=== PATIENT | male | born 1980 | race Caucasian/White ===

== ENCOUNTER 2016-07-01 20:21 | Inpatient (IN) | payer OTHER ==
[~2016-07-01] VITALS: Ht 182.9 cm; Wt 84.0 kg
[~2016-07-01 20:21] MED LIST: INSULIN PUMP SQ
[2016-07-01] MEDS ORDERED: SODIUM CHLORIDE 0.9% 1,000 ML IV ONE (20:45)
[2016-07-01] MEDS ORDERED: HYDROmorphone 2 MG/ML SYRINGE IVP ONE ×2 (20:45→23:45)
[2016-07-01] MEDS ORDERED: ONDANSETRON HCL 4 MG/2 ML VIAL IVP ONE (20:45)
[2016-07-01 20:53] LABS: BASOPHILS % (AUTO) 0.6 % (0.0-2.0); HEMATOCRIT 42.7 % (41-53); HEMOGLOBIN 14.4 g/dL (13.5-17.5); LYMPHOCYTES # (AUTO) 2.8 K/uL (1.0-4.8); LYMPHOCYTES % (AUTO) 27.4 % (22.0-44.0); MEAN CORPUSCULAR HEMOGLOBIN 31.8 pg (26.0-34.0); MEAN CORPUSCULAR HGB CONC 33.8 G/dL (31.0-37.0); MEAN CORPUSCULAR VOLUME 94 fL (80-100); MONOCYTES # (AUTO) 0.5 K/uL (0.1-1.0); MONOCYTES % (AUTO) 5.3 % (2.0-9.0); NEUTROPHILS # (AUTO) 6.6 K/uL (1.8-7.7); NEUTROPHILS % (AUTO) 64.7 % (40.0-70.0); PLATELET COUNT (AUTO) 376 K/uL (150-450); RED BLOOD CELL COUNT(AUTO) 4.53 MIL/uL (4.50-5.90); WHITE BLOOD COUNT (AUTO) 10.2 K/uL (4.5-11.0)
[2016-07-01 21:01] LABS: ANION GAP 7 mmol/L (8-16); CALCIUM, TOTAL 8.7 mg/dL (8.8-10.5); CARBON DIOXIDE 29 mmol/L (22-29); CHLORIDE 103 mmol/L (98-107); CREATININE 1.82 mg/dL (0.60-1.30); GLOMERULAR FILTR. RATE CALC 42 mL/min (>60); POTASSIUM 4.3 mmol/L (3.5-5.1); SODIUM SERUM 139 mmol/L (136-145); UREA NITROGEN, BLOOD 27 mg/dL (7-18)
[2016-07-01 21:06] LABS: ALANINE AMINOTRANSFERASE 29 U/L (12-78); ALBUMIN 2.7 g/dL (3.4-5.0); ASPARTATE AMINOTRANSFERASE 20 U/L (15-37); BILIRUBIN,TOTAL 0.2 mg/dL (0.1-1.0); TOTAL PROTEIN, SERUM 6.4 g/dL (6.4-8.2)
[2016-07-01] MEDS ORDERED: SODIUM CHLORIDE 0.9% 2,000 ML IV ONE (21:45)
[2016-07-01 22:11] LABS: GLUCOSE,POINT OF CARE 47 MG/DL (70-110)
[2016-07-01 22:46] LABS: GLUCOSE,POINT OF CARE 129 MG/DL (70-110)
[2016-07-01] MEDS ORDERED: 0.9% SODIUM CHLORIDE 10 ML SYRINGE IVP PRN (23:45)
[2016-07-01] MEDS ORDERED: ONDANSETRON HCL 4 MG/2 ML VIAL IVP PRN (23:45)
[2016-07-01] MEDS ORDERED: ACETAMINOPHEN 325 MG TABLET PO PRN (23:45)
[2016-07-01] MEDS ORDERED: DEXTROSE 10%-WATER 1,000 ML IV ONE (23:45)
[2016-07-01] MEDS ORDERED: KETOROLAC TROMETHAMINE 30 MG/ML VIAL IVP ONE (23:45)
[2016-07-02] MEDS ORDERED: DEXTROSE 50%-WATER 25 GM/50 ML SYRINGE IVP ONE
[2016-07-02 00:07] LABS: GLUCOSE,POINT OF CARE 158 MG/DL (70-110)
[2016-07-02 01:21] LABS: APPEARANCE,URINE CLEAR (CLEAR); GLUCOSE, URINE (UA) 100 mg/dL (NEGATIVE); KETONES,URINE NEGATIVE (NEGATIVE); LEUKOCYTE ESTERASE ,URINE NEGATIVE (NEGATIVE); PROTEIN,URINE SEE CONFIRM (NEGATIVE)
[2016-07-02 01:37] LABS: OCCULT BLOOD,URINE TRACE (NEGATIVE); SULFOSALICYLIC ACID,URINE 3+ (Negative); WBC,URINE 0-2 /HPF (0-5)
[2016-07-02 02:16] LABS: GLUCOSE,POINT OF CARE 125 MG/DL (70-110)
[2016-07-02] MEDS ORDERED: ONDANSETRON HCL 4 MG/2 ML VIAL IVP ONE (03:15)
[2016-07-02] MEDS ORDERED: KETOROLAC TROMETHAMINE 30 MG/ML VIAL IVP ONE (03:15)
[2016-07-02] MEDS ORDERED: HYDROmorphone 2 MG/ML SYRINGE IVP ONE (03:15)
[2016-07-02 04:41] LABS: GLUCOSE,POINT OF CARE 254 MG/DL (70-110)
[2016-07-02] MEDS ORDERED: ACETAMINOPHEN 325 MG TABLET PO PRN (05:30)
[2016-07-02] MEDS ORDERED: 0.9% SODIUM CHLORIDE 10 ML SYRINGE IVP PRN (05:30)
[2016-07-02] MEDS ORDERED: ONDANSETRON HCL 4 MG/2 ML VIAL IVP PRN ×2 (05:30→10:00)
[2016-07-02 05:52] LABS: GLUCOSE,POINT OF CARE 256 MG/DL (70-110)
[2016-07-02 06:41] VITALS: BP 136/89
[2016-07-02 06:56] LABS: GLUCOSE,POINT OF CARE 113 MG/DL (70-110)
[2016-07-02] MEDS ORDERED: INFLUENZA VIRUS VACCINE QVS 2016-17 (3YR+)/PF 60 MCG/0.5 ML SYRINGE IM ONE (07:15)
[2016-07-02 07:48] VITALS: BP 133/76
[2016-07-02 09:45] LABS: GLUCOSE,POINT OF CARE 164 MG/DL (70-110)
[2016-07-02] MEDS ORDERED: DEXTROSE 50%-WATER 25 GM/50 ML SYRINGE IVP PRN (09:45)
[2016-07-02] MEDS ORDERED: MORPHINE SULFATE 2 MG/ML SYRINGE IVP PRN (10:00)
[2016-07-02] MEDS ORDERED: ALBUTEROL SULFATE 2.5 MG/0.5 ML NEB SOLUTION NEB PRN (10:00)
[2016-07-02] MEDS ORDERED: ZOLPIDEM TARTRATE 5 MG TABLET PO PRN (10:00)
[2016-07-02] MEDS ORDERED: MAGNESIUM HYDROXIDE SUSPENSION 30 ML UDCUP PO PRN (10:00)
[2016-07-02] MEDS ORDERED: BISACODYL 10 MG RECTAL RECTAL SUPPOSITORY PR PRN (10:00)
[2016-07-02] MEDS ORDERED: IPRATROPIUM BROMIDE 0.5 MG/2.5 ML NEB SOLUTION NEB PRN (10:00)
[2016-07-02] MEDS ORDERED: SODIUM CHLORIDE 0.45% 1,000 ML IV ONE (10:15)
[2016-07-02] MEDS: PANTOPRAZOLE SODIUM 40 MG/VIAL IVP SCH (11:10)
[2016-07-02] MEDS: MORPHINE SULFATE 2 MG/ML SYRINGE IVP PRN ×2 (11:10→18:36)
[2016-07-02 11:38] LABS: BASOPHILS % (AUTO) 0.9 % (0.0-2.0); EOSINOPHILS % (AUTO) 1.4 % (1.0-6.0); HEMATOCRIT 42.5 % (41-53); HEMOGLOBIN 14.2 g/dL (13.5-17.5); LYMPHOCYTES # (AUTO) 2.1 K/uL (1.0-4.8); LYMPHOCYTES % (AUTO) 14.6 % (22.0-44.0); MEAN CORPUSCULAR HEMOGLOBIN 31.6 pg (26.0-34.0); MEAN CORPUSCULAR HGB CONC 33.4 G/dL (31.0-37.0); MEAN CORPUSCULAR VOLUME 95 fL (80-100); MONOCYTES # (AUTO) 0.6 K/uL (0.1-1.0); MONOCYTES % (AUTO) 4.3 % (2.0-9.0); NEUTROPHILS # (AUTO) 11.1 K/uL (1.8-7.7); NEUTROPHILS % (AUTO) 78.8 % (40.0-70.0); PLATELET COUNT (AUTO) 365 K/uL (150-450); RED BLOOD CELL COUNT(AUTO) 4.49 MIL/uL (4.50-5.90); RED CELL DISTRIBUTION WIDTH 13.9 % (11.5-14.5); WHITE BLOOD COUNT (AUTO) 14.1 K/uL (4.5-11.0)
[2016-07-02 11:50] VITALS: BP 137/69
[2016-07-02 11:51] LABS: GLUCOSE,POINT OF CARE 177 MG/DL (70-110)
[2016-07-02 11:52] LABS: ALBUMIN 2.4 g/dL (3.4-5.0); BILIRUBIN,TOTAL 0.3 mg/dL (0.1-1.0); CALCIUM, TOTAL 8.2 mg/dL (8.8-10.5); CREATININE 1.7 mg/dL (0.60-1.30); POTASSIUM 4.4 mmol/L (3.5-5.1); TOTAL PROTEIN, SERUM 5.8 g/dL (6.4-8.2)
[2016-07-02] MEDS: ACETAMINOPHEN 325 MG TABLET PO PRN ×2 (14:52→22:48)
[2016-07-02 15:40] VITALS: BP 141/90
[2016-07-02 17:31] LABS: GLUCOSE COMMENT 1 Received Meds; GLUCOSE,POINT OF CARE 305 MG/DL (70-110)
[2016-07-02] MEDS: INSULIN ASPART 100 UNITS/ML SQ PRN ×2 (17:45→21:37)
[2016-07-02 19:39] VITALS: BP 139/89
[2016-07-02 21:46] LABS: GLUCOSE COMMENT 1 Received Meds; GLUCOSE,POINT OF CARE 188 MG/DL (70-110)
[2016-07-02 23:15] VITALS: BP 130/78
[2016-07-03 02:31] LABS: GLUCOSE COMMENT 1 Received Meds; GLUCOSE,POINT OF CARE 303 MG/DL (70-110)
[2016-07-03] MEDS: INSULIN ASPART 100 UNITS/ML SQ PRN ×4 (02:36→16:30)
[2016-07-03] MEDS: MORPHINE SULFATE 2 MG/ML SYRINGE IVP PRN ×3 (02:36→14:27)
[2016-07-03 03:45] VITALS: BP 132/76
[2016-07-03 05:44] LABS: BASOPHILS % (AUTO) 0.7 % (0.0-2.0); HEMATOCRIT 41.5 % (41-53); HEMOGLOBIN 13.8 g/dL (13.5-17.5); LYMPHOCYTES # (AUTO) 2.1 K/uL (1.0-4.8); LYMPHOCYTES % (AUTO) 26.9 % (22.0-44.0); MEAN CORPUSCULAR HEMOGLOBIN 31.6 pg (26.0-34.0); MEAN CORPUSCULAR HGB CONC 33.2 G/dL (31.0-37.0); MEAN CORPUSCULAR VOLUME 95 fL (80-100); MONOCYTES # (AUTO) 0.4 K/uL (0.1-1.0); MONOCYTES % (AUTO) 5.5 % (2.0-9.0); NEUTROPHILS % (AUTO) 63.9 % (40.0-70.0); PLATELET COUNT (AUTO) 330 K/uL (150-450); RED BLOOD CELL COUNT(AUTO) 4.37 MIL/uL (4.50-5.90); RED CELL DISTRIBUTION WIDTH 13.4 % (11.5-14.5); WHITE BLOOD COUNT (AUTO) 7.9 K/uL (4.5-11.0)
[2016-07-03 05:53] LABS: HEMOGLOBIN A1C 10.3 % (4.5-6.2)
[2016-07-03 06:06] LABS: GLUCOSE COMMENT 1 Received Meds; GLUCOSE,POINT OF CARE 162 MG/DL (70-110)
[2016-07-03 06:16] LABS: AMYLASE 51 U/L (25-115); ANION GAP 4 mmol/L (8-16); CALCIUM, TOTAL 8.2 mg/dL (8.8-10.5); CARBON DIOXIDE 27 mmol/L (22-29); CHLORIDE 103 mmol/L (98-107); CHOL/HDL RATIO 3.3 (4.2-7.3); CREATINE KINASE MB 1.6 ng/mL (0-5); CREATINE KINASE, TOTAL 131 U/L (39-308); CREATININE 1.74 mg/dL (0.60-1.30); GLOMERULAR FILTR. RATE CALC 44 mL/min (>60); POTASSIUM 3.9 mmol/L (3.5-5.1); SODIUM SERUM 134 mmol/L (136-145); THYROID STIMULATING HORMONE 2.78 uIU/mL (0.36-3.74); UREA NITROGEN, BLOOD 21 mg/dL (7-18)
[2016-07-03 08:04] VITALS: BP 143/88
[2016-07-03] MEDS: PANTOPRAZOLE SODIUM 40 MG/VIAL IVP SCH (09:39)
[2016-07-03 10:21] LABS: GLUCOSE,POINT OF CARE 240 MG/DL (70-110)
[2016-07-03 11:26] LABS: GLUCOSE COMMENT 1 Received Meds; GLUCOSE,POINT OF CARE 287 MG/DL (70-110)
[2016-07-03 12:34] VITALS: BP 142/78
[2016-07-03 15:45] VITALS: BP 139/92
[2016-07-03 19:54] VITALS: BP 134/86
[2016-07-03 22:26] LABS: GLUCOSE COMMENT 1 Received Meds; GLUCOSE,POINT OF CARE 263 MG/DL (70-110)
[2016-07-04 04:12] LABS: GLUCOSE COMMENT 1 Received Meds; GLUCOSE,POINT OF CARE 300 MG/DL (70-110)
== END 2016-07-03 20:30 | disposition home or self-care (01) | DRG 420 ==
LOC: EMS 20:23 → 6N 07-02 05:32
PROVIDERS: ADMIT Internal Medicine Geriatric Medicine; ATTEND Internal Medicine
DX: E10.649 Type 1 diabetes mellitus with hypoglycemia without coma (principal); E10.21 Type 1 diabetes mellitus with diabetic nephropathy; E10.40 Type 1 diabetes mellitus with diabetic neuropathy, unspecified; N20.0 Calculus of kidney; E86.0 Dehydration; I12.9 Hypertensive chronic kidney disease with stage 1 through stage 4 chronic kidney disease, or unspecified chronic kidney disease; E10.22 Type 1 diabetes mellitus with diabetic chronic kidney disease; N18.9 Chronic kidney disease, unspecified; E10.319 Type 1 diabetes mellitus with unspecified diabetic retinopathy without macular edema; F17.210 Nicotine dependence, cigarettes, uncomplicated; Z87.442 Personal history of urinary calculi; Z79.4 Long term (current) use of insulin; S20.219A Contusion of unspecified front wall of thorax, initial encounter; S30.1XXA Contusion of abdominal wall, initial encounter; V89.9XXA Person injured in unspecified vehicle accident, initial encounter; Y93.89 Activity, other specified; Y92.89 Other specified places as the place of occurrence of the external cause; Y99.8 Other external cause status; Z82.49 Family history of ischemic heart disease and other diseases of the circulatory system; Z83.3 Family history of diabetes mellitus
CPT/HCPCS: 74177; 76700; 81050; 82306; 82575; 82607; 82746; 82962; 83036; 83735; 84156; 84439; 84443; 90471; 93306; 96361; 96374; 96375; 96376; 99285; C9113; G0480; J1170; J1885; J2270; J2405; J7030

== ENCOUNTER 2017-03-25 17:40 | Emergency (ER) | payer OTHER ==
[~2017-03-25] VITALS: Ht 182.9 cm; Wt 77.0 kg
[~2017-03-25 17:40] MED LIST changes: +DULO20CA30 PO; +GABA-531 PO; +INSU100V12 SQ; -INSULIN PUMP SQ
[2017-03-25] MEDS ORDERED: INSULIN PUMP (17:45)
[2017-03-25 17:57] LABS: GLUCOSE,POINT OF CARE 303 MG/DL (70-110)
[2017-03-25] MEDS ORDERED: SODIUM CHLORIDE 0.9% 1,000 ML IV ONE ×2 (18:30→20:15)
[2017-03-25 18:54] LABS: BASOPHILS % (AUTO) 0.3 % (0.0-2.0); EOSINOPHILS % (AUTO) 0.4 % (1.0-6.0); HEMATOCRIT 44.1 % (41-53); LYMPHOCYTES # (AUTO) 0.8 K/uL (1.0-4.8); MEAN CORPUSCULAR HEMOGLOBIN 32.1 pg (26.0-34.0); MEAN CORPUSCULAR VOLUME 95 fL (80-100); MONOCYTES # (AUTO) 0.5 K/uL (0.1-1.0); MONOCYTES % (AUTO) 6.4 % (2.0-9.0); NEUTROPHILS # (AUTO) 6.8 K/uL (1.8-7.7); NEUTROPHILS % (AUTO) 82.9 % (40.0-70.0); PLATELET COUNT (AUTO) 294 K/uL (150-450); RED BLOOD CELL COUNT(AUTO) 4.67 MIL/uL (4.50-5.90); RED CELL DISTRIBUTION WIDTH 14.2 % (11.5-14.5); WHITE BLOOD COUNT (AUTO) 8.2 K/uL (4.5-11.0)
[2017-03-25 19:02] LABS: ANION GAP 11 mmol/L (8-16); CALCIUM, TOTAL 8.6 mg/dL (8.8-10.5); CARBON DIOXIDE 24 mmol/L (22-29); CHLORIDE 99 mmol/L (98-107); CREATININE 2.05 mg/dL (0.60-1.30); GLOMERULAR FILTR. RATE CALC 37 mL/min (>60); OSMOLALITY 303 mOS/kg (270-310); POTASSIUM 4.7 mmol/L (3.5-5.1); SODIUM SERUM 134 mmol/L (136-145); UREA NITROGEN, BLOOD 19 mg/dL (7-18)
[2017-03-25 19:03] LABS: GLUCOSE,POINT OF CARE 389 MG/DL (70-110)
[2017-03-25 19:07] LABS: PROTHROMBIN TIME 10.3 SEC (9.4-11.6)
[2017-03-25 19:25] LABS: ALANINE AMINOTRANSFERASE 25 U/L (12-78); ALBUMIN 2.7 g/dL (3.4-5.0); ASPARTATE AMINOTRANSFERASE 21 U/L (15-37); BILIRUBIN,TOTAL 0.4 mg/dL (0.1-1.0); CREATINE KINASE MB 0.6 ng/mL (0-5); CREATINE KINASE, TOTAL 75 U/L (39-308); TOTAL PROTEIN, SERUM 6.9 g/dL (6.4-8.2)
[2017-03-25 20:12] LABS: GLUCOSE,POINT OF CARE 367 MG/DL (70-110)
[2017-03-25] MEDS ORDERED: CefTRIAXone 1 GM/DEXTROSE 50 ML IV ONE (20:15)
[2017-03-25 20:41] VITALS: BP 134/68
== END 2017-03-25 21:23 | disposition home or self-care (01) ==
LOC: EMS 17:42
DX: E11.65 Type 2 diabetes mellitus with hyperglycemia (principal); E86.0 Dehydration; J40 Bronchitis, not specified as acute or chronic; F17.210 Nicotine dependence, cigarettes, uncomplicated; Z79.4 Long term (current) use of insulin
CPT/HCPCS: 36415; 71010; 80053; 82009; 82550; 82553; 82962; 83930; 85025; 85610; 85730; 87040; 93005; 96361; 96365; 99285; J0696; J7030

== ENCOUNTER 2017-04-20 14:31 | Inpatient (IN) | payer OTHER ==
[~2017-04-20] VITALS: Ht 177.8 cm; Wt 69.5 kg
[~2017-04-20 14:31] MED LIST changes: -DULO20CA30 PO; -GABA-531 PO; -INSU100V12 SQ; +INSULIN PUMP
[2017-04-20 14:42] LABS: GLUCOSE COMMENT 2 Doctor Notified; GLUCOSE,POINT OF CARE 451 MG/DL (70-110)
[2017-04-20] MEDS ORDERED: SODIUM CHLORIDE 0.9% 1,000 ML IV ONE ×3 (15:00→16:45)
[2017-04-20] MEDS ORDERED: ONDANSETRON HCL 4 MG/2 ML VIAL IVP ONE (15:00)
[2017-04-20] MEDS ORDERED: INSULIN REGULAR, HUMAN 100 UNITS/ML IVP ONE (15:00)
[2017-04-20 15:34] LABS: BASOPHILS % (AUTO) 0.1 % (0.0-2.0); EOSINOPHILS % (AUTO) 0 % (1.0-6.0); HEMOGLOBIN 15.4 g/dL (13.5-17.5); LYMPHOCYTES # (AUTO) 1.2 K/uL (1.0-4.8); LYMPHOCYTES % (AUTO) 7.1 % (22.0-44.0); MEAN CORPUSCULAR HEMOGLOBIN 32.3 pg (26.0-34.0); MEAN CORPUSCULAR HGB CONC 34.4 G/dL (31.0-37.0); MEAN CORPUSCULAR VOLUME 94 fL (80-100); MONOCYTES # (AUTO) 0.6 K/uL (0.1-1.0); MONOCYTES % (AUTO) 3.8 % (2.0-9.0); NEUTROPHILS # (AUTO) 14.4 K/uL (1.8-7.7); PLATELET COUNT (AUTO) 396 K/uL (150-450); RED BLOOD CELL COUNT(AUTO) 4.78 MIL/uL (4.50-5.90); RED CELL DISTRIBUTION WIDTH 14.3 % (11.5-14.5); WHITE BLOOD COUNT (AUTO) 16.2 K/uL (4.5-11.0)
[2017-04-20 15:45] LABS: ALANINE AMINOTRANSFERASE 23 U/L (12-78); ALBUMIN 3.3 g/dL (3.4-5.0); ANION GAP 20 mmol/L (8-16); ASPARTATE AMINOTRANSFERASE 8 U/L (15-37); BILIRUBIN,TOTAL 0.5 mg/dL (0.1-1.0); CALCIUM, TOTAL 9.6 mg/dL (8.8-10.5); CARBON DIOXIDE 23 mmol/L (22-29); CHLORIDE 93 mmol/L (98-107); CREATININE 3.28 mg/dL (0.60-1.30); GLOMERULAR FILTR. RATE CALC 21 mL/min (>60); POTASSIUM 3.8 mmol/L (3.5-5.1); SODIUM SERUM 136 mmol/L (136-145); TOTAL PROTEIN, SERUM 7.5 g/dL (6.4-8.2); UREA NITROGEN, BLOOD 34 mg/dL (7-18)
[2017-04-20 16:43] LABS: GLUCOSE,POINT OF CARE 326 MG/DL (70-110)
[2017-04-20] MEDS ORDERED: ONDANSETRON HCL 4 MG/2 ML VIAL IVP PRN (16:45)
[2017-04-20] MEDS ORDERED: DEXTROSE 50%-WATER 25 GM/50 ML SYRINGE IVP PRN ×2 (16:45→21:15)
[2017-04-20] MEDS ORDERED: INSULIN REGULAR, HUMAN 100 UNITS/ML SQ PRN (16:45)
[2017-04-20] MEDS ORDERED: ACETAMINOPHEN 325 MG TABLET PO PRN (16:45)
[2017-04-20 19:13] LABS: GLUCOSE,POINT OF CARE 242 MG/DL (70-110)
[2017-04-20 20:10] VITALS: BP 141/72
[2017-04-20] MEDS ORDERED: DEXTROSE IV SCH (21:15)
[2017-04-20] MEDS ORDERED: INSULIN ASPART 100 UNITS/ML SQ PRN (21:15)
[2017-04-20] MEDS ORDERED: SODIUM CHL IV SCH (21:15)
[2017-04-20] MEDS ORDERED: SODIUM BICARBONATE IV SCH (21:15)
[2017-04-20] MEDS: ONDANSETRON HCL 4 MG/2 ML VIAL IVP PRN (23:34)
[2017-04-20 23:53] VITALS: BP 138/76
[2017-04-21] MEDS ORDERED: ACETAMINOPHEN 325 MG TABLET PO SCH
[2017-04-21] MEDS ORDERED: CALCIUM CARBONATE 500 MG CHEWABLE TABLET CHEW PRN (00:30)
[2017-04-21] MEDS: BENZOCAINE/MENTHOL LOZENGE [8 LOZENGES/PACKET] PO PRN (01:48)
[2017-04-21 03:40] LABS: APPEARANCE,URINE CLEAR (CLEAR); GLUCOSE, URINE (UA) >=1000 mg/dL (NEGATIVE); KETONES,URINE 40 mg/dL (NEGATIVE); LEUKOCYTE ESTERASE ,URINE NEGATIVE (NEGATIVE); OCCULT BLOOD,URINE MODERATE (NEGATIVE); PH,URINE 5.5 (5.0-8.0); PROTEIN,URINE SEE CONFIRM (NEGATIVE)
[2017-04-21 03:56] VITALS: BP 138/71
[2017-04-21 04:06] LABS: SULFOSALICYLIC ACID,URINE 2+ (Negative)
[2017-04-21 04:09] LABS: COARSE GRANULAR CASTS,URINE 0-2 /LPF (None Seen); RBC,URINE 0-2 /HPF (0-2); SQUAMOUS EPITHELIAL CELL,UR Few /LPF (None Seen); WBC,URINE 0-2 /HPF (0-5)
[2017-04-21] MEDS: PROMETHAZINE HCL 25 MG/ML VIAL IM PRN ×2 (04:37→21:27)
[2017-04-21] MEDS ORDERED: SODIUM CHLORIDE 0.45% 1,000 ML IV PRN (04:41)
[2017-04-21] MEDS ORDERED: POTASSIUM CHL 20 MEQ/0.45% NS 1,000 ML IV PRN (04:41)
[2017-04-21] MEDS ORDERED: DEXTROSE 5%-0.45% SODIUM CHL 1,000 ML IV PRN (04:41)
[2017-04-21] MEDS ORDERED: POTASSIUM CHLORIDE 40 MEQ in SODIUM CHLORIDE 0.45% 1,000 ML IV PRN (04:41)
[2017-04-21] MEDS ORDERED: SODIUM CHLORIDE 0.9% 1,000 ML IV SCH (04:41)
[2017-04-21] MEDS ORDERED: DEXTROSE 50%-WATER 25 GM/50 ML SYRINGE IVP PRN ×3 (04:45→14:30)
[2017-04-21] MEDS ORDERED: INSULIN REGULAR, HUMAN 100 UNITS/ML IVP ONE (04:45)
[2017-04-21] MEDS ORDERED: INSULIN REGULAR, HUMAN 100 UNITS/ML IVP PRN ×2 (04:45→05:00)
[2017-04-21 05:00] VITALS: BP 157/76
[2017-04-21] MEDS ORDERED: INSULIN REGULAR, HUMAN 100 UNITS in SODIUM CHLORIDE 0.9% 99 ML IV PRN ×2 (05:30)
[2017-04-21 06:19] LABS: CALCIUM, TOTAL 8.5 mg/dL (8.8-10.5); CREATININE 2.63 mg/dL (0.60-1.30); MAGNESIUM 2.2 mg/dL (1.80-2.40); PHOSPHORUS 4.6 mg/dL (2.5-4.9); POTASSIUM 4.8 mmol/L (3.5-5.1)
[2017-04-21 06:20] LABS: EOSINOPHILS % (AUTO) 0.01 % (1.0-6.0); HEMATOCRIT 40.7 % (41-53); HEMOGLOBIN 13.6 g/dL (13.5-17.5); LYMPHOCYTES # (AUTO) 0.7 K/uL (1.0-4.8); LYMPHOCYTES % (AUTO) 3.8 % (22.0-44.0); MEAN CORPUSCULAR HGB CONC 33.5 G/dL (31.0-37.0); MEAN CORPUSCULAR VOLUME 96 fL (80-100); MONOCYTES # (AUTO) 0.8 K/uL (0.1-1.0); MONOCYTES % (AUTO) 4.9 % (2.0-9.0); NEUTROPHILS # (AUTO) 15.5 K/uL (1.8-7.7); PLATELET COUNT (AUTO) 314 K/uL (150-450); RED BLOOD CELL COUNT(AUTO) 4.26 MIL/uL (4.50-5.90); RED CELL DISTRIBUTION WIDTH 14.4 % (11.5-14.5)
[2017-04-21 07:05] LABS: BILIRUBIN,TOTAL 0.5 mg/dL (0.1-1.0); TOTAL PROTEIN, SERUM 6.2 g/dL (6.4-8.2)
[2017-04-21 07:06] LABS: ALBUMIN 2.7 g/dL (3.4-5.0)
[2017-04-21 07:08] LABS: GLUCOSE,POINT OF CARE > 600 MG/DL (70-110)
[2017-04-21 07:08] LABS: GLUCOSE,POINT OF CARE 580 MG/DL (70-110)
[2017-04-21 07:19] LABS: NEUTROPHILS % (AUTO) 91.3 % (40.0-70.0); RBC MORPHOLOGY COMMENT NORMAL RBC MORPH
[2017-04-21 07:46] LABS: HEMOGLOBIN A1C 11.7 % (4.5-6.2)
[2017-04-21 08:00] VITALS: BP 138/96
[2017-04-21] MEDS: PANTOPRAZOLE SODIUM 40 MG/VIAL IVP SCH ×2 (08:08→21:04)
[2017-04-21 08:32] LABS: GLUCOSE,POINT OF CARE 355 MG/DL (70-110)
[2017-04-21] MEDS ORDERED: MAGNESIUM SULFATE 4 GM/WATER 100 ML IV PRN ×2 (09:15→13:30)
[2017-04-21] MEDS ORDERED: POTASSIUM CHL 10 MEQ/WATER 50 ML IV PRN ×2 (09:15→13:30)
[2017-04-21] MEDS ORDERED: MAGNESIUM SULFATE 2 GM in DEXTROSE 5%-WATER 50 ML IV PRN ×2 (09:15→13:30)
[2017-04-21] MEDS ORDERED: POTASSIUM CHL 20 MEQ/0.45% NS 1,000 ML IV SCH (09:15)
[2017-04-21] MEDS ORDERED: MAGNESIUM OXIDE 400 MG TABLET PO PRN ×2 (09:15→13:30)
[2017-04-21 10:39] LABS: CALCIUM, TOTAL 8.2 mg/dL (8.8-10.5); POTASSIUM 3.2 mmol/L (3.5-5.1)
[2017-04-21 10:47] LABS: CREATININE 2.41 mg/dL (0.60-1.30)
[2017-04-21] MEDS ORDERED: SODIUM CHL IV SCH (11:00)
[2017-04-21] MEDS ORDERED: DEXTROSE IV SCH (11:00)
[2017-04-21] MEDS ORDERED: SODIUM BICARBONATE IV SCH (11:00)
[2017-04-21 11:12] LABS: GLUCOSE,POINT OF CARE 354 MG/DL (70-110)
[2017-04-21 12:00] VITALS: BP 124/72
[2017-04-21] MEDS ORDERED: POTASSIUM CHLORIDE 20 MEQ in SODIUM CHLORIDE 0.45% 1,000 ML IV SCH (12:15)
[2017-04-21] MEDS ORDERED: POTASSIUM CHLORIDE 20 MEQ ER TABLET PO PRN (13:30)
[2017-04-21] MEDS: POTASSIUM CHLORIDE 20 MEQ ER TABLET PO PRN ×2 (13:38→18:03)
[2017-04-21 14:40] LABS: CALCIUM, TOTAL 8.3 mg/dL (8.8-10.5); CREATININE 2.21 mg/dL (0.60-1.30); POTASSIUM 3.3 mmol/L (3.5-5.1)
[2017-04-21] MEDS: INSULIN REGULAR, HUMAN 100 UNITS/ML SQ PRN ×3 (15:57→21:09)
[2017-04-21 16:00] VITALS: BP 128/76
[2017-04-21] MEDS: PHENOL 1.4% 177 ML SPRAY BOTTLE PO PRN (16:00)
[2017-04-21 16:32] LABS: GLUCOSE,POINT OF CARE 130 MG/DL (70-110)
[2017-04-21 16:32] LABS: GLUCOSE,POINT OF CARE 101 MG/DL (70-110)
[2017-04-21] MEDS: MAALOX/LIDOCAINE/NYSTATIN SUSP 5 ML ORAL.SYG PO PRN ×2 (18:10→20:32)
[2017-04-21 20:00] VITALS: BP 143/79
[2017-04-21] MEDS ORDERED: INSULIN DETEMIR 100 UNITS/ML SQ SCH (21:00)
[2017-04-21] MEDS: INSULIN GLARGINE,HUM.REC.ANLOG 100 UNITS/ML SQ SCH (21:05)
[2017-04-22] VITALS: BP 109/81
[2017-04-22] MEDS: INSULIN REGULAR, HUMAN 100 UNITS/ML SQ PRN ×6 (00:55→20:22)
[2017-04-22] MEDS: ONDANSETRON HCL 4 MG/2 ML VIAL IVP PRN ×3 (03:56→14:33)
[2017-04-22 04:00] VITALS: BP 133/68
[2017-04-22 05:28] LABS: ALBUMIN 2.2 g/dL (3.4-5.0); BILIRUBIN,TOTAL 0.4 mg/dL (0.1-1.0); CALCIUM, TOTAL 8.4 mg/dL (8.8-10.5); CHOL/HDL RATIO 3.2 (4.2-7.3); CREATININE 1.93 mg/dL (0.60-1.30); MAGNESIUM 2.1 mg/dL (1.80-2.40); PHOSPHORUS 2.1 mg/dL (2.5-4.9); POTASSIUM 4.3 mmol/L (3.5-5.1); TOTAL PROTEIN, SERUM 5.3 g/dL (6.4-8.2)
[2017-04-22 07:48] LABS: GLUCOSE COMMENT 1 Received Meds; GLUCOSE,POINT OF CARE 249 MG/DL (70-110)
[2017-04-22 07:48] LABS: GLUCOSE,POINT OF CARE 260 MG/DL (70-110)
[2017-04-22 08:00] VITALS: BP 145/78
[2017-04-22] MEDS: PANTOPRAZOLE SODIUM 40 MG/VIAL IVP SCH ×2 (08:01→20:19)
[2017-04-22] MEDS: POTASSIUM PHOS/SODIUM PHOS MIXTURE 1 POWDER PACKET PO SCH ×2 (09:16→21:22)
[2017-04-22] MEDS: ACETAMINOPHEN 325 MG TABLET PO PRN ×2 (09:16→20:28)
[2017-04-22 11:54] LABS: GLUCOSE COMMENT 1 Doctor Notified; GLUCOSE COMMENT 2 Juice/Food/D50 Given; GLUCOSE,POINT OF CARE 59 MG/DL (70-110)
[2017-04-22 11:54] LABS: GLUCOSE COMMENT 1 Received Meds; GLUCOSE,POINT OF CARE 191 MG/DL (70-110)
[2017-04-22 11:54] LABS: GLUCOSE,POINT OF CARE 234 MG/DL (70-110)
[2017-04-22 11:54] LABS: GLUCOSE,POINT OF CARE 239 MG/DL (70-110)
[2017-04-22 11:54] LABS: GLUCOSE COMMENT 1 Received Meds; GLUCOSE,POINT OF CARE 197 MG/DL (70-110)
[2017-04-22 11:54] LABS: GLUCOSE,POINT OF CARE 94 MG/DL (70-110)
[2017-04-22 11:54] LABS: GLUCOSE COMMENT 1 Received Meds; GLUCOSE,POINT OF CARE 292 MG/DL (70-110)
[2017-04-22 11:54] LABS: GLUCOSE,POINT OF CARE 517 MG/DL (70-110)
[2017-04-22] MEDS ORDERED: DEXTROSE 5%-0.9% SODIUM CHL 1,000 ML IV SCH (12:00)
[2017-04-22 12:03] LABS: GLUCOSE,POINT OF CARE 221 MG/DL (70-110)
[2017-04-22 12:03] LABS: GLUCOSE,POINT OF CARE 201 MG/DL (70-110)
[2017-04-22 12:52] VITALS: BP 127/62
[2017-04-22 15:15] VITALS: BP 124/79
[2017-04-22] MEDS ORDERED: SODIUM CHLORIDE 0.45% 1,000 ML IV SCH (17:20)
[2017-04-22 17:23] LABS: GLUCOSE COMMENT 1 Received Meds; GLUCOSE,POINT OF CARE 235 MG/DL (70-110)
[2017-04-22 18:18] LABS: GLUCOSE COMMENT 1 Received Meds; GLUCOSE,POINT OF CARE 270 MG/DL (70-110)
[2017-04-22 18:18] LABS: GLUCOSE COMMENT 1 Doctor Notified; GLUCOSE,POINT OF CARE 513 MG/DL (70-110)
[2017-04-22 19:43] VITALS: BP 143/81
[2017-04-22] MEDS: PHENOL 1.4% 177 ML SPRAY BOTTLE PO PRN (20:20)
[2017-04-22] MEDS: INSULIN GLARGINE,HUM.REC.ANLOG 100 UNITS/ML SQ SCH (20:21)
[2017-04-22 21:55] LABS: GLUCOSE,POINT OF CARE 285 MG/DL (70-110)
[2017-04-23] VITALS: BP 140/81
[2017-04-23 05:09] VITALS: BP 146/79
[2017-04-23] MEDS: INSULIN REGULAR, HUMAN 100 UNITS/ML SQ PRN ×2 (06:29→12:34)
[2017-04-23 06:47] LABS: BASOPHILS % (AUTO) 0.3 % (0.0-2.0); EOSINOPHILS % (AUTO) 0.3 % (1.0-6.0); HEMATOCRIT 37.2 % (41-53); LYMPHOCYTES # (AUTO) 1.7 K/uL (1.0-4.8); LYMPHOCYTES % (AUTO) 23.1 % (22.0-44.0); MEAN CORPUSCULAR HEMOGLOBIN 32.5 pg (26.0-34.0); MEAN CORPUSCULAR HGB CONC 34.9 G/dL (31.0-37.0); MEAN CORPUSCULAR VOLUME 93 fL (80-100); MONOCYTES # (AUTO) 0.6 K/uL (0.1-1.0); MONOCYTES % (AUTO) 8.5 % (2.0-9.0); NEUTROPHILS % (AUTO) 67.8 % (40.0-70.0); PLATELET COUNT (AUTO) 265 K/uL (150-450); RED BLOOD CELL COUNT(AUTO) 3.98 MIL/uL (4.50-5.90); RED CELL DISTRIBUTION WIDTH 13.5 % (11.5-14.5); WHITE BLOOD COUNT (AUTO) 7.4 K/uL (4.5-11.0)
[2017-04-23 06:48] LABS: GLUCOSE COMMENT 1 Received Meds; GLUCOSE,POINT OF CARE 196 MG/DL (70-110)
[2017-04-23 07:07] LABS: CALCIUM, TOTAL 8.2 mg/dL (8.8-10.5); CREATININE 1.59 mg/dL (0.60-1.30); PHOSPHORUS 2.7 mg/dL (2.5-4.9); POTASSIUM 3.6 mmol/L (3.5-5.1)
[2017-04-23 07:32] VITALS: BP 147/80
[2017-04-23 09:35] LABS: ALBUMIN 2.1 g/dL (3.4-5.0); BILIRUBIN,TOTAL 0.5 mg/dL (0.1-1.0); CALCIUM, TOTAL 8.2 mg/dL (8.8-10.5); CREATININE 1.49 mg/dL (0.60-1.30); MAGNESIUM 2.1 mg/dL (1.80-2.40); PHOSPHORUS 2.6 mg/dL (2.5-4.9); POTASSIUM 3.6 mmol/L (3.5-5.1); TOTAL PROTEIN, SERUM 5.6 g/dL (6.4-8.2)
[2017-04-23] MEDS: PHENOL 1.4% 177 ML SPRAY BOTTLE PO PRN (12:12)
[2017-04-23] MEDS: BENZOCAINE/MENTHOL LOZENGE [8 LOZENGES/PACKET] PO PRN (12:13)
[2017-04-23 12:17] VITALS: BP 143/88
[2017-04-23] MEDS: PANTOPRAZOLE SODIUM 40 MG/VIAL IVP SCH (12:49)
[2017-04-23 12:53] LABS: GLUCOSE,POINT OF CARE 258 MG/DL (70-110)
[2017-04-23] MEDS ORDERED: VALSARTAN 40 MG TABLET PO SCH (13:30)
[2017-04-23] MEDS: MAALOX/LIDOCAINE/NYSTATIN SUSP 5 ML ORAL.SYG PO PRN (14:37)
== END 2017-04-23 13:10 | disposition home or self-care (01) | DRG 420 ==
LOC: EMS 14:33 → 5N 18:09 → ICU 04-21 04:34 → 6N 04-22 12:20
PROVIDERS: ADMIT Internal Medicine; ATTEND Internal Medicine
DX: E10.10 Type 1 diabetes mellitus with ketoacidosis without coma (principal); N17.9 Acute kidney failure, unspecified; K85.90 Acute pancreatitis without necrosis or infection, unspecified; R65.10 Systemic inflammatory response syndrome (SIRS) of non-infectious origin without acute organ dysfunction; E10.22 Type 1 diabetes mellitus with diabetic chronic kidney disease; N18.9 Chronic kidney disease, unspecified; E10.319 Type 1 diabetes mellitus with unspecified diabetic retinopathy without macular edema; K29.00 Acute gastritis without bleeding; E86.0 Dehydration; F17.210 Nicotine dependence, cigarettes, uncomplicated; I12.9 Hypertensive chronic kidney disease with stage 1 through stage 4 chronic kidney disease, or unspecified chronic kidney disease; Z79.4 Long term (current) use of insulin; Z87.441 Personal history of nephrotic syndrome; Z91.14 Patient's other noncompliance with medication regimen; Z87.442 Personal history of urinary calculi
CPT/HCPCS: 82010; 82570; 82962; 83036; 83735; 84100; 84132; 84300; 84540; 87081; 93005; 96361; 96374; 96375; 96376; 99285; C9113; J1815; J2405; J2550; J3480; J3490; J7030; J7042; J7050

== ENCOUNTER 2017-07-27 23:11 | Inpatient (IN) | payer OTHER ==
[~2017-07-27] VITALS: Ht 182.9 cm; Wt 73.8 kg
[2017-07-27 23:27] LABS: GLUCOSE,POINT OF CARE > 600 MG/DL (70-110)
[2017-07-27] MEDS ORDERED: SODIUM CHLORIDE 0.9% 2,000 ML IV ONE (23:38)
[2017-07-27 23:43] LABS: GLUCOSE,POINT OF CARE > 600 MG/DL (70-110)
[2017-07-27 23:45] LABS: BASOPHILS % (AUTO) 1.2 % (0.0-2.0); HEMATOCRIT 40.6 % (41-53); HEMOGLOBIN 13.7 g/dL (13.5-17.5); LYMPHOCYTES % (AUTO) 16.9 % (22.0-44.0); MEAN CORPUSCULAR HEMOGLOBIN 32.1 pg (26.0-34.0); MEAN CORPUSCULAR HGB CONC 33.7 G/dL (31.0-37.0); MEAN CORPUSCULAR VOLUME 95 fL (80-100); MONOCYTES % (AUTO) 8.1 % (2.0-9.0); NEUTROPHILS # (AUTO) 8.7 K/uL (1.8-7.7); NEUTROPHILS % (AUTO) 72.8 % (40.0-70.0); PLATELET COUNT (AUTO) 452 K/uL (150-450); RED BLOOD CELL COUNT(AUTO) 4.27 MIL/uL (4.50-5.90); RED CELL DISTRIBUTION WIDTH 13.1 % (11.5-14.5)
[2017-07-27] MEDS ORDERED: INSULIN REGULAR, HUMAN 100 UNITS/ML IVP ONE (23:45)
[2017-07-28] VITALS (8 sets, daily range): BP systolic 115–140; BP diastolic 73–82
[2017-07-28] MEDS ORDERED: ONDANSETRON HCL 4 MG/2 ML VIAL IVP ONE
[2017-07-28 00:07] LABS: ALANINE AMINOTRANSFERASE 28 U/L (12-78); ALBUMIN 2.3 g/dL (3.4-5.0); ALKALINE PHOSPHATASE 92 U/L (46-116); ANION GAP 8 mmol/L (8-16); ASPARTATE AMINOTRANSFERASE 16 U/L (15-37); BILIRUBIN,TOTAL 0.3 mg/dL (0.1-1.0); CALCIUM, TOTAL 8.2 mg/dL (8.8-10.5); CARBON DIOXIDE 26 mmol/L (22-29); CHLORIDE 91 mmol/L (98-107); CREATININE 1.92 mg/dL (0.60-1.30); GLOMERULAR FILTR. RATE CALC 39 mL/min (>60); LIPASE 283 U/L (73-393); POTASSIUM 5.2 mmol/L (3.5-5.1); SODIUM SERUM 125 mmol/L (136-145); TOTAL PROTEIN, SERUM 5.8 g/dL (6.4-8.2); UREA NITROGEN, BLOOD 29 mg/dL (7-18)
[2017-07-28 00:10] LABS: GLUCOSE,RANDOM 709 mg/dL (70-110)
[2017-07-28 00:45] LABS: ACETONE,BLOOD NEGATIVE (NEGATIVE)
[2017-07-28] MEDS ORDERED: MORPHINE SULFATE 10 MG/ML SYRINGE IVP ONE (01:00)
[2017-07-28] MEDS ORDERED: SODIUM CHLORIDE 0.9% 1,000 ML IV ONE (01:00)
[2017-07-28] MEDS ORDERED: INSULIN REGULAR, HUMAN 100 UNITS/ML IVP ONE ×2 (01:00→01:30)
[2017-07-28 01:08] LABS: GLUCOSE,POINT OF CARE 379 MG/DL (70-110)
[2017-07-28 01:30] LABS: APPEARANCE,URINE CLEAR (CLEAR); BILIRUBIN,URINE NEGATIVE (NEGATIVE); GLUCOSE, URINE (UA) >=1000 mg/dL (NEGATIVE); KETONES,URINE NEGATIVE (NEGATIVE); LEUKOCYTE ESTERASE ,URINE NEGATIVE (NEGATIVE); NITRATE,URINE NEGATIVE (NEGATIVE); OCCULT BLOOD,URINE SMALL (NEGATIVE); PROTEIN,URINE SEE CONFIRM (NEGATIVE); UROBILINOGEN,URINE 0.2 mg/dL (<=1.0)
[2017-07-28 01:58] LABS: BACTERIA,URINE None Seen /HPF (None Seen); RBC,URINE 0-2 /HPF (0-2); WBC,URINE None Seen /HPF (0-5)
[2017-07-28 02:27] LABS: GLUCOSE,POINT OF CARE 244 MG/DL (70-110)
[2017-07-28] MEDS ORDERED: 0.9% SODIUM CHLORIDE 10 ML SYRINGE IVP PRN (02:45)
[2017-07-28] MEDS ORDERED: ACETAMINOPHEN 325 MG TABLET PO PRN ×2 (02:45→06:00)
[2017-07-28] MEDS ORDERED: MORPHINE SULFATE 4 MG/ML SYRINGE IVP PRN (02:45)
[2017-07-28] MEDS ORDERED: ONDANSETRON HCL 4 MG/2 ML VIAL IVP PRN (02:45)
[2017-07-28 03:12] LABS: SULFOSALICYLIC ACID,URINE 1+ (Negative)
[2017-07-28] MEDS ORDERED: MAGNESIUM HYDROXIDE SUSPENSION 30 ML UDCUP PO PRN (06:00)
[2017-07-28] MEDS ORDERED: BISACODYL 10 MG RECTAL RECTAL SUPPOSITORY PR PRN (06:00)
[2017-07-28] MEDS ORDERED: DEXTROSE 50%-WATER 25 GM/50 ML SYRINGE IVP PRN (06:00)
[2017-07-28] MEDS ORDERED: ALBUTEROL SULFATE 2.5 MG/0.5 ML NEB SOLUTION NEB PRN (06:00)
[2017-07-28] MEDS ORDERED: IPRATROPIUM BROMIDE 0.5 MG/2.5 ML NEB SOLUTION NEB PRN (06:00)
[2017-07-28] MEDS: SODIUM CHLORIDE 0.9% 1,000 ML IV SCH ×3 (06:04→23:07)
[2017-07-28] MEDS: INSULIN ASPART 100 UNITS/ML SQ PRN ×3 (06:14→17:35)
[2017-07-28 06:20] LABS: BASOPHILS % (AUTO) 1.4 % (0.0-2.0); EOSINOPHILS % (AUTO) 1.7 % (1.0-6.0); HEMATOCRIT 36.5 % (41-53); HEMOGLOBIN 12.6 g/dL (13.5-17.5); LYMPHOCYTES # (AUTO) 3.4 K/uL (1.0-4.8); LYMPHOCYTES % (AUTO) 32.9 % (22.0-44.0); MEAN CORPUSCULAR HGB CONC 34.6 G/dL (31.0-37.0); MEAN CORPUSCULAR VOLUME 93 fL (80-100); MONOCYTES # (AUTO) 0.8 K/uL (0.1-1.0); MONOCYTES % (AUTO) 7.5 % (2.0-9.0); NEUTROPHILS # (AUTO) 5.8 K/uL (1.8-7.7); NEUTROPHILS % (AUTO) 56.5 % (40.0-70.0); PLATELET COUNT (AUTO) 417 K/uL (150-450); RED BLOOD CELL COUNT(AUTO) 3.94 MIL/uL (4.50-5.90); RED CELL DISTRIBUTION WIDTH 12.8 % (11.5-14.5)
[2017-07-28 06:35] LABS: ANION GAP 3 mmol/L (8-16); CALCIUM, TOTAL 7.7 mg/dL (8.8-10.5); CARBON DIOXIDE 28 mmol/L (22-29); CHLORIDE 104 mmol/L (98-107); CREATININE 1.62 mg/dL (0.60-1.30); GLOMERULAR FILTR. RATE CALC 48 mL/min (>60); GLUCOSE,RANDOM 266 mg/dL (70-110); POTASSIUM 4.3 mmol/L (3.5-5.1); SODIUM SERUM 135 mmol/L (136-145); UREA NITROGEN, BLOOD 24 mg/dL (7-18)
[2017-07-28 06:46] LABS: ALANINE AMINOTRANSFERASE 19 U/L (12-78); ALBUMIN 1.9 g/dL (3.4-5.0); ALKALINE PHOSPHATASE 76 U/L (46-116); ASPARTATE AMINOTRANSFERASE 12 U/L (15-37); BILIRUBIN,TOTAL 0.2 mg/dL (0.1-1.0); CHOL/HDL RATIO 3.6 (4.2-7.3); CHOLESTEROL 145 mg/dL (131-200); FREE T4 (FREE THYROXINE) 0.97 ng/dL (0.76-1.46); HDL CHOLESTEROL 40 mg/dL (40-60); LDL CHOL (CALC.) 72 mg/dL (0-130); TRIGLYCERIDES 166 mg/dL (15-150)
[2017-07-28 07:55] LABS: THYROID STIMULATING HORMONE 3.37 uIU/mL (0.36-3.74)
[2017-07-28] MEDS: HEPARIN SODIUM,PORCINE 5,000 UNITS/ML VIAL SQ SCH ×2 (09:00→20:59)
[2017-07-28] MEDS: DOCUSATE SODIUM 100 MG CAPSULE PO SCH ×2 (09:00→20:59)
[2017-07-28] MEDS: PANTOPRAZOLE SODIUM 40 MG DR TABLET PO SCH (12:13)
[2017-07-28] MEDS: ONDANSETRON HCL 4 MG/2 ML VIAL IVP PRN (12:13)
[2017-07-28] MEDS ORDERED: NITROGLYCERIN 0.4 MG SUBLINGUAL TABLET #25 SL PRN ×2 (12:45→13:15)
[2017-07-28 13:27] LABS: CREATINE KINASE, TOTAL 62 U/L (39-308)
[2017-07-28] MEDS: ASPIRIN 81 MG CHEWABLE TABLET PO SCH (13:37)
[2017-07-28] MEDS: MORPHINE SULFATE 2 MG/ML SYRINGE IVP PRN (14:56)
[2017-07-28 16:53] LABS: GLUCOMETER DEV NAME(LOC) PV 4E; GLUCOSE,POINT OF CARE 273 MG/DL (70-110)
[2017-07-28 17:03] LABS: GLUCOMETER DEV NAME(LOC) 5N 1N; GLUCOSE,POINT OF CARE 299 MG/DL (70-110)
[2017-07-28 17:53] LABS: GLUCOMETER DEV NAME(LOC) 5S 1M; GLUCOSE,POINT OF CARE 392 MG/DL (70-110)
[2017-07-28 19:53] LABS: GLUCOMETER DEV NAME(LOC) 6N 1E; GLUCOSE,POINT OF CARE 251 MG/DL (70-110)
[2017-07-29 00:05] VITALS: BP 146/83
[2017-07-29] MEDS: MORPHINE SULFATE 2 MG/ML SYRINGE IVP PRN ×2 (02:10→22:32)
[2017-07-29 04:32] VITALS: BP 128/76
[2017-07-29] MEDS: INSULIN ASPART 100 UNITS/ML SQ PRN ×3 (06:10→21:19)
[2017-07-29] MEDS: SODIUM CHLORIDE 0.9% 1,000 ML IV SCH (06:10)
[2017-07-29 06:41] LABS: BASOPHILS % (AUTO) 1.4 % (0.0-2.0); EOSINOPHILS % (AUTO) 2.2 % (1.0-6.0); HEMATOCRIT 37.2 % (41-53); HEMOGLOBIN 12.9 g/dL (13.5-17.5); LYMPHOCYTES # (AUTO) 2.8 K/uL (1.0-4.8); LYMPHOCYTES % (AUTO) 34.6 % (22.0-44.0); MEAN CORPUSCULAR HEMOGLOBIN 32.3 pg (26.0-34.0); MEAN CORPUSCULAR HGB CONC 34.7 G/dL (31.0-37.0); MEAN CORPUSCULAR VOLUME 93 fL (80-100); MONOCYTES # (AUTO) 0.5 K/uL (0.1-1.0); MONOCYTES % (AUTO) 6.7 % (2.0-9.0); NEUTROPHILS # (AUTO) 4.4 K/uL (1.8-7.7); NEUTROPHILS % (AUTO) 55.1 % (40.0-70.0); PLATELET COUNT (AUTO) 437 K/uL (150-450); RED CELL DISTRIBUTION WIDTH 12.7 % (11.5-14.5)
[2017-07-29 07:04] LABS: ALBUMIN 1.8 g/dL (3.4-5.0); BILIRUBIN,TOTAL 0.2 mg/dL (0.1-1.0); CREATININE 1.59 mg/dL (0.60-1.30); POTASSIUM 4.6 mmol/L (3.5-5.1); TOTAL PROTEIN, SERUM 4.9 g/dL (6.4-8.2)
[2017-07-29 07:09] VITALS: BP 119/67
[2017-07-29] MEDS: PANTOPRAZOLE SODIUM 40 MG DR TABLET PO SCH (08:17)
[2017-07-29] MEDS: DOCUSATE SODIUM 100 MG CAPSULE PO SCH ×2 (08:18→21:00)
[2017-07-29] MEDS: ASPIRIN 81 MG CHEWABLE TABLET PO SCH (08:18)
[2017-07-29] MEDS: HEPARIN SODIUM,PORCINE 5,000 UNITS/ML VIAL SQ SCH ×2 (08:19→21:00)
[2017-07-29] MEDS ORDERED: ASPIRIN 81 MG CHEWABLE TABLET PO SCH (09:00)
[2017-07-29] MEDS: PANTOPRAZOLE SODIUM 40 MG/VIAL IVP SCH ×2 (10:00→21:07)
[2017-07-29] MEDS ORDERED: INSULIN LISPRO IV ONE (11:00)
[2017-07-29 11:13] VITALS: BP 156/85
[2017-07-29 12:54] LABS: GLUCOMETER DEV NAME(LOC) 5S 1M; GLUCOSE,POINT OF CARE 253 MG/DL (70-110)
[2017-07-29 12:54] LABS: GLUCOMETER DEV NAME(LOC) 5S 1M; GLUCOSE,POINT OF CARE 73 MG/DL (70-110)
[2017-07-29 12:54] LABS: GLUCOMETER DEV NAME(LOC) 5S 1M; GLUCOSE,POINT OF CARE 110 MG/DL (70-110)
[2017-07-29 12:54] LABS: GLUCOMETER DEV NAME(LOC) 5S 1M; GLUCOSE,POINT OF CARE 186 MG/DL (70-110)
[2017-07-29 16:08] VITALS: BP 138/89
[2017-07-29 16:18] LABS: GLUCOMETER DEV NAME(LOC) 5N 1N; GLUCOSE,POINT OF CARE 212 MG/DL (70-110)
[2017-07-29 20:02] VITALS: BP 135/86
[2017-07-29] MEDS: RAMIPRIL 5 MG CAPSULE PO SCH (21:25)
[2017-07-29] MEDS: ONDANSETRON HCL 4 MG/2 ML VIAL IVP PRN (22:27)
[2017-07-29 22:48] LABS: GLUCOMETER DEV NAME(LOC) 5N 1N; GLUCOSE,POINT OF CARE 134 MG/DL (70-110)
[2017-07-29 22:48] LABS: GLUCOMETER DEV NAME(LOC) 5N 1N; GLUCOSE,POINT OF CARE 337 MG/DL (70-110)
[2017-07-30 00:03] VITALS: BP 145/82
[2017-07-30 04:52] VITALS: BP 132/76
[2017-07-30] MEDS: SODIUM CHLORIDE 0.9% 1,000 ML IV SCH (06:08)
[2017-07-30] MEDS: MORPHINE SULFATE 2 MG/ML SYRINGE IVP PRN (06:15)
[2017-07-30 07:01] LABS: BASOPHILS % (AUTO) 1.9 % (0.0-2.0); EOSINOPHILS % (AUTO) 2.3 % (1.0-6.0); HEMOGLOBIN 13.4 g/dL (13.5-17.5); LYMPHOCYTES # (AUTO) 3.1 K/uL (1.0-4.8); LYMPHOCYTES % (AUTO) 40.7 % (22.0-44.0); MEAN CORPUSCULAR HEMOGLOBIN 31.8 pg (26.0-34.0); MEAN CORPUSCULAR HGB CONC 34.3 G/dL (31.0-37.0); MEAN CORPUSCULAR VOLUME 93 fL (80-100); MONOCYTES # (AUTO) 0.6 K/uL (0.1-1.0); MONOCYTES % (AUTO) 7.3 % (2.0-9.0); NEUTROPHILS # (AUTO) 3.7 K/uL (1.8-7.7); NEUTROPHILS % (AUTO) 47.8 % (40.0-70.0); PLATELET COUNT (AUTO) 456 K/uL (150-450); RED CELL DISTRIBUTION WIDTH 12.9 % (11.5-14.5)
[2017-07-30 07:26] LABS: BILIRUBIN,TOTAL 0.2 mg/dL (0.1-1.0); CALCIUM, TOTAL 8.1 mg/dL (8.8-10.5); CREATININE 1.53 mg/dL (0.60-1.30); MAGNESIUM 2.3 mg/dL (1.80-2.40); TOTAL PROTEIN, SERUM 5.4 g/dL (6.4-8.2)
[2017-07-30] MEDS: PANTOPRAZOLE SODIUM 40 MG/VIAL IVP SCH (07:57)
[2017-07-30] MEDS: RAMIPRIL 5 MG CAPSULE PO SCH (07:57)
[2017-07-30] MEDS: ASPIRIN 81 MG CHEWABLE TABLET PO SCH (07:58)
[2017-07-30] MEDS: HEPARIN SODIUM,PORCINE 5,000 UNITS/ML VIAL SQ SCH (07:59)
[2017-07-30] MEDS: DOCUSATE SODIUM 100 MG CAPSULE PO SCH (07:59)
[2017-07-30 08:01] VITALS: BP 142/67
[2017-07-30 08:03] LABS: GLUCOMETER DEV NAME(LOC) 5S 1M; GLUCOSE,POINT OF CARE 106 MG/DL (70-110)
[2017-07-30 11:23] VITALS: BP 136/80
[2017-07-30] MEDS: INSULIN ASPART 100 UNITS/ML SQ PRN (12:41)
[2017-07-30 13:11] LABS: AMPHET/METH SCREEN,URINE NEGATIVE (NEGATIVE); BARBITURATE SCREEN, URINE NEGATIVE (NEGATIVE); BENZODIAZEPINES SCREEN,URINE NEGATIVE (NEGATIVE); CANNABINOID SCREEN,URINE POSITIVE (NEGATIVE); COCAINE SCREEN,URINE NEGATIVE (NEGATIVE); METHADONE SCREEN, URINE NEGATIVE (NEGATIVE); OPIATE SCREEN,URINE POSITIVE (NEGATIVE)
[2017-07-30 13:13] LABS: PHENCYCLIDINE SCREEN,URINE NEGATIVE (NEGATIVE)
[2017-07-30 14:13] LABS: GLUCOMETER DEV NAME(LOC) 5N 1N; GLUCOSE,POINT OF CARE 301 MG/DL (70-110)
== END 2017-07-30 14:10 | disposition home or self-care (01) | DRG 469 ==
LOC: EMS 23:12 → 6N 07-28 01:24 → 4E 07-28 08:30 → 5S 07-28 14:20
PROVIDERS: ADMIT Internal Medicine; ATTEND Internal Medicine
DX: N17.9 Acute kidney failure, unspecified (principal); R65.11 Systemic inflammatory response syndrome (SIRS) of non-infectious origin with acute organ dysfunction; E11.65 Type 2 diabetes mellitus with hyperglycemia; E87.5 Hyperkalemia; F17.210 Nicotine dependence, cigarettes, uncomplicated; F12.90 Cannabis use, unspecified, uncomplicated; R07.89 Other chest pain; Z96.41 Presence of insulin pump (external) (internal); I10 Essential (primary) hypertension; Z91.19 Patient's noncompliance with other medical treatment and regimen; Z83.3 Family history of diabetes mellitus; Z82.49 Family history of ischemic heart disease and other diseases of the circulatory system; Z79.82 Long term (current) use of aspirin; Z79.4 Long term (current) use of insulin; Z87.442 Personal history of urinary calculi; I25.2 Old myocardial infarction
CPT/HCPCS: 71046; 74176; 80307; 82962; 83735; 84145; 84439; 84443; 93005; 93306; 96372; 96374; 96375; 96376; 99291; C9113; J1644; J1815; J2270; J2405; J7030

== ENCOUNTER 2017-08-04 01:26 | Emergency (ER) | payer OTHER ==
[~2017-08-04] VITALS: Ht 182.9 cm; Wt 72.5 kg
[2017-08-04 01:43] LABS: GLUCOSE,POINT OF CARE 545 MG/DL (70-110)
[2017-08-04 02:20] LABS: APPEARANCE,URINE CLEAR (CLEAR); BILIRUBIN,URINE NEGATIVE (NEGATIVE); GLUCOSE, URINE (UA) >=1000 mg/dL (NEGATIVE); KETONES,URINE NEGATIVE (NEGATIVE); LEUKOCYTE ESTERASE ,URINE NEGATIVE (NEGATIVE); NITRATE,URINE NEGATIVE (NEGATIVE); OCCULT BLOOD,URINE TRACE (NEGATIVE); PH,URINE 6.5 (5.0-8.0); PROTEIN,URINE SEE CONFIRM (NEGATIVE); UROBILINOGEN,URINE 0.2 mg/dL (<=1.0)
[2017-08-04 02:37] LABS: BASOPHILS % (AUTO) 1.4 % (0.0-2.0); EOSINOPHILS % (AUTO) 1.8 % (1.0-6.0); HEMOGLOBIN 13.4 g/dL (13.5-17.5); LYMPHOCYTES % (AUTO) 29.6 % (22.0-44.0); MEAN CORPUSCULAR HEMOGLOBIN 32.1 pg (26.0-34.0); MEAN CORPUSCULAR HGB CONC 33.5 G/dL (31.0-37.0); MEAN CORPUSCULAR VOLUME 96 fL (80-100); MONOCYTES # (AUTO) 0.3 K/uL (0.1-1.0); MONOCYTES % (AUTO) 4.5 % (2.0-9.0); NEUTROPHILS # (AUTO) 4.3 K/uL (1.8-7.7); NEUTROPHILS % (AUTO) 62.7 % (40.0-70.0); PLATELET COUNT (AUTO) 394 K/uL (150-450); RED BLOOD CELL COUNT(AUTO) 4.18 MIL/uL (4.50-5.90)
[2017-08-04 02:42] LABS: BACTERIA,URINE None Seen /HPF (None Seen); RBC,URINE 0-2 /HPF (0-2); SULFOSALICYLIC ACID,URINE 2+ (Negative); WBC,URINE None Seen /HPF (0-5)
[2017-08-04] MEDS ORDERED: INSULIN REGULAR, HUMAN 100 UNITS/ML IVP ONE ×3 (02:45→04:30)
[2017-08-04] MEDS ORDERED: SODIUM CHLORIDE 0.9% 1,000 ML IV ONE ×2 (02:45→03:15)
[2017-08-04 02:52] LABS: ALBUMIN 2.4 g/dL (3.4-5.0); BILIRUBIN,TOTAL 0.3 mg/dL (0.1-1.0); CALCIUM, TOTAL 8.2 mg/dL (8.8-10.5); CREATININE 1.86 mg/dL (0.60-1.30); POTASSIUM 4.9 mmol/L (3.5-5.1); TOTAL PROTEIN, SERUM 5.9 g/dL (6.4-8.2)
[2017-08-04 03:58] LABS: GLUCOSE,POINT OF CARE 416 MG/DL (70-110)
[2017-08-04] MEDS ORDERED: KETOROLAC TROMETHAMINE 30 MG/ML VIAL IVP ONE (04:00)
[2017-08-04 04:24] LABS: GLUCOSE,POINT OF CARE 358 MG/DL (70-110)
[2017-08-04 05:53] LABS: GLUCOSE,POINT OF CARE 196 MG/DL (70-110)
[2017-08-04 06:06] VITALS: BP 140/85
== END 2017-08-04 06:13 | disposition home or self-care (01) ==
LOC: EMS 01:28
DX: M54.6 Pain in thoracic spine (principal); M54.2 Cervicalgia; I10 Essential (primary) hypertension; E11.9 Type 2 diabetes mellitus without complications; I25.2 Old myocardial infarction; V89.2XXA Person injured in unspecified motor-vehicle accident, traffic, initial encounter; Y93.89 Activity, other specified; Y92.89 Other specified places as the place of occurrence of the external cause; Y99.8 Other external cause status
CPT/HCPCS: 36415; 72125; 72128; 80053; 81001; 82962; 85025; 96361; 96374; 96375; 96376; 99285; J1815; J1885; J7030

== ENCOUNTER 2017-11-20 15:55 | Inpatient (IN) | payer OTHER ==
[~2017-11-20] VITALS: Ht 182.9 cm; Wt 75.0 kg
[2017-11-20] MEDS ORDERED: INSU100V SQ (16:11)
[2017-11-20 16:12] LABS: GLUCOSE,POINT OF CARE 475 MG/DL (70-110)
[2017-11-20] MEDS ORDERED: SODIUM CHLORIDE 0.9% 2,000 ML IV ONE (17:09)
[2017-11-20] MEDS ORDERED: INSULIN REGULAR, HUMAN 100 UNITS/ML IVP ONE (17:15)
[2017-11-20] MEDS ORDERED: ONDANSETRON HCL 4 MG/2 ML VIAL IVP ONE (17:30)
[2017-11-20 17:31] LABS: BASOPHILS % (AUTO) 1.2 % (0.0-2.0); EOSINOPHILS % (AUTO) 1.2 % (1.0-6.0); HEMATOCRIT 43.3 % (41-53); HEMOGLOBIN 14.9 g/dL (13.5-17.5); LYMPHOCYTES # (AUTO) 1.3 K/uL (1.0-4.8); LYMPHOCYTES % (AUTO) 14.5 % (22.0-44.0); MEAN CORPUSCULAR HEMOGLOBIN 32.4 pg (26.0-34.0); MEAN CORPUSCULAR HGB CONC 34.4 G/dL (31.0-37.0); MEAN CORPUSCULAR VOLUME 94 fL (80-100); MONOCYTES # (AUTO) 0.4 K/uL (0.1-1.0); MONOCYTES % (AUTO) 4.8 % (2.0-9.0); NEUTROPHILS # (AUTO) 6.8 K/uL (1.8-7.7); NEUTROPHILS % (AUTO) 78.3 % (40.0-70.0); PLATELET COUNT (AUTO) 429 K/uL (150-450); RED CELL DISTRIBUTION WIDTH 13.8 % (11.5-14.5)
[2017-11-20 17:59] LABS: ALBUMIN 2.7 g/dL (3.4-5.0); BILIRUBIN,TOTAL 0.5 mg/dL (0.1-1.0); CALCIUM, TOTAL 8.8 mg/dL (8.8-10.5); CREATININE 2.37 mg/dL (0.60-1.30); POTASSIUM 5.6 mmol/L (3.5-5.1); TOTAL PROTEIN, SERUM 6.7 g/dL (6.4-8.2)
[2017-11-20 19:33] LABS: GLUCOSE,POINT OF CARE 305 MG/DL (70-110)
[2017-11-20] MEDS ORDERED: SODIUM CHLORIDE 0.9% 1,000 ML IV ONE (20:45)
[2017-11-20] MEDS ORDERED: 0.9% SODIUM CHLORIDE 10 ML SYRINGE IVP PRN (21:30)
[2017-11-20] MEDS ORDERED: ONDANSETRON HCL 4 MG/2 ML VIAL IVP PRN (21:30)
[2017-11-20] MEDS ORDERED: ACETAMINOPHEN 325 MG TABLET PO PRN (21:30)
[2017-11-20] MEDS ORDERED: POTASSIUM CHLORIDE 40 MEQ in SODIUM CHLORIDE 0.45% 1,000 ML IV PRN (21:35)
[2017-11-20] MEDS ORDERED: SODIUM CHLORIDE 0.45% 1,000 ML IV PRN (21:35)
[2017-11-20] MEDS ORDERED: SODIUM CHLORIDE 0.9% 1,000 ML IV SCH (21:35)
[2017-11-20] MEDS ORDERED: DEXTROSE 5%-0.45% SODIUM CHL 1,000 ML IV PRN (21:35)
[2017-11-20] MEDS ORDERED: DEXTROSE 50%-WATER 25 GM/50 ML SYRINGE IVP PRN (21:45)
[2017-11-20 21:51] LABS: APPEARANCE,URINE CLEAR (CLEAR); BILIRUBIN,URINE NEGATIVE (NEGATIVE); GLUCOSE, URINE (UA) >=1000 mg/dL (NEGATIVE); KETONES,URINE 40 mg/dL (NEGATIVE); LEUKOCYTE ESTERASE ,URINE NEGATIVE (NEGATIVE); NITRATE,URINE NEGATIVE (NEGATIVE); OCCULT BLOOD,URINE TRACE (NEGATIVE); PH,URINE 5.5 (5.0-8.0); PROTEIN,URINE SEE CONFIRM (NEGATIVE); UROBILINOGEN,URINE 0.2 mg/dL (<=1.0)
[2017-11-20 21:59] LABS: BASOPHILS % (AUTO) 1.4 % (0.0-2.0); EOSINOPHILS % (AUTO) 0.5 % (1.0-6.0); HEMATOCRIT 36.9 % (41-53); LYMPHOCYTES # (AUTO) 1.8 K/uL (1.0-4.8); LYMPHOCYTES % (AUTO) 20.7 % (22.0-44.0); MEAN CORPUSCULAR HEMOGLOBIN 32.6 pg (26.0-34.0); MEAN CORPUSCULAR HGB CONC 35.2 G/dL (31.0-37.0); MEAN CORPUSCULAR VOLUME 93 fL (80-100); MONOCYTES # (AUTO) 0.3 K/uL (0.1-1.0); MONOCYTES % (AUTO) 3.2 % (2.0-9.0); NEUTROPHILS # (AUTO) 6.6 K/uL (1.8-7.7); NEUTROPHILS % (AUTO) 74.2 % (40.0-70.0); PLATELET COUNT (AUTO) 381 K/uL (150-450); RED BLOOD CELL COUNT(AUTO) 3.99 MIL/uL (4.50-5.90); RED CELL DISTRIBUTION WIDTH 13.4 % (11.5-14.5)
[2017-11-20 22:01] LABS: SULFOSALICYLIC ACID,URINE 3+ (Negative)
[2017-11-20 22:02] LABS: BACTERIA,URINE None Seen /HPF (None Seen); RBC,URINE 0-2 /HPF (0-2); SQUAMOUS EPITHELIAL CELL,UR Rare /LPF (None Seen); WBC,URINE 0-2 /HPF (0-5)
[2017-11-20 22:13] LABS: GLUCOSE,POINT OF CARE 211 MG/DL (70-110)
[2017-11-20 22:18] LABS: CALCIUM, TOTAL 7.6 mg/dL (8.8-10.5); CREATININE 2.04 mg/dL (0.60-1.30); POTASSIUM 4.5 mmol/L (3.5-5.1)
[2017-11-20] MEDS: INSULIN REGULAR, HUMAN 100 UNITS in SODIUM CHLORIDE 0.9% 99 ML IV PRN ×2 (22:23)
[2017-11-20 23:03] LABS: GLUCOSE,POINT OF CARE 179 MG/DL (70-110)
[2017-11-21 00:23] LABS: GLUCOSE,POINT OF CARE 342 MG/DL (70-110)
[2017-11-21] MEDS: INSULIN REGULAR, HUMAN 100 UNITS/ML IVP PRN ×7 (01:05→14:19)
[2017-11-21 01:42] VITALS: BP 150/105
[2017-11-21 02:46] LABS: CALCIUM, TOTAL 7.7 mg/dL (8.8-10.5); CREATININE 2.09 mg/dL (0.60-1.30); POTASSIUM 4.4 mmol/L (3.5-5.1)
[2017-11-21] MEDS: POTASSIUM CHL 20 MEQ/0.45% NS 1,000 ML IV PRN ×2 (03:16→13:00)
[2017-11-21 04:00] VITALS: BP 127/81
[2017-11-21 04:29] LABS: GLUCOSE,POINT OF CARE 284 MG/DL (70-110)
[2017-11-21 04:29] LABS: GLUCOSE,POINT OF CARE 328 MG/DL (70-110)
[2017-11-21 06:38] LABS: GLUCOSE,POINT OF CARE 254 MG/DL (70-110)
[2017-11-21 07:59] LABS: ALBUMIN 2.1 g/dL (3.4-5.0); BILIRUBIN,TOTAL 0.4 mg/dL (0.1-1.0); CALCIUM, TOTAL 7.9 mg/dL (8.8-10.5); CREATININE 1.85 mg/dL (0.60-1.30); PHOSPHORUS 3.4 mg/dL (2.5-4.9); POTASSIUM 4.1 mmol/L (3.5-5.1); TOTAL PROTEIN, SERUM 5.3 g/dL (6.4-8.2)
[2017-11-21] MEDS ORDERED: ZOLPIDEM TARTRATE 5 MG TABLET PO PRN (08:45)
[2017-11-21] MEDS ORDERED: 0.9% SODIUM CHLORIDE 10 ML SYRINGE IVP PRN (08:45)
[2017-11-21 10:58] LABS: GLUCOSE,POINT OF CARE 242 MG/DL (70-110)
[2017-11-21] MEDS: PANTOPRAZOLE SODIUM 40 MG/VIAL IVP SCH (11:49)
[2017-11-21 12:00] VITALS: BP 144/94
[2017-11-21 12:03] LABS: CALCIUM, TOTAL 7.8 mg/dL (8.8-10.5); CREATININE 1.77 mg/dL (0.60-1.30); POTASSIUM 4.9 mmol/L (3.5-5.1)
[2017-11-21] MEDS: INSULIN REGULAR, HUMAN 100 UNITS in SODIUM CHLORIDE 0.9% 99 ML IV PRN ×6 (12:12→14:19)
[2017-11-21 13:59] LABS: CALCIUM, TOTAL 7.6 mg/dL (8.8-10.5); CREATININE 1.88 mg/dL (0.60-1.30); POTASSIUM 4.6 mmol/L (3.5-5.1)
[2017-11-21] MEDS ORDERED: SODIUM CHLORIDE 0.9% 1,000 ML IV ONE (15:16)
[2017-11-21] MEDS: SODIUM CHLORIDE 0.9% 1,000 ML IV SCH (15:26)
[2017-11-21] MEDS: INSULIN LISPRO 100 UNITS/ML SQ PRN ×2 (15:26→20:08)
[2017-11-21] MEDS ORDERED: DEXTROSE 50%-WATER 25 GM/50 ML SYRINGE IVP PRN (15:30)
[2017-11-21 16:00] VITALS: BP 146/90
[2017-11-21 17:28] LABS: GLUCOSE,POINT OF CARE 361 MG/DL (70-110)
[2017-11-21 17:28] LABS: GLUCOSE,POINT OF CARE 361 MG/DL (70-110)
[2017-11-21 17:28] LABS: GLUCOSE,POINT OF CARE 135 MG/DL (70-110)
[2017-11-21 18:14] LABS: GLUCOSE,POINT OF CARE 317 MG/DL (70-110)
[2017-11-21 18:14] LABS: GLUCOSE,POINT OF CARE 101 MG/DL (70-110)
[2017-11-21 18:14] LABS: GLUCOSE,POINT OF CARE 104 MG/DL (70-110)
[2017-11-21 18:14] LABS: GLUCOSE,POINT OF CARE 112 MG/DL (70-110)
[2017-11-21 18:14] LABS: GLUCOSE,POINT OF CARE 124 MG/DL (70-110)
[2017-11-21 20:03] LABS: GLUCOMETER DEV NAME(LOC) 6N 1E; GLUCOSE,POINT OF CARE 172 MG/DL (70-110)
[2017-11-21 20:40] VITALS: BP 140/84
[2017-11-21 23:42] LABS: GLUCOMETER DEV NAME(LOC) 6N 2D; GLUCOSE,POINT OF CARE 163 MG/DL (70-110)
[2017-11-22] VITALS (7 sets, daily range): BP systolic 123–152; BP diastolic 70–91
[2017-11-22 04:53] LABS: GLUCOMETER DEV NAME(LOC) 6N 2D; GLUCOSE,POINT OF CARE 324 MG/DL (70-110)
[2017-11-22] MEDS: INSULIN LISPRO 100 UNITS/ML SQ PRN ×5 (04:58→20:10)
[2017-11-22] MEDS: ONDANSETRON HCL 4 MG/2 ML VIAL IVP PRN ×2 (05:04→20:13)
[2017-11-22] MEDS: SODIUM CHLORIDE 0.9% 1,000 ML IV SCH ×2 (05:05→16:30)
[2017-11-22 07:17] LABS: CREATININE 1.84 mg/dL (0.60-1.30)
[2017-11-22] MEDS: PANTOPRAZOLE SODIUM 40 MG/VIAL IVP SCH (08:15)
[2017-11-22 09:43] LABS: GLUCOMETER DEV NAME(LOC) 6N 1E; GLUCOSE,POINT OF CARE 254 MG/DL (70-110)
[2017-11-22 11:59] LABS: GLUCOMETER DEV NAME(LOC) 6N 1E; GLUCOSE,POINT OF CARE 230 MG/DL (70-110)
[2017-11-22 16:23] LABS: GLUCOMETER DEV NAME(LOC) 6N 2D; GLUCOSE,POINT OF CARE 324 MG/DL (70-110)
[2017-11-22] MEDS ORDERED: INSULIN GLARGINE,HUM.REC.ANLOG 100 UNITS/ML SQ ONE (21:00)
[2017-11-23 01:49] LABS: GLUCOMETER DEV NAME(LOC) 6N 2D; GLUCOSE,POINT OF CARE 299 MG/DL (70-110)
[2017-11-23 01:49] LABS: GLUCOMETER DEV NAME(LOC) 6N 2D; GLUCOSE,POINT OF CARE 454 MG/DL (70-110)
[2017-11-23 01:49] LABS: GLUCOMETER DEV NAME(LOC) 6N 2D; GLUCOSE,POINT OF CARE 441 MG/DL (70-110)
[2017-11-23] MEDS: ONDANSETRON HCL 4 MG/2 ML VIAL IVP PRN (03:31)
[2017-11-23] MEDS: INSULIN LISPRO 100 UNITS/ML SQ PRN ×4 (03:42→21:06)
[2017-11-23 05:09] VITALS: BP 117/68
[2017-11-23 06:28] LABS: GLUCOMETER DEV NAME(LOC) 6N 1E; GLUCOSE,POINT OF CARE 406 MG/DL (70-110)
[2017-11-23 06:28] LABS: GLUCOMETER DEV NAME(LOC) 6N 1E; GLUCOSE,POINT OF CARE 340 MG/DL (70-110)
[2017-11-23 06:28] LABS: GLUCOMETER DEV NAME(LOC) 6N 1E; GLUCOSE,POINT OF CARE 461 MG/DL (70-110)
[2017-11-23 07:46] VITALS: BP 140/80
[2017-11-23] MEDS: INSULIN GLARGINE,HUM.REC.ANLOG 100 UNITS/ML SQ SCH ×2 (08:51→21:07)
[2017-11-23] MEDS: PANTOPRAZOLE SODIUM 40 MG/VIAL IVP SCH (08:54)
[2017-11-23 11:22] LABS: GLUCOMETER DEV NAME(LOC) 6N 2D; GLUCOSE,POINT OF CARE 512 MG/DL (70-110)
[2017-11-23 11:45] VITALS: BP 142/80
[2017-11-23 16:17] VITALS: BP 120/73
[2017-11-23 17:23] LABS: GLUCOMETER DEV NAME(LOC) 6N 1E; GLUCOSE,POINT OF CARE 330 MG/DL (70-110)
[2017-11-23 20:48] VITALS: BP 132/83
[2017-11-23] MEDS ORDERED: INSULIN GLARGINE,HUM.REC.ANLOG 100 UNITS/ML SQ ONE (22:15)
[2017-11-24 00:14] LABS: GLUCOMETER DEV NAME(LOC) 6N 1E; GLUCOSE,POINT OF CARE 332 MG/DL (70-110)
[2017-11-24 04:29] LABS: GLUCOMETER DEV NAME(LOC) 6N 1E; GLUCOSE,POINT OF CARE 203 MG/DL (70-110)
[2017-11-24 05:23] VITALS: BP 133/81
[2017-11-24] MEDS: INSULIN LISPRO 100 UNITS/ML SQ PRN (06:27)
[2017-11-24 06:34] LABS: GLUCOMETER DEV NAME(LOC) 6N 1E; GLUCOSE,POINT OF CARE 215 MG/DL (70-110)
[2017-11-24] MEDS ORDERED: INSULIN GLARGINE,HUM.REC.ANLOG 100 UNITS/ML SQ SCH (09:00)
[2017-11-24] MEDS: PANTOPRAZOLE SODIUM 40 MG/VIAL IVP SCH (09:00)
[2017-11-24] MEDS: SODIUM CHLORIDE 0.9% 1,000 ML IV SCH (09:05)
[2017-11-24] MEDS ORDERED: INSLAN SQ (09:56)
[2017-12-10 05:44] LABS: GLUCOMETER DEV NAME(LOC) PV 4E2; GLUCOSE,POINT OF CARE 190 MG/DL (70-110)
== END 2017-11-24 10:42 | disposition home or self-care (01) | DRG 469 ==
LOC: EMS 15:56 → ICU 11-21 00:18 → 6N 11-21 18:55
PROVIDERS: ADMIT Internal Medicine; ATTEND Internal Medicine
DX: N17.9 Acute kidney failure, unspecified (principal); E10.10 Type 1 diabetes mellitus with ketoacidosis without coma; K85.90 Acute pancreatitis without necrosis or infection, unspecified; F17.210 Nicotine dependence, cigarettes, uncomplicated; Z96.41 Presence of insulin pump (external) (internal); F12.90 Cannabis use, unspecified, uncomplicated; I25.2 Old myocardial infarction; Z83.3 Family history of diabetes mellitus; Z87.442 Personal history of urinary calculi; Z79.4 Long term (current) use of insulin
CPT/HCPCS: 83036; 83735; 84100; 87081; 96374; 96375; 99291; C9113; J1815; J2405; J3480; J7030; J7050

== ENCOUNTER 2018-01-31 22:43 | Emergency (ER) | payer OTHER ==
[~2018-01-31] VITALS: Ht 182.9 cm; Wt 170.0 kg
[~2018-01-31 22:43] MED LIST changes: +INSLAN SQ; +INSU100V SQ
[2018-01-31 23:08] LABS: GLUCOSE,POINT OF CARE 458 MG/DL (70-110)
[2018-02-01] MEDS ORDERED: SODIUM CHLORIDE 0.9% 1,000 ML IV ONE ×2 (01:15→03:00)
[2018-02-01 01:38] LABS: GLUCOSE,POINT OF CARE 588 MG/DL (70-110)
[2018-02-01] MEDS ORDERED: HYDROCODONE/ACETAMINOPHEN 5-325 MG TABLET PO ONE (02:00)
[2018-02-01] MEDS ORDERED: INSULIN REGULAR, HUMAN 100 UNITS/ML IVP ONE (02:00)
[2018-02-01] MEDS ORDERED: LIDOCAINE HCL 5% TRANSDERMAL PATCH TP ONE (02:00)
[2018-02-01] MEDS ORDERED: ACYCLOVIR 200 MG CAPSULE PO ONE (02:00)
[2018-02-01 02:54] LABS: GLUCOSE,POINT OF CARE 398 MG/DL (70-110)
[2018-02-01 03:54] LABS: GLUCOSE,POINT OF CARE 203 MG/DL (70-110)
[2018-02-01 03:58] VITALS: BP 160/85
== END 2018-02-01 04:29 | disposition home or self-care (01) ==
LOC: EMS 22:45
DX: B02.9 Zoster without complications (principal); E11.65 Type 2 diabetes mellitus with hyperglycemia; F17.210 Nicotine dependence, cigarettes, uncomplicated; I25.2 Old myocardial infarction; F12.90 Cannabis use, unspecified, uncomplicated; Z87.442 Personal history of urinary calculi; Z79.4 Long term (current) use of insulin
CPT/HCPCS: 82962; 96361; 96374; 99284; 99406; J1815; J7030; 99285

== ENCOUNTER 2018-08-30 23:22 | Emergency (ER) | payer OTHER ==
[~2018-08-30] VITALS: Ht 182.9 cm; Wt 77.3 kg
[~2018-08-30 23:22] MED LIST changes: -INSLAN SQ; -INSU100V SQ
[2018-08-30 23:58] LABS: GLUCOSE,POINT OF CARE 563 MG/DL (70-110)
[2018-08-31] MEDS ORDERED: KETOROLAC TROMETHAMINE 60 MG/2 ML VIAL IM ONE (01:15)
[2018-08-31 03:59] LABS: GLUCOSE,POINT OF CARE 405 MG/DL (70-110)
[2018-08-31 04:20] VITALS: BP 144/72
== END 2018-08-31 04:33 | disposition home or self-care (01) ==
LOC: EMS 23:24
DX: S16.1XXA Strain of muscle, fascia and tendon at neck level, initial encounter (principal); M26.621 Arthralgia of right temporomandibular joint; E11.9 Type 2 diabetes mellitus without complications; I25.2 Old myocardial infarction; F17.210 Nicotine dependence, cigarettes, uncomplicated; F12.90 Cannabis use, unspecified, uncomplicated; Z79.4 Long term (current) use of insulin; V49.9XXA Car occupant (driver) (passenger) injured in unspecified traffic accident, initial encounter; Y93.89 Activity, other specified; Y92.89 Other specified places as the place of occurrence of the external cause; Y99.8 Other external cause status
CPT/HCPCS: 70486; 82962; 96372; 99284; J1885

== ENCOUNTER 2018-10-01 23:51 | Emergency (ER) | payer OTHER ==
[~2018-10-01] VITALS: Ht 182.9 cm; Wt 81.8 kg
[2018-10-02] MEDS ORDERED: INSU100V SQ (00:09)
[2018-10-02] MEDS ORDERED: INSU100I26 SQ (00:09)
[2018-10-02] MEDS ORDERED: SODIUM CHLORIDE 0.9% 2,000 ML IV ONE (00:16)
[2018-10-02 00:20] LABS: GLUCOSE,POINT OF CARE 464 MG/DL (70-110)
[2018-10-02] MEDS ORDERED: INSULIN REGULAR, HUMAN 100 UNITS/ML IVP ONE (00:45)
[2018-10-02] MEDS ORDERED: ONDANSETRON HCL 4 MG/2 ML VIAL IVP ONE (00:45)
[2018-10-02 00:47] LABS: EOSINOPHILS % (AUTO) 2.7 % (1.0-6.0); HEMATOCRIT 38.2 % (41-53); HEMOGLOBIN 12.6 g/dL (13.5-17.5); LYMPHOCYTES # (AUTO) 2.5 K/uL (1.0-4.8); LYMPHOCYTES % (AUTO) 26.3 % (22.0-44.0); MEAN CORPUSCULAR HEMOGLOBIN 31.3 pg (26.0-34.0); MEAN CORPUSCULAR HGB CONC 32.9 G/dL (31.0-37.0); MEAN CORPUSCULAR VOLUME 95 fL (80-100); MONOCYTES # (AUTO) 0.6 K/uL (0.1-1.0); NEUTROPHILS # (AUTO) 6.1 K/uL (1.8-7.7); PLATELET COUNT (AUTO) 393 K/uL (150-450); RED BLOOD CELL COUNT(AUTO) 4.01 MIL/uL (4.50-5.90); RED CELL DISTRIBUTION WIDTH 14.4 % (11.5-14.5)
[2018-10-02 00:57] LABS: APPEARANCE,URINE CLEAR (CLEAR); BILIRUBIN,URINE NEGATIVE (NEGATIVE); GLUCOSE, URINE (UA) >=1000 mg/dL (NEGATIVE); KETONES,URINE NEGATIVE (NEGATIVE); LEUKOCYTE ESTERASE ,URINE NEGATIVE (NEGATIVE); NITRATE,URINE NEGATIVE (NEGATIVE); OCCULT BLOOD,URINE SMALL (NEGATIVE); PH,URINE 6.5 (5.0-8.0); PROTEIN,URINE SEE CONFIRM (NEGATIVE); UROBILINOGEN,URINE 0.2 mg/dL (<=1.0)
[2018-10-02 00:59] LABS: B-TYPE NATRIURETIC PEPTIDE 10 pg/mL (0-100)
[2018-10-02 01:01] LABS: ACETONE,BLOOD NEGATIVE (NEGATIVE)
[2018-10-02 01:04] LABS: ALANINE AMINOTRANSFERASE 29 U/L (12-78); ALBUMIN 2.1 g/dL (3.4-5.0); ALKALINE PHOSPHATASE 115 U/L (46-116); ANION GAP 8 mmol/L (8-16); ASPARTATE AMINOTRANSFERASE 17 U/L (15-37); BILIRUBIN,TOTAL 0.2 mg/dL (0.1-1.0); CALCIUM, TOTAL 8.1 mg/dL (8.8-10.5); CARBON DIOXIDE 24 mmol/L (22-29); CHLORIDE 103 mmol/L (98-107); CREATININE 2.72 mg/dL (0.60-1.30); GLOMERULAR FILTR. RATE CALC 26 mL/min (>60); LIPASE 208 U/L (73-393); POTASSIUM 5.4 mmol/L (3.5-5.1); SODIUM SERUM 135 mmol/L (136-145); TOTAL PROTEIN, SERUM 5.3 g/dL (6.4-8.2); UREA NITROGEN, BLOOD 30 mg/dL (7-18)
[2018-10-02 01:05] LABS: GLUCOSE,RANDOM 498 mg/dL (70-110)
[2018-10-02 01:29] LABS: GLUCOSE,POINT OF CARE 242 MG/DL (70-110)
[2018-10-02 01:35] LABS: BACTERIA,URINE None Seen /HPF (None Seen); WBC,URINE 0-2 /HPF (0-5)
[2018-10-02 01:36] LABS: SQUAMOUS EPITHELIAL CELL,UR Rare /LPF (None Seen); SULFOSALICYLIC ACID,URINE 1+ (Negative)
[2018-10-02 02:50] LABS: GLUCOSE,POINT OF CARE 75 MG/DL (70-110)
[2018-10-02] MEDS ORDERED: DEXTROSE 50%-WATER 25 GM/50 ML SYRINGE IVP ONE ×2 (03:43→04:00)
[2018-10-02 03:44] LABS: GLUCOSE,POINT OF CARE 50 MG/DL (70-110)
[2018-10-02 04:24] LABS: GLUCOSE,POINT OF CARE 129 MG/DL (70-110)
[2018-10-02 05:24] VITALS: BP 132/65
[2018-10-02 05:24] LABS: GLUCOSE,POINT OF CARE 150 MG/DL (70-110)
== END 2018-10-02 05:55 | disposition home or self-care (01) ==
LOC: EMS 10-02 00:13
DX: E11.65 Type 2 diabetes mellitus with hyperglycemia (principal); T38.3X5A Adverse effect of insulin and oral hypoglycemic [antidiabetic] drugs, initial encounter; Y92.89 Other specified places as the place of occurrence of the external cause; F17.210 Nicotine dependence, cigarettes, uncomplicated; F12.90 Cannabis use, unspecified, uncomplicated; I25.2 Old myocardial infarction; Z79.4 Long term (current) use of insulin
CPT/HCPCS: 36415; 80053; 81001; 82009; 82962; 83690; 83880; 84484; 85025; 96361; 96374; 96375; 99283; J1815; J2405; J7030

== ENCOUNTER 2019-01-31 00:12 | Emergency (ER) | payer OTHER ==
[~2019-01-31] VITALS: Ht 182.9 cm; Wt 81.8 kg
[~2019-01-31 00:12] MED LIST changes: -INSULIN PUMP; +SUCR1TAB PO
[2019-01-31] MEDS ORDERED: INSLAN SQ (00:28)
[2019-01-31] MEDS ORDERED: INSU100V SQ (00:28)
[2019-01-31 00:39] LABS: GLUCOSE,POINT OF CARE 179 MG/DL (70-110)
[2019-01-31 01:28] LABS: BASOPHILS % (AUTO) 1.3 % (0.0-2.0); EOSINOPHILS % (AUTO) 3.1 % (1.0-6.0); HEMATOCRIT 38.4 % (41-53); HEMOGLOBIN 12.6 g/dL (13.5-17.5); LYMPHOCYTES # (AUTO) 1.8 K/uL (1.0-4.8); LYMPHOCYTES % (AUTO) 22.6 % (22.0-44.0); MEAN CORPUSCULAR HEMOGLOBIN 31.6 pg (26.0-34.0); MEAN CORPUSCULAR HGB CONC 32.9 G/dL (31.0-37.0); MEAN CORPUSCULAR VOLUME 96 fL (80-100); MONOCYTES # (AUTO) 0.5 K/uL (0.1-1.0); MONOCYTES % (AUTO) 5.5 % (2.0-9.0); NEUTROPHILS # (AUTO) 5.5 K/uL (1.8-7.7); NEUTROPHILS % (AUTO) 67.5 % (40.0-70.0); PLATELET COUNT (AUTO) 388 K/uL (150-450); RED CELL DISTRIBUTION WIDTH 13.8 % (11.5-14.5)
[2019-01-31] MEDS ORDERED: ONDANSETRON HCL 4 MG/2 ML VIAL IVP ONE (01:30)
[2019-01-31] MEDS ORDERED: SODIUM CHLORIDE 0.9% 1,000 ML IV ONE (01:30)
[2019-01-31 01:35] LABS: CALCIUM, TOTAL 8.1 mg/dL (8.8-10.5); CREATININE 3.38 mg/dL (0.60-1.30); POTASSIUM 4.6 mmol/L (3.5-5.1)
[2019-01-31 01:41] LABS: ALBUMIN 2.2 g/dL (3.4-5.0); BILIRUBIN,TOTAL 0.4 mg/dL (0.1-1.0); TOTAL PROTEIN, SERUM 5.5 g/dL (6.4-8.2)
[2019-01-31 03:03] VITALS: BP 168/96
== END 2019-01-31 03:31 | disposition home or self-care (01) ==
LOC: EMS 00:13
DX: E86.0 Dehydration (principal); R11.2 Nausea with vomiting, unspecified; I10 Essential (primary) hypertension; E11.9 Type 2 diabetes mellitus without complications; I25.2 Old myocardial infarction; F12.90 Cannabis use, unspecified, uncomplicated; F17.210 Nicotine dependence, cigarettes, uncomplicated; Z79.4 Long term (current) use of insulin
CPT/HCPCS: 36415; 80053; 82948; 82962; 83690; 85025; 96361; 96374; 99283; 99406; J2405; J7030

== ENCOUNTER 2019-03-17 13:52 | Emergency (ER) | payer SELFPAY ==
[~2019-03-17] VITALS: Ht 182.9 cm; Wt 77.3 kg
[~2019-03-17 13:52] MED LIST changes: +INSLAN SQ; +INSU100V SQ; -SUCR1TAB PO
[2019-03-17] MEDS ORDERED: SODIUM CHLORIDE 0.9% 1,000 ML IV ONE (15:00)
[2019-03-17] MEDS ORDERED: ONDANSETRON HCL 4 MG/2 ML VIAL IVP ONE (15:00)
[2019-03-17] MEDS ORDERED: ACETAMINOPHEN 500 MG TABLET PO ONE (15:00)
[2019-03-17 15:55] LABS: BASOPHILS % (AUTO) 0.9 % (0.0-2.0); HEMATOCRIT 42.5 % (41-53); HEMOGLOBIN 13.9 g/dL (13.5-17.5); LYMPHOCYTES # (AUTO) 1.5 K/uL (1.0-4.8); LYMPHOCYTES % (AUTO) 13.6 % (22.0-44.0); MEAN CORPUSCULAR HEMOGLOBIN 31.1 pg (26.0-34.0); MEAN CORPUSCULAR HGB CONC 32.8 G/dL (31.0-37.0); MEAN CORPUSCULAR VOLUME 95 fL (80-100); MONOCYTES # (AUTO) 0.5 K/uL (0.1-1.0); MONOCYTES % (AUTO) 4.9 % (2.0-9.0); NEUTROPHILS # (AUTO) 8.4 K/uL (1.8-7.7); NEUTROPHILS % (AUTO) 78.6 % (40.0-70.0); PLATELET COUNT (AUTO) 443 K/uL (150-450); RED BLOOD CELL COUNT(AUTO) 4.48 MIL/uL (4.50-5.90); RED CELL DISTRIBUTION WIDTH 13.6 % (11.5-14.5)
[2019-03-17 16:02] LABS: ANION GAP 9 mmol/L (8-16); CALCIUM, TOTAL 8.6 mg/dL (8.8-10.5); CARBON DIOXIDE 25 mmol/L (22-29); CHLORIDE 103 mmol/L (98-107); GLOMERULAR FILTR. RATE CALC 17 mL/min (>60); GLUCOSE,RANDOM 371 mg/dL (70-110); POTASSIUM 4.8 mmol/L (3.5-5.1); SODIUM SERUM 137 mmol/L (136-145); UREA NITROGEN, BLOOD 40 mg/dL (7-18)
[2019-03-17 16:04] LABS: ACETONE,BLOOD NEGATIVE (NEGATIVE)
[2019-03-17 16:17] LABS: ALANINE AMINOTRANSFERASE 20 U/L (12-78); ALBUMIN 2.4 g/dL (3.4-5.0); ALKALINE PHOSPHATASE 111 U/L (46-116); ASPARTATE AMINOTRANSFERASE 10 U/L (15-37); BILIRUBIN,TOTAL 0.3 mg/dL (0.1-1.0); LIPASE 158 U/L (73-393); TOTAL PROTEIN, SERUM 6.5 g/dL (6.4-8.2)
[2019-03-17 16:31] LABS: APPEARANCE,URINE CLEAR (CLEAR); BILIRUBIN,URINE NEGATIVE (NEGATIVE); GLUCOSE, URINE (UA) >=1000 mg/dL (NEGATIVE); KETONES,URINE NEGATIVE (NEGATIVE); LEUKOCYTE ESTERASE ,URINE NEGATIVE (NEGATIVE); NITRATE,URINE NEGATIVE (NEGATIVE); OCCULT BLOOD,URINE SMALL (NEGATIVE); PROTEIN,URINE SEE CONFIRM (NEGATIVE); UROBILINOGEN,URINE 0.2 mg/dL (<=1.0)
[2019-03-17 17:14] LABS: BACTERIA,URINE None Seen /HPF (None Seen); SQUAMOUS EPITHELIAL CELL,UR Rare /LPF (None Seen); SULFOSALICYLIC ACID,URINE 4+ (Negative); WBC,URINE 0-2 /HPF (0-5)
[2019-03-17 17:35] LABS: INFLUENZA TYPE A NEGATIVE FOR TYPE A (NEGATIVE); INFLUENZA TYPE B NEGATIVE FOR TYPE B (NEGATIVE)
[2019-03-17 18:24] VITALS: BP 143/97
[2019-03-17] MEDS ORDERED: BENZONATATE 100 MG CAPSULE PO ONE (18:30)
[2019-03-17 19:36] LABS: GLUCOSE,POINT OF CARE 299 MG/DL (70-110)
== END 2019-03-17 18:50 | disposition home or self-care (01) ==
LOC: EMS 13:54
DX: E86.0 Dehydration (principal); B34.9 Viral infection, unspecified; J34.89 Other specified disorders of nose and nasal sinuses; E11.9 Type 2 diabetes mellitus without complications; I10 Essential (primary) hypertension; I25.2 Old myocardial infarction; F17.210 Nicotine dependence, cigarettes, uncomplicated; F12.90 Cannabis use, unspecified, uncomplicated; Z79.4 Long term (current) use of insulin
CPT/HCPCS: 36415; 71046; 80053; 81001; 82009; 82962; 83690; 85025; 87804; 96361; 96374; 99285; 99406; J2405; J7030

== ENCOUNTER 2019-04-01 19:18 | Inpatient (IN) | payer MEDICAID, OTHER ==
[~2019-04-01] VITALS: Ht 182.9 cm; Wt 83.0 kg
[2019-04-01 19:44] LABS: GLUCOSE,POINT OF CARE 66 MG/DL (70-110)
[2019-04-01 20:05] LABS: GLUCOSE,POINT OF CARE 74 MG/DL (70-110)
[2019-04-01 20:17] LABS: BASOPHILS % (AUTO) 1.1 % (0.0-2.0); EOSINOPHILS % (AUTO) 1.6 % (1.0-6.0); HEMATOCRIT 40.1 % (41-53); HEMOGLOBIN 13.5 g/dL (13.5-17.5); LYMPHOCYTES # (AUTO) 1.7 K/uL (1.0-4.8); LYMPHOCYTES % (AUTO) 16.8 % (22.0-44.0); MEAN CORPUSCULAR HEMOGLOBIN 31.6 pg (26.0-34.0); MEAN CORPUSCULAR HGB CONC 33.8 G/dL (31.0-37.0); MEAN CORPUSCULAR VOLUME 93 fL (80-100); MONOCYTES # (AUTO) 0.5 K/uL (0.1-1.0); MONOCYTES % (AUTO) 4.5 % (2.0-9.0); NEUTROPHILS # (AUTO) 7.6 K/uL (1.8-7.7); PLATELET COUNT (AUTO) 500 K/uL (150-450); RED BLOOD CELL COUNT(AUTO) 4.29 MIL/uL (4.50-5.90); RED CELL DISTRIBUTION WIDTH 13.4 % (11.5-14.5)
[2019-04-01 20:52] LABS: ALBUMIN 2.3 g/dL (3.4-5.0); BILIRUBIN,TOTAL 0.3 mg/dL (0.1-1.0); CALCIUM, TOTAL 8.5 mg/dL (8.8-10.5); CREATININE 4.06 mg/dL (0.60-1.30); POTASSIUM 4.2 mmol/L (3.5-5.1); TOTAL PROTEIN, SERUM 6.5 g/dL (6.4-8.2)
[2019-04-01] MEDS ORDERED: SODIUM CHLORIDE 0.9% 500 ML IV ONE (21:45)
[2019-04-01] MEDS ORDERED: FAMOTIDINE 10 MG/ML 2 ML VIAL IVP ONE (22:15)
[2019-04-01] MEDS ORDERED: PB/HYOSCY/ATR/SCOP/LIDO/MAALOX 55 ML BOTTLE PO ONE (22:15)
[2019-04-01] MEDS ORDERED: ONDANSETRON HCL 4 MG/2 ML VIAL IVP ONE (22:15)
[2019-04-01 22:33] LABS: GLUCOSE,POINT OF CARE 89 MG/DL (70-110)
[2019-04-01 22:55] LABS: APPEARANCE,URINE CLEAR (CLEAR); BILIRUBIN,URINE NEGATIVE (NEGATIVE); GLUCOSE, URINE (UA) 100 mg/dL (NEGATIVE); KETONES,URINE NEGATIVE (NEGATIVE); LEUKOCYTE ESTERASE ,URINE NEGATIVE (NEGATIVE); NITRATE,URINE NEGATIVE (NEGATIVE); OCCULT BLOOD,URINE SMALL (NEGATIVE); PROTEIN,URINE SEE CONFIRM (NEGATIVE); UROBILINOGEN,URINE 0.2 mg/dL (<=1.0)
[2019-04-01 23:19] LABS: RBC,URINE 0-2 /HPF (0-2); SULFOSALICYLIC ACID,URINE 4+ (Negative)
[2019-04-01 23:20] LABS: BACTERIA,URINE None Seen /HPF (None Seen); SQUAMOUS EPITHELIAL CELL,UR Few /LPF (None Seen); WBC,URINE 0-2 /HPF (0-5)
[2019-04-01 23:25] LABS: INFLUENZA TYPE A NEGATIVE FOR TYPE A (NEGATIVE); INFLUENZA TYPE B NEGATIVE FOR TYPE B (NEGATIVE)
[2019-04-02] MEDS ORDERED: ZOLPIDEM TARTRATE 5 MG TABLET PO PRN
[2019-04-02] MEDS ORDERED: BISACODYL 10 MG RECTAL RECTAL SUPPOSITORY PR PRN
[2019-04-02] MEDS ORDERED: MAGNESIUM HYDROXIDE SUSPENSION 30 ML UDCUP PO PRN
[2019-04-02] MEDS ORDERED: DEXTROSE 5%-0.45% SODIUM CHL 1,000 ML IV ONE
[2019-04-02] MEDS ORDERED: HYDROCODONE/ACETAMINOPHEN 5-325 MG TABLET PO PRN
[2019-04-02] MEDS ORDERED: IPRATROPIUM BROMIDE 0.5 MG/2.5 ML NEB SOLUTION NEB PRN
[2019-04-02] MEDS ORDERED: MORPHINE SULFATE 2 MG/ML SYRINGE IVP PRN
[2019-04-02] MEDS ORDERED: ALBUTEROL SULFATE 2.5 MG/0.5 ML NEB SOLUTION NEB PRN
[2019-04-02] MEDS ORDERED: ONDANSETRON HCL 4 MG/2 ML VIAL IVP PRN (00:15)
[2019-04-02] MEDS ORDERED: ACETAMINOPHEN 325 MG TABLET PO PRN ×2 (00:15)
[2019-04-02] MEDS ORDERED: 0.9% SODIUM CHLORIDE 10 ML SYRINGE IVP PRN (00:15)
[2019-04-02] MEDS: HEPARIN SODIUM,PORCINE 5,000 UNITS/ML VIAL SQ SCH ×3 (00:36→15:43)
[2019-04-02 01:18] LABS: GLUCOSE,POINT OF CARE 114 MG/DL (70-110)
[2019-04-02 01:26] VITALS: BP 155/93
[2019-04-02 04:53] VITALS: BP 159/96
[2019-04-02 06:24] LABS: GLUCOMETER DEV NAME(LOC) 6N.2; GLUCOSE,POINT OF CARE 170 MG/DL (70-110)
[2019-04-02 08:00] VITALS: BP 159/103
[2019-04-02] MEDS: DOCUSATE SODIUM 100 MG CAPSULE PO SCH ×2 (08:18→20:34)
[2019-04-02 11:34] LABS: GLUCOMETER DEV NAME(LOC) 6N.2; GLUCOSE,POINT OF CARE 308 MG/DL (70-110)
[2019-04-02 12:09] VITALS: BP 159/98
[2019-04-02] MEDS ORDERED: DEXTROSE 50%-WATER 25 GM/50 ML SYRINGE IVP PRN ×2 (12:30→18:45)
[2019-04-02] MEDS: INSULIN LISPRO 100 UNITS/ML SQ PRN ×3 (12:37→20:29)
[2019-04-02] MEDS ORDERED: INSULIN GLARGINE,HUM.REC.ANLOG 100 UNITS/ML SQ SCH ×2 (13:45→21:00)
[2019-04-02 14:18] LABS: GLUCOMETER DEV NAME(LOC) 4E.2; GLUCOSE,POINT OF CARE 399 MG/DL (70-110)
[2019-04-02 17:29] VITALS: BP 157/93
[2019-04-02 18:19] LABS: GLUCOMETER DEV NAME(LOC) 4E.2; GLUCOSE,POINT OF CARE 307 MG/DL (70-110)
[2019-04-02] MEDS: INSULIN GLARGINE,HUM.REC.ANLOG 100 UNITS/ML SQ SCH (20:28)
[2019-04-02] MEDS: ONDANSETRON HCL 4 MG/2 ML VIAL IVP PRN (20:33)
[2019-04-02 20:46] VITALS: BP 158/87
[2019-04-02 22:45] LABS: GLUCOMETER DEV NAME(LOC) 4E.2; GLUCOSE,POINT OF CARE 323 MG/DL (70-110)
[2019-04-03] VITALS (7 sets, daily range): BP systolic 143–157; BP diastolic 78–98
[2019-04-03 05:43] LABS: GLUCOMETER DEV NAME(LOC) 4E.2; GLUCOSE,POINT OF CARE 51 MG/DL (70-110)
[2019-04-03 06:14] LABS: GLUCOMETER DEV NAME(LOC) 4E.2; GLUCOSE,POINT OF CARE 105 MG/DL (70-110)
[2019-04-03] MEDS: HEPARIN SODIUM,PORCINE 5,000 UNITS/ML VIAL SQ SCH ×3 (08:00→16:00)
[2019-04-03] MEDS: INSULIN GLARGINE,HUM.REC.ANLOG 100 UNITS/ML SQ SCH ×2 (09:00→21:10)
[2019-04-03] MEDS: NICOTINE 21 MG/24 HOUR PATCH TD SCH (09:00)
[2019-04-03] MEDS: DOCUSATE SODIUM 100 MG CAPSULE PO SCH ×2 (09:00→21:00)
[2019-04-03] MEDS: INSULIN LISPRO 100 UNITS/ML SQ PRN ×3 (11:54→21:10)
[2019-04-03] MEDS ORDERED: AmLODIPine BESYLATE 10 MG TABLET PO ONE (13:30)
[2019-04-03 13:49] LABS: BASOPHILS % (AUTO) 1.1 % (0.0-2.0); EOSINOPHILS % (AUTO) 3.5 % (1.0-6.0); HEMATOCRIT 37.4 % (41-53); HEMOGLOBIN 12.7 g/dL (13.5-17.5); LYMPHOCYTES # (AUTO) 1.7 K/uL (1.0-4.8); LYMPHOCYTES % (AUTO) 23.2 % (22.0-44.0); MEAN CORPUSCULAR HEMOGLOBIN 31.5 pg (26.0-34.0); MEAN CORPUSCULAR VOLUME 93 fL (80-100); MONOCYTES # (AUTO) 0.4 K/uL (0.1-1.0); MONOCYTES % (AUTO) 5.5 % (2.0-9.0); NEUTROPHILS % (AUTO) 66.7 % (40.0-70.0); PLATELET COUNT (AUTO) 428 K/uL (150-450); RED BLOOD CELL COUNT(AUTO) 4.04 MIL/uL (4.50-5.90); RED CELL DISTRIBUTION WIDTH 13.4 % (11.5-14.5)
[2019-04-03 13:53] LABS: CALCIUM, TOTAL 7.9 mg/dL (8.8-10.5); CREATININE 4.25 mg/dL (0.60-1.30); POTASSIUM 5.7 mmol/L (3.5-5.1)
[2019-04-03 13:59] LABS: ALBUMIN 1.9 g/dL (3.4-5.0); BILIRUBIN,TOTAL 0.2 mg/dL (0.1-1.0); TOTAL PROTEIN, SERUM 5.5 g/dL (6.4-8.2)
[2019-04-03] MEDS ORDERED: INSULIN GLARGINE,HUM.REC.ANLOG 100 UNITS/ML SQ ONE (15:30)
[2019-04-03] MEDS: SODIUM CHLORIDE 0.45% 1,000 ML IV SCH (16:06)
[2019-04-03 16:19] LABS: CREATININE,URINE RANDOM 57.1 mg/dL (30.0-125.0)
[2019-04-03 16:20] LABS: GLUCOMETER DEV NAME(LOC) 4E.2; GLUCOSE,POINT OF CARE 172 MG/DL (70-110)
[2019-04-03 16:20] LABS: GLUCOMETER DEV NAME(LOC) 4E.2; GLUCOSE,POINT OF CARE 153 MG/DL (70-110)
[2019-04-03 16:21] LABS: GLUCOMETER DEV NAME(LOC) 4E.2; GLUCOSE,POINT OF CARE 279 MG/DL (70-110)
[2019-04-03 18:53] LABS: GLUCOMETER DEV NAME(LOC) 4E.2; GLUCOSE,POINT OF CARE 276 MG/DL (70-110)
[2019-04-04 03:06] LABS: GLUCOMETER DEV NAME(LOC) 6N.2; GLUCOSE,POINT OF CARE 297 MG/DL (70-110)
[2019-04-04 03:06] LABS: GLUCOMETER DEV NAME(LOC) 6N.2; GLUCOSE,POINT OF CARE 134 MG/DL (70-110)
[2019-04-04 03:06] LABS: GLUCOMETER DEV NAME(LOC) 6N.2; GLUCOSE,POINT OF CARE 485 MG/DL (70-110)
[2019-04-04 05:45] LABS: GLUCOMETER DEV NAME(LOC) 6N.2; GLUCOSE,POINT OF CARE 104 MG/DL (70-110)
[2019-04-04 05:46] VITALS: BP 145/88
[2019-04-04 07:27] VITALS: BP 153/94
[2019-04-04] MEDS: HEPARIN SODIUM,PORCINE 5,000 UNITS/ML VIAL SQ SCH ×2 (08:00)
[2019-04-04] MEDS: SODIUM CHLORIDE 0.45% 1,000 ML IV SCH (08:40)
[2019-04-04] MEDS: DOCUSATE SODIUM 100 MG CAPSULE PO SCH (08:41)
[2019-04-04] MEDS: NICOTINE 21 MG/24 HOUR PATCH TD SCH (08:41)
[2019-04-04] MEDS: INSULIN GLARGINE,HUM.REC.ANLOG 100 UNITS/ML SQ SCH (08:42)
[2019-04-04] MEDS ORDERED: AmLODIPine BESYLATE 10 MG TABLET PO SCH (09:00)
[2019-04-04 09:50] LABS: GLUCOMETER DEV NAME(LOC) 6N.2; GLUCOSE,POINT OF CARE 125 MG/DL (70-110)
[2019-04-04 11:14] VITALS: BP 142/86
[2019-04-04 11:17] LABS: BASOPHILS % (AUTO) 1.5 % (0.0-2.0); EOSINOPHILS % (AUTO) 2.8 % (1.0-6.0); HEMATOCRIT 39.6 % (41-53); HEMOGLOBIN 13.4 g/dL (13.5-17.5); LYMPHOCYTES # (AUTO) 1.6 K/uL (1.0-4.8); LYMPHOCYTES % (AUTO) 20.7 % (22.0-44.0); MEAN CORPUSCULAR HEMOGLOBIN 31.5 pg (26.0-34.0); MEAN CORPUSCULAR HGB CONC 33.8 G/dL (31.0-37.0); MEAN CORPUSCULAR VOLUME 93 fL (80-100); MONOCYTES # (AUTO) 0.4 K/uL (0.1-1.0); MONOCYTES % (AUTO) 5.3 % (2.0-9.0); NEUTROPHILS # (AUTO) 5.3 K/uL (1.8-7.7); NEUTROPHILS % (AUTO) 69.7 % (40.0-70.0); PLATELET COUNT (AUTO) 451 K/uL (150-450); RED BLOOD CELL COUNT(AUTO) 4.25 MIL/uL (4.50-5.90); RED CELL DISTRIBUTION WIDTH 13.4 % (11.5-14.5)
[2019-04-04] MEDS: INSULIN LISPRO 100 UNITS/ML SQ PRN (11:22)
[2019-04-04 11:39] LABS: CALCIUM, TOTAL 8.2 mg/dL (8.8-10.5); CREATININE 3.85 mg/dL (0.60-1.30); POTASSIUM 5.6 mmol/L (3.5-5.1)
[2019-04-04 11:44] LABS: ALBUMIN 2.1 g/dL (3.4-5.0); BILIRUBIN,TOTAL 0.3 mg/dL (0.1-1.0)
[2019-04-04 12:03] LABS: GLUCOMETER DEV NAME(LOC) 6N.2; GLUCOSE,POINT OF CARE 258 MG/DL (70-110)
[2019-04-04] MEDS ORDERED: SODIUM POLYSTYRENE SULFONATE 15 GM/60 ML SUSPENSION BOTTLE PO ONE (12:30)
[2019-04-04] MEDS: ONDANSETRON HCL 4 MG/2 ML VIAL IVP PRN (12:32)
[2019-04-04] MEDS ORDERED: AMLO10TA7 PO (15:00)
[2019-04-04 15:14] VITALS: BP 141/86
== END 2019-04-04 16:24 | disposition home or self-care (01) | DRG 420 ==
LOC: EMS 19:19 → 5N 04-02 00:05 → UNDOADMIN 04-02 00:05 → 4E 04-02 00:05
PROVIDERS: ADMIT Hospitalist; ATTEND Hospitalist
DX: E10.65 Type 1 diabetes mellitus with hyperglycemia (principal); N17.9 Acute kidney failure, unspecified; E10.649 Type 1 diabetes mellitus with hypoglycemia without coma; E10.21 Type 1 diabetes mellitus with diabetic nephropathy; N18.4 Chronic kidney disease, stage 4 (severe); E87.5 Hyperkalemia; E10.40 Type 1 diabetes mellitus with diabetic neuropathy, unspecified; E10.319 Type 1 diabetes mellitus with unspecified diabetic retinopathy without macular edema; E10.22 Type 1 diabetes mellitus with diabetic chronic kidney disease; E87.1 Hypo-osmolality and hyponatremia; E86.0 Dehydration; I12.9 Hypertensive chronic kidney disease with stage 1 through stage 4 chronic kidney disease, or unspecified chronic kidney disease; Z96.41 Presence of insulin pump (external) (internal); Z79.4 Long term (current) use of insulin; Z83.3 Family history of diabetes mellitus; Z87.442 Personal history of urinary calculi; Z87.891 Personal history of nicotine dependence; Z79.899 Other long term (current) drug therapy
CPT/HCPCS: 82570; 84156; 84300; 84540; 87804; 93005; G0378; J1644; J1815; J2405; J3490; J7040

== ENCOUNTER 2019-05-03 11:54 | Inpatient (IN) | payer OTHER ==
[~2019-05-03] VITALS: Ht 182.9 cm; Wt 79.5 kg
[~2019-05-03 11:54] MED LIST changes: +AMLO10TA7 PO
[2019-05-03 12:18] LABS: GLUCOSE,POINT OF CARE 600 MG/DL (70-110)
[2019-05-03] MEDS ORDERED: SODIUM CHLORIDE 0.9% 1,000 ML IV ONE ×2 (12:30→12:45)
[2019-05-03 12:34] LABS: BASOPHILS % (AUTO) 1.5 % (0.0-2.0); EOSINOPHILS % (AUTO) 1.4 % (1.0-6.0); HEMATOCRIT 39.3 % (41-53); HEMOGLOBIN 12.8 g/dL (13.5-17.5); LYMPHOCYTES # (AUTO) 1.1 K/uL (1.0-4.8); LYMPHOCYTES % (AUTO) 26.4 % (22.0-44.0); MEAN CORPUSCULAR HEMOGLOBIN 31.3 pg (26.0-34.0); MEAN CORPUSCULAR HGB CONC 32.5 G/dL (31.0-37.0); MEAN CORPUSCULAR VOLUME 96 fL (80-100); MONOCYTES # (AUTO) 0.4 K/uL (0.1-1.0); MONOCYTES % (AUTO) 9.4 % (2.0-9.0); NEUTROPHILS # (AUTO) 2.5 K/uL (1.8-7.7); NEUTROPHILS % (AUTO) 61.3 % (40.0-70.0); PLATELET COUNT (AUTO) 324 K/uL (150-450); RED BLOOD CELL COUNT(AUTO) 4.09 MIL/uL (4.50-5.90); RED CELL DISTRIBUTION WIDTH 14.4 % (11.5-14.5)
[2019-05-03] MEDS ORDERED: ONDANSETRON HCL 4 MG/2 ML VIAL IVP ONE ×2 (12:45→16:15)
[2019-05-03] MEDS ORDERED: INSULIN REGULAR, HUMAN 100 UNITS/ML IVP ONE ×3 (12:45→19:45)
[2019-05-03] MEDS ORDERED: MORPHINE SULFATE 4 MG/ML SYRINGE IVP ONE ×2 (12:45→16:15)
[2019-05-03 12:51] LABS: PROTHROMBIN TIME 9.8 SEC (9.4-11.6)
[2019-05-03 12:54] LABS: BILIRUBIN,TOTAL 0.3 mg/dL (0.1-1.0); CALCIUM, TOTAL 7.8 mg/dL (8.8-10.5); CREATININE 4.59 mg/dL (0.60-1.30); MAGNESIUM 1.9 mg/dL (1.80-2.40); PHOSPHORUS 5.2 mg/dL (2.5-4.9); POTASSIUM 5.7 mmol/L (3.5-5.1); TOTAL PROTEIN, SERUM 5.9 g/dL (6.4-8.2)
[2019-05-03 13:56] LABS: ABG A-A DIFF O2 36.6 mmHg (10-20.0); ABG BASE EXCESS -11.4 mmol/L (-2.0-3.0); ABG HCO3 16.5 mmol/L (22.0-26.0); ABG METHEMOGLOBIN 0.3 % (0.0-1.5); ABG OXYGEN CONTENT 19.5 mL/dL (15.0-23.0); ABG OXYGEN SATURATION 94.4 % (95.0-98.0); ABG OXYHEMOGLOBIN 92.2 % (94.0-100.0); ABG PCO2 32 mmHg (35-45); PO2, ARTERIAL BG 74.5 mmHg (88.0-96.0); SOURCE, BLOOD GAS ARTERIAL; TEMPERATURE, FAHRENHEIT, BG 98.7 FAHREN (96.0-98.6)
[2019-05-03 14:00] LABS: SITE, BLOOD GAS RT RADIAL
[2019-05-03 14:01] LABS: O2 DEVICE,BLOOD GAS ROOM AIR (ROOM AIR)
[2019-05-03 15:08] LABS: GLUCOSE,POINT OF CARE 484 MG/DL (70-110)
[2019-05-03 15:26] LABS: APPEARANCE,URINE CLEAR (CLEAR); BILIRUBIN,URINE NEGATIVE (NEGATIVE); GLUCOSE, URINE (UA) >=1000 mg/dL (NEGATIVE); KETONES,URINE 15 mg/dL (NEGATIVE); LEUKOCYTE ESTERASE ,URINE NEGATIVE (NEGATIVE); NITRATE,URINE NEGATIVE (NEGATIVE); OCCULT BLOOD,URINE MODERATE (NEGATIVE); PROTEIN,URINE SEE CONFIRM (NEGATIVE); UROBILINOGEN,URINE 0.2 mg/dL (<=1.0)
[2019-05-03] MEDS ORDERED: SODIUM CHLORIDE 0.45% 1,000 ML IV PRN ×2 (15:32→19:35)
[2019-05-03] MEDS ORDERED: DEXTROSE 5%-0.45% SODIUM CHL 1,000 ML IV PRN ×2 (15:32→19:35)
[2019-05-03] MEDS ORDERED: SODIUM CHLORIDE 0.9% 1,000 ML IV SCH ×2 (15:32→19:35)
[2019-05-03] MEDS ORDERED: POTASSIUM CHL 20 MEQ/0.45% NS 1,000 ML IV PRN ×2 (15:32→19:35)
[2019-05-03] MEDS ORDERED: POTASSIUM CHLORIDE 40 MEQ in SODIUM CHLORIDE 0.45% 1,000 ML IV PRN ×2 (15:32→19:35)
[2019-05-03] MEDS ORDERED: INSULIN REGULAR, HUMAN 100 UNITS in SODIUM CHLORIDE 0.9% 99 ML IV PRN ×4 (15:32→19:35)
[2019-05-03 15:42] LABS: SULFOSALICYLIC ACID,URINE 4+ (Negative)
[2019-05-03 15:44] LABS: BACTERIA,URINE None Seen /HPF (None Seen); RBC,URINE 0-2 /HPF (0-2); SQUAMOUS EPITHELIAL CELL,UR Few /LPF (None Seen); WBC,URINE None Seen /HPF (0-5)
[2019-05-03] MEDS ORDERED: INSULIN REGULAR, HUMAN 100 UNITS/ML IVP PRN ×2 (15:45→19:45)
[2019-05-03] MEDS ORDERED: DEXTROSE 50%-WATER 25 GM/50 ML SYRINGE IVP PRN ×3 (15:45→21:30)
[2019-05-03] MEDS ORDERED: ACETAMINOPHEN 325 MG TABLET PO PRN ×2 (16:15→19:45)
[2019-05-03 17:03] LABS: CALCIUM, TOTAL 7.2 mg/dL (8.8-10.5); CREATININE 4.18 mg/dL (0.60-1.30); POTASSIUM 4.8 mmol/L (3.5-5.1)
[2019-05-03 18:29] LABS: GLUCOSE,POINT OF CARE 199 MG/DL (70-110)
[2019-05-03 19:41] LABS: GLUCOSE,POINT OF CARE 100 MG/DL (70-110)
[2019-05-03] MEDS ORDERED: ZOLPIDEM TARTRATE 5 MG TABLET PO PRN (19:45)
[2019-05-03] MEDS ORDERED: BISACODYL 10 MG RECTAL RECTAL SUPPOSITORY PR PRN (19:45)
[2019-05-03] MEDS ORDERED: MAGNESIUM HYDROXIDE SUSPENSION 30 ML UDCUP PO PRN (19:45)
[2019-05-03 20:20] LABS: BASOPHILS % (AUTO) 1.4 % (0.0-2.0); EOSINOPHILS % (AUTO) 2.2 % (1.0-6.0); HEMATOCRIT 37.1 % (41-53); HEMOGLOBIN 12.8 g/dL (13.5-17.5); LYMPHOCYTES # (AUTO) 2.1 K/uL (1.0-4.8); LYMPHOCYTES % (AUTO) 45.5 % (22.0-44.0); MEAN CORPUSCULAR HEMOGLOBIN 31.7 pg (26.0-34.0); MEAN CORPUSCULAR HGB CONC 34.4 G/dL (31.0-37.0); MEAN CORPUSCULAR VOLUME 92 fL (80-100); MONOCYTES # (AUTO) 0.5 K/uL (0.1-1.0); MONOCYTES % (AUTO) 10.3 % (2.0-9.0); NEUTROPHILS # (AUTO) 1.9 K/uL (1.8-7.7); NEUTROPHILS % (AUTO) 40.6 % (40.0-70.0); PLATELET COUNT (AUTO) 312 K/uL (150-450); RED BLOOD CELL COUNT(AUTO) 4.03 MIL/uL (4.50-5.90); RED CELL DISTRIBUTION WIDTH 13.7 % (11.5-14.5)
[2019-05-03 20:42] LABS: GLUCOSE,POINT OF CARE 37 MG/DL (70-110)
[2019-05-03 20:51] LABS: CALCIUM, TOTAL 7.5 mg/dL (8.8-10.5); CREATININE 3.94 mg/dL (0.60-1.30); POTASSIUM 4.4 mmol/L (3.5-5.1)
[2019-05-03] MEDS: DOCUSATE SODIUM 100 MG CAPSULE PO SCH (21:00)
[2019-05-03 21:02] LABS: GLUCOSE,POINT OF CARE 113 MG/DL (70-110)
[2019-05-03] MEDS ORDERED: SODIUM CHLORIDE 0.9% 2,400 ML IV SCH (21:15)
[2019-05-03] MEDS: SODIUM CHLORIDE 0.9% 1,000 ML IV SCH (21:41)
[2019-05-03 21:46] LABS: GLUCOSE,POINT OF CARE 132 MG/DL (70-110)
[2019-05-03] MEDS: MORPHINE SULFATE 2 MG/ML SYRINGE IVP PRN (22:04)
[2019-05-03 23:40] LABS: GLUCOSE,POINT OF CARE 117 MG/DL (70-110)
[2019-05-04 00:38] LABS: CALCIUM, TOTAL 7.6 mg/dL (8.8-10.5); CREATININE 3.88 mg/dL (0.60-1.30); POTASSIUM 4.9 mmol/L (3.5-5.1)
[2019-05-04 02:27] LABS: GLUCOSE,POINT OF CARE 131 MG/DL (70-110)
[2019-05-04] MEDS: INSULIN LISPRO 100 UNITS/ML SQ PRN ×4 (03:47→20:59)
[2019-05-04 03:48] LABS: GLUCOSE,POINT OF CARE 143 MG/DL (70-110)
[2019-05-04 04:27] LABS: ALBUMIN 1.7 g/dL (3.4-5.0); BILIRUBIN,TOTAL 0.1 mg/dL (0.1-1.0); CALCIUM, TOTAL 7.6 mg/dL (8.8-10.5); CREATININE 3.91 mg/dL (0.60-1.30); MAGNESIUM 1.7 mg/dL (1.80-2.40); PHOSPHORUS 4.1 mg/dL (2.5-4.9); POTASSIUM 5.1 mmol/L (3.5-5.1); TOTAL PROTEIN, SERUM 5.1 g/dL (6.4-8.2)
[2019-05-04] MEDS: MORPHINE SULFATE 2 MG/ML SYRINGE IVP PRN ×4 (05:18→23:12)
[2019-05-04 05:34] LABS: GLUCOSE,POINT OF CARE 124 MG/DL (70-110)
[2019-05-04] MEDS: SODIUM CHLORIDE 0.9% 1,000 ML IV SCH (07:51)
[2019-05-04] MEDS: DOCUSATE SODIUM 100 MG CAPSULE PO SCH ×2 (07:51→20:48)
[2019-05-04] MEDS: HEPARIN SODIUM,PORCINE 5,000 UNITS/ML VIAL SQ SCH ×4 (07:51→23:54)
[2019-05-04 07:58] LABS: GLUCOSE,POINT OF CARE 99 MG/DL (70-110)
[2019-05-04 08:45] VITALS: BP 175/99
[2019-05-04] MEDS: PANTOPRAZOLE SODIUM 40 MG DR TABLET PO SCH (08:54)
[2019-05-04] MEDS: HYDROCODONE/ACETAMINOPHEN 5-325 MG TABLET PO PRN ×2 (08:54→20:49)
[2019-05-04] MEDS: AmLODIPine BESYLATE 10 MG TABLET PO SCH (08:54)
[2019-05-04] MEDS ORDERED: INSULIN GLARGINE,HUM.REC.ANLOG 100 UNITS/ML SQ SCH (09:00)
[2019-05-04 11:40] VITALS: BP 184/107
[2019-05-04] MEDS ORDERED: SODIUM CHLORIDE 0.9% 1,000 ML IV ONE (11:45)
[2019-05-04] MEDS ORDERED: MAGNESIUM OXIDE 400 MG TABLET PO ONE (12:15)
[2019-05-04] MEDS: ONDANSETRON HCL 4 MG/2 ML VIAL IVP PRN (12:28)
[2019-05-04] MEDS ORDERED: CloNIDine HCL 0.1 MG TABLET PO PRN (15:30)
[2019-05-04 15:47] LABS: GLUCOMETER DEV NAME(LOC) 6N.1; GLUCOSE,POINT OF CARE 176 MG/DL (70-110)
[2019-05-04 15:47] LABS: GLUCOMETER DEV NAME(LOC) 6N.1; GLUCOSE,POINT OF CARE 331 MG/DL (70-110)
[2019-05-04 16:14] VITALS: BP 149/94
[2019-05-04 19:45] VITALS: BP 173/87
[2019-05-04 19:51] LABS: GLUCOMETER DEV NAME(LOC) 6N.1; GLUCOSE,POINT OF CARE 325 MG/DL (70-110)
[2019-05-04] MEDS: HydrALAZINE HCL 25 MG TABLET PO SCH (20:49)
[2019-05-04] MEDS: INSULIN GLARGINE,HUM.REC.ANLOG 100 UNITS/ML SQ SCH (21:02)
[2019-05-04 21:28] LABS: GLUCOMETER DEV NAME(LOC) 6N.1; GLUCOSE,POINT OF CARE 333 MG/DL (70-110)
[2019-05-05] MEDS: INSULIN LISPRO 100 UNITS/ML SQ PRN (04:34)
[2019-05-05 05:06] VITALS: BP 153/91
[2019-05-05 07:45] LABS: CALCIUM, TOTAL 7.8 mg/dL (8.8-10.5); CREATININE 3.87 mg/dL (0.60-1.30); MAGNESIUM 1.8 mg/dL (1.80-2.40); PHOSPHORUS 4.2 mg/dL (2.5-4.9); POTASSIUM 4.8 mmol/L (3.5-5.1)
[2019-05-05 07:49] VITALS: BP 150/89
[2019-05-05] MEDS: HEPARIN SODIUM,PORCINE 5,000 UNITS/ML VIAL SQ SCH (08:00)
[2019-05-05] MEDS: DOCUSATE SODIUM 100 MG CAPSULE PO SCH (08:28)
[2019-05-05] MEDS: AmLODIPine BESYLATE 10 MG TABLET PO SCH (08:29)
[2019-05-05] MEDS: ONDANSETRON HCL 4 MG/2 ML VIAL IVP PRN (08:29)
[2019-05-05] MEDS: HydrALAZINE HCL 25 MG TABLET PO SCH (08:29)
[2019-05-05] MEDS: PANTOPRAZOLE SODIUM 40 MG DR TABLET PO SCH (08:31)
[2019-05-05] MEDS: INSULIN GLARGINE,HUM.REC.ANLOG 100 UNITS/ML SQ SCH (08:46)
[2019-05-05 09:10] LABS: GLUCOMETER DEV NAME(LOC) 6N.1; GLUCOSE,POINT OF CARE 141 MG/DL (70-110)
[2019-05-05] MEDS ORDERED: AMLO10TA7 PO (15:02)
[2019-05-05] MEDS ORDERED: AMLO-343 PO (15:02)
[2019-05-05] MEDS ORDERED: HYDR-2924 PO (15:02)
[2019-05-05] MEDS ORDERED: INSLAN SQ (15:03)
[2019-05-05] MEDS ORDERED: HydrALAZINE HCL 50 MG TABLET PO SCH (16:00)
[2019-05-05 17:48] LABS: GLUCOMETER DEV NAME(LOC) 6N.2; GLUCOSE,POINT OF CARE 138 MG/DL (70-110)
== END 2019-05-05 15:39 | disposition home or self-care (01) | DRG 420 ==
LOC: EMS 11:56 → 6N 05-04 08:10 → 4E 05-05 09:24
PROVIDERS: ADMIT Internal Medicine; ATTEND Internal Medicine
DX: E11.10 Type 2 diabetes mellitus with ketoacidosis without coma (principal); N17.9 Acute kidney failure, unspecified; E44.0 Moderate protein-calorie malnutrition; I12.0 Hypertensive chronic kidney disease with stage 5 chronic kidney disease or end stage renal disease; E11.22 Type 2 diabetes mellitus with diabetic chronic kidney disease; E87.5 Hyperkalemia; E86.0 Dehydration; E78.5 Hyperlipidemia, unspecified; D64.9 Anemia, unspecified; N18.6 End stage renal disease; Z87.442 Personal history of urinary calculi; Z91.19 Patient's noncompliance with other medical treatment and regimen; Z91.013 Allergy to seafood; Z91.048 Other nonmedicinal substance allergy status; Z68.23 Body mass index [BMI] 23.0-23.9, adult; Z79.4 Long term (current) use of insulin; Z87.891 Personal history of nicotine dependence
CPT/HCPCS: 36600; 76770; 82805; 83735; 84100; 93005; 99291; J1644; J1815; J2270; J2405; J7030; J7050

== ENCOUNTER 2021-01-06 16:14 | Inpatient (IN) | payer OTHER ==
[~2021-01-06] VITALS: Ht 182.9 cm; Wt 93.6 kg
[~2021-01-06 16:14] MED LIST changes: +AMLO-258 PO; -AMLO10TA7 PO; +HYDR50TA36 PO
[2021-01-06] MEDS ORDERED: ACETAMINOPHEN 1000 MG/ISO-OSM 100 ML IV ONE (16:45)
[2021-01-06] MEDS ORDERED: INSULIN REGULAR, HUMAN 100 UNITS/ML IVP ONE ×3 (16:45→20:30)
[2021-01-06] MEDS ORDERED: ONDANSETRON HCL 4 MG/2 ML VIAL IVP ONE (16:45)
[2021-01-06 17:47] LABS: EOSINOPHILS % (AUTO) 2.2 % (1.0-6.0); HEMATOCRIT 32.8 % (41-53); HEMOGLOBIN 10.8 g/dL (13.5-17.5); LYMPHOCYTES # (AUTO) 0.9 K/uL (1.0-4.8); LYMPHOCYTES % (AUTO) 17.5 % (22.0-44.0); MEAN CORPUSCULAR HEMOGLOBIN 31.7 pg (26.0-34.0); MEAN CORPUSCULAR HGB CONC 32.8 G/dL (31.0-37.0); MEAN CORPUSCULAR VOLUME 97 fL (80-100); MONOCYTES # (AUTO) 0.3 K/uL (0.1-1.0); MONOCYTES % (AUTO) 5.7 % (2.0-9.0); NEUTROPHILS % (AUTO) 73.6 % (40.0-70.0); PLATELET COUNT (AUTO) 241 K/uL (150-450); RED BLOOD CELL COUNT(AUTO) 3.39 MIL/uL (4.50-5.90); RED CELL DISTRIBUTION WIDTH 15.3 % (11.5-14.5)
[2021-01-06 17:47] LABS: COVID AG,FIA SOURCE NASOPHARYNGEAL
[2021-01-06] MEDS ORDERED: KETOROLAC TROMETHAMINE 30 MG/ML VIAL IVP ONE (18:15)
[2021-01-06 18:21] LABS: CREATININE 7.93 mg/dL (0.60-1.30); PHOSPHORUS 7.3 mg/dL (2.5-4.9); POTASSIUM 5.4 mmol/L (3.5-5.1)
[2021-01-06 18:30] LABS: MAGNESIUM 1.9 mg/dL (1.80-2.40)
[2021-01-06 18:48] LABS: GLUCOMETER DEV NAME(LOC) ERT.5; GLUCOSE,POINT OF CARE > 600 MG/DL (70-110)
[2021-01-06 19:58] LABS: GLUCOMETER DEV NAME(LOC) ERT.5; GLUCOSE,POINT OF CARE > 600 MG/DL (70-110)
[2021-01-06 20:26] LABS: GLUCOMETER DEV NAME(LOC) ERT.5; GLUCOSE,POINT OF CARE 592 MG/DL (70-110)
[2021-01-06] MEDS ORDERED: SODIUM CHLORIDE 0.9% 500 ML IV ONE (20:30)
[2021-01-06] MEDS ORDERED: METOCLOPRAMIDE HCL 5 MG/ML 2 ML VIAL IVP ONE (20:45)
[2021-01-06 21:45] LABS: GLUCOMETER DEV NAME(LOC) ERT.5; GLUCOSE,POINT OF CARE 486 MG/DL (70-110)
[2021-01-06] MEDS ORDERED: DEXTROSE 50%-WATER 25 GM/50 ML SYRINGE IVP PRN ×2 (22:00→23:30)
[2021-01-06] MEDS ORDERED: ACETAMINOPHEN 325 MG TABLET PO PRN ×2 (22:00→23:15)
[2021-01-06] MEDS ORDERED: ONDANSETRON HCL 4 MG/2 ML VIAL IVP PRN (22:00)
[2021-01-06] MEDS ORDERED: INSULIN LISPRO 100 UNITS/ML SQ PRN (22:00)
[2021-01-06] MEDS ORDERED: ONDANSETRON HCL 4 MG/2 ML VIAL IM PRN (23:15)
[2021-01-06] MEDS ORDERED: METOCLOPRAMIDE HCL 5 MG/ML 2 ML VIAL IVP PRN (23:15)
[2021-01-06 23:37] LABS: GLUCOMETER DEV NAME(LOC) ERT.5; GLUCOSE,POINT OF CARE 406 MG/DL (70-110)
[2021-01-06] MEDS: HEPARIN SODIUM,PORCINE 5,000 UNITS/ML VIAL SQ SCH (23:40)
[2021-01-06 23:44] LABS: CALCIUM, TOTAL 7.8 mg/dL (8.8-10.5); CREATININE 8.33 mg/dL (0.60-1.30); POTASSIUM 4.6 mmol/L (3.5-5.1)
[2021-01-07] MEDS: ONDANSETRON HCL 4 MG/2 ML VIAL IVP PRN ×3 (00:44→19:57)
[2021-01-07 04:40] LABS: GLUCOMETER DEV NAME(LOC) ERT.5; GLUCOSE,POINT OF CARE 596 MG/DL (70-110)
[2021-01-07] MEDS ORDERED: INSULIN GLARGINE,HUM.REC.ANLOG 100 UNITS/ML SQ ONE (04:45)
[2021-01-07] MEDS: INSULIN LISPRO 100 UNITS/ML SQ PRN ×5 (04:52→20:59)
[2021-01-07] MEDS ORDERED: HYDROCODONE/ACETAMINOPHEN 5-325 MG TABLET PO PRN (05:45)
[2021-01-07 06:54] LABS: GLUCOMETER DEV NAME(LOC) ERT.5; GLUCOSE,POINT OF CARE 536 MG/DL (70-110)
[2021-01-07] MEDS: HEPARIN SODIUM,PORCINE 5,000 UNITS/ML VIAL SQ SCH ×3 (08:00→23:59)
[2021-01-07 09:16] VITALS: BP 138/74
[2021-01-07 09:28] LABS: BASOPHILS % (AUTO) 1.1 % (0.0-2.0); EOSINOPHILS % (AUTO) 1.4 % (1.0-6.0); HEMATOCRIT 36.8 % (41-53); HEMOGLOBIN 12.3 g/dL (13.5-17.5); LYMPHOCYTES # (AUTO) 1.1 K/uL (1.0-4.8); LYMPHOCYTES % (AUTO) 12.8 % (22.0-44.0); MEAN CORPUSCULAR HEMOGLOBIN 31.7 pg (26.0-34.0); MEAN CORPUSCULAR HGB CONC 33.5 G/dL (31.0-37.0); MEAN CORPUSCULAR VOLUME 95 fL (80-100); MONOCYTES # (AUTO) 0.4 K/uL (0.1-1.0); MONOCYTES % (AUTO) 4.3 % (2.0-9.0); NEUTROPHILS # (AUTO) 6.7 K/uL (1.8-7.7); NEUTROPHILS % (AUTO) 80.4 % (40.0-70.0); PLATELET COUNT (AUTO) 305 K/uL (150-450); RED BLOOD CELL COUNT(AUTO) 3.89 MIL/uL (4.50-5.90); RED CELL DISTRIBUTION WIDTH 14.8 % (11.5-14.5)
[2021-01-07 10:02] LABS: ALANINE AMINOTRANSFERASE 22 U/L (12-78); ALBUMIN 3.2 g/dL (3.4-5.0); ALKALINE PHOSPHATASE 107 U/L (46-116); ANION GAP 12 mmol/L (8-16); ASPARTATE AMINOTRANSFERASE 10 U/L (15-37); BILIRUBIN,TOTAL 0.5 mg/dL (0.1-1.0); CALCIUM, TOTAL 7.8 mg/dL (8.8-10.5); CARBON DIOXIDE 27 mmol/L (22-29); CHLORIDE 93 mmol/L (98-107); CREATININE 9.04 mg/dL (0.60-1.30); GLOMERULAR FILTR. RATE CALC 6 mL/min (>60); POTASSIUM 4.7 mmol/L (3.5-5.1); SODIUM SERUM 132 mmol/L (136-145); THYROID STIMULATING HORMONE 2.95 uIU/mL (0.36-3.74); TOTAL PROTEIN, SERUM 6.6 g/dL (6.4-8.2); UREA NITROGEN, BLOOD 51 mg/dL (7-18)
[2021-01-07 10:15] LABS: GLUCOMETER DEV NAME(LOC) 5S.1; GLUCOSE,POINT OF CARE 388 MG/DL (70-110)
[2021-01-07 10:17] LABS: GLUCOSE,RANDOM 417 mg/dL (70-110)
[2021-01-07 10:31] LABS: ACETONE,BLOOD TRACE (NEGATIVE)
[2021-01-07] MEDS: HydrALAZINE HCL 50 MG TABLET PO SCH ×3 (10:52→20:59)
[2021-01-07] MEDS: AmLODIPine BESYLATE 10 MG TABLET PO SCH (10:52)
[2021-01-07 11:01] VITALS: BP 137/79
[2021-01-07 11:48] LABS: GLUCOMETER DEV NAME(LOC) 5N.3; GLUCOSE,POINT OF CARE 325 MG/DL (70-110)
[2021-01-07 16:30] VITALS: BP 154/81
[2021-01-07 18:17] LABS: GLUCOMETER DEV NAME(LOC) 5S.1; GLUCOSE,POINT OF CARE 171 MG/DL (70-110)
[2021-01-07 19:11] VITALS: BP 149/83
[2021-01-07 23:31] VITALS: BP 140/76
[2021-01-08 03:23] LABS: GLUCOMETER DEV NAME(LOC) 5N.1C; GLUCOSE,POINT OF CARE 201 MG/DL (70-110)
[2021-01-08 06:09] VITALS: BP 148/84
[2021-01-08 06:09] LABS: GLUCOMETER DEV NAME(LOC) 5N.1C; GLUCOSE,POINT OF CARE 200 MG/DL (70-110)
[2021-01-08] MEDS: INSULIN LISPRO 100 UNITS/ML SQ PRN ×3 (07:53→16:44)
[2021-01-08] MEDS: HEPARIN SODIUM,PORCINE 5,000 UNITS/ML VIAL SQ SCH ×3 (07:56→22:48)
[2021-01-08 08:15] VITALS: BP 189/95
[2021-01-08] MEDS: AmLODIPine BESYLATE 10 MG TABLET PO SCH (09:00)
[2021-01-08] MEDS: HydrALAZINE HCL 50 MG TABLET PO SCH ×3 (09:00→20:14)
[2021-01-08 11:17] LABS: GLUCOMETER DEV NAME(LOC) 5S.1; GLUCOSE,POINT OF CARE 393 MG/DL (70-110)
[2021-01-08 11:22] VITALS: BP 140/76
[2021-01-08 11:44] LABS: GLUCOMETER DEV NAME(LOC) 5N.1C; GLUCOSE,POINT OF CARE 368 MG/DL (70-110)
[2021-01-08] MEDS ORDERED: KETOROLAC TROMETHAMINE 15 MG/ML VIAL IVP PRN (12:00)
[2021-01-08 12:11] LABS: GLUCOMETER DEV NAME(LOC) 5N.3; GLUCOSE,POINT OF CARE 200 MG/DL (70-110)
[2021-01-08] MEDS ORDERED: CALC667C PO (12:24)
[2021-01-08] MEDS ORDERED: SODIUM CHLORIDE 0.9% 2,000 ML ONE (15:06)
[2021-01-08 20:06] VITALS: BP 153/96
[2021-01-08 20:19] LABS: GLUCOMETER DEV NAME(LOC) 5N.1C; GLUCOSE,POINT OF CARE 188 MG/DL (70-110)
[2021-01-08 20:39] LABS: GLUCOMETER DEV NAME(LOC) 5S.2B; GLUCOSE,POINT OF CARE 212 MG/DL (70-110)
[2021-01-08] MEDS ORDERED: INSULIN LISPRO 100 UNITS/ML SQ ONE (22:15)
[2021-01-09 00:45] VITALS: BP 149/69
[2021-01-09 02:58] LABS: GLUCOMETER DEV NAME(LOC) 5N.1C; GLUCOSE,POINT OF CARE 363 MG/DL (70-110)
[2021-01-09 02:58] LABS: GLUCOMETER DEV NAME(LOC) 5N.1C; GLUCOSE,POINT OF CARE 435 MG/DL (70-110)
[2021-01-09 05:01] VITALS: BP 146/79
[2021-01-09 07:55] VITALS: BP 184/88
[2021-01-09] MEDS: HEPARIN SODIUM,PORCINE 5,000 UNITS/ML VIAL SQ SCH ×2 (08:00→16:00)
[2021-01-09] MEDS: INSULIN LISPRO 100 UNITS/ML SQ PRN ×3 (08:29→17:51)
[2021-01-09] MEDS: ONDANSETRON HCL 4 MG/2 ML VIAL IVP PRN (08:33)
[2021-01-09] MEDS: AmLODIPine BESYLATE 10 MG TABLET PO SCH (09:03)
[2021-01-09] MEDS: HydrALAZINE HCL 50 MG TABLET PO SCH ×2 (09:03→16:00)
[2021-01-09 11:18] VITALS: BP 155/90
[2021-01-09] MEDS ORDERED: SODIUM CHLORIDE 0.45% 1,000 ML IV ONE (12:00)
[2021-01-09 12:05] LABS: BASOPHILS % (AUTO) 0.9 % (0.0-2.0); EOSINOPHILS % (AUTO) 1.7 % (1.0-6.0); HEMATOCRIT 40.5 % (41-53); HEMOGLOBIN 13.4 g/dL (13.5-17.5); LYMPHOCYTES % (AUTO) 11.4 % (22.0-44.0); MEAN CORPUSCULAR HEMOGLOBIN 31.4 pg (26.0-34.0); MEAN CORPUSCULAR VOLUME 95 fL (80-100); MONOCYTES # (AUTO) 0.4 K/uL (0.1-1.0); MONOCYTES % (AUTO) 4.9 % (2.0-9.0); NEUTROPHILS # (AUTO) 7.3 K/uL (1.8-7.7); NEUTROPHILS % (AUTO) 81.1 % (40.0-70.0); PLATELET COUNT (AUTO) 345 K/uL (150-450); RED BLOOD CELL COUNT(AUTO) 4.26 MIL/uL (4.50-5.90); RED CELL DISTRIBUTION WIDTH 14.9 % (11.5-14.5)
[2021-01-09 12:14] LABS: CALCIUM, TOTAL 8.4 mg/dL (8.8-10.5); CREATININE 8.51 mg/dL (0.60-1.30); POTASSIUM 5.1 mmol/L (3.5-5.1)
[2021-01-09 12:21] LABS: ALBUMIN 3.3 g/dL (3.4-5.0); BILIRUBIN,TOTAL 0.4 mg/dL (0.1-1.0); MAGNESIUM 2.2 mg/dL (1.80-2.40); PHOSPHORUS 4.2 mg/dL (2.5-4.9); TOTAL PROTEIN, SERUM 7.4 g/dL (6.4-8.2)
[2021-01-09] MEDS ORDERED: SODIUM CHLORIDE 0.9% 2,000 ML ONE (14:34)
[2021-01-09 16:21] VITALS: BP 139/87
[2021-01-09] MEDS ORDERED: INSULIN GLARGINE,HUM.REC.ANLOG 100 UNITS/ML SQ SCH (21:00)
[2021-01-09 23:56] LABS: GLUCOMETER DEV NAME(LOC) 5S.2B; GLUCOSE,POINT OF CARE 176 MG/DL (70-110)
[2021-01-09 23:57] LABS: GLUCOMETER DEV NAME(LOC) 5S.2B; GLUCOSE,POINT OF CARE 303 MG/DL (70-110)
[2021-01-09 23:57] LABS: GLUCOMETER DEV NAME(LOC) 5S.2B; GLUCOSE,POINT OF CARE 376 MG/DL (70-110)
[2021-01-09 23:57] LABS: GLUCOMETER DEV NAME(LOC) 5S.2B; GLUCOSE,POINT OF CARE 199 MG/DL (70-110)
[2021-01-09 23:57] LABS: GLUCOMETER DEV NAME(LOC) 5S.2B; GLUCOSE,POINT OF CARE 242 MG/DL (70-110)
[2021-01-10 05:19] LABS: GLUCOMETER DEV NAME(LOC) 5N.3; GLUCOSE,POINT OF CARE 169 MG/DL (70-110)
[2021-01-10 05:19] LABS: GLUCOMETER DEV NAME(LOC) 5N.3; GLUCOSE,POINT OF CARE 144 MG/DL (70-110)
== END 2021-01-09 18:30 | disposition home or self-care (01) | DRG 420 ==
LOC: EMS 16:18 → 5S 23:09
PROVIDERS: ADMIT Internal Medicine; ATTEND Internal Medicine
PROC: 5A1D70Z Performance of Urinary Filtration, Intermittent, Less than 6 Hours Per Day (ICD-10-PCS; principal; 2021-01-08)
PROC: 5A1D70Z Performance of Urinary Filtration, Intermittent, Less than 6 Hours Per Day (ICD-10-PCS; 2021-01-09)
DX: E10.10 Type 1 diabetes mellitus with ketoacidosis without coma (principal); E10.22 Type 1 diabetes mellitus with diabetic chronic kidney disease; E87.5 Hyperkalemia; I12.0 Hypertensive chronic kidney disease with stage 5 chronic kidney disease or end stage renal disease; D63.1 Anemia in chronic kidney disease; E87.1 Hypo-osmolality and hyponatremia; F12.90 Cannabis use, unspecified, uncomplicated; N18.6 End stage renal disease; I25.10 Atherosclerotic heart disease of native coronary artery without angina pectoris; Z79.899 Other long term (current) drug therapy; Z83.3 Family history of diabetes mellitus; Z87.442 Personal history of urinary calculi; Z96.41 Presence of insulin pump (external) (internal); Z99.2 Dependence on renal dialysis; F17.200 Nicotine dependence, unspecified, uncomplicated; G89.4 Chronic pain syndrome; Z20.822 Contact with and (suspected) exposure to COVID-19; Z88.8 Allergy status to other drugs, medicaments and biological substances; Z91.013 Allergy to seafood; E10.65 Type 1 diabetes mellitus with hyperglycemia
CPT/HCPCS: 71045; 80048; 80053; 82009; 82948; 82962; 83735; 84100; 84443; 85025; 87340; 93005; 99285; G0378; J0131; J1644; J1815; J1885; J2405; J2765; J7030; J7040; 36415-L1; 36415-TC

== ENCOUNTER 2021-01-28 01:34 | Inpatient (IN) | payer OTHER ==
[~2021-01-28] VITALS: Ht 182.9 cm; Wt 95.0 kg
[~2021-01-28 01:34] MED LIST changes: -HYDR50TA36 PO
[2021-01-28 02:02] LABS: BASOPHILS % (AUTO) 0.2 % (0.0-2.0); EOSINOPHILS % (AUTO) 4.3 % (1.0-6.0); HEMATOCRIT 34.2 % (41-53); HEMOGLOBIN 11.3 g/dL (13.5-17.5); LYMPHOCYTES # (AUTO) 2.4 K/uL (1.0-4.8); LYMPHOCYTES % (AUTO) 32.1 % (22.0-44.0); MEAN CORPUSCULAR HEMOGLOBIN 31.7 pg (26.0-34.0); MEAN CORPUSCULAR HGB CONC 33.1 G/dL (31.0-37.0); MEAN CORPUSCULAR VOLUME 96 fL (80-100); MONOCYTES # (AUTO) 0.5 K/uL (0.1-1.0); MONOCYTES % (AUTO) 6.5 % (2.0-9.0); NEUTROPHILS # (AUTO) 4.3 K/uL (1.8-7.7); NEUTROPHILS % (AUTO) 56.9 % (40.0-70.0); PLATELET COUNT (AUTO) 314 K/uL (150-450); RED BLOOD CELL COUNT(AUTO) 3.57 MIL/uL (4.50-5.90); RED CELL DISTRIBUTION WIDTH 14.8 % (11.5-14.5)
[2021-01-28 02:12] LABS: CREATININE 9.29 mg/dL (0.60-1.30); POTASSIUM 5.1 mmol/L (3.5-5.1)
[2021-01-28 02:23] LABS: PROTHROMBIN TIME 10.8 SEC (9.4-11.6)
[2021-01-28 02:36] LABS: ALBUMIN 3.3 g/dL (3.4-5.0); BILIRUBIN,TOTAL 0.3 mg/dL (0.1-1.0)
[2021-01-28 03:12] LABS: COVID AG,FIA SOURCE NASOPHARYNGEAL
[2021-01-28] MEDS ORDERED: *CLINICAL-LEVOFLOXACIN IVPB DOSING CLINICAL ONE ×2 (03:15→03:45)
[2021-01-28] MEDS ORDERED: 0.9% SODIUM CHLORIDE 10 ML SYRINGE IVP PRN (03:15)
[2021-01-28] MEDS ORDERED: ONDANSETRON HCL 4 MG/2 ML VIAL IVP PRN ×2 (03:15→03:45)
[2021-01-28] MEDS ORDERED: ACETAMINOPHEN 325 MG TABLET PO PRN ×2 (03:15→03:45)
[2021-01-28 03:20] LABS: GLUCOSE,POINT OF CARE 124 MG/DL (70-110)
[2021-01-28] MEDS ORDERED: LEVOFLOXACIN 500 MG/D5% WATER 100 ML IV ONE (03:30)
[2021-01-28] MEDS ORDERED: DEXTROSE 50%-WATER 25 GM/50 ML SYRINGE IVP PRN (03:45)
[2021-01-28] MEDS ORDERED: INSULIN LISPRO 100 UNITS/ML SQ PRN (03:45)
[2021-01-28] MEDS: CefTRIAXone 1 GM/DEXTROSE 50 ML IV SCH (07:43)
[2021-01-28] MEDS: HEPARIN SODIUM,PORCINE 5,000 UNITS/ML VIAL SQ SCH ×2 (07:54→07:59)
[2021-01-28 08:36] LABS: APPEARANCE,URINE CLEAR (CLEAR); BILIRUBIN,URINE NEGATIVE (NEGATIVE); GLUCOSE, URINE (UA) 100 mg/dL (NEGATIVE); KETONES,URINE NEGATIVE (NEGATIVE); LEUKOCYTE ESTERASE ,URINE NEGATIVE (NEGATIVE); NITRATE,URINE NEGATIVE (NEGATIVE); OCCULT BLOOD,URINE TRACE (NEGATIVE); PROTEIN,URINE SEE CONFIRM (NEGATIVE); UROBILINOGEN,URINE 0.2 mg/dL (<=1.0)
[2021-01-28 08:43] LABS: BACTERIA,URINE None Seen /HPF (None Seen); RBC,URINE 0-2 /HPF (0-2); SULFOSALICYLIC ACID,URINE 2+ (Negative); WBC,URINE None Seen /HPF (0-5)
[2021-01-28 09:30] VITALS: BP 169/89
[2021-01-28 12:47] VITALS: BP 159/85
[2021-01-28 15:54] VITALS: BP 158/97
[2021-01-28 17:18] LABS: GLUCOMETER DEV NAME(LOC) 5S.2B; GLUCOSE,POINT OF CARE 135 MG/DL (70-110)
[2021-01-28] MEDS ORDERED: SODIUM CHLORIDE 0.9% 2,000 ML ONE (18:32)
[2021-01-28 19:47] VITALS: BP 160/83
[2021-01-28] MEDS: INSULIN GLARGINE,HUM.REC.ANLOG 100 UNITS/ML SQ SCH (21:00)
[2021-01-29] VITALS (7 sets, daily range): BP systolic 106–146; BP diastolic 60–82
[2021-01-29 01:19] LABS: GLUCOMETER DEV NAME(LOC) 5N.1C; GLUCOSE,POINT OF CARE 88 MG/DL (70-110)
[2021-01-29 03:01] LABS: GLUCOMETER DEV NAME(LOC) 5N.3; GLUCOSE,POINT OF CARE 93 MG/DL (70-110)
[2021-01-29] MEDS: HEPARIN SODIUM,PORCINE 5,000 UNITS/ML VIAL SQ SCH ×3 (08:00→16:00)
[2021-01-29] MEDS: CefTRIAXone 1 GM/DEXTROSE 50 ML IV SCH (08:20)
[2021-01-29] MEDS: AmLODIPine BESYLATE 10 MG TABLET PO SCH (08:33)
[2021-01-29] MEDS ORDERED: AZITHROMYCIN 500 MG/NS 250 ML IV SCH (09:00)
[2021-01-29 18:08] LABS: GLUCOMETER DEV NAME(LOC) 5S.2B; GLUCOSE,POINT OF CARE 130 MG/DL (70-110)
[2021-01-29] MEDS: INSULIN GLARGINE,HUM.REC.ANLOG 100 UNITS/ML SQ SCH (21:00)
[2021-01-29 23:16] LABS: GLUCOMETER DEV NAME(LOC) 5S.1; GLUCOSE,POINT OF CARE 149 MG/DL (70-110)
[2021-01-30 00:32] VITALS: BP 111/64
[2021-01-30 03:04] LABS: GLUCOMETER DEV NAME(LOC) 5S.2B; GLUCOSE,POINT OF CARE 94 MG/DL (70-110)
[2021-01-30 03:04] LABS: GLUCOMETER DEV NAME(LOC) 5S.2B; GLUCOSE,POINT OF CARE 58 MG/DL (70-110)
[2021-01-30 03:04] LABS: GLUCOMETER DEV NAME(LOC) 5S.2B; GLUCOSE,POINT OF CARE 106 MG/DL (70-110)
[2021-01-30 04:47] VITALS: BP 143/77
[2021-01-30] MEDS ORDERED: LEVOFLOXACIN 250 MG/D5% WATER 50 ML IV SCH (05:00)
[2021-01-30 08:25] VITALS: BP 158/89
[2021-01-30] MEDS: CefTRIAXone 1 GM/DEXTROSE 50 ML IV SCH (08:32)
[2021-01-30] MEDS: AmLODIPine BESYLATE 10 MG TABLET PO SCH (08:32)
[2021-01-30] MEDS: HEPARIN SODIUM,PORCINE 5,000 UNITS/ML VIAL SQ SCH ×2 (08:32)
[2021-01-30] MEDS ORDERED: EPOETIN ALFA 10,000 UNITS/ML 2 ML VIAL SQ SCH (09:00)
[2021-01-30 11:31] VITALS: BP 139/68
[2021-01-30] MEDS ORDERED: SEVELAMER CARBONATE 800 MG TABLET PO SCH (12:00)
[2021-01-30] MEDS ORDERED: SEVE800T17 PO (13:43)
[2021-01-31 04:18] LABS: GLUCOMETER DEV NAME(LOC) 5S.1; GLUCOSE,POINT OF CARE 92 MG/DL (70-110)
== END 2021-01-30 15:01 | disposition home or self-care (01) | DRG 194 ==
LOC: EMS 01:37 → 5S 05:18
PROVIDERS: ADMIT Internal Medicine; ATTEND Internal Medicine
PROC: 5A1D70Z Performance of Urinary Filtration, Intermittent, Less than 6 Hours Per Day (ICD-10-PCS; principal; 2021-01-28)
PROC: 5A1D70Z Performance of Urinary Filtration, Intermittent, Less than 6 Hours Per Day (ICD-10-PCS; 2021-01-29)
DX: I13.2 Hypertensive heart and chronic kidney disease with heart failure and with stage 5 chronic kidney disease, or end stage renal disease (principal); N18.6 End stage renal disease; J18.9 Pneumonia, unspecified organism; D63.1 Anemia in chronic kidney disease; E83.51 Hypocalcemia; E10.22 Type 1 diabetes mellitus with diabetic chronic kidney disease; I50.31 Acute diastolic (congestive) heart failure; Z96.41 Presence of insulin pump (external) (internal); I25.10 Atherosclerotic heart disease of native coronary artery without angina pectoris; R09.02 Hypoxemia; Z20.822 Contact with and (suspected) exposure to COVID-19; Z79.4 Long term (current) use of insulin; Z83.3 Family history of diabetes mellitus; Z87.442 Personal history of urinary calculi; Z87.891 Personal history of nicotine dependence; Z99.2 Dependence on renal dialysis; Z79.899 Other long term (current) drug therapy; I25.2 Old myocardial infarction; Z91.018 Allergy to other foods
CPT/HCPCS: 71045; 71250; 80053; 81001; 81002; 82550; 82962; 83880; 84484; 85025; 85610; 85730; 87040; 87081; 87340; 93005; 93306; 99285; J0456; J0696; J0885; J1644; J1815; J1956; J2405; J7030; 36415-L1; 36415-TC; U0003

== ENCOUNTER 2021-03-19 17:00 | Emergency (ER) | payer OTHER ==
[~2021-03-19] VITALS: Ht 182.9 cm; Wt 90.0 kg
[~2021-03-19 17:00] MED LIST changes: -INSLAN SQ; +SEVE800T17 PO
[2021-03-19] MEDS ORDERED: MORPHINE SULFATE 4 MG/ML SYRINGE IVP ONE (18:30)
[2021-03-19] MEDS ORDERED: ONDANSETRON HCL 4 MG/2 ML VIAL IVP ONE (18:30)
[2021-03-19] MEDS ORDERED: KETOROLAC TROMETHAMINE 30 MG/ML VIAL IVP ONE (18:30)
[2021-03-19 18:45] LABS: BASOPHILS % (AUTO) 2.9 % (0.0-2.0); EOSINOPHILS % (AUTO) 3.2 % (1.0-6.0); HEMATOCRIT 38.8 % (41-53); LYMPHOCYTES # (AUTO) 1.6 K/uL (1.0-4.8); MEAN CORPUSCULAR HEMOGLOBIN 31.6 pg (26.0-34.0); MEAN CORPUSCULAR HGB CONC 33.5 G/dL (31.0-37.0); MEAN CORPUSCULAR VOLUME 94 fL (80-100); MONOCYTES # (AUTO) 0.5 K/uL (0.1-1.0); MONOCYTES % (AUTO) 8.6 % (2.0-9.0); NEUTROPHILS # (AUTO) 3.3 K/uL (1.8-7.7); NEUTROPHILS % (AUTO) 57.3 % (40.0-70.0); PLATELET COUNT (AUTO) 377 K/uL (150-450); RED BLOOD CELL COUNT(AUTO) 4.12 MIL/uL (4.50-5.90); RED CELL DISTRIBUTION WIDTH 14.7 % (11.5-14.5)
[2021-03-19 18:56] LABS: ANION GAP 9 mmol/L (8-16); CALCIUM, TOTAL 8.5 mg/dL (8.8-10.5); CARBON DIOXIDE 33 mmol/L (22-29); CHLORIDE 99 mmol/L (98-107); CREATININE 7.23 mg/dL (0.60-1.30); GLOMERULAR FILTR. RATE CALC 8 mL/min (>60); GLUCOSE,RANDOM 195 mg/dL (70-110); POTASSIUM 5.2 mmol/L (3.5-5.1); SODIUM SERUM 141 mmol/L (136-145); UREA NITROGEN, BLOOD 33 mg/dL (7-18)
[2021-03-19 19:00] LABS: ALANINE AMINOTRANSFERASE 23 U/L (12-78); ALBUMIN 3.9 g/dL (3.4-5.0); ALKALINE PHOSPHATASE 97 U/L (46-116); ASPARTATE AMINOTRANSFERASE 18 U/L (15-37); BILIRUBIN,TOTAL 0.5 mg/dL (0.1-1.0); TOTAL PROTEIN, SERUM 7.9 g/dL (6.4-8.2)
[2021-03-19 19:06] LABS: B-TYPE NATRIURETIC PEPTIDE 323 pg/mL (0-100)
[2021-03-19 19:07] LABS: ACETONE,BLOOD NEGATIVE (NEGATIVE)
[2021-03-19 20:30] VITALS: BP 127/76
[2021-03-19] MEDS ORDERED: CYCLOBENZAPRINE HCL 10 MG TABLET PO ONE (20:45)
== END 2021-03-19 21:00 | disposition home or self-care (01) ==
LOC: EMS 17:05
DX: E10.65 Type 1 diabetes mellitus with hyperglycemia (principal); E10.22 Type 1 diabetes mellitus with diabetic chronic kidney disease; N18.6 End stage renal disease
CPT/HCPCS: 71045; 80053; 82009; 83880; 84484; 85025; 93005; 96374; 96375; 99285; J1885; J2270; J2405; 36415-L1; 36415-TC

== ENCOUNTER 2021-04-11 19:55 | Emergency (ER) | payer OTHER ==
[~2021-04-11] VITALS: Ht 182.9 cm; Wt 85.0 kg
[2021-04-11 20:56] LABS: EOSINOPHILS % (AUTO) 3.2 % (1.0-6.0); HEMATOCRIT 36.4 % (41-53); LYMPHOCYTES # (AUTO) 1.5 K/uL (1.0-4.8); LYMPHOCYTES % (AUTO) 23.4 % (22.0-44.0); MEAN CORPUSCULAR VOLUME 97 fL (80-100); MONOCYTES # (AUTO) 0.6 K/uL (0.1-1.0); MONOCYTES % (AUTO) 8.5 % (2.0-9.0); NEUTROPHILS # (AUTO) 4.2 K/uL (1.8-7.7); NEUTROPHILS % (AUTO) 63.9 % (40.0-70.0); PLATELET COUNT (AUTO) 372 K/uL (150-450); RED BLOOD CELL COUNT(AUTO) 3.75 MIL/uL (4.50-5.90)
[2021-04-11] MEDS: KETOROLAC TROMETHAMINE 30 MG/ML VIAL IVP ONE (21:08)
[2021-04-11 21:11] LABS: CREATININE 6.84 mg/dL (0.60-1.30); MAGNESIUM 2.2 mg/dL (1.80-2.40); PHOSPHORUS 6.3 mg/dL (2.5-4.9); POTASSIUM 5.3 mmol/L (3.5-5.1)
[2021-04-11] MEDS: INSULIN REGULAR, HUMAN 100 UNITS/ML IVP ONE (21:11)
[2021-04-11 21:59] VITALS: BP 176/79
== END 2021-04-11 22:05 | disposition home or self-care (01) ==
LOC: EMS 19:55
DX: I12.0 Hypertensive chronic kidney disease with stage 5 chronic kidney disease or end stage renal disease (principal); E10.65 Type 1 diabetes mellitus with hyperglycemia; N18.6 End stage renal disease; Z99.2 Dependence on renal dialysis; R25.2 Cramp and spasm; F12.90 Cannabis use, unspecified, uncomplicated
CPT/HCPCS: 36415; 71045; 80048; 83735; 84100; 85025; 96374; 96375; 99284; J1815; J1885

== ENCOUNTER 2021-06-07 19:53 | Inpatient (IN) | payer OTHER ==
[~2021-06-07] VITALS: Ht 182.9 cm; Wt 85.0 kg
[~2021-06-07 19:53] MED LIST changes: +[UNRECOGNIZED DRUG - REMARK] SQ
[2021-06-07 22:46] LABS: BASOPHILS % (AUTO) 0.2 % (0.0-2.0); EOSINOPHILS % (AUTO) 0 % (1.0-6.0); HEMATOCRIT 42.3 % (41-53); HEMOGLOBIN 14.4 g/dL (13.5-17.5); LYMPHOCYTES # (AUTO) 0.6 K/uL (1.0-4.8); LYMPHOCYTES % (AUTO) 7.1 % (22.0-44.0); MEAN CORPUSCULAR HEMOGLOBIN 32.6 pg (26.0-34.0); MEAN CORPUSCULAR HGB CONC 33.9 G/dL (31.0-37.0); MEAN CORPUSCULAR VOLUME 96 fL (80-100); MONOCYTES # (AUTO) 0.1 K/uL (0.1-1.0); MONOCYTES % (AUTO) 1.3 % (2.0-9.0); NEUTROPHILS # (AUTO) 7.6 K/uL (1.8-7.7); PLATELET COUNT (AUTO) 415 K/uL (150-450); RED CELL DISTRIBUTION WIDTH 16.1 % (11.5-14.5)
[2021-06-07 22:54] LABS: ANION GAP 18 mmol/L (8-16); CALCIUM, TOTAL 9.2 mg/dL (8.8-10.5); CARBON DIOXIDE 25 mmol/L (22-29); CHLORIDE 98 mmol/L (98-107); CREATININE 9.39 mg/dL (0.60-1.30); GLOMERULAR FILTR. RATE CALC 6 mL/min (>60); GLUCOSE,RANDOM 153 mg/dL (70-110); POTASSIUM 4.9 mmol/L (3.5-5.1); SODIUM SERUM 141 mmol/L (136-145); UREA NITROGEN, BLOOD 46 mg/dL (7-18)
[2021-06-07 23:05] LABS: NEUTROPHILS % (AUTO) 91.4 % (40.0-70.0)
[2021-06-07 23:07] LABS: PROTHROMBIN TIME 10.8 SEC (9.4-11.6)
[2021-06-07 23:15] LABS: B-TYPE NATRIURETIC PEPTIDE 232 pg/mL (0-100)
[2021-06-07 23:19] LABS: ALANINE AMINOTRANSFERASE 29 U/L (12-78); ALBUMIN 4.4 g/dL (3.4-5.0); ALKALINE PHOSPHATASE 123 U/L (46-116); ASPARTATE AMINOTRANSFERASE 17 U/L (15-37); BILIRUBIN,TOTAL 0.6 mg/dL (0.1-1.0); CREATINE KINASE, TOTAL ONLY 121 U/L (39-308); LIPASE 93 U/L (73-393); TOTAL PROTEIN, SERUM 8.8 g/dL (6.4-8.2)
[2021-06-07 23:24] LABS: ACETONE,BLOOD TRACE (NEGATIVE)
[2021-06-07] MEDS ORDERED: SODIUM CHLORIDE 0.9% 250 ML IV ONE (23:30)
[2021-06-07] MEDS ORDERED: ONDANSETRON HCL 4 MG/2 ML VIAL IVP ONE (23:30)
[2021-06-08] VITALS (10 sets, daily range): BP systolic 145–182; BP diastolic 80–96
[2021-06-08 00:25] LABS: COVID AG,FIA SOURCE NASOPHARYNGEAL
[2021-06-08 00:47] LABS: INFLUENZA TYPE A NEGATIVE FOR TYPE A (NEGATIVE); INFLUENZA TYPE B NEGATIVE FOR TYPE B (NEGATIVE)
[2021-06-08] MEDS ORDERED: METOCLOPRAMIDE HCL 5 MG/ML 2 ML VIAL IVP ONE (02:45)
[2021-06-08] MEDS ORDERED: 0.9% SODIUM CHLORIDE 10 ML SYRINGE IVP PRN (03:00)
[2021-06-08] MEDS ORDERED: ACETAMINOPHEN 325 MG TABLET PO PRN ×2 (03:00→09:30)
[2021-06-08] MEDS ORDERED: ONDANSETRON HCL 4 MG/2 ML VIAL IVP PRN (03:00)
[2021-06-08] MEDS: PANTOPRAZOLE SODIUM 40 MG/VIAL IVP SCH (10:41)
[2021-06-08] MEDS: MORPHINE SULFATE 2 MG/ML SYRINGE IVP PRN (10:50)
[2021-06-08] MEDS: METOCLOPRAMIDE HCL 5 MG/ML 2 ML VIAL IVP PRN (13:10)
[2021-06-08] MEDS: SEVELAMER CARBONATE 800 MG TABLET PO SCH ×2 (13:11→18:00)
[2021-06-08 14:01] LABS: GLUCOMETER DEV NAME(LOC) 6N.1; GLUCOSE,POINT OF CARE 129 MG/DL (70-110)
[2021-06-08] MEDS: HEPARIN SODIUM,PORCINE 5,000 UNITS/ML VIAL SQ SCH ×2 (15:46→23:38)
[2021-06-08] MEDS ORDERED: SODIUM CHLORIDE 0.9% 2,000 ML ONE (18:33)
[2021-06-08] MEDS: ONDANSETRON HCL 4 MG/2 ML VIAL IVP PRN (22:01)
[2021-06-08] MEDS: DOCUSATE SODIUM 100 MG CAPSULE PO SCH (22:04)
[2021-06-09] MEDS: METOCLOPRAMIDE HCL 5 MG/ML 2 ML VIAL IVP PRN (00:07)
[2021-06-09 04:44] VITALS: BP 163/88
[2021-06-09] MEDS: MORPHINE SULFATE 2 MG/ML SYRINGE IVP PRN ×2 (04:59→21:02)
[2021-06-09] MEDS: ONDANSETRON HCL 4 MG/2 ML VIAL IVP PRN ×2 (05:18→18:11)
[2021-06-09 07:59] VITALS: BP 148/95
[2021-06-09] MEDS: HEPARIN SODIUM,PORCINE 5,000 UNITS/ML VIAL SQ SCH ×3 (08:00→23:30)
[2021-06-09] MEDS: SEVELAMER CARBONATE 800 MG TABLET PO SCH ×3 (08:46→18:00)
[2021-06-09] MEDS: PANTOPRAZOLE SODIUM 40 MG/VIAL IVP SCH (08:46)
[2021-06-09] MEDS: DOCUSATE SODIUM 100 MG CAPSULE PO SCH ×2 (08:47→19:53)
[2021-06-09 16:11] VITALS: BP 137/86
[2021-06-09 19:42] VITALS: BP 160/97
[2021-06-09 23:27] VITALS: BP 152/91
[2021-06-10 05:07] VITALS: BP 136/80
[2021-06-10] MEDS: HEPARIN SODIUM,PORCINE 5,000 UNITS/ML VIAL SQ SCH (08:00)
[2021-06-10] MEDS: SEVELAMER CARBONATE 800 MG TABLET PO SCH (08:00)
[2021-06-10 08:03] VITALS: BP 155/81
[2021-06-10] MEDS: PANTOPRAZOLE SODIUM 40 MG/VIAL IVP SCH (08:17)
[2021-06-10] MEDS: ONDANSETRON HCL 4 MG/2 ML VIAL IVP PRN (08:24)
[2021-06-10] MEDS: DOCUSATE SODIUM 100 MG CAPSULE PO SCH (08:28)
[2021-06-10] MEDS ORDERED: ONDA-104 PO (09:29)
== END 2021-06-10 12:40 | disposition home or self-care (01) | DRG 48 ==
LOC: EMS 19:54 → 6N 06-08 10:57
PROVIDERS: ADMIT Internal Medicine; ATTEND Internal Medicine
PROC: 5A1D70Z Performance of Urinary Filtration, Intermittent, Less than 6 Hours Per Day (ICD-10-PCS; principal; 2021-06-08)
DX: E11.43 Type 2 diabetes mellitus with diabetic autonomic (poly)neuropathy (principal); I12.0 Hypertensive chronic kidney disease with stage 5 chronic kidney disease or end stage renal disease; E11.22 Type 2 diabetes mellitus with diabetic chronic kidney disease; D63.1 Anemia in chronic kidney disease; N18.6 End stage renal disease; E83.39 Other disorders of phosphorus metabolism; K31.84 Gastroparesis; Z96.41 Presence of insulin pump (external) (internal); Z20.822 Contact with and (suspected) exposure to COVID-19; Z82.49 Family history of ischemic heart disease and other diseases of the circulatory system; Z83.3 Family history of diabetes mellitus; Z87.891 Personal history of nicotine dependence; Z99.2 Dependence on renal dialysis; Z79.4 Long term (current) use of insulin; Z91.013 Allergy to seafood; Z91.018 Allergy to other foods; Z79.899 Other long term (current) drug therapy
CPT/HCPCS: 71045; 80053; 82009; 82550; 82962; 83036; 83690; 83880; 84484; 85025; 85610; 85730; 87340; 87804; 90935; 93005; 99285; C9113; G0480; J1644; J2270; J2405; J2765; J7030; J7050; 36415-L1; 36415-TC; U0003

== ENCOUNTER 2021-07-09 22:52 | Inpatient (IN) | payer OTHER ==
[~2021-07-09] VITALS: Ht 182.9 cm; Wt 95.0 kg
[~2021-07-09 22:52] MED LIST changes: +ONDA-104 PO
[2021-07-09] MEDS ORDERED: SODIUM CHLORIDE 0.9% 1,000 ML IV ONE (23:45)
[2021-07-09 23:55] LABS: BASOPHILS % (AUTO) 2.1 % (0.0-2.0); EOSINOPHILS % (AUTO) 3.6 % (1.0-6.0); HEMATOCRIT 40.5 % (41-53); HEMOGLOBIN 13.4 g/dL (13.5-17.5); LYMPHOCYTES % (AUTO) 21.1 % (22.0-44.0); MEAN CORPUSCULAR HEMOGLOBIN 31.9 pg (26.0-34.0); MEAN CORPUSCULAR HGB CONC 33.1 G/dL (31.0-37.0); MEAN CORPUSCULAR VOLUME 96 fL (80-100); MONOCYTES # (AUTO) 0.4 K/uL (0.1-1.0); MONOCYTES % (AUTO) 9.4 % (2.0-9.0); NEUTROPHILS # (AUTO) 3.1 K/uL (1.8-7.7); NEUTROPHILS % (AUTO) 63.8 % (40.0-70.0); PLATELET COUNT (AUTO) 335 K/uL (150-450); RED CELL DISTRIBUTION WIDTH 14.9 % (11.5-14.5)
[2021-07-10] VITALS (8 sets, daily range): BP systolic 133–159; BP diastolic 64–84
[2021-07-10] MEDS ORDERED: INSULIN REGULAR, HUMAN 100 UNITS/ML IVP ONE
[2021-07-10] MEDS ORDERED: ONDANSETRON HCL 4 MG/2 ML VIAL IVP ONE (00:15)
[2021-07-10 00:16] LABS: ALANINE AMINOTRANSFERASE 23 U/L (12-78); ALBUMIN 3.6 g/dL (3.4-5.0); ALKALINE PHOSPHATASE 97 U/L (46-116); ANION GAP 11 mmol/L (8-16); ASPARTATE AMINOTRANSFERASE 10 U/L (15-37); BILIRUBIN,TOTAL 0.4 mg/dL (0.1-1.0); CALCIUM, TOTAL 8.2 mg/dL (8.8-10.5); CARBON DIOXIDE 29 mmol/L (22-29); CHLORIDE 92 mmol/L (98-107); CREATININE 8.01 mg/dL (0.60-1.30); GLOMERULAR FILTR. RATE CALC 7 mL/min (>60); POTASSIUM 5.5 mmol/L (3.5-5.1); SODIUM SERUM 132 mmol/L (136-145); TOTAL PROTEIN, SERUM 7.5 g/dL (6.4-8.2); UREA NITROGEN, BLOOD 36 mg/dL (7-18)
[2021-07-10 00:52] LABS: GLUCOSE,RANDOM 651 mg/dL (70-110)
[2021-07-10] MEDS ORDERED: SODIUM CHLORIDE 0.9% 1,000 ML IV ONE (01:00)
[2021-07-10 01:06] LABS: GLUCOSE,POINT OF CARE > 600 MG/DL (70-110)
[2021-07-10] MEDS ORDERED: INSULIN REGULAR, HUMAN 100 UNITS/ML IVP PRN (01:15)
[2021-07-10] MEDS ORDERED: SODIUM CHLORIDE 0.45% 1,000 ML IV PRN (01:15)
[2021-07-10] MEDS ORDERED: SODIUM CHLORIDE 0.9% 1,000 ML IV SCH (01:15)
[2021-07-10] MEDS ORDERED: POTASSIUM CHLORIDE 40 MEQ in SODIUM CHLORIDE 0.45% 1,000 ML IV PRN (01:15)
[2021-07-10] MEDS ORDERED: DEXTROSE 5%-0.45% SODIUM CHL 1,000 ML IV PRN (01:15)
[2021-07-10] MEDS ORDERED: DEXTROSE 50%-WATER 25 GM/50 ML SYRINGE IVP PRN (01:15)
[2021-07-10] MEDS ORDERED: INSULIN REGULAR, HUMAN 100 UNITS in SODIUM CHLORIDE 0.9% 99 ML IV PRN ×2 (01:15)
[2021-07-10] MEDS ORDERED: POTASSIUM CHL 20 MEQ/0.45% NS 1,000 ML IV PRN (01:15)
[2021-07-10] MEDS ORDERED: MORPHINE SULFATE 2 MG/ML SYRINGE IVP ONE (01:45)
[2021-07-10] MEDS: INSULIN REGULAR, HUMAN 100 UNITS/ML IVP ONE ×2 (02:09→02:15)
[2021-07-10 02:21] LABS: GLUCOSE,POINT OF CARE 543 MG/DL (70-110)
[2021-07-10 02:50] LABS: COVID AG,FIA SOURCE NASAL SWAB
[2021-07-10 03:21] LABS: GLUCOSE,POINT OF CARE 503 MG/DL (70-110)
[2021-07-10 04:24] LABS: BASOPHILS % (AUTO) 1.2 % (0.0-2.0); EOSINOPHILS % (AUTO) 2.8 % (1.0-6.0); HEMATOCRIT 39.8 % (41-53); HEMOGLOBIN 13.6 g/dL (13.5-17.5); LYMPHOCYTES # (AUTO) 1.8 K/uL (1.0-4.8); LYMPHOCYTES % (AUTO) 33.8 % (22.0-44.0); MEAN CORPUSCULAR HEMOGLOBIN 32.2 pg (26.0-34.0); MEAN CORPUSCULAR HGB CONC 34.1 G/dL (31.0-37.0); MEAN CORPUSCULAR VOLUME 94 fL (80-100); MONOCYTES # (AUTO) 0.3 K/uL (0.1-1.0); MONOCYTES % (AUTO) 6.1 % (2.0-9.0); NEUTROPHILS # (AUTO) 2.9 K/uL (1.8-7.7); NEUTROPHILS % (AUTO) 56.1 % (40.0-70.0); PLATELET COUNT (AUTO) 328 K/uL (150-450); RED BLOOD CELL COUNT(AUTO) 4.21 MIL/uL (4.50-5.90); RED CELL DISTRIBUTION WIDTH 14.8 % (11.5-14.5)
[2021-07-10 04:34] LABS: CALCIUM, TOTAL 8.3 mg/dL (8.8-10.5); CREATININE 8.16 mg/dL (0.60-1.30); POTASSIUM 4.1 mmol/L (3.5-5.1)
[2021-07-10 05:11] LABS: GLUCOSE,POINT OF CARE 115 MG/DL (70-110)
[2021-07-10 05:52] LABS: GLUCOSE,POINT OF CARE 98 MG/DL (70-110)
[2021-07-10] MEDS: MORPHINE SULFATE 2 MG/ML SYRINGE IVP PRN ×2 (06:26→16:32)
[2021-07-10 06:56] LABS: GLUCOSE,POINT OF CARE 74 MG/DL (70-110)
[2021-07-10] MEDS ORDERED: ACETAMINOPHEN 325 MG TABLET PO PRN (07:45)
[2021-07-10] MEDS: HEPARIN SODIUM,PORCINE 5,000 UNITS/ML VIAL SQ SCH ×3 (08:00→23:15)
[2021-07-10] MEDS: DOCUSATE SODIUM 100 MG CAPSULE PO SCH ×2 (08:47→21:42)
[2021-07-10] MEDS: FAMOTIDINE 20 MG TABLET PO SCH (08:48)
[2021-07-10 09:24] LABS: CALCIUM, TOTAL 8.2 mg/dL (8.8-10.5); CREATININE 8.36 mg/dL (0.60-1.30); POTASSIUM 4.8 mmol/L (3.5-5.1)
[2021-07-10 13:36] LABS: GLUCOSE,POINT OF CARE 92 MG/DL (70-110)
[2021-07-10 13:36] LABS: GLUCOSE,POINT OF CARE 102 MG/DL (70-110)
[2021-07-10] MEDS: ONDANSETRON HCL 4 MG/2 ML VIAL IVP PRN (18:17)
[2021-07-11] VITALS (16 sets, daily range): BP systolic 122–169; BP diastolic 70–92
[2021-07-11] MEDS: MORPHINE SULFATE 2 MG/ML SYRINGE IVP PRN ×3 (04:55→23:20)
[2021-07-11 08:09] LABS: ALBUMIN 3.6 g/dL (3.4-5.0); BILIRUBIN,TOTAL 0.5 mg/dL (0.1-1.0); CALCIUM, TOTAL 8.6 mg/dL (8.8-10.5); CREATININE 10.4 mg/dL (0.60-1.30); MAGNESIUM 2.7 mg/dL (1.80-2.40); POTASSIUM 5.8 mmol/L (3.5-5.1); TOTAL PROTEIN, SERUM 7.4 g/dL (6.4-8.2)
[2021-07-11] MEDS: HEPARIN SODIUM,PORCINE 5,000 UNITS/ML VIAL SQ SCH ×3 (08:21→23:25)
[2021-07-11] MEDS: DOCUSATE SODIUM 100 MG CAPSULE PO SCH ×2 (08:21→23:19)
[2021-07-11] MEDS: FAMOTIDINE 20 MG TABLET PO SCH (08:21)
[2021-07-11] MEDS: ONDANSETRON HCL 4 MG/2 ML VIAL IVP PRN (08:27)
[2021-07-11 13:24] LABS: CALCIUM, TOTAL 8.4 mg/dL (8.8-10.5); CREATININE 10.83 mg/dL (0.60-1.30); POTASSIUM 4.8 mmol/L (3.5-5.1)
[2021-07-11 15:00] LABS: CALCIUM, TOTAL 8.4 mg/dL (8.8-10.5); CREATININE 10.93 mg/dL (0.60-1.30); POTASSIUM 5.1 mmol/L (3.5-5.1)
[2021-07-11] MEDS ORDERED: SODIUM CHLORIDE 0.9% 1,000 ML ONE (15:12)
[2021-07-11 19:26] LABS: CALCIUM, TOTAL 8.2 mg/dL (8.8-10.5); CREATININE 11.47 mg/dL (0.60-1.30); POTASSIUM 4.6 mmol/L (3.5-5.1)
[2021-07-12] VITALS: BP 143/77
[2021-07-12 05:19] VITALS: BP 144/78
[2021-07-12] MEDS: MORPHINE SULFATE 2 MG/ML SYRINGE IVP PRN (06:06)
[2021-07-12 07:36] LABS: CALCIUM, TOTAL 9.2 mg/dL (8.8-10.5); POTASSIUM 4.5 mmol/L (3.5-5.1)
[2021-07-12] MEDS: HEPARIN SODIUM,PORCINE 5,000 UNITS/ML VIAL SQ SCH (07:54)
[2021-07-12] MEDS: DOCUSATE SODIUM 100 MG CAPSULE PO SCH (08:07)
[2021-07-12] MEDS: ONDANSETRON HCL 4 MG/2 ML VIAL IVP PRN (08:07)
[2021-07-12] MEDS: FAMOTIDINE 20 MG TABLET PO SCH (08:07)
== END 2021-07-12 12:25 | disposition home or self-care (01) | DRG 420 ==
LOC: EMS 22:55 → ICU 07-10 03:14 → 5S 07-10 14:30 → 6N 07-11 22:39
PROVIDERS: ADMIT Internal Medicine; ATTEND Internal Medicine
PROC: 5A1D70Z Performance of Urinary Filtration, Intermittent, Less than 6 Hours Per Day (ICD-10-PCS; principal; 2021-07-12)
DX: E11.10 Type 2 diabetes mellitus with ketoacidosis without coma (principal); I12.0 Hypertensive chronic kidney disease with stage 5 chronic kidney disease or end stage renal disease; N18.6 End stage renal disease; E11.22 Type 2 diabetes mellitus with diabetic chronic kidney disease; E86.0 Dehydration; E87.5 Hyperkalemia; F12.90 Cannabis use, unspecified, uncomplicated; Z20.822 Contact with and (suspected) exposure to COVID-19; Z96.41 Presence of insulin pump (external) (internal); Z79.4 Long term (current) use of insulin; Z82.49 Family history of ischemic heart disease and other diseases of the circulatory system; Z99.2 Dependence on renal dialysis; Z83.3 Family history of diabetes mellitus; Z91.19 Patient's noncompliance with other medical treatment and regimen; Z91.013 Allergy to seafood; Z91.018 Allergy to other foods; Z79.899 Other long term (current) drug therapy
CPT/HCPCS: 71045; 80048; 80053; 82009; 82962; 83735; 84100; 85025; 87081; 87340; 90935; 99291; J1644; J1815; J2270; J2405; J3480; J7030; J7050; 36415-L1; 36415-TC

== ENCOUNTER 2021-07-20 07:21 | Inpatient (IN) | payer OTHER ==
[~2021-07-20] VITALS: Ht 182.9 cm; Wt 90.2 kg
[2021-07-20] MEDS ORDERED: ONDANSETRON HCL 4 MG/2 ML VIAL IVP ONE (08:00)
[2021-07-20] MEDS ORDERED: METOCLOPRAMIDE HCL 5 MG/ML 2 ML VIAL IVP ONE (09:00)
[2021-07-20 09:03] LABS: BASOPHILS % (AUTO) 0.5 % (0.0-2.0); EOSINOPHILS % (AUTO) 0.7 % (1.0-6.0); HEMATOCRIT 40.8 % (41-53); LYMPHOCYTES # (AUTO) 0.7 K/uL (1.0-4.8); LYMPHOCYTES % (AUTO) 8.9 % (22.0-44.0); MEAN CORPUSCULAR HEMOGLOBIN 32.3 pg (26.0-34.0); MEAN CORPUSCULAR HGB CONC 34.2 G/dL (31.0-37.0); MEAN CORPUSCULAR VOLUME 95 fL (80-100); MONOCYTES # (AUTO) 0.4 K/uL (0.1-1.0); MONOCYTES % (AUTO) 4.5 % (2.0-9.0); NEUTROPHILS % (AUTO) 85.4 % (40.0-70.0); PLATELET COUNT (AUTO) 327 K/uL (150-450); RED BLOOD CELL COUNT(AUTO) 4.32 MIL/uL (4.50-5.90); RED CELL DISTRIBUTION WIDTH 14.5 % (11.5-14.5)
[2021-07-20 09:21] LABS: LACTIC ACID 0.9 mmol/L (0.4-2.0)
[2021-07-20 09:25] LABS: ANION GAP 15 mmol/L (8-16); CALCIUM, TOTAL 8.7 mg/dL (8.8-10.5); CARBON DIOXIDE 31 mmol/L (22-29); CHLORIDE 96 mmol/L (98-107); CREATININE 9.14 mg/dL (0.60-1.30); GLOMERULAR FILTR. RATE CALC 6 mL/min (>60); GLUCOSE,RANDOM 193 mg/dL (70-110); POTASSIUM 4.7 mmol/L (3.5-5.1); SODIUM SERUM 142 mmol/L (136-145); UREA NITROGEN, BLOOD 42 mg/dL (7-18)
[2021-07-20 09:48] LABS: ALANINE AMINOTRANSFERASE 21 U/L (12-78); ALKALINE PHOSPHATASE 101 U/L (46-116); ASPARTATE AMINOTRANSFERASE 11 U/L (15-37); BILIRUBIN,TOTAL 0.4 mg/dL (0.1-1.0); CREATINE KINASE, TOTAL ONLY 86 U/L (39-308); LIPASE 84 U/L (73-393); TOTAL PROTEIN, SERUM 7.7 g/dL (6.4-8.2)
[2021-07-20] MEDS ORDERED: MORPHINE SULFATE 4 MG/ML SYRINGE IVP ONE (10:45)
[2021-07-20] MEDS ORDERED: 0.9% SODIUM CHLORIDE 10 ML SYRINGE IVP PRN (10:45)
[2021-07-20] MEDS ORDERED: METOCLOPRAMIDE HCL 5 MG/ML 2 ML VIAL IVP PRN (10:45)
[2021-07-20] MEDS ORDERED: ACETAMINOPHEN 325 MG TABLET PO PRN ×2 (10:45→18:30)
[2021-07-20] MEDS ORDERED: ONDANSETRON HCL 4 MG/2 ML VIAL IVP PRN (10:45)
[2021-07-20 10:55] LABS: COVID AG,FIA SOURCE NASOPHARYNGEAL
[2021-07-20 11:45] VITALS: BP 156/75
[2021-07-20 14:43] VITALS: BP 148/72
[2021-07-20] MEDS ORDERED: ALBUTEROL SULFATE 2.5 MG/0.5 ML NEB SOLUTION NEB PRN (18:30)
[2021-07-20] MEDS ORDERED: IPRATROPIUM BROMIDE 0.5 MG/2.5 ML NEB SOLUTION NEB PRN (18:30)
[2021-07-20] MEDS ORDERED: MORPHINE SULFATE 2 MG/ML SYRINGE IVP PRN (18:30)
[2021-07-20] MEDS ORDERED: HYDROCODONE/ACETAMINOPHEN 5-325 MG TABLET PO PRN (18:30)
[2021-07-20] MEDS ORDERED: ZOLPIDEM TARTRATE 5 MG TABLET PO PRN (18:30)
[2021-07-20] MEDS ORDERED: BISACODYL 10 MG RECTAL RECTAL SUPPOSITORY PR PRN (18:30)
[2021-07-20] MEDS ORDERED: MAGNESIUM HYDROXIDE SUSPENSION 30 ML UDCUP PO PRN (18:30)
[2021-07-20] MEDS: AmLODIPine BESYLATE 10 MG TABLET PO SCH (20:28)
[2021-07-20 20:29] VITALS: BP 151/102
[2021-07-20] MEDS: HEPARIN SODIUM,PORCINE 5,000 UNITS/ML VIAL SQ SCH (23:39)
[2021-07-20] MEDS: ONDANSETRON HCL 4 MG/2 ML VIAL IVP PRN (23:43)
[2021-07-20 23:46] VITALS: BP 168/88
[2021-07-21] VITALS (15 sets, daily range): BP systolic 121–161; BP diastolic 60–91
[2021-07-21 06:54] LABS: BASOPHILS % (AUTO) 0.4 % (0.0-2.0); EOSINOPHILS % (AUTO) 0.3 % (1.0-6.0); HEMOGLOBIN 13.6 g/dL (13.5-17.5); LYMPHOCYTES # (AUTO) 1.6 K/uL (1.0-4.8); LYMPHOCYTES % (AUTO) 15.9 % (22.0-44.0); MEAN CORPUSCULAR HGB CONC 34.8 G/dL (31.0-37.0); MEAN CORPUSCULAR VOLUME 95 fL (80-100); MONOCYTES # (AUTO) 0.8 K/uL (0.1-1.0); MONOCYTES % (AUTO) 7.9 % (2.0-9.0); NEUTROPHILS # (AUTO) 7.8 K/uL (1.8-7.7); NEUTROPHILS % (AUTO) 75.5 % (40.0-70.0); PLATELET COUNT (AUTO) 338 K/uL (150-450); RED BLOOD CELL COUNT(AUTO) 4.11 MIL/uL (4.50-5.90)
[2021-07-21 07:13] LABS: ALBUMIN 3.9 g/dL (3.4-5.0); BILIRUBIN,TOTAL 0.5 mg/dL (0.1-1.0); CALCIUM, TOTAL 8.6 mg/dL (8.8-10.5); CREATININE 11.36 mg/dL (0.60-1.30); POTASSIUM 4.4 mmol/L (3.5-5.1); TOTAL PROTEIN, SERUM 7.8 g/dL (6.4-8.2)
[2021-07-21] MEDS: PANTOPRAZOLE SODIUM 40 MG/VIAL IVP SCH (08:32)
[2021-07-21] MEDS: AmLODIPine BESYLATE 10 MG TABLET PO SCH (08:33)
[2021-07-21] MEDS: SEVELAMER CARBONATE 800 MG TABLET PO SCH ×3 (08:33→18:22)
[2021-07-21] MEDS: HEPARIN SODIUM,PORCINE 5,000 UNITS/ML VIAL SQ SCH ×2 (08:33→16:00)
[2021-07-21] MEDS: ONDANSETRON HCL 4 MG/2 ML VIAL IVP PRN ×2 (08:46→14:24)
[2021-07-21] MEDS ORDERED: SODIUM CHLORIDE 0.9% 2,000 ML ONE (09:41)
[2021-07-21 16:41] LABS: GLUCOMETER DEV NAME(LOC) 5N.1C; GLUCOSE,POINT OF CARE 208 MG/DL (70-110)
[2021-07-21 16:42] LABS: GLUCOMETER DEV NAME(LOC) 5N.1C; GLUCOSE,POINT OF CARE 105 MG/DL (70-110)
[2021-07-22] VITALS (7 sets, daily range): BP systolic 129–154; BP diastolic 74–94
[2021-07-22] MEDS: ONDANSETRON HCL 4 MG/2 ML VIAL IVP PRN ×2 (00:39→08:33)
[2021-07-22 07:18] LABS: BASOPHILS % (AUTO) 2.4 % (0.0-2.0); EOSINOPHILS % (AUTO) 3.1 % (1.0-6.0); HEMATOCRIT 42.5 % (41-53); HEMOGLOBIN 14.4 g/dL (13.5-17.5); LYMPHOCYTES # (AUTO) 1.9 K/uL (1.0-4.8); LYMPHOCYTES % (AUTO) 30.3 % (22.0-44.0); MEAN CORPUSCULAR HEMOGLOBIN 32.1 pg (26.0-34.0); MEAN CORPUSCULAR HGB CONC 33.9 G/dL (31.0-37.0); MEAN CORPUSCULAR VOLUME 95 fL (80-100); MONOCYTES # (AUTO) 0.4 K/uL (0.1-1.0); NEUTROPHILS # (AUTO) 3.6 K/uL (1.8-7.7); NEUTROPHILS % (AUTO) 57.2 % (40.0-70.0); PLATELET COUNT (AUTO) 331 K/uL (150-450); RED BLOOD CELL COUNT(AUTO) 4.49 MIL/uL (4.50-5.90); RED CELL DISTRIBUTION WIDTH 14.6 % (11.5-14.5)
[2021-07-22 07:37] LABS: ALBUMIN 3.6 g/dL (3.4-5.0); BILIRUBIN,TOTAL 0.5 mg/dL (0.1-1.0); CALCIUM, TOTAL 8.6 mg/dL (8.8-10.5); CREATININE 8.62 mg/dL (0.60-1.30); POTASSIUM 5.2 mmol/L (3.5-5.1); TOTAL PROTEIN, SERUM 7.6 g/dL (6.4-8.2)
[2021-07-22] MEDS: HEPARIN SODIUM,PORCINE 5,000 UNITS/ML VIAL SQ SCH ×3 (08:00→16:00)
[2021-07-22] MEDS: SEVELAMER CARBONATE 800 MG TABLET PO SCH ×3 (08:25→17:04)
[2021-07-22] MEDS: AmLODIPine BESYLATE 10 MG TABLET PO SCH (08:25)
[2021-07-22] MEDS: PANTOPRAZOLE SODIUM 40 MG/VIAL IVP SCH (08:25)
[2021-07-22] MEDS: VITAMIN B COMP/VIT C/FOLIC ACID CAPSULE PO SCH (17:03)
[2021-07-23] VITALS (15 sets, daily range): BP systolic 108–159; BP diastolic 33–99
[2021-07-23 07:11] LABS: BASOPHILS % (AUTO) 1.1 % (0.0-2.0); EOSINOPHILS % (AUTO) 3.7 % (1.0-6.0); HEMATOCRIT 40.1 % (41-53); HEMOGLOBIN 13.5 g/dL (13.5-17.5); LYMPHOCYTES # (AUTO) 2.2 K/uL (1.0-4.8); LYMPHOCYTES % (AUTO) 36.2 % (22.0-44.0); MEAN CORPUSCULAR HGB CONC 33.8 G/dL (31.0-37.0); MEAN CORPUSCULAR VOLUME 95 fL (80-100); MONOCYTES # (AUTO) 0.6 K/uL (0.1-1.0); MONOCYTES % (AUTO) 9.5 % (2.0-9.0); NEUTROPHILS % (AUTO) 49.5 % (40.0-70.0); PLATELET COUNT (AUTO) 334 K/uL (150-450); RED BLOOD CELL COUNT(AUTO) 4.23 MIL/uL (4.50-5.90); RED CELL DISTRIBUTION WIDTH 14.6 % (11.5-14.5)
[2021-07-23 07:46] LABS: ALBUMIN 3.5 g/dL (3.4-5.0); BILIRUBIN,TOTAL 0.4 mg/dL (0.1-1.0); CALCIUM, TOTAL 8.3 mg/dL (8.8-10.5); CREATININE 11.05 mg/dL (0.60-1.30); POTASSIUM 4.7 mmol/L (3.5-5.1); TOTAL PROTEIN, SERUM 7.3 g/dL (6.4-8.2)
[2021-07-23] MEDS: HEPARIN SODIUM,PORCINE 5,000 UNITS/ML VIAL SQ SCH ×2 (08:00)
[2021-07-23] MEDS: SEVELAMER CARBONATE 800 MG TABLET PO SCH ×2 (08:46→12:00)
[2021-07-23] MEDS: PANTOPRAZOLE SODIUM 40 MG/VIAL IVP SCH (08:46)
[2021-07-23] MEDS: AmLODIPine BESYLATE 10 MG TABLET PO SCH (08:46)
[2021-07-23] MEDS: VITAMIN B COMP/VIT C/FOLIC ACID CAPSULE PO SCH (08:46)
[2021-07-23] MEDS ORDERED: SODIUM CHLORIDE 0.9% 2,000 ML ONE (09:32)
== END 2021-07-23 16:10 | disposition home or self-care (01) | DRG 48 ==
LOC: EMS 07:21 → 5S 11:05
PROVIDERS: ADMIT Hospitalist; ATTEND Hospitalist
PROC: 5A1D70Z Performance of Urinary Filtration, Intermittent, Less than 6 Hours Per Day (ICD-10-PCS; principal; 2021-07-21)
PROC: 5A1D70Z Performance of Urinary Filtration, Intermittent, Less than 6 Hours Per Day (ICD-10-PCS; 2021-07-23)
DX: E10.43 Type 1 diabetes mellitus with diabetic autonomic (poly)neuropathy (principal); I12.0 Hypertensive chronic kidney disease with stage 5 chronic kidney disease or end stage renal disease; D63.1 Anemia in chronic kidney disease; E10.22 Type 1 diabetes mellitus with diabetic chronic kidney disease; N18.6 End stage renal disease; E83.39 Other disorders of phosphorus metabolism; Z96.41 Presence of insulin pump (external) (internal); Z20.822 Contact with and (suspected) exposure to COVID-19; R00.0 Tachycardia, unspecified; E10.10 Type 1 diabetes mellitus with ketoacidosis without coma; K31.84 Gastroparesis; Z82.49 Family history of ischemic heart disease and other diseases of the circulatory system; Z83.3 Family history of diabetes mellitus; Z99.2 Dependence on renal dialysis; Z91.013 Allergy to seafood; Z91.018 Allergy to other foods; Z87.891 Personal history of nicotine dependence
CPT/HCPCS: 71045; 80053; 82009; 82550; 82962; 83605; 83690; 84484; 85025; 87081; 87340; 90935; 93005; 99285; C9113; G0378; J1644; J2270; J2405; J2765; J7030; 36415-L1; 36415-TC

== ENCOUNTER 2021-07-30 14:57 | Inpatient (IN) | payer OTHER ==
[~2021-07-30] VITALS: Ht 182.9 cm; Wt 91.7 kg
[2021-07-30] MEDS ORDERED: ONDANSETRON HCL 4 MG/2 ML VIAL IVP ONE (16:15)
[2021-07-30 17:02] LABS: BASOPHILS % (AUTO) 0.6 % (0.0-2.0); EOSINOPHILS % (AUTO) 0 % (1.0-6.0); HEMATOCRIT 39.1 % (41-53); HEMOGLOBIN 13.2 g/dL (13.5-17.5); LYMPHOCYTES # (AUTO) 0.6 K/uL (1.0-4.8); LYMPHOCYTES % (AUTO) 7.4 % (22.0-44.0); MEAN CORPUSCULAR HEMOGLOBIN 31.8 pg (26.0-34.0); MEAN CORPUSCULAR HGB CONC 33.8 G/dL (31.0-37.0); MEAN CORPUSCULAR VOLUME 94 fL (80-100); MONOCYTES # (AUTO) 0.1 K/uL (0.1-1.0); MONOCYTES % (AUTO) 1.5 % (2.0-9.0); NEUTROPHILS # (AUTO) 7.9 K/uL (1.8-7.7); PLATELET COUNT (AUTO) 356 K/uL (150-450); RED BLOOD CELL COUNT(AUTO) 4.16 MIL/uL (4.50-5.90); RED CELL DISTRIBUTION WIDTH 14.5 % (11.5-14.5)
[2021-07-30 17:03] LABS: NEUTROPHILS % (AUTO) 90.5 % (40.0-70.0)
[2021-07-30 17:11] LABS: ANION GAP 16 mmol/L (8-16); CALCIUM, TOTAL 8.6 mg/dL (8.8-10.5); CARBON DIOXIDE 27 mmol/L (22-29); CHLORIDE 100 mmol/L (98-107); CREATININE 12.95 mg/dL (0.60-1.30); GLOMERULAR FILTR. RATE CALC 4 mL/min (>60); GLUCOSE,RANDOM 143 mg/dL (70-110); POTASSIUM 5.5 mmol/L (3.5-5.1); SODIUM SERUM 143 mmol/L (136-145); UREA NITROGEN, BLOOD 68 mg/dL (7-18)
[2021-07-30 17:18] LABS: ALANINE AMINOTRANSFERASE 21 U/L (12-78); ALBUMIN 3.8 g/dL (3.4-5.0); ALKALINE PHOSPHATASE 98 U/L (46-116); ASPARTATE AMINOTRANSFERASE 9 U/L (15-37); BILIRUBIN,TOTAL 0.6 mg/dL (0.1-1.0); LIPASE 79 U/L (73-393); TOTAL PROTEIN, SERUM 7.9 g/dL (6.4-8.2)
[2021-07-30] MEDS ORDERED: METOCLOPRAMIDE HCL 5 MG/ML 2 ML VIAL IVP PRN (20:00)
[2021-07-30] MEDS ORDERED: ACETAMINOPHEN 325 MG TABLET PO PRN (20:00)
[2021-07-30] MEDS ORDERED: ONDANSETRON HCL 4 MG/2 ML VIAL IVP PRN (20:00)
[2021-07-30] MEDS ORDERED: 0.9% SODIUM CHLORIDE 10 ML SYRINGE IVP PRN (20:00)
[2021-07-30] MEDS ORDERED: METOCLOPRAMIDE HCL 5 MG/ML 2 ML VIAL IVP ONE (20:00)
[2021-07-30] MEDS ORDERED: SODIUM BICARBONATE [ADULT] 8.4% 50 MEQ/50 ML SYRINGE IVP ONE (20:00)
[2021-07-30 21:47] LABS: COVID AG,FIA SOURCE NASAL SWAB
[2021-07-30 22:30] VITALS: BP 153/82
[2021-07-31] VITALS (14 sets, daily range): BP systolic 138–178; BP diastolic 68–89
[2021-07-31] MEDS: ONDANSETRON HCL 4 MG/2 ML VIAL IVP SCH ×4 (00:40→18:00)
[2021-07-31 01:06] LABS: CALCIUM, TOTAL 8.1 mg/dL (8.8-10.5); CREATININE 13.32 mg/dL (0.60-1.30)
[2021-07-31] MEDS ORDERED: INSULIN LISPRO 100 UNITS/ML SQ PRN (07:30)
[2021-07-31] MEDS ORDERED: DEXTROSE 50%-WATER 25 GM/50 ML SYRINGE IVP PRN (07:30)
[2021-07-31] MEDS: HEPARIN SODIUM,PORCINE 5,000 UNITS/ML VIAL SQ SCH ×3 (08:00→16:00)
[2021-07-31] MEDS: INSULIN GLARGINE,HUM.REC.ANLOG 100 UNITS/ML SQ SCH (08:00)
[2021-07-31] MEDS: SEVELAMER CARBONATE 800 MG TABLET PO SCH ×3 (08:12→18:44)
[2021-07-31] MEDS: AmLODIPine BESYLATE 10 MG TABLET PO SCH (08:14)
[2021-07-31 08:56] LABS: BASOPHILS % (AUTO) 0.6 % (0.0-2.0); EOSINOPHILS % (AUTO) 0.7 % (1.0-6.0); LYMPHOCYTES # (AUTO) 1.3 K/uL (1.0-4.8); LYMPHOCYTES % (AUTO) 14.7 % (22.0-44.0); MEAN CORPUSCULAR HEMOGLOBIN 32.2 pg (26.0-34.0); MEAN CORPUSCULAR HGB CONC 34.3 G/dL (31.0-37.0); MEAN CORPUSCULAR VOLUME 94 fL (80-100); MONOCYTES # (AUTO) 0.6 K/uL (0.1-1.0); MONOCYTES % (AUTO) 6.6 % (2.0-9.0); NEUTROPHILS # (AUTO) 6.8 K/uL (1.8-7.7); NEUTROPHILS % (AUTO) 77.4 % (40.0-70.0); PLATELET COUNT (AUTO) 315 K/uL (150-450); RED BLOOD CELL COUNT(AUTO) 3.73 MIL/uL (4.50-5.90); RED CELL DISTRIBUTION WIDTH 14.7 % (11.5-14.5)
[2021-07-31 09:11] LABS: CALCIUM, TOTAL 7.9 mg/dL (8.8-10.5); CREATININE 13.44 mg/dL (0.60-1.30); MAGNESIUM 2.7 mg/dL (1.80-2.40); POTASSIUM 4.5 mmol/L (3.5-5.1)
[2021-07-31] MEDS ORDERED: LOPERAMIDE HCL 2 MG CAPSULE PO PRN (15:15)
[2021-07-31] MEDS: METOCLOPRAMIDE HCL 5 MG/ML 2 ML VIAL IVP SCH (16:11)
[2021-07-31] MEDS: VITAMIN B COMP/VIT C/FOLIC ACID CAPSULE PO SCH (18:43)
[2021-07-31] MEDS: OMEPRAZOLE 20 MG CAPSULE PO SCH (18:44)
[2021-08-01] VITALS (14 sets, daily range): BP systolic 139–171; BP diastolic 71–98
[2021-08-01] MEDS: METOCLOPRAMIDE HCL 5 MG/ML 2 ML VIAL IVP SCH ×3 (01:15→16:00)
[2021-08-01] MEDS: ONDANSETRON HCL 4 MG/2 ML VIAL IVP SCH ×3 (06:00→12:34)
[2021-08-01 07:33] LABS: CALCIUM, TOTAL 8.3 mg/dL (8.8-10.5); CREATININE 10.07 mg/dL (0.60-1.30); POTASSIUM 4.3 mmol/L (3.5-5.1)
[2021-08-01] MEDS: HEPARIN SODIUM,PORCINE 5,000 UNITS/ML VIAL SQ SCH ×3 (08:00→16:00)
[2021-08-01] MEDS: INSULIN GLARGINE,HUM.REC.ANLOG 100 UNITS/ML SQ SCH (08:00)
[2021-08-01] MEDS: OMEPRAZOLE 20 MG CAPSULE PO SCH (08:42)
[2021-08-01] MEDS: AmLODIPine BESYLATE 10 MG TABLET PO SCH (08:42)
[2021-08-01] MEDS: VITAMIN B COMP/VIT C/FOLIC ACID CAPSULE PO SCH (08:42)
[2021-08-01] MEDS: SEVELAMER CARBONATE 800 MG TABLET PO SCH ×2 (08:43→12:34)
== END 2021-08-01 18:30 | disposition home or self-care (01) | DRG 48 ==
LOC: EMS 14:57 → 5S 19:51
PROVIDERS: ADMIT Internal Medicine; ATTEND Internal Medicine
DX: E11.43 Type 2 diabetes mellitus with diabetic autonomic (poly)neuropathy (principal); I13.2 Hypertensive heart and chronic kidney disease with heart failure and with stage 5 chronic kidney disease, or end stage renal disease; N18.6 End stage renal disease; E11.22 Type 2 diabetes mellitus with diabetic chronic kidney disease; D64.9 Anemia, unspecified; E87.5 Hyperkalemia; Z20.822 Contact with and (suspected) exposure to COVID-19; Z96.41 Presence of insulin pump (external) (internal); K31.84 Gastroparesis; Z82.49 Family history of ischemic heart disease and other diseases of the circulatory system; Z79.4 Long term (current) use of insulin; Z79.899 Other long term (current) drug therapy; Z83.3 Family history of diabetes mellitus; Z99.2 Dependence on renal dialysis; Z91.013 Allergy to seafood; Z88.8 Allergy status to other drugs, medicaments and biological substances
CPT/HCPCS: 71045; 80048; 80053; 82009; 83690; 83735; 84484; 85025; 87081; 87340; 93005; 99291; J1644; J1815; J2405; J2765; J3490; 36415-L1; 36415-TC

== ENCOUNTER 2021-08-03 13:12 | Inpatient (IN) | payer OTHER ==
[~2021-08-03] VITALS: Ht 182.9 cm; Wt 88.4 kg
[2021-08-03] MEDS ORDERED: METOCLOPRAMIDE HCL 5 MG/ML 2 ML VIAL IVP ONE (13:45)
[2021-08-03] MEDS ORDERED: SODIUM CHLORIDE 0.9% 1,000 ML IV ONE (13:45)
[2021-08-03] MEDS ORDERED: METOCLOPRAMIDE HCL 10 MG TABLET PO ONE (14:00)
[2021-08-03 14:03] LABS: BASOPHILS % (AUTO) 0.9 % (0.0-2.0); EOSINOPHILS % (AUTO) 0.2 % (1.0-6.0); HEMATOCRIT 38.7 % (41-53); LYMPHOCYTES # (AUTO) 0.8 K/uL (1.0-4.8); LYMPHOCYTES % (AUTO) 8.4 % (22.0-44.0); MEAN CORPUSCULAR HEMOGLOBIN 31.3 pg (26.0-34.0); MEAN CORPUSCULAR HGB CONC 33.7 G/dL (31.0-37.0); MEAN CORPUSCULAR VOLUME 93 fL (80-100); MONOCYTES # (AUTO) 0.3 K/uL (0.1-1.0); MONOCYTES % (AUTO) 3.3 % (2.0-9.0); NEUTROPHILS # (AUTO) 8.2 K/uL (1.8-7.7); PLATELET COUNT (AUTO) 342 K/uL (150-450); RED BLOOD CELL COUNT(AUTO) 4.15 MIL/uL (4.50-5.90)
[2021-08-03 14:11] LABS: NEUTROPHILS % (AUTO) 87.2 % (40.0-70.0)
[2021-08-03 14:23] LABS: CALCIUM, TOTAL 8.8 mg/dL (8.8-10.5); CREATININE 8.73 mg/dL (0.60-1.30); POTASSIUM 4.6 mmol/L (3.5-5.1)
[2021-08-03 14:28] LABS: ALBUMIN 3.8 g/dL (3.4-5.0); BILIRUBIN,TOTAL 0.6 mg/dL (0.1-1.0); TOTAL PROTEIN, SERUM 7.7 g/dL (6.4-8.2)
[2021-08-03] MEDS ORDERED: AmLODIPine BESYLATE 10 MG TABLET PO ONE (17:00)
[2021-08-03 17:07] LABS: COVID AG,FIA SOURCE NASOPHARYNGEAL
[2021-08-03] MEDS ORDERED: INSULIN LISPRO 100 UNITS/ML SQ PRN (20:00)
[2021-08-03] MEDS ORDERED: ONDANSETRON HCL 4 MG/2 ML VIAL IVP PRN (20:00)
[2021-08-03] MEDS ORDERED: MORPHINE SULFATE 2 MG/ML SYRINGE IVP PRN (20:00)
[2021-08-03] MEDS ORDERED: DEXTROSE 50%-WATER 25 GM/50 ML SYRINGE IVP PRN (20:00)
[2021-08-03] MEDS ORDERED: BISACODYL 10 MG RECTAL RECTAL SUPPOSITORY PR PRN (20:00)
[2021-08-03] MEDS ORDERED: ZOLPIDEM TARTRATE 5 MG TABLET PO PRN (20:00)
[2021-08-03] MEDS ORDERED: ACETAMINOPHEN 325 MG TABLET PO PRN (20:00)
[2021-08-03] MEDS ORDERED: HYDROCODONE/ACETAMINOPHEN 5-325 MG TABLET PO PRN (20:00)
[2021-08-03] MEDS ORDERED: MAGNESIUM HYDROXIDE SUSPENSION 30 ML UDCUP PO PRN (20:00)
[2021-08-03 20:33] VITALS: BP 160/83
[2021-08-03] MEDS: DOCUSATE SODIUM 100 MG CAPSULE PO SCH (21:00)
[2021-08-03] MEDS: METOCLOPRAMIDE HCL 5 MG/ML 2 ML VIAL IVP SCH (23:23)
[2021-08-03] MEDS: HEPARIN SODIUM,PORCINE 5,000 UNITS/ML VIAL SQ SCH (23:24)
[2021-08-03 23:51] VITALS: BP 158/81
[2021-08-04 04:20] VITALS: BP 161/78
[2021-08-04] MEDS: METOCLOPRAMIDE HCL 5 MG/ML 2 ML VIAL IVP SCH ×2 (06:05→13:01)
[2021-08-04] MEDS: HEPARIN SODIUM,PORCINE 5,000 UNITS/ML VIAL SQ SCH ×3 (08:00→23:56)
[2021-08-04 08:07] VITALS: BP 161/86
[2021-08-04] MEDS: PANTOPRAZOLE SODIUM 40 MG DR TABLET PO SCH (08:39)
[2021-08-04] MEDS: SEVELAMER CARBONATE 800 MG TABLET PO SCH ×3 (08:39→18:00)
[2021-08-04] MEDS: AmLODIPine BESYLATE 10 MG TABLET PO SCH (08:39)
[2021-08-04] MEDS: DOCUSATE SODIUM 100 MG CAPSULE PO SCH ×2 (08:44→21:00)
[2021-08-04 12:00] VITALS: BP 154/84
[2021-08-04 16:04] VITALS: BP 158/96
[2021-08-04] MEDS ORDERED: SODIUM CHLORIDE 0.9% 1,000 ML ONE (16:48)
[2021-08-04 17:20] VITALS: BP 159/91
[2021-08-04] MEDS ORDERED: LOPERAMIDE HCL 2 MG CAPSULE PO PRN (17:45)
[2021-08-05 00:15] VITALS: BP 133/89
[2021-08-05 03:45] VITALS: BP 135/77
[2021-08-05 07:57] VITALS: BP 157/74
[2021-08-05] MEDS: HEPARIN SODIUM,PORCINE 5,000 UNITS/ML VIAL SQ SCH (08:00)
[2021-08-05] MEDS: PANTOPRAZOLE SODIUM 40 MG DR TABLET PO SCH (08:27)
[2021-08-05] MEDS: SEVELAMER CARBONATE 800 MG TABLET PO SCH ×2 (08:27→13:22)
[2021-08-05] MEDS: AmLODIPine BESYLATE 10 MG TABLET PO SCH (08:27)
[2021-08-05] MEDS: DOCUSATE SODIUM 100 MG CAPSULE PO SCH (08:29)
[2021-08-05] MEDS ORDERED: METO5TAB95 PO (11:31)
[2021-08-05] MEDS ORDERED: ONDA-104 PO (11:31)
[2021-08-05 12:52] VITALS: BP 141/56
== END 2021-08-05 14:30 | disposition home or self-care (01) | DRG 48 ==
LOC: EMS 13:16 → 5S 19:36
PROVIDERS: ADMIT Internal Medicine; ATTEND Internal Medicine
PROC: 5A1D70Z Performance of Urinary Filtration, Intermittent, Less than 6 Hours Per Day (ICD-10-PCS; principal; 2021-08-04)
DX: E10.43 Type 1 diabetes mellitus with diabetic autonomic (poly)neuropathy (principal); I12.0 Hypertensive chronic kidney disease with stage 5 chronic kidney disease or end stage renal disease; D63.1 Anemia in chronic kidney disease; E83.39 Other disorders of phosphorus metabolism; N18.6 End stage renal disease; E10.22 Type 1 diabetes mellitus with diabetic chronic kidney disease; K31.84 Gastroparesis; F12.90 Cannabis use, unspecified, uncomplicated; Z96.41 Presence of insulin pump (external) (internal); E78.5 Hyperlipidemia, unspecified; N25.81 Secondary hyperparathyroidism of renal origin; K52.9 Noninfective gastroenteritis and colitis, unspecified; L03.90 Cellulitis, unspecified; Z20.822 Contact with and (suspected) exposure to COVID-19; Z99.2 Dependence on renal dialysis; Z79.4 Long term (current) use of insulin; Z79.899 Other long term (current) drug therapy; Z91.013 Allergy to seafood; Z87.891 Personal history of nicotine dependence
CPT/HCPCS: 74022; 80053; 83690; 85025; 87081; 87340; 90935; 93005; 99285; J1644; J2405; J2765; J7030

== ENCOUNTER 2021-08-20 09:58 | Inpatient (IN) | payer OTHER ==
[~2021-08-20] VITALS: Ht 182.9 cm; Wt 93.2 kg
[~2021-08-20 09:58] MED LIST changes: +METO5TAB95 PO
[2021-08-20] MEDS ORDERED: HALOPERIDOL LACTATE 5 MG/ML VIAL IVP ONE (12:00)
[2021-08-20 12:27] LABS: BASOPHILS % (AUTO) 1.1 % (0.0-2.0); EOSINOPHILS % (AUTO) 0.3 % (1.0-6.0); HEMATOCRIT 40.4 % (41-53); HEMOGLOBIN 13.8 g/dL (13.5-17.5); LYMPHOCYTES # (AUTO) 0.7 K/uL (1.0-4.8); LYMPHOCYTES % (AUTO) 7.2 % (22.0-44.0); MEAN CORPUSCULAR HEMOGLOBIN 31.8 pg (26.0-34.0); MEAN CORPUSCULAR HGB CONC 34.1 G/dL (31.0-37.0); MEAN CORPUSCULAR VOLUME 93 fL (80-100); MONOCYTES # (AUTO) 0.2 K/uL (0.1-1.0); MONOCYTES % (AUTO) 2.2 % (2.0-9.0); NEUTROPHILS # (AUTO) 8.2 K/uL (1.8-7.7); PLATELET COUNT (AUTO) 374 K/uL (150-450); RED BLOOD CELL COUNT(AUTO) 4.33 MIL/uL (4.50-5.90); RED CELL DISTRIBUTION WIDTH 14.4 % (11.5-14.5)
[2021-08-20 12:28] LABS: NEUTROPHILS % (AUTO) 89.2 % (40.0-70.0)
[2021-08-20 12:35] LABS: CALCIUM, TOTAL 9.1 mg/dL (8.8-10.5); CREATININE 10.49 mg/dL (0.60-1.30); POTASSIUM 5.7 mmol/L (3.5-5.1)
[2021-08-20 12:40] LABS: ALBUMIN 4.3 g/dL (3.4-5.0); BILIRUBIN,TOTAL 0.6 mg/dL (0.1-1.0); TOTAL PROTEIN, SERUM 8.8 g/dL (6.4-8.2)
[2021-08-20] MEDS ORDERED: METOCLOPRAMIDE HCL 5 MG/ML 2 ML VIAL IVP ONE (13:30)
[2021-08-20] MEDS ORDERED: ONDANSETRON HCL 4 MG/2 ML VIAL IVP ONE (16:30)
[2021-08-20] MEDS ORDERED: ACETAMINOPHEN 325 MG TABLET PO PRN ×2 (16:30→20:45)
[2021-08-20 19:30] VITALS: BP 145/84
[2021-08-20] MEDS ORDERED: ZOLPIDEM TARTRATE 5 MG TABLET PO PRN (20:45)
[2021-08-20] MEDS ORDERED: BISACODYL 10 MG RECTAL RECTAL SUPPOSITORY PR PRN (20:45)
[2021-08-20] MEDS ORDERED: ONDANSETRON HCL 4 MG/2 ML VIAL IVP PRN ×2 (20:45)
[2021-08-20] MEDS ORDERED: DEXTROSE 50%-WATER 25 GM/50 ML SYRINGE IVP PRN (20:45)
[2021-08-20] MEDS ORDERED: HYDROCODONE/ACETAMINOPHEN 5-325 MG TABLET PO PRN (20:45)
[2021-08-20] MEDS ORDERED: INSULIN LISPRO 100 UNITS/ML SQ PRN (20:45)
[2021-08-20] MEDS ORDERED: MAGNESIUM HYDROXIDE SUSPENSION 30 ML UDCUP PO PRN (20:45)
[2021-08-20] MEDS: DOCUSATE SODIUM 100 MG CAPSULE PO SCH (21:00)
[2021-08-20 21:41] LABS: GLUCOMETER DEV NAME(LOC) 5S.2B; GLUCOSE,POINT OF CARE 137 MG/DL (70-110)
[2021-08-20 23:30] VITALS: BP 149/80
[2021-08-21] VITALS (12 sets, daily range): BP systolic 114–173; BP diastolic 59–89
[2021-08-21 06:23] LABS: COVID AG,FIA SOURCE NASOPHARYNGEAL
[2021-08-21 07:20] LABS: BASOPHILS % (AUTO) 1.1 % (0.0-2.0); EOSINOPHILS % (AUTO) 1.5 % (1.0-6.0); HEMATOCRIT 37.3 % (41-53); HEMOGLOBIN 12.6 g/dL (13.5-17.5); LYMPHOCYTES # (AUTO) 1.6 K/uL (1.0-4.8); LYMPHOCYTES % (AUTO) 21.6 % (22.0-44.0); MEAN CORPUSCULAR HEMOGLOBIN 31.5 pg (26.0-34.0); MEAN CORPUSCULAR HGB CONC 33.7 G/dL (31.0-37.0); MEAN CORPUSCULAR VOLUME 94 fL (80-100); MONOCYTES # (AUTO) 0.5 K/uL (0.1-1.0); MONOCYTES % (AUTO) 7.3 % (2.0-9.0); NEUTROPHILS # (AUTO) 5.1 K/uL (1.8-7.7); NEUTROPHILS % (AUTO) 68.5 % (40.0-70.0); PLATELET COUNT (AUTO) 354 K/uL (150-450); RED BLOOD CELL COUNT(AUTO) 3.99 MIL/uL (4.50-5.90); RED CELL DISTRIBUTION WIDTH 14.3 % (11.5-14.5)
[2021-08-21 07:38] LABS: CALCIUM, TOTAL 8.2 mg/dL (8.8-10.5); CREATININE 12.05 mg/dL (0.60-1.30); POTASSIUM 4.6 mmol/L (3.5-5.1)
[2021-08-21] MEDS: HEPARIN SODIUM,PORCINE 5,000 UNITS/ML VIAL SQ SCH ×4 (08:00→16:00)
[2021-08-21] MEDS: DOCUSATE SODIUM 100 MG CAPSULE PO SCH ×3 (09:00→21:00)
[2021-08-21] MEDS: PANTOPRAZOLE SODIUM 40 MG DR TABLET PO SCH (09:38)
[2021-08-21] MEDS: METOCLOPRAMIDE HCL 5 MG/ML 2 ML VIAL IVP SCH ×4 (09:38→18:46)
[2021-08-21] MEDS: SEVELAMER CARBONATE 800 MG TABLET PO SCH ×3 (09:39→18:41)
[2021-08-21] MEDS: AmLODIPine BESYLATE 10 MG TABLET PO SCH (09:39)
[2021-08-21] MEDS ORDERED: PROMETHAZINE HCL 25 MG TABLET PO PRN (10:30)
[2021-08-21] MEDS: MORPHINE SULFATE 2 MG/ML SYRINGE IVP PRN ×2 (16:39→20:48)
[2021-08-21 16:52] LABS: GLUCOMETER DEV NAME(LOC) 5S.2B; GLUCOSE,POINT OF CARE 103 MG/DL (70-110)
[2021-08-22] VITALS (15 sets, daily range): BP systolic 97–149; BP diastolic 52–82
[2021-08-22 06:26] LABS: BASOPHILS % (AUTO) 1.5 % (0.0-2.0); EOSINOPHILS % (AUTO) 3.1 % (1.0-6.0); HEMATOCRIT 41.1 % (41-53); HEMOGLOBIN 14.1 g/dL (13.5-17.5); LYMPHOCYTES # (AUTO) 2.3 K/uL (1.0-4.8); LYMPHOCYTES % (AUTO) 37.8 % (22.0-44.0); MEAN CORPUSCULAR HGB CONC 34.2 G/dL (31.0-37.0); MEAN CORPUSCULAR VOLUME 93 fL (80-100); MONOCYTES # (AUTO) 0.5 K/uL (0.1-1.0); NEUTROPHILS % (AUTO) 49.6 % (40.0-70.0); PLATELET COUNT (AUTO) 359 K/uL (150-450); RED CELL DISTRIBUTION WIDTH 14.4 % (11.5-14.5)
[2021-08-22 06:47] LABS: CALCIUM, TOTAL 8.5 mg/dL (8.8-10.5); CREATININE 9.43 mg/dL (0.60-1.30); POTASSIUM 4.8 mmol/L (3.5-5.1)
[2021-08-22] MEDS: HEPARIN SODIUM,PORCINE 5,000 UNITS/ML VIAL SQ SCH ×3 (08:00→16:00)
[2021-08-22] MEDS: PANTOPRAZOLE SODIUM 40 MG DR TABLET PO SCH (08:46)
[2021-08-22] MEDS: AmLODIPine BESYLATE 10 MG TABLET PO SCH (08:46)
[2021-08-22] MEDS: METOCLOPRAMIDE HCL 5 MG/ML 2 ML VIAL IVP SCH (08:47)
[2021-08-22] MEDS: SEVELAMER CARBONATE 800 MG TABLET PO SCH ×2 (08:48→12:56)
[2021-08-22] MEDS: DOCUSATE SODIUM 100 MG CAPSULE PO SCH (08:48)
[2021-08-22] MEDS ORDERED: EPOETIN ALFA 10,000 UNITS/ML 2 ML VIAL SQ SCH (09:00)
[2021-08-22] MEDS ORDERED: ONDA-104 PO (12:41)
[2021-08-22] MEDS ORDERED: AMLO-258 PO (12:41)
[2021-08-22] MEDS ORDERED: METO5TAB95 PO (12:41)
[2021-08-22] MEDS ORDERED: SODIUM CHLORIDE 0.9% 1,000 ML ONE (14:53)
== END 2021-08-22 19:50 | disposition home or self-care (01) | DRG 48 ==
LOC: EMS 10:02 → 5N 17:52
PROVIDERS: ADMIT Internal Medicine; ATTEND Internal Medicine
DX: E10.43 Type 1 diabetes mellitus with diabetic autonomic (poly)neuropathy (principal); I12.0 Hypertensive chronic kidney disease with stage 5 chronic kidney disease or end stage renal disease; E10.22 Type 1 diabetes mellitus with diabetic chronic kidney disease; D63.1 Anemia in chronic kidney disease; E78.5 Hyperlipidemia, unspecified; E87.5 Hyperkalemia; E87.70 Fluid overload, unspecified; F12.90 Cannabis use, unspecified, uncomplicated; K31.84 Gastroparesis; Z20.822 Contact with and (suspected) exposure to COVID-19; R11.2 Nausea with vomiting, unspecified; Z96.41 Presence of insulin pump (external) (internal); N18.6 End stage renal disease; Z79.4 Long term (current) use of insulin; Z83.3 Family history of diabetes mellitus; Z91.15 Patient's noncompliance with renal dialysis; Z99.2 Dependence on renal dialysis; Z79.899 Other long term (current) drug therapy; Z91.013 Allergy to seafood; Z91.018 Allergy to other foods
CPT/HCPCS: 71045; 80048; 80053; 82962; 85025; 87081; 87340; 93005; 99285; J0885; J1630; J1644; J2270; J2405; J2765; J7030; 36415-L1; 36415-TC

== ENCOUNTER 2021-09-09 22:09 | Emergency (ER) | payer OTHER ==
[~2021-09-09] VITALS: Ht 182.9 cm; Wt 81.8 kg
[2021-09-09 23:52] LABS: HEMATOCRIT 37.4 % (41-53); HEMOGLOBIN 12.6 g/dL (13.5-17.5); MEAN CORPUSCULAR HEMOGLOBIN 30.9 pg (26.0-34.0); MEAN CORPUSCULAR HGB CONC 33.7 G/dL (31.0-37.0); MEAN CORPUSCULAR VOLUME 92 fL (80-100); PLATELET COUNT (AUTO) 417 K/uL (150-450); RED BLOOD CELL COUNT(AUTO) 4.08 MIL/uL (4.50-5.90); RED CELL DISTRIBUTION WIDTH 14.3 % (11.5-14.5)
[2021-09-10 00:05] LABS: CALCIUM, TOTAL 9.4 mg/dL (8.8-10.5); CREATININE 12.66 mg/dL (0.60-1.30); POTASSIUM 5.6 mmol/L (3.5-5.1)
[2021-09-10 00:11] LABS: ALBUMIN 3.9 g/dL (3.4-5.0); BILIRUBIN,TOTAL 0.5 mg/dL (0.1-1.0); TOTAL PROTEIN, SERUM 8.1 g/dL (6.4-8.2)
[2021-09-10] MEDS ORDERED: CALCIUM GLUCONATE 100 MG/ML 10 ML IVP ONE (00:30)
[2021-09-10] MEDS ORDERED: INSULIN REGULAR, HUMAN 100 UNITS/ML IVP ONE (00:30)
[2021-09-10] MEDS ORDERED: DEXTROSE 50%-WATER 25 GM/50 ML SYRINGE IVP ONE (00:30)
[2021-09-10] MEDS ORDERED: ONDANSETRON HCL 4 MG/2 ML VIAL IVP ONE ×2 (00:45→04:30)
[2021-09-10 01:14] LABS: BAND NEUTROPHILS % (MANUAL) 0 % (0-5)
[2021-09-10 01:19] LABS: LYMPHOCYTES % (MANUAL) 5 % (22-44); SEGMENTED NEUTROPHILS % 95 % (40-70)
[2021-09-10 01:31] LABS: GLUCOMETER DEV NAME(LOC) ERT.5; GLUCOSE,POINT OF CARE 214 MG/DL (70-110)
[2021-09-10 01:52] LABS: COVID AG,FIA SOURCE NASAL SWAB
[2021-09-10 02:58] LABS: CREATININE 12.64 mg/dL (0.60-1.30)
[2021-09-10 04:28] VITALS: BP 135/78
[2021-09-10] MEDS ORDERED: METO50 PO (10:51)
[2021-09-10] MEDS ORDERED: CHOL25TA4 PO (10:51)
[2021-09-10] MEDS ORDERED: CALC667C PO (10:51)
[2021-09-10] MEDS ORDERED: INSU100V36 SQ (10:51)
[2021-09-23] MEDS ORDERED: METO5TAB2 PO (10:55)
[2021-09-23] MEDS ORDERED: METO50 PO (10:55)
[2021-09-23] MEDS ORDERED: CALC667C PO (10:55)
[2021-09-23] MEDS ORDERED: INSU100V36 SQ (10:56)
[2021-09-25] MEDS ORDERED: B CO1CAP6 PO (11:59)
[2021-09-25] MEDS ORDERED: METO5TAB95 PO (11:59)
== END 2021-09-10 04:54 | disposition home or self-care (01) ==
LOC: EMS 22:10
DX: E87.5 Hyperkalemia (principal); E11.65 Type 2 diabetes mellitus with hyperglycemia; I12.0 Hypertensive chronic kidney disease with stage 5 chronic kidney disease or end stage renal disease; E11.22 Type 2 diabetes mellitus with diabetic chronic kidney disease; N18.6 End stage renal disease; F12.90 Cannabis use, unspecified, uncomplicated; Z88.8 Allergy status to other drugs, medicaments and biological substances; Z79.899 Other long term (current) drug therapy; Z99.2 Dependence on renal dialysis; Z20.822 Contact with and (suspected) exposure to COVID-19
CPT/HCPCS: 36415; 71045; 80048; 80053; 82962; 83880; 84484; 85025; 87426; 93005; 96374; 96375; 96376; 99285; J0610; J1815; J2405

== ENCOUNTER 2021-09-10 07:08 | Inpatient (IN) | payer OTHER ==
[~2021-09-10] VITALS: Ht 182.9 cm; Wt 88.4 kg
[2021-09-10] VITALS (13 sets, daily range): BP systolic 127–176; BP diastolic 78–97
[2021-09-10] MEDS ORDERED: ONDANSETRON HCL 4 MG/2 ML VIAL IVP ONE (07:30)
[2021-09-10 07:35] LABS: BASOPHILS % (AUTO) 0.9 % (0.0-2.0); EOSINOPHILS % (AUTO) 0.1 % (1.0-6.0); HEMATOCRIT 40.2 % (41-53); HEMOGLOBIN 13.4 g/dL (13.5-17.5); LYMPHOCYTES # (AUTO) 0.9 K/uL (1.0-4.8); LYMPHOCYTES % (AUTO) 7.4 % (22.0-44.0); MEAN CORPUSCULAR HEMOGLOBIN 31.2 pg (26.0-34.0); MEAN CORPUSCULAR HGB CONC 33.3 G/dL (31.0-37.0); MEAN CORPUSCULAR VOLUME 94 fL (80-100); MONOCYTES # (AUTO) 0.4 K/uL (0.1-1.0); MONOCYTES % (AUTO) 3.9 % (2.0-9.0); NEUTROPHILS # (AUTO) 10.3 K/uL (1.8-7.7); PLATELET COUNT (AUTO) 455 K/uL (150-450); RED CELL DISTRIBUTION WIDTH 14.3 % (11.5-14.5)
[2021-09-10 07:37] LABS: NEUTROPHILS % (AUTO) 87.7 % (40.0-70.0)
[2021-09-10 08:04] LABS: CALCIUM, TOTAL 9.3 mg/dL (8.8-10.5); CREATININE 13.54 mg/dL (0.60-1.30); POTASSIUM 4.7 mmol/L (3.5-5.1)
[2021-09-10 08:11] LABS: ALBUMIN 4.2 g/dL (3.4-5.0); BILIRUBIN,TOTAL 0.7 mg/dL (0.1-1.0); TOTAL PROTEIN, SERUM 8.3 g/dL (6.4-8.2)
[2021-09-10] MEDS ORDERED: PROCHLORPERAZINE EDISYLATE 5 MG/ML 2 ML VIAL IM ONE (09:00)
[2021-09-10] MEDS ORDERED: SODIUM CHLORIDE 0.9% 250 ML IV ONE (09:00)
[2021-09-10] MEDS ORDERED: ACETAMINOPHEN 325 MG TABLET PO PRN (10:45)
[2021-09-10] MEDS ORDERED: SODIUM CHLORIDE 0.9% 1,000 ML ONE (10:45)
[2021-09-10] MEDS ORDERED: INSULIN LISPRO 100 UNITS/ML SQ PRN (10:45)
[2021-09-10] MEDS ORDERED: DEXTROSE 50%-WATER 25 GM/50 ML SYRINGE IVP PRN (10:45)
[2021-09-10] MEDS ORDERED: CHOL25TA4 PO (10:51)
[2021-09-10] MEDS ORDERED: METO50 PO (10:51)
[2021-09-10] MEDS ORDERED: CALC667C PO (10:51)
[2021-09-10] MEDS ORDERED: INSU100V36 SQ (10:51)
[2021-09-10] MEDS: MORPHINE SULFATE 2 MG/ML SYRINGE IVP PRN ×2 (15:05→21:03)
[2021-09-10] MEDS: ONDANSETRON HCL 4 MG/2 ML VIAL IVP PRN ×2 (15:35→22:42)
[2021-09-10] MEDS ORDERED: PROMETHAZINE HCL 25 MG RECTAL SUPPOSITORY PR PRN (17:00)
[2021-09-10] MEDS ORDERED: DiphenhydrAMINE HCL 50 MG/ML VIAL IVP ONE (17:00)
[2021-09-10] MEDS: PANTOPRAZOLE SODIUM 40 MG/VIAL IVP SCH ×2 (18:41→20:50)
[2021-09-10] MEDS: DOCUSATE SODIUM 100 MG CAPSULE PO SCH (20:49)
[2021-09-10] MEDS: HEPARIN SODIUM,PORCINE 5,000 UNITS/ML VIAL SQ SCH (20:49)
[2021-09-10] MEDS: CARVEDILOL 6.25 MG TABLET PO SCH (20:50)
[2021-09-11] VITALS (14 sets, daily range): BP systolic 105–156; BP diastolic 60–94
[2021-09-11 05:06] LABS: GLUCOMETER DEV NAME(LOC) 5N.1C; GLUCOSE,POINT OF CARE 122 MG/DL (70-110)
[2021-09-11 05:06] LABS: GLUCOMETER DEV NAME(LOC) 5N.1C; GLUCOSE,POINT OF CARE 349 MG/DL (70-110)
[2021-09-11] MEDS: DOCUSATE SODIUM 100 MG CAPSULE PO SCH ×2 (09:00→21:00)
[2021-09-11] MEDS: HEPARIN SODIUM,PORCINE 5,000 UNITS/ML VIAL SQ SCH ×3 (09:00→21:04)
[2021-09-11] MEDS: FAMOTIDINE 20 MG TABLET PO SCH (09:00)
[2021-09-11] MEDS: ASPIRIN 81 MG CHEWABLE TABLET PO SCH (09:00)
[2021-09-11] MEDS: CARVEDILOL 6.25 MG TABLET PO SCH ×2 (09:00→21:05)
[2021-09-11] MEDS: PANTOPRAZOLE SODIUM 40 MG/VIAL IVP SCH ×2 (09:00→21:05)
[2021-09-11] MEDS ORDERED: PROCHLORPERAZINE EDISYLATE 5 MG/ML 2 ML VIAL IM PRN (10:00)
[2021-09-11] MEDS: AmLODIPine BESYLATE 5 MG TABLET PO SCH (11:00)
[2021-09-11 11:06] LABS: CALCIUM, TOTAL 9.1 mg/dL (8.8-10.5); CREATININE 11.11 mg/dL (0.60-1.30)
[2021-09-11 11:24] LABS: POTASSIUM 6.6 mmol/L (3.5-5.1)
[2021-09-11 12:51] LABS: GLUCOMETER DEV NAME(LOC) 5N.1C; GLUCOSE,POINT OF CARE 209 MG/DL (70-110)
[2021-09-11 12:51] LABS: GLUCOMETER DEV NAME(LOC) 5S.2B; GLUCOSE,POINT OF CARE 93 MG/DL (70-110)
[2021-09-11 12:51] LABS: GLUCOMETER DEV NAME(LOC) 5S.2B; GLUCOSE,POINT OF CARE 137 MG/DL (70-110)
[2021-09-11 12:56] LABS: GLUCOMETER DEV NAME(LOC) 5S.2B; GLUCOSE,POINT OF CARE 206 MG/DL (70-110)
[2021-09-11] MEDS ORDERED: SODIUM CHLORIDE 0.9% 1,000 ML ONE (13:24)
[2021-09-11] MEDS: ONDANSETRON HCL 4 MG/2 ML VIAL IVP PRN (18:31)
[2021-09-11] MEDS: MORPHINE SULFATE 2 MG/ML SYRINGE IVP PRN (18:31)
[2021-09-11] MEDS ORDERED: PIPERACILLIN SODIUM/TAZOBACTAM 0.75 GM in DEXTROSE 5%-WATER 50 ML IV PRN (23:15)
[2021-09-12] VITALS (11 sets, daily range): BP systolic 114–161; BP diastolic 60–83
[2021-09-12] MEDS: PIPERACILLIN SODIUM/TAZOBACTAM 2.25 GM in DEXTROSE 5%-WATER 50 ML IV SCH ×2 (00:27→08:37)
[2021-09-12] MEDS ORDERED: SODIUM CHLORIDE 0.9% 250 ML IV ONE (00:30)
[2021-09-12] MEDS ORDERED: SODIUM CHLORIDE 0.9% 100 ML ONE (02:31)
[2021-09-12 08:05] LABS: BASOPHILS % (AUTO) 0.8 % (0.0-2.0); EOSINOPHILS % (AUTO) 0.3 % (1.0-6.0); HEMATOCRIT 35.2 % (41-53); HEMOGLOBIN 12.2 g/dL (13.5-17.5); LYMPHOCYTES # (AUTO) 1.8 K/uL (1.0-4.8); LYMPHOCYTES % (AUTO) 18.7 % (22.0-44.0); MEAN CORPUSCULAR HEMOGLOBIN 31.8 pg (26.0-34.0); MEAN CORPUSCULAR HGB CONC 34.5 G/dL (31.0-37.0); MEAN CORPUSCULAR VOLUME 92 fL (80-100); MONOCYTES # (AUTO) 0.8 K/uL (0.1-1.0); MONOCYTES % (AUTO) 8.2 % (2.0-9.0); NEUTROPHILS # (AUTO) 6.9 K/uL (1.8-7.7); PLATELET COUNT (AUTO) 421 K/uL (150-450); RED BLOOD CELL COUNT(AUTO) 3.83 MIL/uL (4.50-5.90); RED CELL DISTRIBUTION WIDTH 14.5 % (11.5-14.5)
[2021-09-12 08:16] LABS: ALBUMIN 3.2 g/dL (3.4-5.0); BILIRUBIN,TOTAL 0.5 mg/dL (0.1-1.0); CALCIUM, TOTAL 8.5 mg/dL (8.8-10.5); CREATININE 8.95 mg/dL (0.60-1.30); POTASSIUM 5.6 mmol/L (3.5-5.1); TOTAL PROTEIN, SERUM 7.1 g/dL (6.4-8.2)
[2021-09-12] MEDS: HEPARIN SODIUM,PORCINE 5,000 UNITS/ML VIAL SQ SCH (08:38)
[2021-09-12] MEDS: FAMOTIDINE 20 MG TABLET PO SCH (08:38)
[2021-09-12] MEDS: DOCUSATE SODIUM 100 MG CAPSULE PO SCH (08:38)
[2021-09-12] MEDS: AmLODIPine BESYLATE 5 MG TABLET PO SCH (08:38)
[2021-09-12] MEDS: ASPIRIN 81 MG CHEWABLE TABLET PO SCH (08:38)
[2021-09-12] MEDS: PANTOPRAZOLE SODIUM 40 MG/VIAL IVP SCH (08:39)
[2021-09-12] MEDS: CARVEDILOL 6.25 MG TABLET PO SCH (08:39)
[2021-09-12] MEDS ORDERED: -POST HEMODIALYSIS NOTE- MISC SCH (09:00)
[2021-09-12] MEDS ORDERED: SODIUM CHLORIDE 0.9% 2,000 ML ONE (11:39)
[2021-09-23] MEDS ORDERED: METO50 PO (10:55)
[2021-09-23] MEDS ORDERED: CALC667C PO (10:55)
[2021-09-23] MEDS ORDERED: METO5TAB2 PO (10:55)
[2021-09-23] MEDS ORDERED: INSU100V36 SQ (10:56)
[2021-09-25] MEDS ORDERED: METO5TAB95 PO (11:59)
[2021-09-25] MEDS ORDERED: B CO1CAP6 PO (11:59)
== END 2021-09-12 17:10 | disposition home or self-care (01) | DRG 48 ==
LOC: EDUNIT# 07:08 → EMS 07:09 → 5S 10:22
PROVIDERS: ADMIT Internal Medicine; ATTEND Internal Medicine
PROC: 5A1D70Z Performance of Urinary Filtration, Intermittent, Less than 6 Hours Per Day (ICD-10-PCS; principal; 2021-09-11)
PROC: 5A1D70Z Performance of Urinary Filtration, Intermittent, Less than 6 Hours Per Day (ICD-10-PCS; 2021-09-12)
DX: E10.43 Type 1 diabetes mellitus with diabetic autonomic (poly)neuropathy (principal); D63.8 Anemia in other chronic diseases classified elsewhere; E10.22 Type 1 diabetes mellitus with diabetic chronic kidney disease; I13.11 Hypertensive heart and chronic kidney disease without heart failure, with stage 5 chronic kidney disease, or end stage renal disease; N18.6 End stage renal disease; E87.5 Hyperkalemia; F12.90 Cannabis use, unspecified, uncomplicated; Z96.41 Presence of insulin pump (external) (internal); E10.65 Type 1 diabetes mellitus with hyperglycemia; I25.10 Atherosclerotic heart disease of native coronary artery without angina pectoris; E87.70 Fluid overload, unspecified; Z20.822 Contact with and (suspected) exposure to COVID-19; Z79.4 Long term (current) use of insulin; Z83.3 Family history of diabetes mellitus; Z99.2 Dependence on renal dialysis; Z91.19 Patient's noncompliance with other medical treatment and regimen; Z91.013 Allergy to seafood; Z91.018 Allergy to other foods
CPT/HCPCS: 71045; 71275; 80048; 80053; 82962; 83880; 84484; 85025; 85379; 87081; 87340; 90935; 93005; 99285; C9113; J0780; J1200; J1644; J2270; J2405; J2543; J7030; J7050; J7060; 36415-L1; 36415-TC

== ENCOUNTER 2021-09-13 23:44 | Emergency (ER) | payer OTHER ==
[~2021-09-13] VITALS: Ht 182.9 cm; Wt 81.8 kg
[~2021-09-13 23:44] MED LIST changes: +CALC667C PO; +CHOL25TA4 PO; +INSU100V36 SQ; -[UNRECOGNIZED DRUG - REMARK] SQ
[2021-09-14 00:46] LABS: GLUCOMETER DEV NAME(LOC) ERT.5; GLUCOSE,POINT OF CARE 376 MG/DL (70-110)
[2021-09-14 00:49] LABS: BASOPHILS % (AUTO) 1.2 % (0.0-2.0); HEMATOCRIT 35.1 % (41-53); HEMOGLOBIN 11.8 g/dL (13.5-17.5); LYMPHOCYTES # (AUTO) 1.7 K/uL (1.0-4.8); LYMPHOCYTES % (AUTO) 26.5 % (22.0-44.0); MEAN CORPUSCULAR HGB CONC 33.5 G/dL (31.0-37.0); MEAN CORPUSCULAR VOLUME 92 fL (80-100); MONOCYTES # (AUTO) 0.6 K/uL (0.1-1.0); MONOCYTES % (AUTO) 8.9 % (2.0-9.0); NEUTROPHILS # (AUTO) 3.8 K/uL (1.8-7.7); NEUTROPHILS % (AUTO) 60.4 % (40.0-70.0); PLATELET COUNT (AUTO) 423 K/uL (150-450); RED BLOOD CELL COUNT(AUTO) 3.81 MIL/uL (4.50-5.90); RED CELL DISTRIBUTION WIDTH 14.3 % (11.5-14.5)
[2021-09-14 01:07] LABS: ALBUMIN 3.5 g/dL (3.4-5.0); BILIRUBIN,TOTAL 0.5 mg/dL (0.1-1.0); CALCIUM, TOTAL 8.5 mg/dL (8.8-10.5); CREATININE 11.69 mg/dL (0.60-1.30); POTASSIUM 5.3 mmol/L (3.5-5.1); TOTAL PROTEIN, SERUM 7.3 g/dL (6.4-8.2)
[2021-09-14] MEDS ORDERED: SODIUM POLYSTYRENE SULFONATE 15 GM/60 ML SUSPENSION BOTTLE PO ONE (01:15)
[2021-09-14] MEDS ORDERED: INSULIN REGULAR, HUMAN 100 UNITS/ML SQ ONE (01:15)
[2021-09-14] MEDS ORDERED: ONDANSETRON HCL 4 MG/2 ML VIAL IM ONE (01:30)
[2021-09-14 03:51] LABS: GLUCOMETER DEV NAME(LOC) ERT.5; GLUCOSE,POINT OF CARE 274 MG/DL (70-110)
[2021-09-14 04:05] VITALS: BP 134/84
[2021-09-23] MEDS ORDERED: CALC667C PO (10:55)
[2021-09-23] MEDS ORDERED: METO5TAB2 PO (10:55)
[2021-09-23] MEDS ORDERED: METO50 PO (10:55)
[2021-09-23] MEDS ORDERED: INSU100V36 SQ (10:56)
[2021-09-25] MEDS ORDERED: B CO1CAP6 PO (11:59)
[2021-09-25] MEDS ORDERED: METO5TAB95 PO (11:59)
== END 2021-09-14 04:08 | disposition home or self-care (01) ==
LOC: EMS 23:46
DX: E86.0 Dehydration (principal); E11.65 Type 2 diabetes mellitus with hyperglycemia; E87.5 Hyperkalemia; R11.2 Nausea with vomiting, unspecified; I10 Essential (primary) hypertension; Z88.8 Allergy status to other drugs, medicaments and biological substances; Z91.013 Allergy to seafood
CPT/HCPCS: 36415; 74019; 80053; 82962; 84484; 85025; 93005; 96372; 99285; J1815; J2405

== ENCOUNTER 2021-10-10 11:39 | Inpatient (IN) | payer OTHER ==
[~2021-10-10] VITALS: Ht 182.9 cm; Wt 86.0 kg
[~2021-10-10 11:39] MED LIST changes: +B CO1CAP6 PO; +METO50 PO; +METO5TAB2 PO
[2021-10-10] MEDS ORDERED: ONDANSETRON HCL 4 MG/2 ML VIAL IVP ONE (12:45)
[2021-10-10] MEDS ORDERED: FAMOTIDINE 10 MG/ML 2 ML VIAL IVP ONE (12:45)
[2021-10-10] MEDS ORDERED: DiphenhydrAMINE HCL 50 MG/ML VIAL IVP ONE (12:45)
[2021-10-10] MEDS ORDERED: METOCLOPRAMIDE HCL 5 MG/ML 2 ML VIAL IVP ONE (12:45)
[2021-10-10 13:00] LABS: HEMATOCRIT 32.1 % (41-53); MEAN CORPUSCULAR HGB CONC 34.2 G/dL (31.0-37.0); MEAN CORPUSCULAR VOLUME 94 fL (80-100); PLATELET COUNT (AUTO) 449 K/uL (150-450); RED BLOOD CELL COUNT(AUTO) 3.44 MIL/uL (4.50-5.90); RED CELL DISTRIBUTION WIDTH 15.4 % (11.5-14.5)
[2021-10-10 13:11] LABS: ANION GAP 10 mmol/L (8-16); CALCIUM, TOTAL 9.2 mg/dL (8.8-10.5); CARBON DIOXIDE 32 mmol/L (22-29); CHLORIDE 99 mmol/L (98-107); GLOMERULAR FILTR. RATE CALC 10 mL/min (>60); GLUCOSE,RANDOM 197 mg/dL (70-110); POTASSIUM 4.3 mmol/L (3.5-5.1); SODIUM SERUM 141 mmol/L (136-145); UREA NITROGEN, BLOOD 23 mg/dL (7-18)
[2021-10-10 13:16] LABS: ALANINE AMINOTRANSFERASE 24 U/L (12-78); ALBUMIN 3.8 g/dL (3.4-5.0); ALKALINE PHOSPHATASE 106 U/L (46-116); ASPARTATE AMINOTRANSFERASE 12 U/L (15-37); BILIRUBIN,TOTAL 0.6 mg/dL (0.1-1.0); LIPASE 79 U/L (73-393); TOTAL PROTEIN, SERUM 7.9 g/dL (6.4-8.2)
[2021-10-10 13:19] LABS: BAND NEUTROPHILS % (MANUAL) 1 % (0-5); LYMPHOCYTES % (MANUAL) 13 % (22-44); MONOCYTES % (MANUAL) 3 % (2-9); SEGMENTED NEUTROPHILS % 83 % (40-70)
[2021-10-10 13:52] LABS: ACETONE,BLOOD NEGATIVE (NEGATIVE)
[2021-10-10] MEDS ORDERED: 0.9% SODIUM CHLORIDE 10 ML SYRINGE IVP PRN (14:00)
[2021-10-10] MEDS ORDERED: INSULIN LISPRO 100 UNITS/ML SQ PRN (14:00)
[2021-10-10] MEDS ORDERED: ONDANSETRON HCL 4 MG/2 ML VIAL IVP PRN (14:00)
[2021-10-10] MEDS ORDERED: DEXTROSE 50%-WATER 25 GM/50 ML SYRINGE IVP PRN (14:00)
[2021-10-10] MEDS ORDERED: ACETAMINOPHEN 325 MG TABLET PO PRN ×2 (14:00)
[2021-10-10] MEDS: PANTOPRAZOLE SODIUM 40 MG DR TABLET PO SCH (14:27)
[2021-10-10] MEDS: AmLODIPine BESYLATE 10 MG TABLET PO SCH (14:27)
[2021-10-10] MEDS: HEPARIN SODIUM,PORCINE 5,000 UNITS/ML VIAL SQ SCH (20:18)
[2021-10-10] MEDS: MORPHINE SULFATE 2 MG/ML SYRINGE IVP PRN (20:19)
[2021-10-10] MEDS: ONDANSETRON HCL 4 MG/2 ML VIAL IVP PRN (20:19)
[2021-10-10] MEDS: HYDROmorphone 2 MG/ML VIAL IVP PRN (21:01)
[2021-10-10 21:51] VITALS: BP 146/86
[2021-10-11] MEDS: HYDROmorphone 2 MG/ML VIAL IVP PRN ×4 (01:03→20:17)
[2021-10-11] MEDS: ONDANSETRON HCL 4 MG/2 ML VIAL IVP PRN ×3 (02:32→19:42)
[2021-10-11 03:01] VITALS: BP 135/72
[2021-10-11] MEDS ORDERED: DiphenhydrAMINE HCL 50 MG/ML VIAL IVP ONE (04:30)
[2021-10-11 06:32] LABS: GLUCOMETER DEV NAME(LOC) 6N.2; GLUCOSE,POINT OF CARE 64 MG/DL (70-110)
[2021-10-11 08:11] VITALS: BP 144/78
[2021-10-11 08:16] LABS: BASOPHILS % (AUTO) 1.3 % (0.0-2.0); EOSINOPHILS % (AUTO) 4.7 % (1.0-6.0); HEMATOCRIT 30.3 % (41-53); HEMOGLOBIN 10.4 g/dL (13.5-17.5); LYMPHOCYTES # (AUTO) 2.2 K/uL (1.0-4.8); LYMPHOCYTES % (AUTO) 36.6 % (22.0-44.0); MEAN CORPUSCULAR HEMOGLOBIN 32.4 pg (26.0-34.0); MEAN CORPUSCULAR HGB CONC 34.4 G/dL (31.0-37.0); MEAN CORPUSCULAR VOLUME 94 fL (80-100); MONOCYTES # (AUTO) 0.4 K/uL (0.1-1.0); MONOCYTES % (AUTO) 6.3 % (2.0-9.0); NEUTROPHILS # (AUTO) 3.1 K/uL (1.8-7.7); NEUTROPHILS % (AUTO) 51.1 % (40.0-70.0); PLATELET COUNT (AUTO) 383 K/uL (150-450); RED BLOOD CELL COUNT(AUTO) 3.22 MIL/uL (4.50-5.90); RED CELL DISTRIBUTION WIDTH 15.7 % (11.5-14.5)
[2021-10-11 08:17] LABS: COVID AG,FIA SOURCE NASAL SWAB
[2021-10-11 08:32] LABS: BILIRUBIN,TOTAL 0.5 mg/dL (0.1-1.0); CALCIUM, TOTAL 8.1 mg/dL (8.8-10.5); CREATININE 8.06 mg/dL (0.60-1.30); POTASSIUM 3.9 mmol/L (3.5-5.1); TOTAL PROTEIN, SERUM 6.4 g/dL (6.4-8.2)
[2021-10-11] MEDS: HEPARIN SODIUM,PORCINE 5,000 UNITS/ML VIAL SQ SCH ×2 (09:00→20:19)
[2021-10-11 09:36] VITALS: BP 123/71
[2021-10-11] MEDS: PANTOPRAZOLE SODIUM 40 MG DR TABLET PO SCH (09:38)
[2021-10-11] MEDS: AmLODIPine BESYLATE 10 MG TABLET PO SCH (09:38)
[2021-10-11] MEDS: DOCUSATE SODIUM 100 MG CAPSULE PO SCH ×2 (09:59→20:18)
[2021-10-11] MEDS: MORPHINE SULFATE 2 MG/ML SYRINGE IVP PRN ×2 (10:58→22:50)
[2021-10-11] MEDS: METOCLOPRAMIDE HCL 5 MG/ML 2 ML VIAL IVP PRN ×2 (14:10→22:47)
[2021-10-11 15:07] VITALS: BP 136/78
[2021-10-11 20:00] VITALS: BP 130/76
[2021-10-12] VITALS (12 sets, daily range): BP systolic 128–147; BP diastolic 69–83
[2021-10-12] MEDS ORDERED: DiphenhydrAMINE HCL 50 MG/ML VIAL IVP ONE (01:00)
[2021-10-12] MEDS: HEPARIN SODIUM,PORCINE 5,000 UNITS/ML VIAL SQ SCH ×2 (09:00→20:26)
[2021-10-12] MEDS: AmLODIPine BESYLATE 10 MG TABLET PO SCH (09:23)
[2021-10-12] MEDS: PANTOPRAZOLE SODIUM 40 MG DR TABLET PO SCH (09:23)
[2021-10-12] MEDS: DOCUSATE SODIUM 100 MG CAPSULE PO SCH ×2 (09:23→20:25)
[2021-10-12] MEDS: HYDROmorphone 2 MG/ML VIAL IVP PRN ×3 (09:27→20:26)
[2021-10-12] MEDS ORDERED: SODIUM CHLORIDE 0.9% 2,000 ML ONE (13:37)
[2021-10-12] MEDS: ONDANSETRON HCL 4 MG/2 ML VIAL IVP PRN ×2 (13:39→20:26)
[2021-10-13] MEDS: METOCLOPRAMIDE HCL 5 MG/ML 2 ML VIAL IVP PRN (00:44)
[2021-10-13] MEDS: HYDROmorphone 2 MG/ML VIAL IVP PRN ×2 (02:27→10:54)
[2021-10-13 03:52] VITALS: BP 138/77
[2021-10-13 08:17] VITALS: BP 134/81
[2021-10-13] MEDS: HEPARIN SODIUM,PORCINE 5,000 UNITS/ML VIAL SQ SCH (09:09)
[2021-10-13] MEDS: PANTOPRAZOLE SODIUM 40 MG DR TABLET PO SCH (09:09)
[2021-10-13] MEDS: AmLODIPine BESYLATE 10 MG TABLET PO SCH (09:09)
[2021-10-13] MEDS: DOCUSATE SODIUM 100 MG CAPSULE PO SCH (09:09)
[2021-10-13] MEDS ORDERED: METO5TAB95 PO (13:07)
[2021-10-15] MEDS ORDERED: EPOETIN ALFA 10,000 UNITS/ML 2 ML VIAL SQ SCH (09:00)
== END 2021-10-13 13:40 | disposition home or self-care (01) | DRG 48 ==
LOC: EMS 11:45 → 6N 20:15
PROVIDERS: ADMIT Internal Medicine; ATTEND Internal Medicine
DX: E10.43 Type 1 diabetes mellitus with diabetic autonomic (poly)neuropathy (principal); I13.2 Hypertensive heart and chronic kidney disease with heart failure and with stage 5 chronic kidney disease, or end stage renal disease; N18.6 End stage renal disease; D63.1 Anemia in chronic kidney disease; E10.22 Type 1 diabetes mellitus with diabetic chronic kidney disease; K31.84 Gastroparesis; Z20.822 Contact with and (suspected) exposure to COVID-19; Z96.41 Presence of insulin pump (external) (internal); E10.65 Type 1 diabetes mellitus with hyperglycemia; I16.0 Hypertensive urgency; E10.40 Type 1 diabetes mellitus with diabetic neuropathy, unspecified; I50.30 Unspecified diastolic (congestive) heart failure; Z91.013 Allergy to seafood; Z79.4 Long term (current) use of insulin; Z99.2 Dependence on renal dialysis; Z79.899 Other long term (current) drug therapy
CPT/HCPCS: 71045; 80053; 82009; 82962; 83690; 84484; 85025; 87081; 87340; 90935; 93005; 99285; J1170; J1200; J1644; J2270; J2405; J2765; J3490; J7030; 36415-L1; 36415-TC

== ENCOUNTER 2021-10-21 12:44 | Inpatient (IN) | payer OTHER ==
[~2021-10-21] VITALS: Ht 182.9 cm; Wt 81.0 kg
[~2021-10-21 12:44] MED LIST changes: -METO50 PO; -METO5TAB2 PO
[2021-10-21 14:14] LABS: BASOPHILS % (AUTO) 0.5 % (0.0-2.0); EOSINOPHILS % (AUTO) 0.2 % (1.0-6.0); HEMATOCRIT 33.1 % (41-53); HEMOGLOBIN 11.1 g/dL (13.5-17.5); LYMPHOCYTES # (AUTO) 0.6 K/uL (1.0-4.8); LYMPHOCYTES % (AUTO) 6.6 % (22.0-44.0); MEAN CORPUSCULAR HEMOGLOBIN 31.6 pg (26.0-34.0); MEAN CORPUSCULAR HGB CONC 33.5 G/dL (31.0-37.0); MEAN CORPUSCULAR VOLUME 94 fL (80-100); MONOCYTES # (AUTO) 0.2 K/uL (0.1-1.0); NEUTROPHILS # (AUTO) 8.8 K/uL (1.8-7.7); PLATELET COUNT (AUTO) 361 K/uL (150-450); RED BLOOD CELL COUNT(AUTO) 3.51 MIL/uL (4.50-5.90); RED CELL DISTRIBUTION WIDTH 15.5 % (11.5-14.5)
[2021-10-21 14:15] LABS: NEUTROPHILS % (AUTO) 90.7 % (40.0-70.0)
[2021-10-21 14:25] LABS: CALCIUM, TOTAL 9.1 mg/dL (8.8-10.5); CREATININE 9.34 mg/dL (0.60-1.30); POTASSIUM 5.5 mmol/L (3.5-5.1)
[2021-10-21 14:30] LABS: ALBUMIN 3.9 g/dL (3.4-5.0); BILIRUBIN,TOTAL 0.5 mg/dL (0.1-1.0); TOTAL PROTEIN, SERUM 8.1 g/dL (6.4-8.2)
[2021-10-21] MEDS ORDERED: METO50 PO (15:22)
[2021-10-21] MEDS ORDERED: METOCLOPRAMIDE HCL 5 MG/ML 2 ML VIAL IVP ONE (15:30)
[2021-10-21] MEDS ORDERED: DEXTROSE 50%-WATER 25 GM/50 ML SYRINGE IVP PRN (16:45)
[2021-10-21] MEDS ORDERED: CloNIDine HCL 0.1 MG TABLET PO PRN (16:45)
[2021-10-21] MEDS ORDERED: ACETAMINOPHEN 325 MG TABLET PO PRN (16:45)
[2021-10-21] MEDS: ONDANSETRON HCL 4 MG/2 ML VIAL IVP PRN ×2 (16:58→23:07)
[2021-10-21] MEDS: PANTOPRAZOLE SODIUM 40 MG DR TABLET PO SCH (17:27)
[2021-10-21 17:49] LABS: COVID AG,FIA SOURCE NASAL SWAB
[2021-10-21] MEDS: MORPHINE SULFATE 4 MG/ML SYRINGE IVP PRN ×2 (19:39→23:41)
[2021-10-21] MEDS: DOCUSATE SODIUM 100 MG CAPSULE PO SCH (20:49)
[2021-10-21] MEDS: METOPROLOL TARTRATE 25 MG TABLET PO SCH ×2 (20:52→20:54)
[2021-10-21 21:00] LABS: GLUCOMETER DEV NAME(LOC) ERT.5; GLUCOSE,POINT OF CARE 136 MG/DL (70-110)
[2021-10-22] VITALS (11 sets, daily range): BP systolic 130–161; BP diastolic 76–88
[2021-10-22] MEDS: METOCLOPRAMIDE HCL 5 MG/ML 2 ML VIAL IVP PRN (03:24)
[2021-10-22] MEDS: DOCUSATE SODIUM 100 MG CAPSULE PO SCH ×3 (08:19→20:59)
[2021-10-22] MEDS: PANTOPRAZOLE SODIUM 40 MG DR TABLET PO SCH (08:19)
[2021-10-22] MEDS: METOPROLOL TARTRATE 25 MG TABLET PO SCH ×2 (08:19→20:23)
[2021-10-22 09:12] LABS: GLUCOMETER DEV NAME(LOC) ERT.5; GLUCOSE,POINT OF CARE 114 MG/DL (70-110)
[2021-10-22] MEDS: ONDANSETRON HCL 4 MG/2 ML VIAL IVP PRN ×2 (09:12→21:01)
[2021-10-22] MEDS ORDERED: SODIUM CHLORIDE 0.9% 2,000 ML ONE (13:19)
[2021-10-22] MEDS: MORPHINE SULFATE 4 MG/ML SYRINGE IVP PRN ×2 (13:24→21:01)
[2021-10-22 14:01] LABS: GLUCOMETER DEV NAME(LOC) 6N.2; GLUCOSE,POINT OF CARE 141 MG/DL (70-110)
[2021-10-22] MEDS ORDERED: DiphenhydrAMINE HCL 50 MG/ML VIAL IVP ONE (23:15)
[2021-10-23] MEDS: ONDANSETRON HCL 4 MG/2 ML VIAL IVP PRN ×2 (03:50→15:01)
[2021-10-23 04:31] VITALS: BP 121/70
[2021-10-23] MEDS: INSULIN LISPRO 100 UNITS/ML SQ PRN ×2 (05:57→17:04)
[2021-10-23 08:00] VITALS: BP 145/70
[2021-10-23] MEDS: METOPROLOL TARTRATE 25 MG TABLET PO SCH ×2 (08:09→21:20)
[2021-10-23] MEDS: PANTOPRAZOLE SODIUM 40 MG DR TABLET PO SCH (08:10)
[2021-10-23] MEDS: MORPHINE SULFATE 4 MG/ML SYRINGE IVP PRN ×3 (09:14→21:22)
[2021-10-23] MEDS: DiphenhydrAMINE HCL 25 MG CAPSULE PO PRN ×2 (15:01→22:11)
[2021-10-23 17:04] VITALS: BP 148/96
[2021-10-23 19:35] VITALS: BP 118/73
[2021-10-23] MEDS: METOCLOPRAMIDE HCL 5 MG/ML 2 ML VIAL IVP PRN (19:47)
[2021-10-23] MEDS: DOCUSATE SODIUM 100 MG CAPSULE PO SCH (21:20)
[2021-10-23] MEDS: ZOLPIDEM TARTRATE 5 MG TABLET PO PRN (22:11)
[2021-10-24] VITALS (14 sets, daily range): BP systolic 123–179; BP diastolic 59–107
[2021-10-24] MEDS: MORPHINE SULFATE 4 MG/ML SYRINGE IVP PRN ×4 (03:37→23:45)
[2021-10-24] MEDS: DiphenhydrAMINE HCL 25 MG CAPSULE PO PRN ×3 (05:21→23:45)
[2021-10-24] MEDS: METOCLOPRAMIDE HCL 5 MG/ML 2 ML VIAL IVP PRN ×2 (05:22→16:40)
[2021-10-24] MEDS: DOCUSATE SODIUM 100 MG CAPSULE PO SCH ×2 (07:52→21:37)
[2021-10-24] MEDS: PANTOPRAZOLE SODIUM 40 MG DR TABLET PO SCH (07:52)
[2021-10-24 08:13] LABS: BASOPHILS % (AUTO) 1.3 % (0.0-2.0); EOSINOPHILS % (AUTO) 5.8 % (1.0-6.0); HEMATOCRIT 33.8 % (41-53); HEMOGLOBIN 11.3 g/dL (13.5-17.5); LYMPHOCYTES # (AUTO) 2.6 K/uL (1.0-4.8); LYMPHOCYTES % (AUTO) 38.2 % (22.0-44.0); MEAN CORPUSCULAR HEMOGLOBIN 31.9 pg (26.0-34.0); MEAN CORPUSCULAR HGB CONC 33.5 G/dL (31.0-37.0); MEAN CORPUSCULAR VOLUME 95 fL (80-100); MONOCYTES # (AUTO) 0.6 K/uL (0.1-1.0); MONOCYTES % (AUTO) 8.5 % (2.0-9.0); NEUTROPHILS # (AUTO) 3.2 K/uL (1.8-7.7); NEUTROPHILS % (AUTO) 46.2 % (40.0-70.0); PLATELET COUNT (AUTO) 349 K/uL (150-450); RED BLOOD CELL COUNT(AUTO) 3.54 MIL/uL (4.50-5.90); RED CELL DISTRIBUTION WIDTH 15.6 % (11.5-14.5)
[2021-10-24 08:24] LABS: CALCIUM, TOTAL 7.9 mg/dL (8.8-10.5); CREATININE 9.67 mg/dL (0.60-1.30)
[2021-10-24] MEDS: METOPROLOL TARTRATE 25 MG TABLET PO SCH ×2 (09:00→21:37)
[2021-10-24] MEDS: ZOLPIDEM TARTRATE 5 MG TABLET PO PRN (21:37)
[2021-10-24] MEDS: ONDANSETRON HCL 4 MG/2 ML VIAL IVP PRN (23:45)
[2021-10-25] MEDS: MORPHINE SULFATE 4 MG/ML SYRINGE IVP PRN ×2 (03:48→10:42)
[2021-10-25 04:10] VITALS: BP 153/79
[2021-10-25 07:39] VITALS: BP 144/78
[2021-10-25] MEDS: DOCUSATE SODIUM 100 MG CAPSULE PO SCH (09:16)
[2021-10-25] MEDS: METOPROLOL TARTRATE 25 MG TABLET PO SCH (09:16)
[2021-10-25] MEDS: PANTOPRAZOLE SODIUM 40 MG DR TABLET PO SCH (09:17)
[2021-10-25] MEDS: INSULIN LISPRO 100 UNITS/ML SQ PRN (13:36)
== END 2021-10-25 13:35 | disposition home or self-care (01) | DRG 48 ==
LOC: EMS 12:47 → 6S 10-22 11:43
PROVIDERS: ADMIT Internal Medicine; ATTEND Internal Medicine
PROC: 5A1D70Z Performance of Urinary Filtration, Intermittent, Less than 6 Hours Per Day (ICD-10-PCS; principal; 2021-10-22)
PROC: 5A1D70Z Performance of Urinary Filtration, Intermittent, Less than 6 Hours Per Day (ICD-10-PCS; 2021-10-24)
DX: E10.43 Type 1 diabetes mellitus with diabetic autonomic (poly)neuropathy (principal); I12.0 Hypertensive chronic kidney disease with stage 5 chronic kidney disease or end stage renal disease; E83.39 Other disorders of phosphorus metabolism; D63.1 Anemia in chronic kidney disease; N18.6 End stage renal disease; E10.22 Type 1 diabetes mellitus with diabetic chronic kidney disease; K31.84 Gastroparesis; Z20.822 Contact with and (suspected) exposure to COVID-19; E87.70 Fluid overload, unspecified; Z83.3 Family history of diabetes mellitus; Z91.018 Allergy to other foods; Z79.4 Long term (current) use of insulin; Z91.013 Allergy to seafood; Z99.2 Dependence on renal dialysis
CPT/HCPCS: 74022; 80048; 80053; 82962; 85025; 87081; 87340; 90935; 99285; J1200; J2270; J2405; J2765; J7030

== ENCOUNTER 2021-11-01 14:04 | Emergency (ER) | payer OTHER ==
[~2021-11-01] VITALS: Ht 182.9 cm; Wt 85.9 kg
[~2021-11-01 14:04] MED LIST changes: +METO50 PO
[2021-11-01] MEDS ORDERED: METOCLOPRAMIDE HCL 5 MG/ML 2 ML VIAL IVP ONE (14:45)
[2021-11-01 14:51] LABS: GLUCOMETER DEV NAME(LOC) ERT.5; GLUCOSE,POINT OF CARE 179 MG/DL (70-110)
[2021-11-01 15:34] LABS: BASOPHILS % (AUTO) 0.9 % (0.0-2.0); EOSINOPHILS % (AUTO) 0.7 % (1.0-6.0); HEMATOCRIT 37.1 % (41-53); HEMOGLOBIN 12.4 g/dL (13.5-17.5); LYMPHOCYTES % (AUTO) 11.9 % (22.0-44.0); MEAN CORPUSCULAR HGB CONC 33.5 G/dL (31.0-37.0); MEAN CORPUSCULAR VOLUME 93 fL (80-100); MONOCYTES # (AUTO) 0.4 K/uL (0.1-1.0); MONOCYTES % (AUTO) 4.8 % (2.0-9.0); NEUTROPHILS # (AUTO) 6.9 K/uL (1.8-7.7); NEUTROPHILS % (AUTO) 81.7 % (40.0-70.0); PLATELET COUNT (AUTO) 436 K/uL (150-450); RED CELL DISTRIBUTION WIDTH 15.9 % (11.5-14.5)
[2021-11-01 15:45] LABS: CALCIUM, TOTAL 9.4 mg/dL (8.8-10.5); CREATININE 9.44 mg/dL (0.60-1.30); POTASSIUM 4.5 mmol/L (3.5-5.1)
[2021-11-01 15:51] LABS: BILIRUBIN,TOTAL 0.7 mg/dL (0.1-1.0); MAGNESIUM 2.5 mg/dL (1.80-2.40); TOTAL PROTEIN, SERUM 8.1 g/dL (6.4-8.2)
[2021-11-01] MEDS ORDERED: HALOPERIDOL LACTATE 5 MG/ML VIAL IVP ONE (16:00)
[2021-11-01] MEDS ORDERED: PROMETHAZINE HCL 25 MG TABLET PO ONE (16:00)
[2021-11-01 16:44] VITALS: BP 181/104
[2021-11-07] MEDS ORDERED: METO5TAB95 PO (11:31)
== END 2021-11-01 17:41 | disposition home or self-care (01) ==
LOC: EMS 14:08
DX: I12.0 Hypertensive chronic kidney disease with stage 5 chronic kidney disease or end stage renal disease (principal); N18.6 End stage renal disease; R11.2 Nausea with vomiting, unspecified; E11.9 Type 2 diabetes mellitus without complications; K31.84 Gastroparesis; F12.90 Cannabis use, unspecified, uncomplicated; Z98.890 Other specified postprocedural states; Z91.018 Allergy to other foods; Z99.2 Dependence on renal dialysis
CPT/HCPCS: 36415; 80053; 82962; 83690; 83735; 85025; 93005; 96374; 96375; 99284; J1630; J2765

== ENCOUNTER 2022-01-05 12:52 | Inpatient (IN) | payer OTHER ==
[~2022-01-05] VITALS: Ht 182.9 cm; Wt 86.0 kg
[2022-01-05] VITALS (10 sets, daily range): BP systolic 128–161; BP diastolic 78–98
[2022-01-05 13:55] LABS: COVID AG,FIA SOURCE NASAL SWAB
[2022-01-05] MEDS ORDERED: ONDANSETRON HCL 4 MG/2 ML VIAL IVP ONE (14:00)
[2022-01-05] MEDS ORDERED: SODIUM CHLORIDE 0.9% 1,000 ML IV ONE (14:00)
[2022-01-05 14:16] LABS: INFLUENZA TYPE A NEGATIVE FOR TYPE A (NEGATIVE); INFLUENZA TYPE B NEGATIVE FOR TYPE B (NEGATIVE)
[2022-01-05 14:21] LABS: BASOPHILS % (AUTO) 1.1 % (0.0-2.0); EOSINOPHILS % (AUTO) 3.5 % (1.0-6.0); HEMATOCRIT 33.3 % (41-53); HEMOGLOBIN 11.3 g/dL (13.5-17.5); LYMPHOCYTES # (AUTO) 1.5 K/uL (1.0-4.8); LYMPHOCYTES % (AUTO) 35.7 % (22.0-44.0); MEAN CORPUSCULAR VOLUME 88 fL (80-100); MONOCYTES # (AUTO) 0.5 K/uL (0.1-1.0); MONOCYTES % (AUTO) 11.2 % (2.0-9.0); NEUTROPHILS % (AUTO) 48.5 % (40.0-70.0); PLATELET COUNT (AUTO) 209 K/uL (150-450); RED BLOOD CELL COUNT(AUTO) 3.77 MIL/uL (4.50-5.90); RED CELL DISTRIBUTION WIDTH 16.3 % (11.5-14.5)
[2022-01-05 14:39] LABS: ALBUMIN 3.6 g/dL (3.4-5.0); BILIRUBIN,TOTAL 0.3 mg/dL (0.1-1.0); CREATININE 8.58 mg/dL (0.60-1.30); TOTAL PROTEIN, SERUM 7.3 g/dL (6.4-8.2)
[2022-01-05 14:41] LABS: POTASSIUM 6.3 mmol/L (3.5-5.1)
[2022-01-05] MEDS ORDERED: SODIUM CHLORIDE 0.9% 250 ML IV ONE (14:45)
[2022-01-05] MEDS ORDERED: SODIUM POLYSTYRENE SULFONATE 15 GM/60 ML SUSPENSION BOTTLE PO ONE (15:00)
[2022-01-05] MEDS ORDERED: SODIUM BICARBONATE [ADULT] 8.4% 50 MEQ/50 ML SYRINGE IVP ONE (15:00)
[2022-01-05] MEDS ORDERED: ALBUTEROL SULFATE HFA 90 MCG/PUFF 8 GM INHALER IH ONE (15:00)
[2022-01-05] MEDS ORDERED: INSULIN REGULAR, HUMAN 100 UNITS/ML IVP ONE (15:00)
[2022-01-05] MEDS ORDERED: ACETAMINOPHEN 325 MG TABLET PO ONE (15:45)
[2022-01-05] MEDS ORDERED: 0.9% SODIUM CHLORIDE 10 ML SYRINGE IVP PRN (16:15)
[2022-01-05] MEDS ORDERED: ACETAMINOPHEN 325 MG TABLET PO PRN (16:15)
[2022-01-05] MEDS ORDERED: ONDANSETRON HCL 4 MG/2 ML VIAL IVP PRN (16:15)
[2022-01-05] MEDS: VITAMIN B COMP/VIT C/FOLIC ACID CAPSULE PO SCH (21:22)
[2022-01-06 00:12] VITALS: BP 158/96
[2022-01-06 04:22] VITALS: BP 150/69
[2022-01-06 06:30] LABS: BASOPHILS % (AUTO) 1.1 % (0.0-2.0); EOSINOPHILS % (AUTO) 4.8 % (1.0-6.0); HEMATOCRIT 37.4 % (41-53); HEMOGLOBIN 12.2 g/dL (13.5-17.5); LYMPHOCYTES # (AUTO) 0.9 K/uL (1.0-4.8); LYMPHOCYTES % (AUTO) 20.9 % (22.0-44.0); MEAN CORPUSCULAR HEMOGLOBIN 29.6 pg (26.0-34.0); MEAN CORPUSCULAR HGB CONC 32.6 G/dL (31.0-37.0); MEAN CORPUSCULAR VOLUME 91 fL (80-100); MONOCYTES # (AUTO) 0.2 K/uL (0.1-1.0); MONOCYTES % (AUTO) 4.8 % (2.0-9.0); NEUTROPHILS # (AUTO) 3.1 K/uL (1.8-7.7); NEUTROPHILS % (AUTO) 68.4 % (40.0-70.0); PLATELET COUNT (AUTO) 243 K/uL (150-450); RED BLOOD CELL COUNT(AUTO) 4.12 MIL/uL (4.50-5.90); RED CELL DISTRIBUTION WIDTH 16.4 % (11.5-14.5)
[2022-01-06 07:03] LABS: ALBUMIN 3.5 g/dL (3.4-5.0); BILIRUBIN,TOTAL 0.4 mg/dL (0.1-1.0); CALCIUM, TOTAL 7.7 mg/dL (8.8-10.5); CREATININE 6.54 mg/dL (0.60-1.30); POTASSIUM 4.8 mmol/L (3.5-5.1); TOTAL PROTEIN, SERUM 7.4 g/dL (6.4-8.2)
[2022-01-06 07:06] LABS: CALCIUM, TOTAL 7.7 mg/dL (8.8-10.5); CREATININE 6.58 mg/dL (0.60-1.30); PHOSPHORUS 7.3 mg/dL (2.5-4.9); POTASSIUM 4.9 mmol/L (3.5-5.1)
[2022-01-06 07:53] VITALS: BP 143/81
[2022-01-06] MEDS: VITAMIN B COMP/VIT C/FOLIC ACID CAPSULE PO SCH (08:03)
[2022-01-06] MEDS ORDERED: IPRATROPIUM BROMIDE 0.5 MG/2.5 ML NEB SOLUTION NEB PRN (09:45)
[2022-01-06] MEDS ORDERED: ALBUTEROL SULFATE 2.5 MG/0.5 ML NEB SOLUTION NEB PRN (09:45)
[2022-01-06] MEDS ORDERED: ACETAMINOPHEN 325 MG TABLET PO PRN (09:45)
[2022-01-06] MEDS ORDERED: BISACODYL 10 MG RECTAL RECTAL SUPPOSITORY PR PRN (09:45)
[2022-01-06] MEDS: ONDANSETRON HCL 4 MG/2 ML VIAL IVP PRN ×2 (10:16→21:45)
[2022-01-06] MEDS: HYDROCODONE/ACETAMINOPHEN 5-325 MG TABLET PO PRN ×3 (10:16→21:57)
[2022-01-06 10:31] LABS: BASOPHILS % (AUTO) 2.3 % (0.0-2.0); EOSINOPHILS % (AUTO) 3.8 % (1.0-6.0); HEMATOCRIT 35.9 % (41-53); LYMPHOCYTES # (AUTO) 1.2 K/uL (1.0-4.8); LYMPHOCYTES % (AUTO) 28.2 % (22.0-44.0); MEAN CORPUSCULAR HEMOGLOBIN 29.4 pg (26.0-34.0); MEAN CORPUSCULAR HGB CONC 33.6 G/dL (31.0-37.0); MEAN CORPUSCULAR VOLUME 88 fL (80-100); MONOCYTES # (AUTO) 0.3 K/uL (0.1-1.0); MONOCYTES % (AUTO) 8.2 % (2.0-9.0); NEUTROPHILS # (AUTO) 2.4 K/uL (1.8-7.7); NEUTROPHILS % (AUTO) 57.5 % (40.0-70.0); PLATELET COUNT (AUTO) 243 K/uL (150-450); RED BLOOD CELL COUNT(AUTO) 4.09 MIL/uL (4.50-5.90); RED CELL DISTRIBUTION WIDTH 16.4 % (11.5-14.5)
[2022-01-06 10:56] LABS: ALBUMIN 3.5 g/dL (3.4-5.0); BILIRUBIN,TOTAL 0.4 mg/dL (0.1-1.0); C-REACTIVE PROTEIN QUANT 0.22 mg/dL (0.00-0.30); CALCIUM, TOTAL 7.9 mg/dL (8.8-10.5); CREATININE 7.06 mg/dL (0.60-1.30); POTASSIUM 5.2 mmol/L (3.5-5.1); TOTAL PROTEIN, SERUM 7.3 g/dL (6.4-8.2)
[2022-01-06 11:25] VITALS: BP 141/82
[2022-01-06] MEDS: SEVELAMER CARBONATE 800 MG TABLET PO SCH ×2 (11:59→18:25)
[2022-01-06] MEDS: CALCIUM ACETATE 667 MG CAPSULE PO SCH ×2 (11:59→18:25)
[2022-01-06] MEDS ORDERED: SODIUM ZIRCONIUM CYCLOSILICATE 5 GM POWDER PACKET PO ONE (12:30)
[2022-01-06] MEDS: BENZOCAINE/MENTHOL LOZENGE PO PRN ×3 (13:48→21:58)
[2022-01-06] MEDS: HEPARIN SODIUM,PORCINE 5,000 UNITS/ML VIAL SQ SCH ×3 (15:04→23:53)
[2022-01-06 15:36] VITALS: BP 143/85
[2022-01-06] MEDS ORDERED: REMDESIVIR 200 MG in SODIUM CHLORIDE 0.9% 250 ML IV ONE (16:00)
[2022-01-06] MEDS: DEXAMETHASONE 4 MG TABLET PO SCH (17:02)
[2022-01-06 20:15] VITALS: BP 149/89
[2022-01-06] MEDS: METOPROLOL TARTRATE 50 MG TABLET PO SCH (21:45)
[2022-01-07] VITALS (10 sets, daily range): BP systolic 122–167; BP diastolic 70–99
[2022-01-07] MEDS: ZOLPIDEM TARTRATE 5 MG TABLET PO PRN (02:52)
[2022-01-07 06:05] LABS: BASOPHILS % (AUTO) 0.5 % (0.0-2.0); EOSINOPHILS % (AUTO) 0.2 % (1.0-6.0); HEMATOCRIT 35.7 % (41-53); HEMOGLOBIN 11.9 g/dL (13.5-17.5); LYMPHOCYTES # (AUTO) 0.8 K/uL (1.0-4.8); LYMPHOCYTES % (AUTO) 19.6 % (22.0-44.0); MEAN CORPUSCULAR HEMOGLOBIN 29.7 pg (26.0-34.0); MEAN CORPUSCULAR HGB CONC 33.4 G/dL (31.0-37.0); MEAN CORPUSCULAR VOLUME 89 fL (80-100); MONOCYTES # (AUTO) 0.2 K/uL (0.1-1.0); MONOCYTES % (AUTO) 4.4 % (2.0-9.0); NEUTROPHILS # (AUTO) 3.1 K/uL (1.8-7.7); NEUTROPHILS % (AUTO) 75.3 % (40.0-70.0); PLATELET COUNT (AUTO) 230 K/uL (150-450); RED BLOOD CELL COUNT(AUTO) 4.01 MIL/uL (4.50-5.90)
[2022-01-07 06:39] LABS: BILIRUBIN,TOTAL 0.3 mg/dL (0.1-1.0); CALCIUM, TOTAL 7.7 mg/dL (8.8-10.5)
[2022-01-07 07:46] LABS: ALBUMIN 3.4 g/dL (3.4-5.0); C-REACTIVE PROTEIN QUANT 0.1 mg/dL (0.00-0.30); CREATININE 8.83 mg/dL (0.60-1.30)
[2022-01-07 07:57] LABS: POTASSIUM 6.5 mmol/L (3.5-5.1)
[2022-01-07] MEDS: HEPARIN SODIUM,PORCINE 5,000 UNITS/ML VIAL SQ SCH ×3 (08:00→22:12)
[2022-01-07] MEDS: AmLODIPine BESYLATE 10 MG TABLET PO SCH (09:00)
[2022-01-07] MEDS ORDERED: SODIUM ZIRCONIUM CYCLOSILICATE 5 GM POWDER PACKET PO ONE (09:00)
[2022-01-07] MEDS: METOPROLOL TARTRATE 50 MG TABLET PO SCH ×2 (09:00→20:35)
[2022-01-07] MEDS ORDERED: VITAMIN B COMP/VIT C/FOLIC ACID CAPSULE PO SCH (09:00)
[2022-01-07] MEDS: SEVELAMER CARBONATE 800 MG TABLET PO SCH ×3 (09:14→17:52)
[2022-01-07] MEDS: DEXAMETHASONE 4 MG TABLET PO SCH (09:14)
[2022-01-07] MEDS: CHOLECALCIFEROL (VIT D3) 1,000 UNITS [25 MCG] TABLET PO SCH (09:15)
[2022-01-07] MEDS: PANTOPRAZOLE SODIUM 40 MG/VIAL IVP SCH (09:15)
[2022-01-07] MEDS: CALCIUM ACETATE 667 MG CAPSULE PO SCH ×3 (09:15→17:52)
[2022-01-07] MEDS: VITAMIN B COMP/VIT C/FOLIC ACID CAPSULE PO SCH (09:15)
[2022-01-07] MEDS ORDERED: SODIUM CHLORIDE 0.9% 1,000 ML ONE (09:28)
[2022-01-07] MEDS ORDERED: DEXTROSE 50%-WATER 25 GM/50 ML SYRINGE IVP PRN (12:15)
[2022-01-07] MEDS ORDERED: INSULIN LISPRO 100 UNITS/ML SQ PRN (12:15)
[2022-01-07] MEDS: MORPHINE SULFATE 2 MG/ML SYRINGE IVP PRN ×2 (14:45→21:00)
[2022-01-07 14:53] LABS: CALCIUM, TOTAL 9.5 mg/dL (8.8-10.5); CREATININE 5.47 mg/dL (0.60-1.30); POTASSIUM 3.8 mmol/L (3.5-5.1)
[2022-01-07] MEDS: BENZOCAINE/MENTHOL LOZENGE PO PRN (14:57)
[2022-01-07 14:59] LABS: ALBUMIN 3.5 g/dL (3.4-5.0); BILIRUBIN,TOTAL 0.4 mg/dL (0.1-1.0); TOTAL PROTEIN, SERUM 7.7 g/dL (6.4-8.2)
[2022-01-07] MEDS: REMDESIVIR 100 MG in SODIUM CHLORIDE 0.9% 250 ML IV SCH (17:51)
[2022-01-07] MEDS ORDERED: HEPARIN SODIUM,PORCINE 1,000 UNITS/ML VIAL IVP ONE (18:34)
[2022-01-07] MEDS: ONDANSETRON HCL 4 MG/2 ML VIAL IVP PRN (19:45)
[2022-01-08] MEDS: MORPHINE SULFATE 2 MG/ML SYRINGE IVP PRN ×3 (02:43→20:15)
[2022-01-08 03:45] VITALS: BP 101/65
[2022-01-08 06:22] LABS: BASOPHILS % (AUTO) 1.5 % (0.0-2.0); EOSINOPHILS % (AUTO) 0.4 % (1.0-6.0); HEMATOCRIT 38.7 % (41-53); HEMOGLOBIN 12.7 g/dL (13.5-17.5); LYMPHOCYTES # (AUTO) 1.7 K/uL (1.0-4.8); LYMPHOCYTES % (AUTO) 36.9 % (22.0-44.0); MEAN CORPUSCULAR HEMOGLOBIN 29.4 pg (26.0-34.0); MEAN CORPUSCULAR VOLUME 89 fL (80-100); MONOCYTES # (AUTO) 0.4 K/uL (0.1-1.0); NEUTROPHILS # (AUTO) 2.4 K/uL (1.8-7.7); NEUTROPHILS % (AUTO) 52.2 % (40.0-70.0); PLATELET COUNT (AUTO) 267 K/uL (150-450); RED BLOOD CELL COUNT(AUTO) 4.33 MIL/uL (4.50-5.90); RED CELL DISTRIBUTION WIDTH 16.6 % (11.5-14.5)
[2022-01-08 07:09] LABS: ALANINE AMINOTRANSFERASE 17 U/L (12-78); ALBUMIN 3.3 g/dL (3.4-5.0); ALKALINE PHOSPHATASE 88 U/L (46-116); ANION GAP 15 mmol/L (8-16); ASPARTATE AMINOTRANSFERASE 15 U/L (15-37); BILIRUBIN,TOTAL 0.2 mg/dL (0.1-1.0); CALCIUM, TOTAL 8.4 mg/dL (8.8-10.5); CARBON DIOXIDE 24 mmol/L (22-29); CHLORIDE 96 mmol/L (98-107); CREATININE 7.64 mg/dL (0.60-1.30); FERRITIN 489 ng/mL (26-388); GLUCOSE,RANDOM 129 mg/dL (70-110); SODIUM SERUM 135 mmol/L (136-145); TOTAL PROTEIN, SERUM 7.2 g/dL (6.4-8.2); UREA NITROGEN, BLOOD 50 mg/dL (7-18)
[2022-01-08 07:12] LABS: C-REACTIVE PROTEIN QUANT < 0.05 mg/dL (0.00-0.30); GLOMERULAR FILTR. RATE CALC 8 mL/min (>60)
[2022-01-08 07:48] VITALS: BP 142/71
[2022-01-08] MEDS: DEXAMETHASONE 4 MG TABLET PO SCH (08:54)
[2022-01-08] MEDS: AmLODIPine BESYLATE 10 MG TABLET PO SCH (08:55)
[2022-01-08] MEDS: HEPARIN SODIUM,PORCINE 5,000 UNITS/ML VIAL SQ SCH ×3 (08:55→23:15)
[2022-01-08] MEDS: CHOLECALCIFEROL (VIT D3) 1,000 UNITS [25 MCG] TABLET PO SCH (08:55)
[2022-01-08] MEDS: VITAMIN B COMP/VIT C/FOLIC ACID CAPSULE PO SCH (08:55)
[2022-01-08] MEDS: SEVELAMER CARBONATE 800 MG TABLET PO SCH ×3 (08:55→17:35)
[2022-01-08] MEDS: METOPROLOL TARTRATE 50 MG TABLET PO SCH ×2 (08:55→20:14)
[2022-01-08] MEDS: CALCIUM ACETATE 667 MG CAPSULE PO SCH ×3 (08:55→17:35)
[2022-01-08] MEDS: PANTOPRAZOLE SODIUM 40 MG/VIAL IVP SCH (08:56)
[2022-01-08 11:14] VITALS: BP 130/79
[2022-01-08] MEDS: ONDANSETRON HCL 4 MG/2 ML VIAL IVP PRN (12:31)
[2022-01-08 15:43] VITALS: BP 115/69
[2022-01-08] MEDS: REMDESIVIR 100 MG in SODIUM CHLORIDE 0.9% 250 ML IV SCH (18:04)
[2022-01-08 19:20] VITALS: BP 146/84
[2022-01-08] MEDS: ZOLPIDEM TARTRATE 5 MG TABLET PO PRN (21:35)
[2022-01-08] MEDS: BENZOCAINE/MENTHOL LOZENGE PO PRN (21:35)
[2022-01-08 23:40] VITALS: BP 148/80
[2022-01-09] VITALS (14 sets, daily range): BP systolic 134–157; BP diastolic 61–88
[2022-01-09] MEDS: ONDANSETRON HCL 4 MG/2 ML VIAL IVP PRN ×3 (01:27→16:55)
[2022-01-09] MEDS: MORPHINE SULFATE 2 MG/ML SYRINGE IVP PRN ×3 (01:29→22:58)
[2022-01-09 06:21] LABS: BASOPHILS % (AUTO) 0.5 % (0.0-2.0); EOSINOPHILS % (AUTO) 0.1 % (1.0-6.0); HEMATOCRIT 34.7 % (41-53); HEMOGLOBIN 11.6 g/dL (13.5-17.5); LYMPHOCYTES # (AUTO) 0.8 K/uL (1.0-4.8); LYMPHOCYTES % (AUTO) 17.8 % (22.0-44.0); MEAN CORPUSCULAR HGB CONC 33.5 G/dL (31.0-37.0); MEAN CORPUSCULAR VOLUME 89 fL (80-100); MONOCYTES # (AUTO) 0.3 K/uL (0.1-1.0); MONOCYTES % (AUTO) 5.8 % (2.0-9.0); NEUTROPHILS # (AUTO) 3.5 K/uL (1.8-7.7); NEUTROPHILS % (AUTO) 75.8 % (40.0-70.0); PLATELET COUNT (AUTO) 255 K/uL (150-450); RED BLOOD CELL COUNT(AUTO) 3.89 MIL/uL (4.50-5.90); RED CELL DISTRIBUTION WIDTH 16.1 % (11.5-14.5)
[2022-01-09 06:36] LABS: ALBUMIN 3.4 g/dL (3.4-5.0); BILIRUBIN,TOTAL 0.2 mg/dL (0.1-1.0); C-REACTIVE PROTEIN QUANT 0.07 mg/dL (0.00-0.30); CREATININE 9.96 mg/dL (0.60-1.30); TOTAL PROTEIN, SERUM 6.9 g/dL (6.4-8.2)
[2022-01-09 06:38] LABS: POTASSIUM 6.6 mmol/L (3.5-5.1)
[2022-01-09] MEDS ORDERED: SODIUM ZIRCONIUM CYCLOSILICATE 5 GM POWDER PACKET PO ONE (07:30)
[2022-01-09] MEDS ORDERED: INSULIN REGULAR, HUMAN 100 UNITS/ML IVP ONE (07:30)
[2022-01-09] MEDS ORDERED: DEXTROSE 50%-WATER 25 GM/50 ML SYRINGE IVP ONE (07:30)
[2022-01-09] MEDS ORDERED: CALCIUM GLUCONATE 100 MG/ML 10 ML IVP ONE (07:30)
[2022-01-09] MEDS: VITAMIN B COMP/VIT C/FOLIC ACID CAPSULE PO SCH (08:22)
[2022-01-09] MEDS: AmLODIPine BESYLATE 10 MG TABLET PO SCH (08:22)
[2022-01-09] MEDS: CHOLECALCIFEROL (VIT D3) 1,000 UNITS [25 MCG] TABLET PO SCH (08:23)
[2022-01-09] MEDS: DEXAMETHASONE 4 MG TABLET PO SCH (08:23)
[2022-01-09] MEDS: CALCIUM ACETATE 667 MG CAPSULE PO SCH ×3 (08:23→18:13)
[2022-01-09] MEDS: SEVELAMER CARBONATE 800 MG TABLET PO SCH ×3 (08:23→18:13)
[2022-01-09] MEDS: METOPROLOL TARTRATE 50 MG TABLET PO SCH ×2 (08:24→21:25)
[2022-01-09] MEDS: PANTOPRAZOLE SODIUM 40 MG/VIAL IVP SCH (08:24)
[2022-01-09] MEDS: HEPARIN SODIUM,PORCINE 5,000 UNITS/ML VIAL SQ SCH ×4 (08:24→23:25)
[2022-01-09] MEDS ORDERED: SODIUM CHLORIDE 0.9% 1,000 ML ONE (10:46)
[2022-01-09] MEDS: BENZOCAINE/MENTHOL LOZENGE PO PRN (16:55)
[2022-01-09] MEDS: REMDESIVIR 100 MG in SODIUM CHLORIDE 0.9% 250 ML IV SCH (18:14)
[2022-01-09] MEDS: ZOLPIDEM TARTRATE 5 MG TABLET PO PRN (23:12)
[2022-01-10 00:06] VITALS: BP 117/76
[2022-01-10] MEDS: HYDROCODONE/ACETAMINOPHEN 5-325 MG TABLET PO PRN (02:26)
[2022-01-10] MEDS: MORPHINE SULFATE 2 MG/ML SYRINGE IVP PRN ×3 (05:11→21:12)
[2022-01-10 05:13] VITALS: BP 142/79
[2022-01-10 06:10] LABS: ALBUMIN 3.7 g/dL (3.4-5.0); BILIRUBIN,TOTAL 0.3 mg/dL (0.1-1.0); C-REACTIVE PROTEIN QUANT 0.08 mg/dL (0.00-0.30); CALCIUM, TOTAL 8.1 mg/dL (8.8-10.5); CREATININE 7.99 mg/dL (0.60-1.30); TOTAL PROTEIN, SERUM 7.4 g/dL (6.4-8.2)
[2022-01-10 06:28] LABS: BASOPHILS % (AUTO) 0.5 % (0.0-2.0); EOSINOPHILS % (AUTO) 0.3 % (1.0-6.0); HEMATOCRIT 36.7 % (41-53); HEMOGLOBIN 12.4 g/dL (13.5-17.5); LYMPHOCYTES # (AUTO) 1.8 K/uL (1.0-4.8); LYMPHOCYTES % (AUTO) 30.9 % (22.0-44.0); MEAN CORPUSCULAR HEMOGLOBIN 29.9 pg (26.0-34.0); MEAN CORPUSCULAR HGB CONC 33.8 G/dL (31.0-37.0); MEAN CORPUSCULAR VOLUME 88 fL (80-100); MONOCYTES # (AUTO) 0.5 K/uL (0.1-1.0); MONOCYTES % (AUTO) 8.4 % (2.0-9.0); NEUTROPHILS # (AUTO) 3.4 K/uL (1.8-7.7); NEUTROPHILS % (AUTO) 59.9 % (40.0-70.0); PLATELET COUNT (AUTO) 303 K/uL (150-450); RED BLOOD CELL COUNT(AUTO) 4.15 MIL/uL (4.50-5.90); RED CELL DISTRIBUTION WIDTH 16.2 % (11.5-14.5)
[2022-01-10] MEDS ORDERED: DiphenhydrAMINE HCL 25 MG CAPSULE PO ONE (06:30)
[2022-01-10] MEDS ORDERED: SODIUM ZIRCONIUM CYCLOSILICATE 5 GM POWDER PACKET PO ONE (08:15)
[2022-01-10] MEDS: CHOLECALCIFEROL (VIT D3) 1,000 UNITS [25 MCG] TABLET PO SCH (08:42)
[2022-01-10] MEDS: AmLODIPine BESYLATE 10 MG TABLET PO SCH (08:42)
[2022-01-10] MEDS: SEVELAMER CARBONATE 800 MG TABLET PO SCH ×3 (08:42→17:58)
[2022-01-10] MEDS: CALCIUM ACETATE 667 MG CAPSULE PO SCH ×3 (08:42→17:58)
[2022-01-10] MEDS: VITAMIN B COMP/VIT C/FOLIC ACID CAPSULE PO SCH (08:42)
[2022-01-10] MEDS: METOPROLOL TARTRATE 50 MG TABLET PO SCH ×2 (08:42→21:11)
[2022-01-10] MEDS: HEPARIN SODIUM,PORCINE 5,000 UNITS/ML VIAL SQ SCH ×3 (08:44→23:05)
[2022-01-10] MEDS: PANTOPRAZOLE SODIUM 40 MG/VIAL IVP SCH (08:45)
[2022-01-10 09:00] VITALS: BP 133/83
[2022-01-10] MEDS: DEXAMETHASONE 4 MG TABLET PO SCH (09:05)
[2022-01-10 12:00] VITALS: BP 140/67
[2022-01-10] MEDS: ONDANSETRON HCL 4 MG/2 ML VIAL IVP PRN ×2 (12:41→21:13)
[2022-01-10 16:00] VITALS: BP 137/72
[2022-01-10] MEDS: REMDESIVIR 100 MG in SODIUM CHLORIDE 0.9% 250 ML IV SCH (17:55)
[2022-01-10 21:08] VITALS: BP 132/81
[2022-01-10] MEDS: ZOLPIDEM TARTRATE 5 MG TABLET PO PRN (21:11)
[2022-01-11] VITALS (16 sets, daily range): BP systolic 128–156; BP diastolic 58–104
[2022-01-11 00:14] LABS: COVID AG,FIA SOURCE NASOPHARYNGEAL
[2022-01-11] MEDS: MORPHINE SULFATE 2 MG/ML SYRINGE IVP PRN ×3 (03:17→20:06)
[2022-01-11] MEDS: CALCIUM ACETATE 667 MG CAPSULE PO SCH ×3 (08:22→18:43)
[2022-01-11] MEDS: SEVELAMER CARBONATE 800 MG TABLET PO SCH ×3 (08:22→18:43)
[2022-01-11] MEDS: VITAMIN B COMP/VIT C/FOLIC ACID CAPSULE PO SCH (08:22)
[2022-01-11] MEDS: HEPARIN SODIUM,PORCINE 5,000 UNITS/ML VIAL SQ SCH ×3 (08:23→23:17)
[2022-01-11] MEDS: METOPROLOL TARTRATE 50 MG TABLET PO SCH ×2 (08:23→20:06)
[2022-01-11] MEDS: AmLODIPine BESYLATE 10 MG TABLET PO SCH (08:23)
[2022-01-11] MEDS: CHOLECALCIFEROL (VIT D3) 1,000 UNITS [25 MCG] TABLET PO SCH (08:24)
[2022-01-11] MEDS: PANTOPRAZOLE SODIUM 40 MG/VIAL IVP SCH (08:24)
[2022-01-11] MEDS: DEXAMETHASONE 4 MG TABLET PO SCH (08:26)
[2022-01-11] MEDS: MAGNESIUM HYDROXIDE SUSPENSION 30 ML UDCUP PO PRN (18:49)
[2022-01-11] MEDS: ONDANSETRON HCL 4 MG/2 ML VIAL IVP PRN (20:15)
[2022-01-12] MEDS: MORPHINE SULFATE 2 MG/ML SYRINGE IVP PRN ×4 (00:06→22:27)
[2022-01-12] MEDS: ZOLPIDEM TARTRATE 5 MG TABLET PO PRN ×2 (00:06→22:27)
[2022-01-12] MEDS: ONDANSETRON HCL 4 MG/2 ML VIAL IVP PRN ×3 (02:40→22:27)
[2022-01-12 05:26] VITALS: BP 139/85
[2022-01-12 07:12] LABS: BASOPHILS % (AUTO) 0.5 % (0.0-2.0); EOSINOPHILS % (AUTO) 0.6 % (1.0-6.0); HEMATOCRIT 33.6 % (41-53); HEMOGLOBIN 11.4 g/dL (13.5-17.5); LYMPHOCYTES # (AUTO) 1.9 K/uL (1.0-4.8); LYMPHOCYTES % (AUTO) 28.2 % (22.0-44.0); MEAN CORPUSCULAR HEMOGLOBIN 29.9 pg (26.0-34.0); MEAN CORPUSCULAR HGB CONC 33.9 G/dL (31.0-37.0); MEAN CORPUSCULAR VOLUME 88 fL (80-100); MONOCYTES # (AUTO) 0.6 K/uL (0.1-1.0); MONOCYTES % (AUTO) 9.5 % (2.0-9.0); NEUTROPHILS # (AUTO) 4.1 K/uL (1.8-7.7); NEUTROPHILS % (AUTO) 61.2 % (40.0-70.0); PLATELET COUNT (AUTO) 232 K/uL (150-450); RED CELL DISTRIBUTION WIDTH 15.9 % (11.5-14.5)
[2022-01-12 07:27] VITALS: BP 171/86
[2022-01-12 07:31] LABS: ALBUMIN 3.3 g/dL (3.4-5.0); BILIRUBIN,TOTAL 0.3 mg/dL (0.1-1.0); CALCIUM, TOTAL 8.2 mg/dL (8.8-10.5); CREATININE 7.36 mg/dL (0.60-1.30); TOTAL PROTEIN, SERUM 6.3 g/dL (6.4-8.2)
[2022-01-12] MEDS: HEPARIN SODIUM,PORCINE 5,000 UNITS/ML VIAL SQ SCH ×2 (08:00→16:00)
[2022-01-12] MEDS: VITAMIN B COMP/VIT C/FOLIC ACID CAPSULE PO SCH (08:21)
[2022-01-12] MEDS: SEVELAMER CARBONATE 800 MG TABLET PO SCH ×3 (08:22→18:11)
[2022-01-12] MEDS: DEXAMETHASONE 4 MG TABLET PO SCH (08:22)
[2022-01-12] MEDS: METOPROLOL TARTRATE 50 MG TABLET PO SCH ×2 (08:22→20:05)
[2022-01-12] MEDS: CHOLECALCIFEROL (VIT D3) 1,000 UNITS [25 MCG] TABLET PO SCH (08:22)
[2022-01-12] MEDS: CALCIUM ACETATE 667 MG CAPSULE PO SCH ×3 (08:23→18:11)
[2022-01-12] MEDS: PANTOPRAZOLE SODIUM 40 MG/VIAL IVP SCH (08:23)
[2022-01-12] MEDS: AmLODIPine BESYLATE 10 MG TABLET PO SCH (08:23)
[2022-01-12 11:21] VITALS: BP 140/84
[2022-01-12] MEDS: MAGNESIUM HYDROXIDE SUSPENSION 30 ML UDCUP PO PRN ×2 (13:12→20:05)
[2022-01-12 15:05] VITALS: BP 132/85
[2022-01-12 20:08] VITALS: BP 131/78
[2022-01-12 23:39] VITALS: BP 138/77
[2022-01-13] MEDS: MORPHINE SULFATE 2 MG/ML SYRINGE IVP PRN ×2 (03:03→10:18)
[2022-01-13 04:13] VITALS: BP 142/86
[2022-01-13 07:42] LABS: BASOPHILS % (AUTO) 0.2 % (0.0-2.0); EOSINOPHILS % (AUTO) 0.3 % (1.0-6.0); HEMATOCRIT 35.7 % (41-53); HEMOGLOBIN 11.9 g/dL (13.5-17.5); LYMPHOCYTES # (AUTO) 1.5 K/uL (1.0-4.8); LYMPHOCYTES % (AUTO) 21.5 % (22.0-44.0); MEAN CORPUSCULAR HEMOGLOBIN 29.7 pg (26.0-34.0); MEAN CORPUSCULAR HGB CONC 33.3 G/dL (31.0-37.0); MEAN CORPUSCULAR VOLUME 89 fL (80-100); MONOCYTES # (AUTO) 0.7 K/uL (0.1-1.0); MONOCYTES % (AUTO) 9.8 % (2.0-9.0); NEUTROPHILS # (AUTO) 4.7 K/uL (1.8-7.7); NEUTROPHILS % (AUTO) 68.2 % (40.0-70.0); PLATELET COUNT (AUTO) 240 K/uL (150-450); RED CELL DISTRIBUTION WIDTH 16.4 % (11.5-14.5)
[2022-01-13] MEDS: HEPARIN SODIUM,PORCINE 5,000 UNITS/ML VIAL SQ SCH ×2 (08:00)
[2022-01-13 08:10] LABS: CALCIUM, TOTAL 8.4 mg/dL (8.8-10.5); CREATININE 9.52 mg/dL (0.60-1.30); MAGNESIUM 3.5 mg/dL (1.80-2.40); PHOSPHORUS 4.7 mg/dL (2.5-4.9); POTASSIUM 5.9 mmol/L (3.5-5.1)
[2022-01-13 08:14] LABS: ALBUMIN 3.6 g/dL (3.4-5.0); BILIRUBIN,TOTAL 0.3 mg/dL (0.1-1.0); CALCIUM, TOTAL 8.3 mg/dL (8.8-10.5); CREATININE 9.36 mg/dL (0.60-1.30); POTASSIUM 5.8 mmol/L (3.5-5.1); TOTAL PROTEIN, SERUM 6.8 g/dL (6.4-8.2)
[2022-01-13] MEDS: CHOLECALCIFEROL (VIT D3) 1,000 UNITS [25 MCG] TABLET PO SCH (08:44)
[2022-01-13] MEDS: PANTOPRAZOLE SODIUM 40 MG/VIAL IVP SCH (08:44)
[2022-01-13] MEDS: AmLODIPine BESYLATE 10 MG TABLET PO SCH (08:45)
[2022-01-13] MEDS: SEVELAMER CARBONATE 800 MG TABLET PO SCH ×2 (08:45→12:00)
[2022-01-13] MEDS: CALCIUM ACETATE 667 MG CAPSULE PO SCH ×2 (08:45→12:00)
[2022-01-13] MEDS: VITAMIN B COMP/VIT C/FOLIC ACID CAPSULE PO SCH (08:45)
[2022-01-13] MEDS: METOPROLOL TARTRATE 50 MG TABLET PO SCH (08:45)
[2022-01-13] MEDS: DEXAMETHASONE 4 MG TABLET PO SCH (08:45)
[2022-01-13 08:59] VITALS: BP 160/95
[2022-01-13] MEDS ORDERED: SODIUM ZIRCONIUM CYCLOSILICATE 5 GM POWDER PACKET PO ONE (11:15)
== END 2022-01-13 12:30 | disposition home or self-care (01) | DRG 137 ==
LOC: EMS 12:53 → 5N 16:35
PROVIDERS: ADMIT Hospitalist; ATTEND Hospitalist
PROC: XW033E5 Introduction of Remdesivir Anti-infective into Peripheral Vein, Percutaneous Approach, New Technology Group 5 (ICD-10-PCS; principal; 2022-01-06)
PROC: 5A1D70Z Performance of Urinary Filtration, Intermittent, Less than 6 Hours Per Day (ICD-10-PCS; 2022-01-07)
PROC: 5A1D70Z Performance of Urinary Filtration, Intermittent, Less than 6 Hours Per Day (ICD-10-PCS; 2022-01-09)
PROC: 5A1D70Z Performance of Urinary Filtration, Intermittent, Less than 6 Hours Per Day (ICD-10-PCS; 2022-01-11)
DX: U07.1 COVID-19 (principal); J12.82 Pneumonia due to coronavirus disease 2019; I12.0 Hypertensive chronic kidney disease with stage 5 chronic kidney disease or end stage renal disease; N18.6 End stage renal disease; D63.1 Anemia in chronic kidney disease; J02.9 Acute pharyngitis, unspecified; R19.7 Diarrhea, unspecified; R79.89 Other specified abnormal findings of blood chemistry; F12.90 Cannabis use, unspecified, uncomplicated; Z96.41 Presence of insulin pump (external) (internal); E11.43 Type 2 diabetes mellitus with diabetic autonomic (poly)neuropathy; K31.84 Gastroparesis; E11.22 Type 2 diabetes mellitus with diabetic chronic kidney disease; E11.65 Type 2 diabetes mellitus with hyperglycemia; E87.5 Hyperkalemia; R09.02 Hypoxemia; Z99.2 Dependence on renal dialysis; Z91.013 Allergy to seafood; Z79.899 Other long term (current) drug therapy; Z28.311 Partially vaccinated for COVID-19; Z91.018 Allergy to other foods
CPT/HCPCS: 71045; 80048; 80053; 82728; 83615; 83690; 83735; 84100; 84145; 85025; 85379; 86140; 87081; 87340; 87804; 90935; 93005; 99291; C9113; J0610; J1644; J1815; J2270; J2405; J3490; J3535; J7030; J7050; J8540; Q9967; 36415-L1; 36415-TC

== ENCOUNTER 2022-01-17 20:12 | Inpatient (IN) | payer OTHER ==
[~2022-01-17] VITALS: Ht 182.9 cm; Wt 97.7 kg
[2022-01-17 21:31] LABS: BASOPHILS % (AUTO) 0.7 % (0.0-2.0); EOSINOPHILS % (AUTO) 5.4 % (1.0-6.0); HEMATOCRIT 30.8 % (41-53); HEMOGLOBIN 10.4 g/dL (13.5-17.5); LYMPHOCYTES # (AUTO) 1.6 K/uL (1.0-4.8); LYMPHOCYTES % (AUTO) 22.2 % (22.0-44.0); MEAN CORPUSCULAR HEMOGLOBIN 30.3 pg (26.0-34.0); MEAN CORPUSCULAR HGB CONC 33.7 G/dL (31.0-37.0); MEAN CORPUSCULAR VOLUME 90 fL (80-100); MONOCYTES # (AUTO) 0.7 K/uL (0.1-1.0); MONOCYTES % (AUTO) 9.6 % (2.0-9.0); NEUTROPHILS # (AUTO) 4.6 K/uL (1.8-7.7); NEUTROPHILS % (AUTO) 62.1 % (40.0-70.0); PLATELET COUNT (AUTO) 210 K/uL (150-450); RED BLOOD CELL COUNT(AUTO) 3.43 MIL/uL (4.50-5.90)
[2022-01-17 21:40] LABS: CALCIUM, TOTAL 7.9 mg/dL (8.8-10.5); CREATININE 7.4 mg/dL (0.60-1.30)
[2022-01-17 21:47] LABS: POTASSIUM 6.8 mmol/L (3.5-5.1)
[2022-01-17] MEDS ORDERED: CALCIUM GLUCONATE 100 MG/ML 10 ML IVP ONE (22:00)
[2022-01-17] MEDS ORDERED: INSULIN REGULAR, HUMAN 100 UNITS/ML IVP ONE (22:00)
[2022-01-17] MEDS ORDERED: SODIUM BICARBONATE [ADULT] 8.4% 50 MEQ/50 ML SYRINGE IVP ONE (22:00)
[2022-01-17] MEDS ORDERED: DEXTROSE 50%-WATER 25 GM/50 ML SYRINGE IVP ONE (22:00)
[2022-01-17] MEDS ORDERED: ALBUTEROL SULFATE 5 MG/ML 20 ML NEB SOLN [BULK] NEB ONE (22:15)
[2022-01-17] MEDS ORDERED: SODIUM CHLORIDE 0.9% 50 ML ONE (22:33)
[2022-01-17] MEDS ORDERED: SODIUM ZIRCONIUM CYCLOSILICATE 5 GM POWDER PACKET PO ONE (22:45)
[2022-01-17] MEDS ORDERED: ACETAMINOPHEN 325 MG TABLET PO PRN ×2 (23:00→23:30)
[2022-01-17] MEDS ORDERED: INSULIN LISPRO 100 UNITS/ML SQ PRN (23:00)
[2022-01-17] MEDS: ONDANSETRON HCL 4 MG/2 ML VIAL IVP PRN (23:16)
[2022-01-17] MEDS: OxyCODONE HCL/ACETAMINOPHEN 5-325 MG TABLET PO PRN (23:16)
[2022-01-17] MEDS ORDERED: 0.9% SODIUM CHLORIDE 10 ML SYRINGE IVP PRN (23:30)
[2022-01-17] MEDS ORDERED: ONDANSETRON HCL 4 MG/2 ML VIAL IVP PRN (23:30)
[2022-01-17] MEDS: HEPARIN SODIUM,PORCINE 5,000 UNITS/ML VIAL SQ SCH (23:40)
[2022-01-17] MEDS: METOPROLOL TARTRATE 25 MG TABLET PO SCH (23:40)
[2022-01-17] MEDS: DEXTROSE 50%-WATER 25 GM/50 ML SYRINGE IVP PRN (23:52)
[2022-01-18] VITALS (12 sets, daily range): BP systolic 138–161; BP diastolic 82–99
[2022-01-18 00:22] LABS: COVID AG,FIA SOURCE NASOPHARYNGEAL
[2022-01-18] MEDS ORDERED: HYDROCODONE/ACETAMINOPHEN 5-325 MG TABLET PO PRN (05:45)
[2022-01-18] MEDS ORDERED: ONDANSETRON HCL 4 MG/2 ML VIAL IVP PRN (05:45)
[2022-01-18] MEDS: OxyCODONE HCL/ACETAMINOPHEN 5-325 MG TABLET PO PRN ×3 (06:14→20:11)
[2022-01-18] MEDS: HEPARIN SODIUM,PORCINE 5,000 UNITS/ML VIAL SQ SCH ×2 (08:00→15:33)
[2022-01-18] MEDS: DOCUSATE SODIUM 100 MG CAPSULE PO SCH ×2 (08:19→20:10)
[2022-01-18] MEDS: METOPROLOL TARTRATE 25 MG TABLET PO SCH ×2 (08:19→20:10)
[2022-01-18] MEDS: FAMOTIDINE 20 MG TABLET PO SCH (08:19)
[2022-01-18 11:49] LABS: CALCIUM, TOTAL 8.1 mg/dL (8.8-10.5); CREATININE 5.48 mg/dL (0.60-1.30); POTASSIUM 5.7 mmol/L (3.5-5.1)
[2022-01-18] MEDS: SEVELAMER CARBONATE 800 MG TABLET PO SCH ×2 (12:21→18:43)
[2022-01-18] MEDS: ONDANSETRON HCL 4 MG/2 ML VIAL IVP PRN (15:02)
[2022-01-18] MEDS: DEXTROSE 50%-WATER 25 GM/50 ML SYRINGE IVP PRN (16:51)
[2022-01-18] MEDS: ZOLPIDEM TARTRATE 5 MG TABLET PO PRN (23:32)
[2022-01-19] VITALS (15 sets, daily range): BP systolic 137–159; BP diastolic 77–96
[2022-01-19 00:11] LABS: GLUCOMETER DEV NAME(LOC) 5N.3; GLUCOSE,POINT OF CARE 69 MG/DL (70-110)
[2022-01-19] MEDS: ONDANSETRON HCL 4 MG/2 ML VIAL IVP PRN ×2 (02:17→08:59)
[2022-01-19] MEDS: DEXTROSE 50%-WATER 25 GM/50 ML SYRINGE IVP PRN (02:47)
[2022-01-19 06:46] LABS: GLUCOMETER DEV NAME(LOC) 5N.3; GLUCOSE,POINT OF CARE 51 MG/DL (70-110)
[2022-01-19 06:47] LABS: GLUCOMETER DEV NAME(LOC) 5N.3; GLUCOSE,POINT OF CARE 116 MG/DL (70-110)
[2022-01-19] MEDS: HEPARIN SODIUM,PORCINE 5,000 UNITS/ML VIAL SQ SCH ×4 (07:58→23:42)
[2022-01-19] MEDS: METOPROLOL TARTRATE 25 MG TABLET PO SCH ×2 (08:01→20:14)
[2022-01-19] MEDS: SEVELAMER CARBONATE 800 MG TABLET PO SCH ×3 (08:01→17:45)
[2022-01-19] MEDS: FAMOTIDINE 20 MG TABLET PO SCH (08:01)
[2022-01-19] MEDS: DOCUSATE SODIUM 100 MG CAPSULE PO SCH ×2 (08:01→20:14)
[2022-01-19] MEDS ORDERED: SODIUM CHLORIDE 0.9% 1,000 ML ONE (09:03)
[2022-01-19] MEDS: OxyCODONE HCL/ACETAMINOPHEN 5-325 MG TABLET PO PRN ×3 (13:59→23:03)
[2022-01-19] MEDS: ZOLPIDEM TARTRATE 5 MG TABLET PO PRN (23:24)
[2022-01-20 04:12] VITALS: BP 150/85
[2022-01-20] MEDS: OxyCODONE HCL/ACETAMINOPHEN 5-325 MG TABLET PO PRN (04:23)
[2022-01-20 07:43] VITALS: BP 148/70
[2022-01-20] MEDS: HEPARIN SODIUM,PORCINE 5,000 UNITS/ML VIAL SQ SCH (08:00)
[2022-01-20] MEDS: FAMOTIDINE 20 MG TABLET PO SCH (09:15)
[2022-01-20] MEDS: DOCUSATE SODIUM 100 MG CAPSULE PO SCH (09:16)
[2022-01-20] MEDS: METOPROLOL TARTRATE 25 MG TABLET PO SCH (09:16)
[2022-01-20] MEDS: SEVELAMER CARBONATE 800 MG TABLET PO SCH (09:16)
[2022-01-20 12:04] LABS: CALCIUM, TOTAL 8.3 mg/dL (8.8-10.5); CREATININE 6.98 mg/dL (0.60-1.30); POTASSIUM 5.7 mmol/L (3.5-5.1)
[2022-01-20] MEDS ORDERED: SODIUM POLYSTYRENE SULFONATE 15 GM/60 ML SUSPENSION BOTTLE PO ONE (12:15)
[2022-01-21] MEDS ORDERED: EPOETIN ALFA 10,000 UNITS/ML 2 ML VIAL SQ SCH (09:00)
== END 2022-01-20 11:55 | disposition home or self-care (01) | DRG 425 ==
LOC: EMS 20:13 → 5S 01-18 01:15
PROVIDERS: ADMIT Internal Medicine; ATTEND Internal Medicine
PROC: 5A1D70Z Performance of Urinary Filtration, Intermittent, Less than 6 Hours Per Day (ICD-10-PCS; 2022-01-18)
PROC: 5A1D70Z Performance of Urinary Filtration, Intermittent, Less than 6 Hours Per Day (ICD-10-PCS; principal; 2022-01-19)
DX: E87.5 Hyperkalemia (principal); E10.43 Type 1 diabetes mellitus with diabetic autonomic (poly)neuropathy; E10.649 Type 1 diabetes mellitus with hypoglycemia without coma; D63.1 Anemia in chronic kidney disease; I12.0 Hypertensive chronic kidney disease with stage 5 chronic kidney disease or end stage renal disease; N18.6 End stage renal disease; Z96.41 Presence of insulin pump (external) (internal); E87.70 Fluid overload, unspecified; E10.22 Type 1 diabetes mellitus with diabetic chronic kidney disease; E21.3 Hyperparathyroidism, unspecified; F32.A Depression, unspecified; Z20.822 Contact with and (suspected) exposure to COVID-19; Z91.013 Allergy to seafood; Z79.4 Long term (current) use of insulin; Z99.2 Dependence on renal dialysis; Z88.8 Allergy status to other drugs, medicaments and biological substances
CPT/HCPCS: 71045; 80048; 82962; 83880; 84484; 85025; 87081; 87340; 90935; 93005; 99291; J0610; J1644; J1815; J2405; J3490; J7030; J7050; Q9967; 36415-L1; 36415-TC

== ENCOUNTER 2022-01-22 23:10 | Inpatient (IN) | payer OTHER ==
[~2022-01-22] VITALS: Ht 182.9 cm; Wt 90.3 kg
[~2022-01-22 23:10] MED LIST changes: -INSU100V36 SQ
[2022-01-23] VITALS (9 sets, daily range): BP systolic 147–189; BP diastolic 73–98
[2022-01-23] MEDS ORDERED: ACETAMINOPHEN 325 MG TABLET PO PRN
[2022-01-23] MEDS ORDERED: MORPHINE SULFATE 2 MG/ML SYRINGE IVP PRN
[2022-01-23] MEDS ORDERED: BISACODYL 10 MG RECTAL RECTAL SUPPOSITORY PR PRN
[2022-01-23] MEDS ORDERED: MAGNESIUM HYDROXIDE SUSPENSION 30 ML UDCUP PO PRN
[2022-01-23 00:11] LABS: COVID AG,FIA SOURCE NASOPHARYNGEAL
[2022-01-23 00:26] LABS: BASOPHILS % (AUTO) 0.3 % (0.0-2.0); HEMATOCRIT 28.8 % (41-53); HEMOGLOBIN 9.8 g/dL (13.5-17.5); LYMPHOCYTES # (AUTO) 1.6 K/uL (1.0-4.8); LYMPHOCYTES % (AUTO) 26.4 % (22.0-44.0); MEAN CORPUSCULAR HEMOGLOBIN 30.3 pg (26.0-34.0); MEAN CORPUSCULAR HGB CONC 34.1 G/dL (31.0-37.0); MEAN CORPUSCULAR VOLUME 89 fL (80-100); MONOCYTES # (AUTO) 0.6 K/uL (0.1-1.0); MONOCYTES % (AUTO) 10.3 % (2.0-9.0); NEUTROPHILS # (AUTO) 3.6 K/uL (1.8-7.7); PLATELET COUNT (AUTO) 189 K/uL (150-450); RED BLOOD CELL COUNT(AUTO) 3.25 MIL/uL (4.50-5.90); RED CELL DISTRIBUTION WIDTH 17.3 % (11.5-14.5)
[2022-01-23 00:31] LABS: INFLUENZA TYPE A NEGATIVE FOR TYPE A (NEGATIVE); INFLUENZA TYPE B NEGATIVE FOR TYPE B (NEGATIVE)
[2022-01-23 00:49] LABS: ALBUMIN 3.3 g/dL (3.4-5.0); BILIRUBIN,TOTAL 0.4 mg/dL (0.1-1.0); CALCIUM, TOTAL 8.3 mg/dL (8.8-10.5); CREATININE 8.64 mg/dL (0.60-1.30); MAGNESIUM 2.6 mg/dL (1.80-2.40); PHOSPHORUS 8.2 mg/dL (2.5-4.9); TOTAL PROTEIN, SERUM 6.8 g/dL (6.4-8.2)
[2022-01-23 00:51] LABS: POTASSIUM 7.1 mmol/L (3.5-5.1)
[2022-01-23] MEDS ORDERED: INSULIN REGULAR, HUMAN 100 UNITS/ML IVP ONE (01:00)
[2022-01-23] MEDS ORDERED: CALCIUM GLUCONATE 1,000 MG in DEXTROSE 5%-WATER 50 ML IV ONE (01:00)
[2022-01-23] MEDS ORDERED: ALBUTEROL SULFATE 5 MG/ML 20 ML NEB SOLN [BULK] NEB ONE (01:00)
[2022-01-23] MEDS ORDERED: DEXTROSE 50%-WATER 25 GM/50 ML SYRINGE IVP ONE ×3 (01:00→02:00)
[2022-01-23 02:06] LABS: GLUCOSE,POINT OF CARE 36 MG/DL (70-110)
[2022-01-23 02:36] LABS: GLUCOSE,POINT OF CARE 118 MG/DL (70-110)
[2022-01-23 02:51] LABS: GLUCOSE,POINT OF CARE 142 MG/DL (70-110)
[2022-01-23 04:11] LABS: GLUCOSE,POINT OF CARE 151 MG/DL (70-110)
[2022-01-23 06:52] LABS: BASOPHILS % (AUTO) 1.1 % (0.0-2.0); EOSINOPHILS % (AUTO) 3.1 % (1.0-6.0); HEMATOCRIT 30.1 % (41-53); HEMOGLOBIN 10.2 g/dL (13.5-17.5); LYMPHOCYTES # (AUTO) 1.2 K/uL (1.0-4.8); LYMPHOCYTES % (AUTO) 22.3 % (22.0-44.0); MEAN CORPUSCULAR HEMOGLOBIN 30.1 pg (26.0-34.0); MEAN CORPUSCULAR HGB CONC 33.9 G/dL (31.0-37.0); MEAN CORPUSCULAR VOLUME 89 fL (80-100); MONOCYTES # (AUTO) 0.6 K/uL (0.1-1.0); MONOCYTES % (AUTO) 10.7 % (2.0-9.0); NEUTROPHILS # (AUTO) 3.3 K/uL (1.8-7.7); NEUTROPHILS % (AUTO) 62.8 % (40.0-70.0); PLATELET COUNT (AUTO) 194 K/uL (150-450); RED BLOOD CELL COUNT(AUTO) 3.39 MIL/uL (4.50-5.90); RED CELL DISTRIBUTION WIDTH 16.9 % (11.5-14.5)
[2022-01-23 07:08] LABS: CALCIUM, TOTAL 8.7 mg/dL (8.8-10.5); CREATININE 5.65 mg/dL (0.60-1.30); POTASSIUM 4.1 mmol/L (3.5-5.1)
[2022-01-23 07:13] LABS: ALBUMIN 3.3 g/dL (3.4-5.0); BILIRUBIN,TOTAL 0.5 mg/dL (0.1-1.0); MAGNESIUM 2.2 mg/dL (1.80-2.40); PHOSPHORUS 5.6 mg/dL (2.5-4.9); TOTAL PROTEIN, SERUM 6.9 g/dL (6.4-8.2)
[2022-01-23] MEDS: HEPARIN SODIUM,PORCINE 5,000 UNITS/ML VIAL SQ SCH ×5 (07:45→23:03)
[2022-01-23] MEDS ORDERED: HYDROCODONE/ACETAMINOPHEN 5-325 MG TABLET PO PRN ×2 (08:15)
[2022-01-23] MEDS: SEVELAMER CARBONATE 800 MG TABLET PO SCH ×3 (08:51→18:24)
[2022-01-23] MEDS: CALCIUM ACETATE 667 MG CAPSULE PO SCH ×3 (08:51→18:24)
[2022-01-23] MEDS: DOCUSATE SODIUM 100 MG CAPSULE PO SCH ×2 (08:52→20:01)
[2022-01-23] MEDS: METOPROLOL TARTRATE 50 MG TABLET PO SCH ×2 (08:52→20:01)
[2022-01-23] MEDS: AmLODIPine BESYLATE 10 MG TABLET PO SCH (08:52)
[2022-01-23] MEDS: PANTOPRAZOLE SODIUM 40 MG DR TABLET PO SCH (08:52)
[2022-01-23] MEDS: CHOLECALCIFEROL (VIT D3) 1,000 UNITS [25 MCG] TABLET PO SCH (08:54)
[2022-01-23] MEDS: VITAMIN B COMP/VIT C/FOLIC ACID CAPSULE PO SCH (09:08)
[2022-01-23] MEDS: ONDANSETRON HCL 4 MG/2 ML VIAL IVP PRN ×2 (10:40→20:01)
[2022-01-23] MEDS: MORPHINE SULFATE 2 MG/ML SYRINGE IVP PRN ×2 (16:16→20:02)
[2022-01-23] MEDS: SODIUM ZIRCONIUM CYCLOSILICATE 5 GM POWDER PACKET PO SCH (18:26)
[2022-01-23] MEDS: ZOLPIDEM TARTRATE 5 MG TABLET PO PRN (20:01)
[2022-01-24] VITALS (15 sets, daily range): BP systolic 133–171; BP diastolic 70–101
[2022-01-24] MEDS: MORPHINE SULFATE 2 MG/ML SYRINGE IVP PRN ×2 (00:58→16:17)
[2022-01-24 03:02] LABS: GLUCOMETER DEV NAME(LOC) 5S.1B; GLUCOSE,POINT OF CARE 38 MG/DL (70-110)
[2022-01-24] MEDS: ONDANSETRON HCL 4 MG/2 ML VIAL IVP PRN ×2 (06:13→08:23)
[2022-01-24 07:01] LABS: CALCIUM, TOTAL 7.9 mg/dL (8.8-10.5); CREATININE 8.12 mg/dL (0.60-1.30); POTASSIUM 5.8 mmol/L (3.5-5.1)
[2022-01-24] MEDS: HEPARIN SODIUM,PORCINE 5,000 UNITS/ML VIAL SQ SCH ×3 (08:00→23:02)
[2022-01-24] MEDS: SODIUM ZIRCONIUM CYCLOSILICATE 5 GM POWDER PACKET PO SCH (08:23)
[2022-01-24] MEDS: CHOLECALCIFEROL (VIT D3) 1,000 UNITS [25 MCG] TABLET PO SCH (08:24)
[2022-01-24] MEDS: SEVELAMER CARBONATE 800 MG TABLET PO SCH ×3 (08:24→19:04)
[2022-01-24] MEDS: VITAMIN B COMP/VIT C/FOLIC ACID CAPSULE PO SCH (08:24)
[2022-01-24] MEDS: PANTOPRAZOLE SODIUM 40 MG DR TABLET PO SCH (08:24)
[2022-01-24] MEDS: AmLODIPine BESYLATE 10 MG TABLET PO SCH (08:25)
[2022-01-24] MEDS: CALCIUM ACETATE 667 MG CAPSULE PO SCH ×3 (08:25→19:04)
[2022-01-24] MEDS: METOPROLOL TARTRATE 50 MG TABLET PO SCH ×2 (08:25→21:06)
[2022-01-24] MEDS: DOCUSATE SODIUM 100 MG CAPSULE PO SCH ×2 (08:25→21:06)
[2022-01-24] MEDS ORDERED: SODIUM POLYSTYRENE SULFONATE 15 GM/60 ML SUSPENSION BOTTLE PO ONE (08:30)
[2022-01-24] MEDS: DEXTROSE 50%-WATER 25 GM/50 ML SYRINGE IVP PRN ×2 (09:18→23:30)
[2022-01-24] MEDS ORDERED: SODIUM CHLORIDE 0.9% 2,000 ML ONE (11:20)
[2022-01-24] MEDS: ZOLPIDEM TARTRATE 5 MG TABLET PO PRN (21:13)
[2022-01-25] VITALS (14 sets, daily range): BP systolic 113–160; BP diastolic 58–93
[2022-01-25] MEDS ORDERED: MORPHINE SULFATE 2 MG/ML SYRINGE IVP PRN (00:15)
[2022-01-25] MEDS: DEXTROSE 50%-WATER 25 GM/50 ML SYRINGE IVP PRN ×2 (01:08→16:20)
[2022-01-25] MEDS ORDERED: DEXTROSE 5%-0.9% SODIUM CHL 1,000 ML IV SCH (01:45)
[2022-01-25 02:11] LABS: GLUCOMETER DEV NAME(LOC) 5S.2B; GLUCOSE,POINT OF CARE 107 MG/DL (70-110)
[2022-01-25 02:11] LABS: GLUCOMETER DEV NAME(LOC) 5S.2B; GLUCOSE,POINT OF CARE 28 MG/DL (70-110)
[2022-01-25 03:26] LABS: GLUCOMETER DEV NAME(LOC) 5S.2B; GLUCOSE,POINT OF CARE 80 MG/DL (70-110)
[2022-01-25 05:27] LABS: GLUCOMETER DEV NAME(LOC) 5S.2B; GLUCOSE,POINT OF CARE 212 MG/DL (70-110)
[2022-01-25 05:47] LABS: GLUCOMETER DEV NAME(LOC) 5S.2B; GLUCOSE,POINT OF CARE 280 MG/DL (70-110)
[2022-01-25] MEDS: HEPARIN SODIUM,PORCINE 5,000 UNITS/ML VIAL SQ SCH ×3 (08:00→23:51)
[2022-01-25 08:46] LABS: CALCIUM, TOTAL 8.3 mg/dL (8.8-10.5); CREATININE 7.19 mg/dL (0.60-1.30); POTASSIUM 5.6 mmol/L (3.5-5.1)
[2022-01-25] MEDS: SEVELAMER CARBONATE 800 MG TABLET PO SCH ×3 (09:10→17:16)
[2022-01-25] MEDS: CHOLECALCIFEROL (VIT D3) 1,000 UNITS [25 MCG] TABLET PO SCH (09:10)
[2022-01-25] MEDS: METOPROLOL TARTRATE 50 MG TABLET PO SCH ×2 (09:11→21:16)
[2022-01-25] MEDS: AmLODIPine BESYLATE 10 MG TABLET PO SCH (09:11)
[2022-01-25] MEDS: PANTOPRAZOLE SODIUM 40 MG DR TABLET PO SCH (09:11)
[2022-01-25] MEDS: DOCUSATE SODIUM 100 MG CAPSULE PO SCH ×2 (09:11→21:16)
[2022-01-25] MEDS: VITAMIN B COMP/VIT C/FOLIC ACID CAPSULE PO SCH (09:11)
[2022-01-25] MEDS: SODIUM ZIRCONIUM CYCLOSILICATE 5 GM POWDER PACKET PO SCH (09:12)
[2022-01-25] MEDS: CALCIUM ACETATE 667 MG CAPSULE PO SCH ×3 (09:12→17:16)
[2022-01-25 12:47] LABS: GLUCOMETER DEV NAME(LOC) 5S.1B; GLUCOSE,POINT OF CARE 276 MG/DL (70-110)
[2022-01-25] MEDS ORDERED: DEXTROSE 50%-WATER 25 GM/50 ML SYRINGE IVP PRN (18:00)
[2022-01-25] MEDS ORDERED: INSULIN LISPRO 100 UNITS/ML SQ PRN (18:00)
[2022-01-25] MEDS: ONDANSETRON HCL 4 MG/2 ML VIAL IVP PRN (18:38)
[2022-01-26 00:05] VITALS: BP 126/60
[2022-01-26 05:11] VITALS: BP 143/65
[2022-01-26] MEDS: ONDANSETRON HCL 4 MG/2 ML VIAL IVP PRN ×2 (05:35→09:28)
[2022-01-26 07:09] VITALS: BP_SYST 112; BP_SYST 135; BP_DIAS 67; BP_DIAS 76
[2022-01-26 07:26] LABS: GLUCOMETER DEV NAME(LOC) 5S.1B; GLUCOSE,POINT OF CARE 100 MG/DL (70-110)
[2022-01-26 07:26] LABS: GLUCOMETER DEV NAME(LOC) 5S.1B; GLUCOSE,POINT OF CARE 188 MG/DL (70-110)
[2022-01-26] MEDS: SEVELAMER CARBONATE 800 MG TABLET PO SCH ×2 (08:00→11:24)
[2022-01-26] MEDS: HEPARIN SODIUM,PORCINE 5,000 UNITS/ML VIAL SQ SCH ×2 (08:00→15:02)
[2022-01-26] MEDS: CALCIUM ACETATE 667 MG CAPSULE PO SCH ×2 (08:00→11:24)
[2022-01-26] MEDS: CHOLECALCIFEROL (VIT D3) 1,000 UNITS [25 MCG] TABLET PO SCH (09:00)
[2022-01-26] MEDS: METOPROLOL TARTRATE 50 MG TABLET PO SCH ×2 (09:00→12:45)
[2022-01-26] MEDS: AmLODIPine BESYLATE 10 MG TABLET PO SCH ×2 (09:00→12:45)
[2022-01-26] MEDS: VITAMIN B COMP/VIT C/FOLIC ACID CAPSULE PO SCH (09:00)
[2022-01-26] MEDS: PANTOPRAZOLE SODIUM 40 MG DR TABLET PO SCH (09:00)
[2022-01-26] MEDS: DOCUSATE SODIUM 100 MG CAPSULE PO SCH (09:00)
[2022-01-26] MEDS: SODIUM ZIRCONIUM CYCLOSILICATE 5 GM POWDER PACKET PO SCH (09:00)
[2022-01-26] MEDS ORDERED: METOCLOPRAMIDE HCL 5 MG/ML 2 ML VIAL IVP PRN (10:45)
[2022-01-26 11:15] VITALS: BP 156/83
[2022-01-26 15:56] VITALS: BP 147/79
[2022-01-26] MEDS ORDERED: HYDR4 PO (16:32)
[2022-01-26] MEDS ORDERED: SODI5POW3 PO (17:29)
[2022-01-26] MEDS ORDERED: HYDR2TAB5 PO (17:30)
== END 2022-01-26 17:50 | disposition home or self-care (01) | DRG 425 ==
LOC: EMS 23:11 → ICU 01-23 04:13 → 5N 01-23 13:13
PROVIDERS: ADMIT Internal Medicine; ATTEND Internal Medicine
PROC: 05HY33Z Insertion of Infusion Device into Upper Vein, Percutaneous Approach (ICD-10-PCS; 2022-01-23)
PROC: B54BZZA Ultrasonography of Right Lower Extremity Veins, Guidance (ICD-10-PCS; 2022-01-23)
PROC: 5A1D70Z Performance of Urinary Filtration, Intermittent, Less than 6 Hours Per Day (ICD-10-PCS; principal; 2022-01-24)
DX: E87.5 Hyperkalemia (principal); I13.2 Hypertensive heart and chronic kidney disease with heart failure and with stage 5 chronic kidney disease, or end stage renal disease; N18.6 End stage renal disease; E11.649 Type 2 diabetes mellitus with hypoglycemia without coma; D63.1 Anemia in chronic kidney disease; E11.22 Type 2 diabetes mellitus with diabetic chronic kidney disease; D64.9 Anemia, unspecified; E11.43 Type 2 diabetes mellitus with diabetic autonomic (poly)neuropathy; E78.5 Hyperlipidemia, unspecified; E87.6 Hypokalemia; I50.30 Unspecified diastolic (congestive) heart failure; Z20.822 Contact with and (suspected) exposure to COVID-19; Z99.2 Dependence on renal dialysis; K31.84 Gastroparesis; Z79.4 Long term (current) use of insulin; Z79.899 Other long term (current) drug therapy; Z91.013 Allergy to seafood; Z91.018 Allergy to other foods; Z91.15 Patient's noncompliance with renal dialysis; Z91.11 Patient's noncompliance with dietary regimen
CPT/HCPCS: 71045; 80048; 80053; 82550; 82962; 83735; 83880; 84100; 84484; 85025; 87081; 87340; 87804; 90935; 93005; 94644; 99291; J0610; J1644; J1815; J2270; J2405; J2765; J7030; J7042; J7060; Q9967; 36415-L1; 36415-TC; J7611

== ENCOUNTER 2022-02-09 20:20 | Inpatient (IN) | payer OTHER ==
[~2022-02-09] VITALS: Ht 182.9 cm; Wt 89.0 kg
[~2022-02-09 20:20] MED LIST changes: +HYDR2TAB5 PO; +SODI5POW3 PO
[2022-02-09 21:34] LABS: BASOPHILS % (AUTO) 1.5 % (0.0-2.0); EOSINOPHILS % (AUTO) 6.7 % (1.0-6.0); HEMATOCRIT 34.3 % (41-53); HEMOGLOBIN 11.3 g/dL (13.5-17.5); LYMPHOCYTES # (AUTO) 1.4 K/uL (1.0-4.8); LYMPHOCYTES % (AUTO) 26.7 % (22.0-44.0); MEAN CORPUSCULAR HEMOGLOBIN 30.2 pg (26.0-34.0); MEAN CORPUSCULAR VOLUME 92 fL (80-100); MONOCYTES # (AUTO) 0.6 K/uL (0.1-1.0); MONOCYTES % (AUTO) 11.2 % (2.0-9.0); NEUTROPHILS # (AUTO) 2.8 K/uL (1.8-7.7); NEUTROPHILS % (AUTO) 53.9 % (40.0-70.0); PLATELET COUNT (AUTO) 337 K/uL (150-450); RED BLOOD CELL COUNT(AUTO) 3.75 MIL/uL (4.50-5.90); RED CELL DISTRIBUTION WIDTH 19.6 % (11.5-14.5)
[2022-02-09 21:56] LABS: ALBUMIN 3.5 g/dL (3.4-5.0); BILIRUBIN,TOTAL 0.4 mg/dL (0.1-1.0); CALCIUM, TOTAL 8.2 mg/dL (8.8-10.5); CREATININE 8.96 mg/dL (0.60-1.30); MAGNESIUM 2.6 mg/dL (1.80-2.40); PHOSPHORUS 7.7 mg/dL (2.5-4.9); TOTAL PROTEIN, SERUM 7.1 g/dL (6.4-8.2)
[2022-02-09 21:58] LABS: POTASSIUM 6.7 mmol/L (3.5-5.1)
[2022-02-09] MEDS ORDERED: INSULIN REGULAR, HUMAN 100 UNITS/ML IVP ONE (22:00)
[2022-02-09] MEDS ORDERED: SODIUM POLYSTYRENE SULFONATE 15 GM/60 ML SUSPENSION BOTTLE PO ONE (22:00)
[2022-02-09] MEDS ORDERED: INSULIN LISPRO 100 UNITS/ML SQ PRN (22:15)
[2022-02-09] MEDS ORDERED: CALCIUM GLUCONATE 100 MG/ML 10 ML IVP ONE (22:15)
[2022-02-09] MEDS ORDERED: FUROSEMIDE 40 MG/4 ML VIAL IVP ONE (22:15)
[2022-02-09] MEDS ORDERED: ACETAMINOPHEN 325 MG TABLET PO PRN (22:15)
[2022-02-09] MEDS ORDERED: CALCIUM GLUCONATE 2,000 MG in SODIUM CHLORIDE 0.9% 50 ML IV ONE (22:30)
[2022-02-09] MEDS ORDERED: INSULIN GLARGINE,HUM.REC.ANLOG 100 UNITS/ML SQ SCH (23:00)
[2022-02-09] MEDS: HEPARIN SODIUM,PORCINE 5,000 UNITS/ML VIAL SQ SCH (23:37)
[2022-02-09 23:41] LABS: GLUCOMETER DEV NAME(LOC) ERT.5; GLUCOSE,POINT OF CARE 333 MG/DL (70-110)
[2022-02-10] VITALS (12 sets, daily range): BP systolic 101–143; BP diastolic 57–82
[2022-02-10 00:13] LABS: COVID AG,FIA SOURCE NASAL SWAB
[2022-02-10] MEDS: ONDANSETRON HCL 4 MG/2 ML VIAL IVP PRN ×2 (03:02→21:46)
[2022-02-10 05:19] LABS: BASOPHILS % (AUTO) 1.2 % (0.0-2.0); HEMATOCRIT 34.6 % (41-53); HEMOGLOBIN 11.5 g/dL (13.5-17.5); LYMPHOCYTES # (AUTO) 0.9 K/uL (1.0-4.8); LYMPHOCYTES % (AUTO) 12.3 % (22.0-44.0); MEAN CORPUSCULAR HEMOGLOBIN 30.4 pg (26.0-34.0); MEAN CORPUSCULAR HGB CONC 33.1 G/dL (31.0-37.0); MEAN CORPUSCULAR VOLUME 92 fL (80-100); MONOCYTES # (AUTO) 0.5 K/uL (0.1-1.0); MONOCYTES % (AUTO) 7.4 % (2.0-9.0); NEUTROPHILS # (AUTO) 5.5 K/uL (1.8-7.7); NEUTROPHILS % (AUTO) 74.1 % (40.0-70.0); PLATELET COUNT (AUTO) 324 K/uL (150-450); RED BLOOD CELL COUNT(AUTO) 3.77 MIL/uL (4.50-5.90); RED CELL DISTRIBUTION WIDTH 19.4 % (11.5-14.5)
[2022-02-10 05:29] LABS: CALCIUM, TOTAL 8.3 mg/dL (8.8-10.5); CREATININE 9.53 mg/dL (0.60-1.30); MAGNESIUM 2.6 mg/dL (1.80-2.40)
[2022-02-10 05:52] LABS: POTASSIUM 6.7 mmol/L (3.5-5.1)
[2022-02-10] MEDS ORDERED: ALBUTEROL SULFATE 5 MG/ML 20 ML NEB SOLN [BULK] NEB ONE (06:00)
[2022-02-10] MEDS ORDERED: INSULIN REGULAR, HUMAN 100 UNITS/ML SQ ONE (06:00)
[2022-02-10] MEDS ORDERED: SODIUM POLYSTYRENE SULFONATE 15 GM/60 ML SUSPENSION BOTTLE PO ONE (06:00)
[2022-02-10] MEDS ORDERED: FUROSEMIDE 40 MG/4 ML VIAL IVP ONE (06:00)
[2022-02-10] MEDS ORDERED: INSULIN GLARGINE,HUM.REC.ANLOG 100 UNITS/ML SQ ONE (06:00)
[2022-02-10] MEDS: METOCLOPRAMIDE HCL 5 MG/ML 2 ML VIAL IVP PRN (06:48)
[2022-02-10] MEDS: HEPARIN SODIUM,PORCINE 5,000 UNITS/ML VIAL SQ SCH ×4 (07:46→23:14)
[2022-02-10] MEDS: AmLODIPine BESYLATE 10 MG TABLET PO SCH (09:00)
[2022-02-10] MEDS: METOPROLOL TARTRATE 50 MG TABLET PO SCH ×2 (09:00→20:05)
[2022-02-10] MEDS: CALCIUM ACETATE 667 MG CAPSULE PO SCH ×3 (09:37→17:21)
[2022-02-10] MEDS: SODIUM ZIRCONIUM CYCLOSILICATE 5 GM POWDER PACKET PO SCH (09:37)
[2022-02-10] MEDS: VITAMIN B COMP/VIT C/FOLIC ACID CAPSULE PO SCH (09:37)
[2022-02-10] MEDS: SEVELAMER CARBONATE 800 MG TABLET PO SCH ×3 (09:38→17:21)
[2022-02-10 11:21] LABS: GLUCOMETER DEV NAME(LOC) ERT.5; GLUCOSE,POINT OF CARE 457 MG/DL (70-110)
[2022-02-10] MEDS: MELATONIN 5 MG TABLET PO PRN (21:45)
[2022-02-10] MEDS: HYDROmorphone 2 MG/ML VIAL IVP PRN (21:46)
[2022-02-10 22:08] LABS: CALCIUM, TOTAL 8.5 mg/dL (8.8-10.5); CREATININE 5.88 mg/dL (0.60-1.30); POTASSIUM 4.1 mmol/L (3.5-5.1)
[2022-02-11] MEDS: HYDROmorphone 2 MG/ML VIAL IVP PRN ×2 (03:18→19:24)
[2022-02-11 04:30] VITALS: BP 128/75
[2022-02-11] MEDS: DEXTROSE 50%-WATER 25 GM/50 ML SYRINGE IVP PRN ×2 (05:03→20:47)
[2022-02-11 05:46] LABS: GLUCOMETER DEV NAME(LOC) 5S.2B; GLUCOSE,POINT OF CARE 61 MG/DL (70-110)
[2022-02-11 06:28] LABS: CALCIUM, TOTAL 8.3 mg/dL (8.8-10.5); CREATININE 6.54 mg/dL (0.60-1.30); POTASSIUM 4.5 mmol/L (3.5-5.1)
[2022-02-11 07:12] VITALS: BP 129/66
[2022-02-11] MEDS: HEPARIN SODIUM,PORCINE 5,000 UNITS/ML VIAL SQ SCH ×3 (08:00→23:05)
[2022-02-11] MEDS: CALCIUM ACETATE 667 MG CAPSULE PO SCH ×3 (08:28→17:15)
[2022-02-11] MEDS: METOPROLOL TARTRATE 50 MG TABLET PO SCH ×2 (08:28→20:14)
[2022-02-11] MEDS: SEVELAMER CARBONATE 800 MG TABLET PO SCH ×3 (08:28→17:15)
[2022-02-11] MEDS: VITAMIN B COMP/VIT C/FOLIC ACID CAPSULE PO SCH (08:28)
[2022-02-11] MEDS: AmLODIPine BESYLATE 10 MG TABLET PO SCH (08:29)
[2022-02-11] MEDS: SODIUM ZIRCONIUM CYCLOSILICATE 5 GM POWDER PACKET PO SCH (08:30)
[2022-02-11 10:55] VITALS: BP 117/58
[2022-02-11] MEDS: METOCLOPRAMIDE HCL 5 MG/ML 2 ML VIAL IVP PRN (11:09)
[2022-02-11 15:33] VITALS: BP 129/74
[2022-02-11 16:20] LABS: MAGNESIUM 2.3 mg/dL (1.80-2.40); PHOSPHORUS 7.4 mg/dL (2.5-4.9)
[2022-02-11 20:02] VITALS: BP 143/71
[2022-02-12] VITALS (15 sets, daily range): BP systolic 117–139; BP diastolic 60–85
[2022-02-12] MEDS: HYDROmorphone 2 MG/ML VIAL IVP PRN ×2 (00:04→04:03)
[2022-02-12] MEDS: MELATONIN 5 MG TABLET PO PRN (00:05)
[2022-02-12] MEDS: DEXTROSE 50%-WATER 25 GM/50 ML SYRINGE IVP PRN (02:51)
[2022-02-12 03:26] LABS: GLUCOMETER DEV NAME(LOC) 5N.3; GLUCOSE,POINT OF CARE 132 MG/DL (70-110)
[2022-02-12] MEDS: ONDANSETRON HCL 4 MG/2 ML VIAL IVP PRN (03:27)
[2022-02-12 03:36] LABS: GLUCOMETER DEV NAME(LOC) 5S.2B; GLUCOSE,POINT OF CARE 98 MG/DL (70-110)
[2022-02-12 03:36] LABS: GLUCOMETER DEV NAME(LOC) 5S.2B; GLUCOSE,POINT OF CARE 59 MG/DL (70-110)
[2022-02-12] MEDS: METOCLOPRAMIDE HCL 5 MG/ML 2 ML VIAL IVP PRN (04:38)
[2022-02-12] MEDS ORDERED: GLUCAGON,HUMAN RECOMBINANT 1 MG VIAL IM ONE (04:45)
[2022-02-12 05:46] LABS: GLUCOMETER DEV NAME(LOC) 5S.2B; GLUCOSE,POINT OF CARE 88 MG/DL (70-110)
[2022-02-12] MEDS: HEPARIN SODIUM,PORCINE 5,000 UNITS/ML VIAL SQ SCH ×2 (08:00→08:37)
[2022-02-12] MEDS ORDERED: SODIUM CHLORIDE 0.9% 1,000 ML ONE (08:34)
[2022-02-12] MEDS: SODIUM ZIRCONIUM CYCLOSILICATE 5 GM POWDER PACKET PO SCH (08:36)
[2022-02-12] MEDS: CALCIUM ACETATE 667 MG CAPSULE PO SCH (08:36)
[2022-02-12] MEDS: METOPROLOL TARTRATE 50 MG TABLET PO SCH ×2 (08:36→09:00)
[2022-02-12] MEDS: AmLODIPine BESYLATE 10 MG TABLET PO SCH ×2 (08:37→09:00)
[2022-02-12] MEDS: VITAMIN B COMP/VIT C/FOLIC ACID CAPSULE PO SCH (08:37)
[2022-02-12] MEDS: SEVELAMER CARBONATE 800 MG TABLET PO SCH (08:37)
[2022-02-12 21:26] LABS: GLUCOMETER DEV NAME(LOC) 5S.2B; GLUCOSE,POINT OF CARE 97 MG/DL (70-110)
[2022-02-12 21:26] LABS: GLUCOMETER DEV NAME(LOC) 5S.2B; GLUCOSE,POINT OF CARE 93 MG/DL (70-110)
== END 2022-02-12 17:20 | disposition home or self-care (01) | DRG 422 ==
LOC: EMS 20:26 → 5N 02-10 13:01
PROVIDERS: ADMIT Internal Medicine; ATTEND Internal Medicine
PROC: 5A1D70Z Performance of Urinary Filtration, Intermittent, Less than 6 Hours Per Day (ICD-10-PCS; principal; 2022-02-10)
PROC: 5A1D70Z Performance of Urinary Filtration, Intermittent, Less than 6 Hours Per Day (ICD-10-PCS; 2022-02-12)
DX: E87.5 Hyperkalemia (principal); E86.0 Dehydration; I12.0 Hypertensive chronic kidney disease with stage 5 chronic kidney disease or end stage renal disease; E10.43 Type 1 diabetes mellitus with diabetic autonomic (poly)neuropathy; N18.6 End stage renal disease; E10.22 Type 1 diabetes mellitus with diabetic chronic kidney disease; K31.84 Gastroparesis; D63.8 Anemia in other chronic diseases classified elsewhere; E87.1 Hypo-osmolality and hyponatremia; E83.39 Other disorders of phosphorus metabolism; K21.9 Gastro-esophageal reflux disease without esophagitis; F32.A Depression, unspecified; E10.65 Type 1 diabetes mellitus with hyperglycemia; Z20.822 Contact with and (suspected) exposure to COVID-19; Z79.4 Long term (current) use of insulin; Z99.2 Dependence on renal dialysis; Z79.899 Other long term (current) drug therapy; Z88.8 Allergy status to other drugs, medicaments and biological substances; Z91.013 Allergy to seafood
CPT/HCPCS: 71045; 80048; 80053; 82962; 83735; 84100; 84484; 85025; 87081; 87340; 90935; 93005; 94644; 99285; J0610; J1170; J1610; J1644; J1815; J1940; J2405; J2765; J7030; J7050; Q9967; 36415-L1; 36415-TC; J7611

== ENCOUNTER 2022-04-01 16:18 | Emergency (ER) | payer OTHER ==
[~2022-04-01] VITALS: Ht 182.9 cm; Wt 89.0 kg
[~2022-04-01 16:18] MED LIST changes: -HYDR2TAB5 PO; -INSU100V SQ; +INSU100V36 SQ; +OXYC-38 PO
[2022-04-01 16:41] LABS: GLUCOSE,POINT OF CARE 300 MG/DL (70-110)
[2022-04-01 17:23] LABS: BASOPHILS % (AUTO) 1.4 % (0.0-2.0); EOSINOPHILS % (AUTO) 3.8 % (1.0-6.0); HEMATOCRIT 37.1 % (41-53); HEMOGLOBIN 12.4 g/dL (13.5-17.5); LYMPHOCYTES % (AUTO) 20.7 % (22.0-44.0); MEAN CORPUSCULAR HEMOGLOBIN 31.4 pg (26.0-34.0); MEAN CORPUSCULAR HGB CONC 33.3 G/dL (31.0-37.0); MEAN CORPUSCULAR VOLUME 94 fL (80-100); MONOCYTES # (AUTO) 0.4 K/uL (0.1-1.0); MONOCYTES % (AUTO) 7.8 % (2.0-9.0); NEUTROPHILS # (AUTO) 3.3 K/uL (1.8-7.7); NEUTROPHILS % (AUTO) 66.3 % (40.0-70.0); PLATELET COUNT (AUTO) 303 K/uL (150-450); RED BLOOD CELL COUNT(AUTO) 3.93 MIL/uL (4.50-5.90); RED CELL DISTRIBUTION WIDTH 17.3 % (11.5-14.5)
[2022-04-01] MEDS ORDERED: ONDANSETRON HCL 4 MG/2 ML VIAL IVP ONE (17:30)
[2022-04-01 17:37] LABS: PROTHROMBIN TIME 10.8 SEC (9.4-11.6)
[2022-04-01 17:39] LABS: ALBUMIN 3.5 g/dL (3.4-5.0); BILIRUBIN,TOTAL 0.7 mg/dL (0.1-1.0); CALCIUM, TOTAL 8.9 mg/dL (8.8-10.5); CREATININE 7.16 mg/dL (0.60-1.30); POTASSIUM 4.5 mmol/L (3.5-5.1); TOTAL PROTEIN, SERUM 7.4 g/dL (6.4-8.2)
[2022-04-01] MEDS ORDERED: INSULIN REGULAR, HUMAN 100 UNITS/ML IVP ONE (18:00)
[2022-04-01] MEDS ORDERED: KETOROLAC TROMETHAMINE 30 MG/ML VIAL IVP ONE (19:00)
[2022-04-01 19:16] LABS: GLUCOMETER DEV NAME(LOC) ERT.5; GLUCOSE,POINT OF CARE 262 MG/DL (70-110)
[2022-04-01 19:56] VITALS: BP 155/90
== END 2022-04-01 19:58 | disposition home or self-care (01) ==
LOC: EMS 16:21
DX: R53.1 Weakness (principal); N18.6 End stage renal disease; E11.65 Type 2 diabetes mellitus with hyperglycemia; K31.84 Gastroparesis; E11.22 Type 2 diabetes mellitus with diabetic chronic kidney disease; I12.0 Hypertensive chronic kidney disease with stage 5 chronic kidney disease or end stage renal disease; Z99.2 Dependence on renal dialysis; Z91.013 Allergy to seafood; Z88.5 Allergy status to narcotic agent
CPT/HCPCS: 99285; 96374; 71045; 96375; 80053; 82962; 83880; 84484; 85025; 85610; 85730; 36415; 93005; J1815; J1885; J2405

== ENCOUNTER 2022-05-12 17:11 | Inpatient (IN) | payer MEDICARE, OTHER ==
[~2022-05-12] VITALS: Ht 180.3 cm; Wt 85.1 kg
[2022-05-12 18:50] LABS: BASOPHILS % (AUTO) 1.3 % (0.0-2.0); EOSINOPHILS % (AUTO) 3.9 % (1.0-6.0); HEMATOCRIT 33.1 % (41-53); HEMOGLOBIN 11.1 g/dL (13.5-17.5); LYMPHOCYTES # (AUTO) 1.2 K/uL (1.0-4.8); LYMPHOCYTES % (AUTO) 13.5 % (22.0-44.0); MEAN CORPUSCULAR HEMOGLOBIN 32.1 pg (26.0-34.0); MEAN CORPUSCULAR HGB CONC 33.6 G/dL (31.0-37.0); MEAN CORPUSCULAR VOLUME 95 fL (80-100); MONOCYTES # (AUTO) 0.6 K/uL (0.1-1.0); MONOCYTES % (AUTO) 6.4 % (2.0-9.0); NEUTROPHILS # (AUTO) 6.7 K/uL (1.8-7.7); NEUTROPHILS % (AUTO) 74.9 % (40.0-70.0); PLATELET COUNT (AUTO) 274 K/uL (150-450); RED BLOOD CELL COUNT(AUTO) 3.47 MIL/uL (4.50-5.90); RED CELL DISTRIBUTION WIDTH 16.3 % (11.5-14.5)
[2022-05-12 19:00] LABS: CREATININE 10.04 mg/dL (0.60-1.30); POTASSIUM 5.6 mmol/L (3.5-5.1)
[2022-05-12 19:05] LABS: ALBUMIN 3.5 g/dL (3.4-5.0); BILIRUBIN,TOTAL 0.6 mg/dL (0.1-1.0); TOTAL PROTEIN, SERUM 6.9 g/dL (6.4-8.2)
[2022-05-12] MEDS ORDERED: METOCLOPRAMIDE HCL 5 MG/ML 2 ML VIAL IVP ONE (19:30)
[2022-05-12] MEDS ORDERED: SODIUM POLYSTYRENE SULFONATE 15 GM/60 ML SUSPENSION BOTTLE PO ONE (19:45)
[2022-05-12] MEDS ORDERED: MAGNESIUM HYDROXIDE SUSPENSION 30 ML UDCUP PO PRN (22:15)
[2022-05-12] MEDS ORDERED: ACETAMINOPHEN 325 MG TABLET PO PRN (22:15)
[2022-05-12] MEDS ORDERED: ZOLPIDEM TARTRATE 5 MG TABLET PO PRN (22:15)
[2022-05-12] MEDS ORDERED: BISACODYL 10 MG RECTAL RECTAL SUPPOSITORY PR PRN (22:15)
[2022-05-13] VITALS (15 sets, daily range): BP systolic 134–163; BP diastolic 76–110
[2022-05-13] MEDS: HEPARIN SODIUM,PORCINE 5,000 UNITS/ML VIAL SQ SCH ×5 (00:43→23:43)
[2022-05-13 01:18] LABS: COVID AG,FIA SOURCE NASAL SWAB
[2022-05-13] MEDS: ONDANSETRON HCL 4 MG/2 ML VIAL IVP PRN ×2 (04:08→12:50)
[2022-05-13 07:06] LABS: BASOPHILS % (AUTO) 1.4 % (0.0-2.0); EOSINOPHILS % (AUTO) 3.3 % (1.0-6.0); HEMATOCRIT 32.3 % (41-53); HEMOGLOBIN 11.1 g/dL (13.5-17.5); LYMPHOCYTES # (AUTO) 1.2 K/uL (1.0-4.8); LYMPHOCYTES % (AUTO) 15.5 % (22.0-44.0); MEAN CORPUSCULAR HEMOGLOBIN 32.7 pg (26.0-34.0); MEAN CORPUSCULAR HGB CONC 34.3 G/dL (31.0-37.0); MEAN CORPUSCULAR VOLUME 95 fL (80-100); MONOCYTES # (AUTO) 0.5 K/uL (0.1-1.0); MONOCYTES % (AUTO) 6.5 % (2.0-9.0); NEUTROPHILS # (AUTO) 5.6 K/uL (1.8-7.7); NEUTROPHILS % (AUTO) 73.3 % (40.0-70.0); PLATELET COUNT (AUTO) 275 K/uL (150-450); RED BLOOD CELL COUNT(AUTO) 3.39 MIL/uL (4.50-5.90); RED CELL DISTRIBUTION WIDTH 15.9 % (11.5-14.5)
[2022-05-13 07:33] LABS: CALCIUM, TOTAL 8.6 mg/dL (8.8-10.5); CREATININE 11.02 mg/dL (0.60-1.30); POTASSIUM 5.7 mmol/L (3.5-5.1)
[2022-05-13] MEDS: DOCUSATE SODIUM 100 MG CAPSULE PO SCH ×2 (09:00→20:55)
[2022-05-13] MEDS: CHOLECALCIFEROL (VIT D3) 1,000 UNITS [25 MCG] TABLET PO SCH (09:29)
[2022-05-13] MEDS: SODIUM ZIRCONIUM CYCLOSILICATE 5 GM POWDER PACKET PO SCH (09:29)
[2022-05-13] MEDS: SEVELAMER CARBONATE 800 MG TABLET PO SCH ×3 (09:30→17:43)
[2022-05-13] MEDS: AmLODIPine BESYLATE 10 MG TABLET PO SCH (09:30)
[2022-05-13] MEDS: PANTOPRAZOLE SODIUM 40 MG DR TABLET PO SCH (09:31)
[2022-05-13] MEDS: METOPROLOL TARTRATE 50 MG TABLET PO SCH ×2 (09:31→20:55)
[2022-05-13] MEDS: CALCIUM ACETATE 667 MG CAPSULE PO SCH ×3 (09:35→17:43)
[2022-05-13] MEDS: METOCLOPRAMIDE HCL 5 MG TABLET PO SCH ×2 (16:00→20:55)
[2022-05-13 17:24] LABS: MAGNESIUM 2.6 mg/dL (1.80-2.40); PHOSPHORUS 6.9 mg/dL (2.5-4.9)
[2022-05-13] MEDS ORDERED: KETOROLAC TROMETHAMINE 15 MG/ML VIAL IVP ONE (21:30)
[2022-05-14] VITALS: BP 132/82
[2022-05-14 04:46] VITALS: BP 153/75
[2022-05-14 06:33] LABS: BASOPHILS % (AUTO) 1.3 % (0.0-2.0); EOSINOPHILS % (AUTO) 5.3 % (1.0-6.0); HEMATOCRIT 33.8 % (41-53); HEMOGLOBIN 11.5 g/dL (13.5-17.5); LYMPHOCYTES # (AUTO) 1.1 K/uL (1.0-4.8); LYMPHOCYTES % (AUTO) 15.6 % (22.0-44.0); MEAN CORPUSCULAR HEMOGLOBIN 32.8 pg (26.0-34.0); MEAN CORPUSCULAR VOLUME 97 fL (80-100); MONOCYTES # (AUTO) 0.5 K/uL (0.1-1.0); MONOCYTES % (AUTO) 7.9 % (2.0-9.0); NEUTROPHILS # (AUTO) 4.8 K/uL (1.8-7.7); NEUTROPHILS % (AUTO) 69.9 % (40.0-70.0); PLATELET COUNT (AUTO) 261 K/uL (150-450)
[2022-05-14 06:35] LABS: CALCIUM, TOTAL 8.3 mg/dL (8.8-10.5); CREATININE 7.87 mg/dL (0.60-1.30); POTASSIUM 4.8 mmol/L (3.5-5.1)
[2022-05-14 07:06] VITALS: BP 139/75
[2022-05-14] MEDS: HEPARIN SODIUM,PORCINE 5,000 UNITS/ML VIAL SQ SCH (08:00)
[2022-05-14] MEDS: CALCIUM ACETATE 667 MG CAPSULE PO SCH ×2 (08:20→12:27)
[2022-05-14] MEDS: DOCUSATE SODIUM 100 MG CAPSULE PO SCH (08:20)
[2022-05-14] MEDS: METOPROLOL TARTRATE 50 MG TABLET PO SCH (08:21)
[2022-05-14] MEDS: PANTOPRAZOLE SODIUM 40 MG DR TABLET PO SCH (08:21)
[2022-05-14] MEDS: METOCLOPRAMIDE HCL 5 MG TABLET PO SCH (08:21)
[2022-05-14] MEDS: SEVELAMER CARBONATE 800 MG TABLET PO SCH ×2 (08:22→12:27)
[2022-05-14] MEDS: AmLODIPine BESYLATE 10 MG TABLET PO SCH (08:22)
[2022-05-14] MEDS: CHOLECALCIFEROL (VIT D3) 1,000 UNITS [25 MCG] TABLET PO SCH (08:23)
[2022-05-14] MEDS: SODIUM ZIRCONIUM CYCLOSILICATE 5 GM POWDER PACKET PO SCH (08:23)
[2022-05-14 10:46] VITALS: BP 140/67
[2022-05-14] MEDS ORDERED: METO5TAB95 PO (11:58)
[2022-05-14 14:30] VITALS: BP 146/72
== END 2022-05-14 14:40 | disposition home or self-care (01) | DRG 73 ==
LOC: EMS 17:25 → 5S 05-13 00:56
PROVIDERS: ADMIT Internal Medicine; ATTEND Internal Medicine
PROC: 5A1D70Z Performance of Urinary Filtration, Intermittent, Less than 6 Hours Per Day (ICD-10-PCS; principal; 2022-05-13)
DX: E10.43 Type 1 diabetes mellitus with diabetic autonomic (poly)neuropathy (principal); N18.6 End stage renal disease; I13.2 Hypertensive heart and chronic kidney disease with heart failure and with stage 5 chronic kidney disease, or end stage renal disease; I50.30 Unspecified diastolic (congestive) heart failure; E87.5 Hyperkalemia; E10.10 Type 1 diabetes mellitus with ketoacidosis without coma; E10.22 Type 1 diabetes mellitus with diabetic chronic kidney disease; D63.1 Anemia in chronic kidney disease; K31.84 Gastroparesis; Z79.4 Long term (current) use of insulin; Z83.3 Family history of diabetes mellitus; Z99.2 Dependence on renal dialysis; Z91.199 Patient's noncompliance with other medical treatment and regimen due to unspecified reason; Z79.899 Other long term (current) drug therapy; Z91.013 Allergy to seafood; Z91.018 Allergy to other foods; Z88.5 Allergy status to narcotic agent
CPT/HCPCS: 71046; 80048; 80053; 83735; 83880; 84100; 84484; 85025; 86706; 87081; 90935; 93005; 99285; G0378; J1644; J1885; J2405; J2765; Q9967; 36415-L1; 36415-TC

== ENCOUNTER 2022-06-02 16:30 | Emergency (ER) | payer MEDICARE, OTHER ==
[~2022-06-02] VITALS: Ht 167.6 cm; Wt 86.0 kg
[~2022-06-02 16:30] MED LIST changes: +ASPI-1450 PO; -CALC667C PO; -ONDA-104 PO; -OXYC-38 PO; -SODI5POW3 PO
[2022-06-02 17:17] LABS: COVID AG,FIA SOURCE NASOPHARYNGEAL
[2022-06-02 17:20] LABS: EOSINOPHILS % (AUTO) 6.3 % (1.0-6.0); HEMATOCRIT 32.9 % (41-53); HEMOGLOBIN 10.7 g/dL (13.5-17.5); LYMPHOCYTES # (AUTO) 1.5 K/uL (1.0-4.8); MEAN CORPUSCULAR HEMOGLOBIN 30.9 pg (26.0-34.0); MEAN CORPUSCULAR HGB CONC 32.6 G/dL (31.0-37.0); MEAN CORPUSCULAR VOLUME 95 fL (80-100); MONOCYTES # (AUTO) 0.5 K/uL (0.1-1.0); MONOCYTES % (AUTO) 8.2 % (2.0-9.0); NEUTROPHILS # (AUTO) 3.7 K/uL (1.8-7.7); NEUTROPHILS % (AUTO) 59.5 % (40.0-70.0); PLATELET COUNT (AUTO) 288 K/uL (150-450); RED BLOOD CELL COUNT(AUTO) 3.48 MIL/uL (4.50-5.90); RED CELL DISTRIBUTION WIDTH 16.3 % (11.5-14.5)
[2022-06-02 17:29] LABS: CALCIUM, TOTAL 8.5 mg/dL (8.8-10.5); CREATININE 10.89 mg/dL (0.60-1.30); POTASSIUM 4.9 mmol/L (3.5-5.1)
[2022-06-02 17:35] LABS: ALBUMIN 3.5 g/dL (3.4-5.0); BILIRUBIN,TOTAL 0.4 mg/dL (0.1-1.0); TOTAL PROTEIN, SERUM 6.9 g/dL (6.4-8.2)
[2022-06-02 17:37] LABS: LACTIC ACID 0.5 mmol/L (0.4-2.0)
[2022-06-02] MEDS ORDERED: METOCLOPRAMIDE HCL 5 MG/ML 2 ML VIAL IVP ONE (18:15)
[2022-06-02 22:00] VITALS: BP 170/101
[2022-06-02 22:15] VITALS: BP 160/100
[2022-06-02 22:45] VITALS: BP 158/98
[2022-06-02 23:15] VITALS: BP 161/95
[2022-06-02 23:45] VITALS: BP 162/81
[2022-06-03 00:15] VITALS: BP 145/86
[2022-06-03 00:45] VITALS: BP 148/78
[2022-06-03 01:08] VITALS: BP 163/80
[2022-06-03 01:45] VITALS: BP 150/75
== END 2022-06-03 02:42 | disposition home or self-care (01) ==
LOC: EMS 16:38
DX: I11.0 Hypertensive heart disease with heart failure (principal); I50.9 Heart failure, unspecified; N18.6 End stage renal disease; E11.43 Type 2 diabetes mellitus with diabetic autonomic (poly)neuropathy; K31.84 Gastroparesis; Z20.822 Contact with and (suspected) exposure to COVID-19
CPT/HCPCS: 99291; 96374; 87426; 80053; 82962; 83605; 83690; 83880; 84484; 85025; 36415; 71045; 93005; J2765; 90935

== ENCOUNTER 2022-07-21 21:18 | Inpatient (IN) | payer MEDICARE, OTHER ==
[~2022-07-21] VITALS: Ht 180.3 cm; Wt 86.6 kg
[2022-07-21 21:51] LABS: BASOPHILS % (AUTO) 1.5 % (0.0-2.0); HEMATOCRIT 30.5 % (41-53); HEMOGLOBIN 10.2 g/dL (13.5-17.5); LYMPHOCYTES # (AUTO) 1.2 K/uL (1.0-4.8); LYMPHOCYTES % (AUTO) 13.8 % (22.0-44.0); MEAN CORPUSCULAR HEMOGLOBIN 31.5 pg (26.0-34.0); MEAN CORPUSCULAR HGB CONC 33.4 G/dL (31.0-37.0); MEAN CORPUSCULAR VOLUME 94 fL (80-100); MONOCYTES # (AUTO) 0.5 K/uL (0.1-1.0); MONOCYTES % (AUTO) 6.1 % (2.0-9.0); NEUTROPHILS # (AUTO) 6.1 K/uL (1.8-7.7); NEUTROPHILS % (AUTO) 71.6 % (40.0-70.0); PLATELET COUNT (AUTO) 281 K/uL (150-450); RED BLOOD CELL COUNT(AUTO) 3.23 MIL/uL (4.50-5.90); RED CELL DISTRIBUTION WIDTH 15.8 % (11.5-14.5)
[2022-07-21 22:05] LABS: PROTHROMBIN TIME 10.9 SEC (9.4-11.6)
[2022-07-21 22:28] LABS: ALBUMIN 3.6 g/dL (3.4-5.0); BILIRUBIN,TOTAL 0.5 mg/dL (0.1-1.0); CALCIUM, TOTAL 9.2 mg/dL (8.8-10.5); CREATININE 10.99 mg/dL (0.60-1.30); TOTAL PROTEIN, SERUM 7.4 g/dL (6.4-8.2)
[2022-07-21 22:31] LABS: POTASSIUM 6.2 mmol/L (3.5-5.1)
[2022-07-21 22:45] LABS: COVID AG,FIA SOURCE NASAL SWAB
[2022-07-21] MEDS ORDERED: SODIUM POLYSTYRENE SULFONATE 15 GM/60 ML SUSPENSION BOTTLE PO ONE (22:45)
[2022-07-21] MEDS ORDERED: DEXTROSE 50%-WATER 25 GM/50 ML SYRINGE IVP ONE (22:45)
[2022-07-21] MEDS ORDERED: INSULIN REGULAR, HUMAN 100 UNITS/ML IVP ONE (22:45)
[2022-07-22] VITALS (17 sets, daily range): BP systolic 119–175; BP diastolic 77–99
[2022-07-22] MEDS ORDERED: ACETAMINOPHEN 500 MG TABLET PO ONE (00:15)
[2022-07-22] MEDS ORDERED: NITROGLYCERIN 2% (1 GM=INCH) OINTMENT PACKET TP ONE (00:15)
[2022-07-22] MEDS ORDERED: ACETAMINOPHEN 325 MG TABLET PO PRN (10:00)
[2022-07-22] MEDS ORDERED: INSULIN LISPRO 100 UNITS/ML SQ PRN (10:00)
[2022-07-22] MEDS ORDERED: HYDROCODONE/ACETAMINOPHEN 5-325 MG TABLET PO PRN ×2 (16:00)
[2022-07-22] MEDS ORDERED: HYDROmorphone HCL 2 MG/ML SYRINGE IVP ONE (16:15)
[2022-07-22] MEDS: DOCUSATE SODIUM 100 MG CAPSULE PO SCH (20:33)
[2022-07-22] MEDS: HYDROmorphone HCL 2 MG/ML SYRINGE IVP PRN (21:37)
[2022-07-22] MEDS: DEXTROSE 50%-WATER 25 GM/50 ML SYRINGE IVP PRN (22:32)
[2022-07-22] MEDS: ONDANSETRON HCL 4 MG/2 ML VIAL IVP PRN (23:05)
[2022-07-23] VITALS (15 sets, daily range): BP systolic 113–149; BP diastolic 55–78
[2022-07-23] MEDS: HYDROmorphone HCL 2 MG/ML SYRINGE IVP PRN ×3 (04:10→18:40)
[2022-07-23] MEDS: FAMOTIDINE 20 MG TABLET PO SCH (08:58)
[2022-07-23] MEDS: DOCUSATE SODIUM 100 MG CAPSULE PO SCH ×2 (08:58→20:03)
[2022-07-23] MEDS: AmLODIPine BESYLATE 10 MG TABLET PO SCH (08:58)
[2022-07-23] MEDS: ONDANSETRON HCL 4 MG/2 ML VIAL IVP PRN (12:28)
[2022-07-24] VITALS (10 sets, daily range): BP systolic 117–136; BP diastolic 65–77
[2022-07-24] MEDS: HYDROmorphone HCL 2 MG/ML SYRINGE IVP PRN ×2 (01:32→08:29)
[2022-07-24] MEDS: DEXTROSE 50%-WATER 25 GM/50 ML SYRINGE IVP PRN ×2 (02:18→07:01)
[2022-07-24 07:29] LABS: BASOPHILS % (AUTO) 2.2 % (0.0-2.0); EOSINOPHILS % (AUTO) 6.1 % (1.0-6.0); HEMATOCRIT 34.3 % (41-53); HEMOGLOBIN 11.5 g/dL (13.5-17.5); LYMPHOCYTES # (AUTO) 1.7 K/uL (1.0-4.8); LYMPHOCYTES % (AUTO) 33.8 % (22.0-44.0); MEAN CORPUSCULAR HEMOGLOBIN 31.4 pg (26.0-34.0); MEAN CORPUSCULAR HGB CONC 33.5 G/dL (31.0-37.0); MEAN CORPUSCULAR VOLUME 94 fL (80-100); MONOCYTES # (AUTO) 0.6 K/uL (0.1-1.0); MONOCYTES % (AUTO) 11.9 % (2.0-9.0); NEUTROPHILS # (AUTO) 2.3 K/uL (1.8-7.7); PLATELET COUNT (AUTO) 282 K/uL (150-450); RED BLOOD CELL COUNT(AUTO) 3.65 MIL/uL (4.50-5.90); RED CELL DISTRIBUTION WIDTH 15.9 % (11.5-14.5)
[2022-07-24 07:46] LABS: ALBUMIN 3.4 g/dL (3.4-5.0); BILIRUBIN,TOTAL 0.5 mg/dL (0.1-1.0); CREATININE 7.48 mg/dL (0.60-1.30); POTASSIUM 4.9 mmol/L (3.5-5.1); TOTAL PROTEIN, SERUM 7.3 g/dL (6.4-8.2)
[2022-07-24] MEDS: FAMOTIDINE 20 MG TABLET PO SCH (08:29)
[2022-07-24] MEDS: DOCUSATE SODIUM 100 MG CAPSULE PO SCH (08:29)
[2022-07-24] MEDS: AmLODIPine BESYLATE 10 MG TABLET PO SCH (08:29)
[2022-07-24] MEDS ORDERED: EPOETIN ALFA 10,000 UNITS/ML 2 ML VIAL SQ SCH (09:00)
[2022-07-24] MEDS ORDERED: LEVOFLOXACIN 750 MG TABLET PO SCH (09:00)
[2022-07-24] MEDS: ONDANSETRON HCL 4 MG/2 ML VIAL IVP PRN (10:09)
[2022-07-24] MEDS ORDERED: LEVO750T68 PO (13:12)
== END 2022-07-24 16:35 | disposition home or self-care (01) | DRG 640 ==
LOC: EMS 21:23 → 5N 07-22 01:10
PROVIDERS: ADMIT Internal Medicine; ATTEND Internal Medicine
PROC: 5A1D70Z Performance of Urinary Filtration, Intermittent, Less than 6 Hours Per Day (ICD-10-PCS; principal; 2022-07-22)
PROC: 5A1D70Z Performance of Urinary Filtration, Intermittent, Less than 6 Hours Per Day (ICD-10-PCS; 2022-07-23)
PROC: 5A1D70Z Performance of Urinary Filtration, Intermittent, Less than 6 Hours Per Day (ICD-10-PCS; 2022-07-24)
DX: E87.5 Hyperkalemia (principal); J96.01 Acute respiratory failure with hypoxia; N18.6 End stage renal disease; I13.2 Hypertensive heart and chronic kidney disease with heart failure and with stage 5 chronic kidney disease, or end stage renal disease; Z20.822 Contact with and (suspected) exposure to COVID-19; Z99.2 Dependence on renal dialysis; I50.9 Heart failure, unspecified; E10.40 Type 1 diabetes mellitus with diabetic neuropathy, unspecified; E10.22 Type 1 diabetes mellitus with diabetic chronic kidney disease; D63.8 Anemia in other chronic diseases classified elsewhere; F32.A Depression, unspecified; Z79.4 Long term (current) use of insulin; Z83.3 Family history of diabetes mellitus; Z88.5 Allergy status to narcotic agent; Z91.013 Allergy to seafood; Z91.018 Allergy to other foods; Z79.899 Other long term (current) drug therapy
CPT/HCPCS: 71045; 80053; 82550; 83690; 83880; 84484; 85025; 85610; 85730; 86709; 87081; 90935; 93005; 99285; J0885; J1170; J2405; Q9967; 36415-L1; 36415-TC

== ENCOUNTER 2022-11-17 04:29 | Inpatient (IN) | payer MEDICARE, OTHER ==
[~2022-11-17] VITALS: Ht 177.8 cm; Wt 85.5 kg
[2022-11-17] VITALS (14 sets, daily range): BP systolic 139–176; BP diastolic 79–101; PULSE 92–105; RESP 18–24; TEMP 97.5–98; O2SAT 95–97
[~2022-11-17 04:29] MED LIST changes: +LEVO750T68 PO
[2022-11-17 05:01] LABS: GLUCOMETER DEV NAME(LOC) ER.6; GLUCOSE,POINT OF CARE 207 MG/DL (70-110)
[2022-11-17 05:06] LABS: BASOPHILS % (AUTO) 1.4 % (0.0-2.0); EOSINOPHILS % (AUTO) 6.2 % (1.0-6.0); HEMATOCRIT 32.3 % (41-53); HEMOGLOBIN 10.7 g/dL (13.5-17.5); LYMPHOCYTES % (AUTO) 14.5 % (22.0-44.0); MEAN CORPUSCULAR HGB CONC 33.3 G/dL (31.0-37.0); MEAN CORPUSCULAR VOLUME 96 fL (80-100); MONOCYTES # (AUTO) 0.5 K/uL (0.1-1.0); MONOCYTES % (AUTO) 7.4 % (2.0-9.0); NEUTROPHILS % (AUTO) 70.5 % (40.0-70.0); PLATELET COUNT (AUTO) 260 K/uL (150-450); RED BLOOD CELL COUNT(AUTO) 3.35 MIL/uL (4.50-5.90); RED CELL DISTRIBUTION WIDTH 18.2 % (11.5-14.5)
[2022-11-17 05:33] LABS: CALCIUM, TOTAL 8.8 mg/dL (8.8-10.5); CREATININE 9.27 mg/dL (0.60-1.30)
[2022-11-17 05:58] LABS: ALBUMIN 3.3 g/dL (3.4-5.0); BILIRUBIN,TOTAL 0.6 mg/dL (0.1-1.0); TOTAL PROTEIN, SERUM 6.8 g/dL (6.4-8.2)
[2022-11-17] MEDS ORDERED: NITROGLYCERIN 2% (1 GM=INCH) OINTMENT PACKET TP ONE (06:30)
[2022-11-17] MEDS ORDERED: FUROSEMIDE 40 MG/4 ML VIAL IVP ONE (06:30)
[2022-11-17] MEDS ORDERED: ONDANSETRON HCL 4 MG/2 ML VIAL IVP PRN (16:15)
[2022-11-17] MEDS ORDERED: IPRATROPIUM BROMIDE 0.5 MG/2.5 ML NEB SOLUTION NEB PRN (16:15)
[2022-11-17] MEDS ORDERED: ZOLPIDEM TARTRATE 5 MG TABLET PO PRN (16:15)
[2022-11-17] MEDS ORDERED: ALBUTEROL SULFATE 2.5 MG/0.5 ML NEB SOLUTION NEB PRN (16:15)
[2022-11-17] MEDS ORDERED: ACETAMINOPHEN 325 MG TABLET PO PRN (16:15)
[2022-11-17] MEDS ORDERED: BISACODYL 10 MG RECTAL RECTAL SUPPOSITORY PR PRN (16:15)
[2022-11-17] MEDS ORDERED: MAGNESIUM HYDROXIDE SUSPENSION 30 ML UDCUP PO PRN (16:15)
[2022-11-17] MEDS ORDERED: SUCR500T PO (16:16)
[2022-11-17] MEDS ORDERED: OXYC-618 PO (16:16)
[2022-11-17] MEDS ORDERED: PANT40TA54 PO (16:16)
[2022-11-17] MEDS: MORPHINE SULFATE 2 MG/ML SYRINGE IVP PRN ×2 (17:20→22:56)
[2022-11-17] MEDS: SEVELAMER CARBONATE 800 MG TABLET PO SCH (17:22)
[2022-11-17] MEDS ORDERED: SODIUM CHLORIDE 0.9% 2,000 ML ONE (18:25)
[2022-11-17] MEDS: DOCUSATE SODIUM 100 MG CAPSULE PO SCH (21:00)
[2022-11-17] MEDS: HEPARIN SODIUM,PORCINE 5,000 UNITS/ML VIAL SQ SCH ×2 (22:55→23:03)
[2022-11-17] MEDS: METOPROLOL TARTRATE 50 MG TABLET PO SCH (22:55)
[2022-11-18] VITALS (14 sets, daily range): BP systolic 104–139; BP diastolic 60–79; PULSE 68–90; RESP 18–24; TEMP 97.3–99
[2022-11-18] MEDS: MORPHINE SULFATE 2 MG/ML SYRINGE IVP PRN ×4 (04:31→20:27)
[2022-11-18 04:46] LABS: GLUCOMETER DEV NAME(LOC) 5S.2C; GLUCOSE,POINT OF CARE 61 MG/DL (70-110)
[2022-11-18] MEDS: HEPARIN SODIUM,PORCINE 5,000 UNITS/ML VIAL SQ SCH ×4 (08:00→23:50)
[2022-11-18] MEDS: SEVELAMER CARBONATE 800 MG TABLET PO SCH ×3 (08:30→17:53)
[2022-11-18] MEDS: AmLODIPine BESYLATE 10 MG TABLET PO SCH (08:30)
[2022-11-18] MEDS: DOCUSATE SODIUM 100 MG CAPSULE PO SCH ×2 (08:30→20:17)
[2022-11-18] MEDS: METOPROLOL TARTRATE 50 MG TABLET PO SCH ×2 (08:30→20:17)
[2022-11-18] MEDS: PANTOPRAZOLE SODIUM 40 MG/VIAL IVP SCH (08:31)
[2022-11-18] MEDS ORDERED: SODIUM CHLORIDE 0.9% 2,000 ML ONE (10:17)
[2022-11-18 17:42] LABS: GLUCOMETER DEV NAME(LOC) 5S.1B; GLUCOSE,POINT OF CARE 70 MG/DL (70-110)
[2022-11-18 22:36] LABS: GLUCOMETER DEV NAME(LOC) 5N.1C; GLUCOSE,POINT OF CARE 166 MG/DL (70-110)
[2022-11-19] MEDS: MORPHINE SULFATE 2 MG/ML SYRINGE IVP PRN ×3 (00:35→11:10)
[2022-11-19 00:43] VITALS: BP 118/69; PULSE 75; RESP 20; TEMP 98
[2022-11-19 01:51] LABS: GLUCOMETER DEV NAME(LOC) 5N.2C; GLUCOSE,POINT OF CARE 185 MG/DL (70-110)
[2022-11-19 05:35] VITALS: BP 102/49; PULSE 68; RESP 20; TEMP 97.6
[2022-11-19 08:16] VITALS: BP 120/65; PULSE 67; RESP 18; TEMP 97.9
[2022-11-19 08:21] LABS: GLUCOMETER DEV NAME(LOC) 5S.2C; GLUCOSE,POINT OF CARE 119 MG/DL (70-110)
[2022-11-19] MEDS: SEVELAMER CARBONATE 800 MG TABLET PO SCH ×2 (08:34→11:14)
[2022-11-19] MEDS: AmLODIPine BESYLATE 10 MG TABLET PO SCH (08:34)
[2022-11-19] MEDS: PANTOPRAZOLE SODIUM 40 MG/VIAL IVP SCH (08:35)
[2022-11-19] MEDS: DOCUSATE SODIUM 100 MG CAPSULE PO SCH (08:35)
[2022-11-19] MEDS: HEPARIN SODIUM,PORCINE 5,000 UNITS/ML VIAL SQ SCH (08:35)
[2022-11-19] MEDS: METOPROLOL TARTRATE 50 MG TABLET PO SCH (08:35)
[2022-11-19 10:58] VITALS: BP 133/63; PULSE 68; RESP 18; TEMP 97.7
[2022-11-19] MEDS ORDERED: AMLO-258 PO (13:21)
[2022-11-19 20:51] LABS: GLUCOMETER DEV NAME(LOC) 5S.2C; GLUCOSE,POINT OF CARE 113 MG/DL (70-110)
== END 2022-11-19 13:38 | disposition home or self-care (01) | DRG 640 ==
LOC: EMS 04:32 → AHU 10:30 → 5S 13:34
PROVIDERS: ADMIT Hospitalist; ATTEND Hospitalist
PROC: 5A1D70Z Performance of Urinary Filtration, Intermittent, Less than 6 Hours Per Day (ICD-10-PCS; principal; 2022-11-17)
PROC: 5A1D70Z Performance of Urinary Filtration, Intermittent, Less than 6 Hours Per Day (ICD-10-PCS; 2022-11-18)
DX: E87.70 Fluid overload, unspecified (principal); N18.6 End stage renal disease; I13.2 Hypertensive heart and chronic kidney disease with heart failure and with stage 5 chronic kidney disease, or end stage renal disease; I50.9 Heart failure, unspecified; E10.649 Type 1 diabetes mellitus with hypoglycemia without coma; F41.9 Anxiety disorder, unspecified; E10.43 Type 1 diabetes mellitus with diabetic autonomic (poly)neuropathy; E10.22 Type 1 diabetes mellitus with diabetic chronic kidney disease; M19.90 Unspecified osteoarthritis, unspecified site; D63.1 Anemia in chronic kidney disease; K76.9 Liver disease, unspecified; Z99.2 Dependence on renal dialysis; Z79.899 Other long term (current) drug therapy; Z79.4 Long term (current) use of insulin; Z79.82 Long term (current) use of aspirin; Z83.3 Family history of diabetes mellitus; Z87.442 Personal history of urinary calculi; Z87.891 Personal history of nicotine dependence; Q27.39 Arteriovenous malformation, other site
CPT/HCPCS: 71045; 80053; 82550; 82962; 83880; 84484; 85025; 87340; 90935; 93005; 94660; 99291; C9113; J1644; J1940; J2270; J7030; 36415-L1; 36415-TC

== ENCOUNTER 2022-12-06 16:31 | Emergency (ER) | payer MEDICARE, OTHER ==
[~2022-12-06] VITALS: Ht 182.9 cm; Wt 80.0 kg
[~2022-12-06 16:31] MED LIST changes: -ASPI-1450 PO; +ASPI81 PO; -B CO1CAP6 PO; -CHOL25TA4 PO; -LEVO750T68 PO; +METO5TAB2 PO; -METO5TAB95 PO; +OXYC-618 PO; +PANT40TA54 PO; +SUCR500T PO
[2022-12-06] MEDS ORDERED: SODIUM CHLORIDE 0.9% 1,000 ML IV ONE (17:45)
[2022-12-06] MEDS ORDERED: ONDANSETRON HCL 4 MG/2 ML VIAL IVP ONE (17:45)
[2022-12-06] MEDS ORDERED: OMEP40CA21 PO (17:49)
[2022-12-06] MEDS ORDERED: CINA30TA5 PO (17:49)
[2022-12-06 18:22] LABS: BASOPHILS % (AUTO) 2.7 % (0.0-2.0); EOSINOPHILS % (AUTO) 1.2 % (1.0-6.0); HEMATOCRIT 39.1 % (41-53); HEMOGLOBIN 12.7 g/dL (13.5-17.5); LYMPHOCYTES # (AUTO) 1.4 K/uL (1.0-4.8); LYMPHOCYTES % (AUTO) 22.5 % (22.0-44.0); MEAN CORPUSCULAR HEMOGLOBIN 30.9 pg (26.0-34.0); MEAN CORPUSCULAR HGB CONC 32.6 G/dL (31.0-37.0); MEAN CORPUSCULAR VOLUME 95 fL (80-100); MONOCYTES # (AUTO) 0.6 K/uL (0.1-1.0); MONOCYTES % (AUTO) 9.9 % (2.0-9.0); NEUTROPHILS # (AUTO) 3.9 K/uL (1.8-7.7); NEUTROPHILS % (AUTO) 63.7 % (40.0-70.0); PLATELET COUNT (AUTO) 283 K/uL (150-450); RED BLOOD CELL COUNT(AUTO) 4.12 MIL/uL (4.50-5.90); RED CELL DISTRIBUTION WIDTH 16.9 % (11.5-14.5)
[2022-12-06 18:32] LABS: CALCIUM, TOTAL 8.7 mg/dL (8.8-10.5); CREATININE 5.79 mg/dL (0.60-1.30)
[2022-12-06 18:42] LABS: ALBUMIN 3.4 g/dL (3.4-5.0); BILIRUBIN,TOTAL 0.7 mg/dL (0.1-1.0); TOTAL PROTEIN, SERUM 7.3 g/dL (6.4-8.2)
[2022-12-06 19:09] LABS: COVID AG,FIA SOURCE NASAL SWAB
[2022-12-06 19:30] LABS: INFLUENZA TYPE A NEGATIVE FOR TYPE A (NEGATIVE); INFLUENZA TYPE B NEGATIVE FOR TYPE B (NEGATIVE)
[2022-12-06] MEDS ORDERED: DiphenhydrAMINE HCL 50 MG CAPSULE PO ONE (19:30)
[2022-12-06] MEDS ORDERED: OxyCODONE HCL/ACETAMINOPHEN 5-325 MG TABLET PO ONE (19:30)
[2022-12-06 21:38] VITALS: BP 132/74; PULSE 75; RESP 16; TEMP 98.3
== END 2022-12-06 21:57 | disposition home or self-care (01) ==
LOC: EMS 16:33
DX: R10.9 Unspecified abdominal pain (principal); R11.2 Nausea with vomiting, unspecified; R19.7 Diarrhea, unspecified; G89.29 Other chronic pain; E11.22 Type 2 diabetes mellitus with diabetic chronic kidney disease; I13.11 Hypertensive heart and chronic kidney disease without heart failure, with stage 5 chronic kidney disease, or end stage renal disease; N18.6 End stage renal disease; Z99.2 Dependence on renal dialysis; F12.90 Cannabis use, unspecified, uncomplicated; Z98.890 Other specified postprocedural states; Z91.013 Allergy to seafood; Z88.8 Allergy status to other drugs, medicaments and biological substances; Z91.018 Allergy to other foods; Z20.822 Contact with and (suspected) exposure to COVID-19
CPT/HCPCS: 99285; 74176; 96374; 87426; 80053; 82962; 83690; 83880; 85025; 87804; 36415; J2405

== ENCOUNTER 2022-12-15 22:50 | Inpatient (IN) | payer MEDICARE, OTHER ==
[~2022-12-15] VITALS: Ht 188 cm; Wt 82.0 kg
[~2022-12-15 22:50] MED LIST changes: +CINA30TA5 PO; +OMEP40CA21 PO; -PANT40TA54 PO
[2022-12-16] VITALS (10 sets, daily range): BP systolic 134–148; BP diastolic 82–95; PULSE 92–97; RESP 18–20; TEMP 97.9–98.6
[2022-12-16 00:50] LABS: BASOPHILS % (AUTO) 1.5 % (0.0-2.0); EOSINOPHILS % (AUTO) 1.7 % (1.0-6.0); HEMATOCRIT 33.1 % (41-53); HEMOGLOBIN 11.2 g/dL (13.5-17.5); LYMPHOCYTES # (AUTO) 1.5 K/uL (1.0-4.8); MEAN CORPUSCULAR HEMOGLOBIN 32.2 pg (26.0-34.0); MEAN CORPUSCULAR HGB CONC 33.7 G/dL (31.0-37.0); MEAN CORPUSCULAR VOLUME 95 fL (80-100); MONOCYTES # (AUTO) 0.8 K/uL (0.1-1.0); MONOCYTES % (AUTO) 8.1 % (2.0-9.0); NEUTROPHILS # (AUTO) 6.8 K/uL (1.8-7.7); NEUTROPHILS % (AUTO) 72.7 % (40.0-70.0); PLATELET COUNT (AUTO) 222 K/uL (150-450); RED BLOOD CELL COUNT(AUTO) 3.47 MIL/uL (4.50-5.90); RED CELL DISTRIBUTION WIDTH 18.1 % (11.5-14.5)
[2022-12-16 00:57] LABS: CALCIUM, TOTAL 8.7 mg/dL (8.8-10.5); CREATININE 11.46 mg/dL (0.60-1.30); POTASSIUM 4.3 mmol/L (3.5-5.1)
[2022-12-16] MEDS ORDERED: METOCLOPRAMIDE HCL 5 MG/ML 2 ML VIAL IVP ONE ×2 (01:00→04:15)
[2022-12-16 01:03] LABS: ALBUMIN 3.3 g/dL (3.4-5.0); BILIRUBIN,TOTAL 0.7 mg/dL (0.1-1.0); TOTAL PROTEIN, SERUM 6.6 g/dL (6.4-8.2)
[2022-12-16] MEDS ORDERED: AMPICILLIN SODIUM/SULBACTAM NA 1.5 GM in SODIUM CHLORIDE 0.9% 50 ML IV ONE (03:00)
[2022-12-16] MEDS ORDERED: OxyCODONE HCL/ACETAMINOPHEN 10-325 MG TABLET PO PRN (04:45)
[2022-12-16] MEDS ORDERED: METOCLOPRAMIDE HCL 5 MG TABLET PO PRN (04:45)
[2022-12-16] MEDS ORDERED: PIPERACILLIN SODIUM/TAZOBACTAM 0.75 GM in DEXTROSE 5%-WATER 50 ML IV PRN (06:00)
[2022-12-16] MEDS ORDERED: DEXTROSE 50%-WATER 25 GM/50 ML SYRINGE IVP PRN (06:15)
[2022-12-16] MEDS: INSULIN LISPRO 100 UNITS/ML SQ PRN ×2 (06:30→12:23)
[2022-12-16] MEDS ORDERED: SODIUM CHLORIDE 0.9% 0 ML ONE (07:08)
[2022-12-16] MEDS ORDERED: IOHEXOL 350 MG/ML 100 ML VIAL ONE (07:08)
[2022-12-16] MEDS ORDERED: HEPARIN SODIUM,PORCINE 5,000 UNITS/ML VIAL SQ SCH (08:00)
[2022-12-16] MEDS ORDERED: [UNRECOGNIZED DRUG - OTHER] PO SCH (08:00)
[2022-12-16] MEDS: CINACALCET HCL 30 MG TABLET PO SCH (08:11)
[2022-12-16] MEDS: ASPIRIN 81 MG CHEWABLE TABLET PO SCH (08:11)
[2022-12-16] MEDS: SEVELAMER CARBONATE 800 MG TABLET PO SCH ×3 (08:11→18:00)
[2022-12-16 08:12] LABS: HEMATOCRIT 33.9 % (41-53); HEMOGLOBIN 11.3 g/dL (13.5-17.5)
[2022-12-16] MEDS: OMEPRAZOLE 20 MG CAPSULE PO SCH (08:12)
[2022-12-16] MEDS: DOCUSATE SODIUM 100 MG CAPSULE PO SCH ×2 (08:12→21:51)
[2022-12-16 08:15] LABS: GLUCOMETER DEV NAME(LOC) ER.6
[2022-12-16] MEDS: INSULIN GLARGINE,HUM.REC.ANLOG 100 UNITS/ML SQ SCH ×2 (08:55→21:54)
[2022-12-16] MEDS: AmLODIPine BESYLATE 10 MG TABLET PO SCH (09:00)
[2022-12-16] MEDS: METOPROLOL TARTRATE 50 MG TABLET PO SCH ×2 (09:00→21:51)
[2022-12-16] MEDS: -POST HEMODIALYSIS NOTE- MISC SCH (09:00)
[2022-12-16] MEDS: ONDANSETRON HCL 4 MG/2 ML VIAL IVP PRN ×3 (09:24→21:41)
[2022-12-16] MEDS ORDERED: PANT40TA54 PO (11:03)
[2022-12-16] MEDS: PIPERACILLIN SODIUM/TAZOBACTAM 2.25 GM in DEXTROSE 5%-WATER 50 ML IV SCH ×2 (12:13→21:51)
[2022-12-16 12:46] LABS: GLUCOMETER DEV NAME(LOC) ER.6
[2022-12-16 14:05] LABS: HEMATOCRIT 32.4 % (41-53); HEMOGLOBIN 10.8 g/dL (13.5-17.5)
[2022-12-16] MEDS ORDERED: SODIUM CHLORIDE 0.9% 500 ML IV ONE (21:15)
[2022-12-16 21:54] LABS: HEMATOCRIT 33.7 % (41-53); HEMOGLOBIN 11.3 g/dL (13.5-17.5)
[2022-12-16] MEDS ORDERED: DiphenhydrAMINE HCL 25 MG CAPSULE PO PRN ×2 (22:15→22:30)
[2022-12-16] MEDS: HYDROmorphone HCL 2 MG/ML SYRINGE IVP PRN (22:35)
[2022-12-17] MEDS: HYDROmorphone HCL 2 MG/ML SYRINGE IVP PRN ×2 (02:53→08:31)
[2022-12-17 02:57] VITALS: BP 143/72; PULSE 80; RESP 20; TEMP 98.6
[2022-12-17] MEDS: PIPERACILLIN SODIUM/TAZOBACTAM 2.25 GM in DEXTROSE 5%-WATER 50 ML IV SCH (03:09)
[2022-12-17] MEDS: ONDANSETRON HCL 4 MG/2 ML VIAL IVP PRN (04:19)
[2022-12-17] MEDS: INSULIN LISPRO 100 UNITS/ML SQ PRN (06:01)
[2022-12-17] MEDS: CINACALCET HCL 30 MG TABLET PO SCH (08:00)
[2022-12-17] MEDS: SEVELAMER CARBONATE 800 MG TABLET PO SCH (08:00)
[2022-12-17] MEDS ORDERED: HEPARIN SODIUM,PORCINE 5,000 UNITS/ML VIAL SQ SCH (08:00)
[2022-12-17 08:13] VITALS: BP 138/72; RESP 19
[2022-12-17] MEDS: OMEPRAZOLE 20 MG CAPSULE PO SCH (08:18)
[2022-12-17] MEDS: METOPROLOL TARTRATE 50 MG TABLET PO SCH (08:18)
[2022-12-17] MEDS: AmLODIPine BESYLATE 10 MG TABLET PO SCH (08:18)
[2022-12-17] MEDS: INSULIN GLARGINE,HUM.REC.ANLOG 100 UNITS/ML SQ SCH (08:23)
[2022-12-17] MEDS: ASPIRIN 81 MG CHEWABLE TABLET PO SCH (08:34)
[2022-12-17] MEDS: DOCUSATE SODIUM 100 MG CAPSULE PO SCH (08:34)
[2022-12-17] MEDS: -POST HEMODIALYSIS NOTE- MISC SCH (08:36)
[2022-12-17 08:41] LABS: GLUCOMETER DEV NAME(LOC) 6N.1
[2022-12-17 08:41] LABS: GLUCOMETER DEV NAME(LOC) 4E.2
[2022-12-18 10:30] LABS: HEPATITIS C AB (EIA) Non Reactive (Non Reactive)
== END 2022-12-17 09:15 | disposition home or self-care (01) | DRG 640 ==
LOC: EMS 22:53 → 6N 12-16 16:06 → 6S 12-17 01:05
PROVIDERS: ADMIT Internal Medicine; ATTEND Internal Medicine
PROC: 5A1D70Z Performance of Urinary Filtration, Intermittent, Less than 6 Hours Per Day (ICD-10-PCS; principal; 2022-12-16)
DX: E87.70 Fluid overload, unspecified (principal); N18.6 End stage renal disease; J96.11 Chronic respiratory failure with hypoxia; I12.0 Hypertensive chronic kidney disease with stage 5 chronic kidney disease or end stage renal disease; E11.65 Type 2 diabetes mellitus with hyperglycemia; E11.649 Type 2 diabetes mellitus with hypoglycemia without coma; D63.8 Anemia in other chronic diseases classified elsewhere; G89.4 Chronic pain syndrome; F12.90 Cannabis use, unspecified, uncomplicated; E11.22 Type 2 diabetes mellitus with diabetic chronic kidney disease; Z99.2 Dependence on renal dialysis; Z83.3 Family history of diabetes mellitus; Z88.5 Allergy status to narcotic agent; Z91.013 Allergy to seafood; Z91.018 Allergy to other foods; Z79.82 Long term (current) use of aspirin; Z79.4 Long term (current) use of insulin; Z79.899 Other long term (current) drug therapy
CPT/HCPCS: 71045; 74022; 74176; 80053; 82962; 83605; 83690; 85014; 85018; 85025; 86803; 87040; 87081; 87340; 90935; 93005; 99285; J0295; J1170; J1644; J1815; J2405; J2543; J2765; J7040; J7050; J7060; Q9967; 36415-L1; 36415-TC

== ENCOUNTER 2023-02-22 19:30 | Inpatient (IN) | payer MEDICARE, OTHER ==
[~2023-02-22] VITALS: Ht 182.9 cm; Wt 83.6 kg
[~2023-02-22 19:30] MED LIST changes: -AMLO-258 PO; +CARV6 PO; +HYDR25TA84 PO; +ISOS10TA16 PO; -METO50 PO; -METO5TAB2 PO; -OMEP40CA21 PO; -OXYC-618 PO; +PANT40TA54 PO; -SUCR500T PO
[2023-02-22] MEDS ORDERED: INSULIN REGULAR, HUMAN 100 UNITS/ML IVP ONE (20:00)
[2023-02-22 20:06] LABS: GLUCOMETER DEV NAME(LOC) ER.6; GLUCOSE,POINT OF CARE 469 MG/DL (70-110)
[2023-02-22 20:56] LABS: BASOPHILS % (AUTO) 1.4 % (0.0-2.0); EOSINOPHILS % (AUTO) 3.2 % (1.0-6.0); HEMATOCRIT 26.6 % (41-53); LYMPHOCYTES # (AUTO) 0.9 K/uL (1.0-4.8); LYMPHOCYTES % (AUTO) 14.2 % (22.0-44.0); MEAN CORPUSCULAR HEMOGLOBIN 33.5 pg (26.0-34.0); MEAN CORPUSCULAR HGB CONC 33.8 G/dL (31.0-37.0); MEAN CORPUSCULAR VOLUME 99 fL (80-100); MONOCYTES # (AUTO) 0.5 K/uL (0.1-1.0); MONOCYTES % (AUTO) 8.8 % (2.0-9.0); NEUTROPHILS # (AUTO) 4.5 K/uL (1.8-7.7); NEUTROPHILS % (AUTO) 72.4 % (40.0-70.0); PLATELET COUNT (AUTO) 318 K/uL (150-450); RED BLOOD CELL COUNT(AUTO) 2.68 MIL/uL (4.50-5.90); RED CELL DISTRIBUTION WIDTH 17.3 % (11.5-14.5); WHITE BLOOD COUNT (AUTO) 6.2 K/uL (4.5-11.0)
[2023-02-22 21:01] LABS: COVID AG,FIA SOURCE NASAL SWAB
[2023-02-22 21:07] LABS: B-TYPE NATRIURETIC PEPTIDE 1490 pg/mL (0-100)
[2023-02-22 21:08] LABS: ACETONE,BLOOD TRACE (NEGATIVE)
[2023-02-22 21:11] LABS: TROPONIN I-HIGH SENSITIVITY 23 ng/L (<76)
[2023-02-22 21:12] LABS: LACTIC ACID 1.1 mmol/L (0.4-2.0)
[2023-02-22 21:15] LABS: ANION GAP 11 mmol/L (8-16); CALCIUM, TOTAL 8.7 mg/dL (8.8-10.5); CARBON DIOXIDE 28 mmol/L (22-29); CHLORIDE 92 mmol/L (98-107); CREATININE 8.39 mg/dL (0.60-1.30); GLOMERULAR FILTR. RATE CALC 7 mL/min (>60); POTASSIUM 5.4 mmol/L (3.5-5.1); SODIUM SERUM 131 mmol/L (136-145); UREA NITROGEN, BLOOD 43 mg/dL (7-18)
[2023-02-22 21:16] LABS: ALCOHOL, BLOOD (SERUM) < 3 mg/dL (0-10)
[2023-02-22 21:17] LABS: SARS-COV2 (COVID) ANTIGEN,FIA Negative (Negative)
[2023-02-22 21:18] LABS: ALANINE AMINOTRANSFERASE 25 U/L (12-78); ALBUMIN 3.3 g/dL (3.4-5.0); ALKALINE PHOSPHATASE 139 U/L (46-116); ASPARTATE AMINOTRANSFERASE 21 U/L (15-37); BILIRUBIN,TOTAL 0.6 mg/dL (0.1-1.0); LIPASE 34 U/L (16-77); TOTAL PROTEIN, SERUM 6.9 g/dL (6.4-8.2)
[2023-02-22 21:19] LABS: GLUCOSE,RANDOM 525 mg/dL (70-110)
[2023-02-22 21:36] LABS: GLUCOMETER DEV NAME(LOC) ERT.5; GLUCOSE,POINT OF CARE 515 MG/DL (70-110)
[2023-02-22] MEDS ORDERED: HYDROmorphone HCL 2 MG/ML SYRINGE IVP ONE (22:00)
[2023-02-22] MEDS ORDERED: ONDANSETRON HCL 4 MG/2 ML VIAL IVP ONE (22:00)
[2023-02-22] MEDS ORDERED: ACETAMINOPHEN 325 MG TABLET PO PRN (23:30)
[2023-02-22] MEDS ORDERED: BUMETANIDE 0.25 MG/ML 4 ML VIAL IVP ONE (23:30)
[2023-02-22] MEDS ORDERED: DEXTROSE 50%-WATER 25 GM/50 ML SYRINGE IVP PRN (23:30)
[2023-02-22 23:44] LABS: BASE EXCESS,VENOUS BLOOD GAS 2.9 (-3.3-1.2); HCO3,VENOUS BLOOD GAS 26.4 (21.0-28.0); PCO2,VENOUS BLOOD GAS 43 (40-45); PH,VENOUS BLOOD GAS 7.425 (7.360-7.410); SITE, BLOOD GAS OTHER; SOURCE, BLOOD GAS VENOUS; TEMPERATURE, FAHRENHEIT, BG 98.3 FAHREN (96.0-98.6); TOTAL HEMOGLOBIN,VENOUS BGAS 10.7 (12.0-18.0)
[2023-02-23] VITALS (11 sets, daily range): BP systolic 128–172; BP diastolic 66–83; PULSE 81–88; RESP 16–20; TEMP 97.1–98.8
[2023-02-23 00:21] LABS: GLUCOMETER DEV NAME(LOC) ERT.5; GLUCOSE,POINT OF CARE 440 MG/DL (70-110)
[2023-02-23 00:21] LABS: GLUCOMETER DEV NAME(LOC) ERT.5; GLUCOSE,POINT OF CARE 453 MG/DL (70-110)
[2023-02-23] MEDS: HydrALAZINE HCL 25 MG TABLET PO SCH ×4 (00:32→23:02)
[2023-02-23] MEDS: INSULIN LISPRO 100 UNITS/ML SQ PRN ×5 (00:33→20:04)
[2023-02-23 02:31] LABS: GLUCOMETER DEV NAME(LOC) ERT.5; GLUCOSE,POINT OF CARE 442 MG/DL (70-110)
[2023-02-23] MEDS ORDERED: HYDROmorphone HCL 2 MG/ML SYRINGE IM PRN (02:45)
[2023-02-23] MEDS: METOCLOPRAMIDE HCL 5 MG/ML 2 ML VIAL IVP PRN ×2 (03:31→14:15)
[2023-02-23] MEDS: HYDROmorphone HCL 2 MG/ML SYRINGE IVP PRN ×4 (03:40→22:51)
[2023-02-23 05:10] LABS: BASOPHILS % (AUTO) 0.2 % (0.0-2.0); EOSINOPHILS % (AUTO) 3.7 % (1.0-6.0); HEMATOCRIT 25.7 % (41-53); HEMOGLOBIN 8.9 g/dL (13.5-17.5); LYMPHOCYTES # (AUTO) 1.4 K/uL (1.0-4.8); LYMPHOCYTES % (AUTO) 17.8 % (22.0-44.0); MEAN CORPUSCULAR HEMOGLOBIN 33.8 pg (26.0-34.0); MEAN CORPUSCULAR HGB CONC 34.6 G/dL (31.0-37.0); MEAN CORPUSCULAR VOLUME 98 fL (80-100); MONOCYTES # (AUTO) 0.7 K/uL (0.1-1.0); MONOCYTES % (AUTO) 9.5 % (2.0-9.0); NEUTROPHILS # (AUTO) 5.2 K/uL (1.8-7.7); NEUTROPHILS % (AUTO) 68.8 % (40.0-70.0); PLATELET COUNT (AUTO) 307 K/uL (150-450); RED BLOOD CELL COUNT(AUTO) 2.62 MIL/uL (4.50-5.90); RED CELL DISTRIBUTION WIDTH 16.7 % (11.5-14.5); WHITE BLOOD COUNT (AUTO) 7.6 K/uL (4.5-11.0)
[2023-02-23 05:28] LABS: CALCIUM, TOTAL 8.6 mg/dL (8.8-10.5); CREATININE 9.11 mg/dL (0.60-1.30); MAGNESIUM 2.4 mg/dL (1.80-2.40); POTASSIUM 4.9 mmol/L (3.5-5.1)
[2023-02-23] MEDS ORDERED: HYDROmorphone HCL 2 MG/ML SYRINGE IVP PRN (06:45)
[2023-02-23] MEDS: PANTOPRAZOLE SODIUM 40 MG DR TABLET PO SCH (06:45)
[2023-02-23] MEDS: INSULIN GLARGINE,HUM.REC.ANLOG 100 UNITS/ML SQ SCH (06:53)
[2023-02-23] MEDS: HEPARIN SODIUM,PORCINE 5,000 UNITS/ML VIAL SQ SCH ×4 (07:26→22:51)
[2023-02-23] MEDS: ASPIRIN 81 MG CHEWABLE TABLET PO SCH (07:55)
[2023-02-23] MEDS: CARVEDILOL 6.25 MG TABLET PO SCH ×2 (07:55→20:03)
[2023-02-23 08:11] LABS: GLUCOMETER DEV NAME(LOC) ERT.5; GLUCOSE,POINT OF CARE 276 MG/DL (70-110)
[2023-02-23] MEDS: CINACALCET HCL 30 MG TABLET PO SCH (08:16)
[2023-02-23] MEDS: ISOSORBIDE DINITRATE 10 MG TABLET PO SCH ×3 (08:16→20:03)
[2023-02-23] MEDS: SEVELAMER CARBONATE 800 MG TABLET PO SCH ×3 (08:17→18:00)
[2023-02-23] MEDS: DiphenhydrAMINE HCL 25 MG CAPSULE PO PRN ×3 (09:00→22:51)
[2023-02-23] MEDS: ONDANSETRON HCL 4 MG/2 ML VIAL IVP PRN (09:35)
[2023-02-23 11:41] LABS: GLUCOMETER DEV NAME(LOC) ERT.5; GLUCOSE,POINT OF CARE 161 MG/DL (70-110)
[2023-02-23] MEDS ORDERED: HEPARIN SODIUM,PORCINE 1,000 UNITS/ML VIAL IVP ONE (12:00)
[2023-02-23] MEDS ORDERED: SODIUM CHLORIDE 0.9% 2,000 ML ONE (15:46)
[2023-02-23] MEDS ORDERED: HEPARIN SODIUM,PORCINE 1,000 UNITS/ML VIAL IVCATH ONE ×2 (19:30)
[2023-02-24] VITALS (12 sets, daily range): BP systolic 137–168; BP diastolic 54–99; PULSE 80–108; RESP 16–20; TEMP 97.5–99.5
[2023-02-24 01:16] LABS: GLUCOMETER DEV NAME(LOC) 5N.1C; GLUCOSE,POINT OF CARE 201 MG/DL (70-110)
[2023-02-24 01:16] LABS: GLUCOMETER DEV NAME(LOC) 5N.1C; GLUCOSE,POINT OF CARE 271 MG/DL (70-110)
[2023-02-24] MEDS: HYDROmorphone HCL 2 MG/ML SYRINGE IVP PRN ×2 (03:52→09:23)
[2023-02-24] MEDS: INSULIN LISPRO 100 UNITS/ML SQ PRN (06:30)
[2023-02-24] MEDS: PANTOPRAZOLE SODIUM 40 MG DR TABLET PO SCH (06:31)
[2023-02-24] MEDS: ONDANSETRON HCL 4 MG/2 ML VIAL IVP PRN ×2 (06:38→20:02)
[2023-02-24 08:05] LABS: % IRON SATURATION 30.9 % (30-44)
[2023-02-24] MEDS: ISOSORBIDE DINITRATE 10 MG TABLET PO SCH ×3 (08:27→20:02)
[2023-02-24] MEDS: CINACALCET HCL 30 MG TABLET PO SCH (08:27)
[2023-02-24] MEDS: SEVELAMER CARBONATE 800 MG TABLET PO SCH ×3 (08:28→18:05)
[2023-02-24] MEDS: CARVEDILOL 6.25 MG TABLET PO SCH ×2 (08:28→20:02)
[2023-02-24] MEDS: HydrALAZINE HCL 25 MG TABLET PO SCH ×3 (08:29→23:36)
[2023-02-24] MEDS: ASPIRIN 81 MG CHEWABLE TABLET PO SCH (08:29)
[2023-02-24] MEDS: HEPARIN SODIUM,PORCINE 5,000 UNITS/ML VIAL SQ SCH ×4 (08:29→23:36)
[2023-02-24] MEDS: INSULIN GLARGINE,HUM.REC.ANLOG 100 UNITS/ML SQ SCH (08:40)
[2023-02-24] MEDS ORDERED: EPOETIN ALFA 10,000 UNITS/ML VIAL SQ SCH (09:00)
[2023-02-24 09:07] LABS: GLUCOMETER DEV NAME(LOC) 5S.1B; GLUCOSE,POINT OF CARE 449 MG/DL (70-110)
[2023-02-24 09:07] LABS: GLUCOMETER DEV NAME(LOC) 5N.2C; GLUCOSE,POINT OF CARE 516 MG/DL (70-110)
[2023-02-24] MEDS: DiphenhydrAMINE HCL 25 MG CAPSULE PO PRN (09:23)
[2023-02-24] MEDS ORDERED: SODIUM CHLORIDE 0.9% 1,000 ML ONE (11:23)
[2023-02-24 11:37] LABS: GLUCOMETER DEV NAME(LOC) 5N.2C; GLUCOSE,POINT OF CARE 390 MG/DL (70-110)
[2023-02-24] MEDS ORDERED: HEPARIN SODIUM,PORCINE 1,000 UNITS/ML VIAL IVP ONE (12:00)
[2023-02-24] MEDS ORDERED: HEPARIN SODIUM,PORCINE 1,000 UNITS/ML VIAL IVCATH ONE ×2 (13:00)
[2023-02-24] MEDS: HYDROmorphone HCL 2 MG TABLET PO PRN ×2 (14:40→22:54)
[2023-02-24 17:41] LABS: GLUCOMETER DEV NAME(LOC) 5S.2C; GLUCOSE,POINT OF CARE 191 MG/DL (70-110)
[2023-02-25] VITALS: BP 165/60; PULSE 89; RESP 17; TEMP 98.7
[2023-02-25 04:28] VITALS: BP 145/73; PULSE 90; RESP 17; TEMP 98.2
[2023-02-25] MEDS: PANTOPRAZOLE SODIUM 40 MG DR TABLET PO SCH (06:04)
[2023-02-25 07:48] VITALS: BP 165/83; PULSE 90; RESP 18; TEMP 98.2
[2023-02-25 08:38] LABS: BASOPHILS % (AUTO) 1.7 % (0.0-2.0); EOSINOPHILS % (AUTO) 8.1 % (1.0-6.0); HEMATOCRIT 27.6 % (41-53); HEMOGLOBIN 9.1 g/dL (13.5-17.5); MEAN CORPUSCULAR HEMOGLOBIN 33.1 pg (26.0-34.0); MEAN CORPUSCULAR HGB CONC 33.1 G/dL (31.0-37.0); MEAN CORPUSCULAR VOLUME 100 fL (80-100); MONOCYTES # (AUTO) 0.5 K/uL (0.1-1.0); MONOCYTES % (AUTO) 9.2 % (2.0-9.0); NEUTROPHILS # (AUTO) 3.4 K/uL (1.8-7.7); PLATELET COUNT (AUTO) 288 K/uL (150-450); RED BLOOD CELL COUNT(AUTO) 2.77 MIL/uL (4.50-5.90); RED CELL DISTRIBUTION WIDTH 17.6 % (11.5-14.5); WHITE BLOOD COUNT (AUTO) 5.5 K/uL (4.5-11.0)
[2023-02-25] MEDS: CARVEDILOL 6.25 MG TABLET PO SCH (08:41)
[2023-02-25] MEDS: SEVELAMER CARBONATE 800 MG TABLET PO SCH ×2 (08:41→11:52)
[2023-02-25] MEDS: ASPIRIN 81 MG CHEWABLE TABLET PO SCH (08:42)
[2023-02-25] MEDS: HYDROmorphone HCL 2 MG TABLET PO PRN (08:42)
[2023-02-25] MEDS: HEPARIN SODIUM,PORCINE 5,000 UNITS/ML VIAL SQ SCH (08:43)
[2023-02-25] MEDS: HydrALAZINE HCL 25 MG TABLET PO SCH (08:43)
[2023-02-25] MEDS: ISOSORBIDE DINITRATE 10 MG TABLET PO SCH (08:43)
[2023-02-25] MEDS: INSULIN GLARGINE,HUM.REC.ANLOG 100 UNITS/ML SQ SCH (08:45)
[2023-02-25] MEDS: CINACALCET HCL 30 MG TABLET PO SCH (08:45)
[2023-02-25 08:53] LABS: CALCIUM, TOTAL 8.5 mg/dL (8.8-10.5); CREATININE 7.32 mg/dL (0.60-1.30); POTASSIUM 4.9 mmol/L (3.5-5.1)
[2023-02-25] MEDS: METOCLOPRAMIDE HCL 5 MG/ML 2 ML VIAL IVP PRN (10:43)
[2023-02-25 11:10] VITALS: BP 157/78; PULSE 78; RESP 18; TEMP 98
== END 2023-02-25 14:35 | disposition home or self-care (01) | DRG 73 ==
LOC: EMS 19:34 → AHU 23:25 → 5S 02-23 13:49
PROVIDERS: ADMIT Internal Medicine; ATTEND Internal Medicine
PROC: 5A1D70Z Performance of Urinary Filtration, Intermittent, Less than 6 Hours Per Day (ICD-10-PCS; principal; 2023-02-23)
PROC: 5A1D70Z Performance of Urinary Filtration, Intermittent, Less than 6 Hours Per Day (ICD-10-PCS; 2023-02-24)
DX: E10.43 Type 1 diabetes mellitus with diabetic autonomic (poly)neuropathy (principal); N18.6 End stage renal disease; I13.2 Hypertensive heart and chronic kidney disease with heart failure and with stage 5 chronic kidney disease, or end stage renal disease; J96.10 Chronic respiratory failure, unspecified whether with hypoxia or hypercapnia; Z20.822 Contact with and (suspected) exposure to COVID-19; E10.65 Type 1 diabetes mellitus with hyperglycemia; D63.8 Anemia in other chronic diseases classified elsewhere; G89.4 Chronic pain syndrome; E87.5 Hyperkalemia; I50.9 Heart failure, unspecified; K31.84 Gastroparesis; Z96.41 Presence of insulin pump (external) (internal); E10.22 Type 1 diabetes mellitus with diabetic chronic kidney disease; Z99.2 Dependence on renal dialysis; Z88.6 Allergy status to analgesic agent; Z91.018 Allergy to other foods; Z79.82 Long term (current) use of aspirin
CPT/HCPCS: 71045; 80048; 80053; 82009; 82805; 82962; 83540; 83550; 83605; 83690; 83735; 83880; 84484; 85025; 87040; 87340; 90935; 93005; 99291; G0378; G0480; J0885; J1170; J1644; J1815; J2405; J2765; J7030; 36415-L1; 36415-TC

== ENCOUNTER 2023-03-16 04:32 | Inpatient (IN) | payer MEDICARE, OTHER ==
[~2023-03-16] VITALS: Ht 185.4 cm; Wt 81.0 kg
[2023-03-16] VITALS (17 sets, daily range): BP systolic 128–152; BP diastolic 69–98; PULSE 80–102; RESP 18–22; TEMP 96.8–98.4; O2SAT 93–98
[2023-03-16] MEDS ORDERED: ALBUTEROL SULFATE 2.5 MG/0.5 ML 5 ML NEB SOLUTION NEB ONE (04:45)
[2023-03-16] MEDS ORDERED: CALCIUM GLUCONATE 1,000 MG in DEXTROSE 5%-WATER 50 ML IV ONE (04:45)
[2023-03-16 05:26] LABS: COVID AG,FIA SOURCE NASAL SWAB
[2023-03-16 05:38] LABS: BASOPHILS % (AUTO) 2.8 % (0.0-2.0); EOSINOPHILS % (AUTO) 4.7 % (1.0-6.0); HEMATOCRIT 29.1 % (41-53); HEMOGLOBIN 9.9 g/dL (13.5-17.5); LYMPHOCYTES # (AUTO) 1.1 K/uL (1.0-4.8); LYMPHOCYTES % (AUTO) 12.1 % (22.0-44.0); MEAN CORPUSCULAR HEMOGLOBIN 34.2 pg (26.0-34.0); MEAN CORPUSCULAR HGB CONC 33.9 G/dL (31.0-37.0); MEAN CORPUSCULAR VOLUME 101 fL (80-100); MONOCYTES # (AUTO) 0.5 K/uL (0.1-1.0); MONOCYTES % (AUTO) 5.7 % (2.0-9.0); NEUTROPHILS # (AUTO) 6.7 K/uL (1.8-7.7); NEUTROPHILS % (AUTO) 74.7 % (40.0-70.0); PLATELET COUNT (AUTO) 320 K/uL (150-450); RED BLOOD CELL COUNT(AUTO) 2.89 MIL/uL (4.50-5.90); RED CELL DISTRIBUTION WIDTH 17.6 % (11.5-14.5)
[2023-03-16 05:51] LABS: TROPONIN I-HIGH SENSITIVITY 55 ng/L (<76)
[2023-03-16 05:51] LABS: INFLUENZA TYPE A NEGATIVE FOR TYPE A (NEGATIVE); INFLUENZA TYPE B NEGATIVE FOR TYPE B (NEGATIVE); SARS-COV2 (COVID) ANTIGEN,FIA Negative (Negative)
[2023-03-16 05:55] LABS: B-TYPE NATRIURETIC PEPTIDE 1230 pg/mL (0-100)
[2023-03-16 05:56] LABS: ALCOHOL, BLOOD (SERUM) < 3 mg/dL (0-10)
[2023-03-16 06:07] LABS: CHLORIDE 100 mmol/L (98-107); POTASSIUM 5.9 mmol/L (3.5-5.1); SODIUM SERUM 130 mmol/L (136-145)
[2023-03-16 06:10] LABS: ANION GAP 4 mmol/L (8-16); CARBON DIOXIDE 26 mmol/L (22-29)
[2023-03-16 06:11] LABS: ALANINE AMINOTRANSFERASE 33 U/L (12-78); ALBUMIN 3.5 g/dL (3.4-5.0); ALKALINE PHOSPHATASE 138 U/L (46-116); ASPARTATE AMINOTRANSFERASE 20 U/L (15-37); BILIRUBIN,TOTAL 0.5 mg/dL (0.1-1.0); CALCIUM, TOTAL 9.2 mg/dL (8.8-10.5); CREATINE KINASE, TOTAL ONLY 116 U/L (39-308); CREATININE 8.86 mg/dL (0.60-1.30); GLOMERULAR FILTR. RATE CALC 7 mL/min (>60); GLUCOSE,RANDOM 183 mg/dL (70-110); TOTAL PROTEIN, SERUM 7.6 g/dL (6.4-8.2); UREA NITROGEN, BLOOD 75 mg/dL (7-18)
[2023-03-16 06:13] LABS: RBC MORPHOLOGY COMMENT ABNORMAL RBC MORPH
[2023-03-16] MEDS ORDERED: SODIUM ZIRCONIUM CYCLOSILICATE 5 GM POWDER PACKET PO ONE (06:30)
[2023-03-16 07:25] LABS: GLUCOMETER DEV NAME(LOC) ERT.5; GLUCOSE,POINT OF CARE 157 MG/DL (70-110)
[2023-03-16] MEDS ORDERED: OxyCODONE HCL/ACETAMINOPHEN 5-325 MG TABLET PO ONE (07:45)
[2023-03-16] MEDS ORDERED: DiphenhydrAMINE HCL 50 MG/ML VIAL IVP ONE (07:45)
[2023-03-16] MEDS ORDERED: DEXTROSE 50%-WATER 25 GM/50 ML SYRINGE IVP PRN (09:00)
[2023-03-16] MEDS ORDERED: INSULIN LISPRO 100 UNITS/ML SQ PRN (09:00)
[2023-03-16] MEDS ORDERED: ACETAMINOPHEN 325 MG TABLET PO PRN (09:00)
[2023-03-16] MEDS ORDERED: BISACODYL 10 MG RECTAL RECTAL SUPPOSITORY PR PRN (09:00)
[2023-03-16] MEDS ORDERED: ALBUTEROL SULFATE 2.5 MG/0.5 ML NEB SOLUTION NEB PRN (09:00)
[2023-03-16] MEDS: CARVEDILOL 12.5 MG TABLET PO SCH ×2 (09:48→21:25)
[2023-03-16] MEDS: ASPIRIN 81 MG CHEWABLE TABLET PO SCH (10:06)
[2023-03-16] MEDS: FAMOTIDINE 20 MG TABLET PO SCH (10:06)
[2023-03-16] MEDS: DOCUSATE SODIUM 100 MG CAPSULE PO SCH ×2 (10:07→21:25)
[2023-03-16] MEDS: FOLIC ACID/VIT B COMPLEX AND C TABLET PO SCH (15:10)
[2023-03-16] MEDS: HYDROmorphone HCL 2 MG TABLET PO PRN (15:40)
[2023-03-16] MEDS: HEPARIN SODIUM,PORCINE 5,000 UNITS/ML VIAL SQ SCH ×2 (16:00→23:41)
[2023-03-16] MEDS: ZOLPIDEM TARTRATE 5 MG TABLET PO PRN (21:25)
[2023-03-17] VITALS (16 sets, daily range): BP systolic 127–153; BP diastolic 50–94; PULSE 80–90; RESP 16–20; TEMP 97.6–98.4; O2SAT 96–100
[2023-03-17] MEDS: HYDROmorphone HCL 2 MG TABLET PO PRN ×2 (00:52→09:20)
[2023-03-17 06:21] LABS: CALCIUM, TOTAL 8.4 mg/dL (8.8-10.5); CREATININE 7.22 mg/dL (0.60-1.30); MAGNESIUM 2.4 mg/dL (1.80-2.40); PHOSPHORUS 7.4 mg/dL (2.5-4.9); POTASSIUM 5.5 mmol/L (3.5-5.1)
[2023-03-17] MEDS: ASPIRIN 81 MG CHEWABLE TABLET PO SCH (07:56)
[2023-03-17] MEDS: FOLIC ACID/VIT B COMPLEX AND C TABLET PO SCH (07:56)
[2023-03-17] MEDS: DOCUSATE SODIUM 100 MG CAPSULE PO SCH ×2 (07:56→22:15)
[2023-03-17] MEDS: FAMOTIDINE 20 MG TABLET PO SCH (07:57)
[2023-03-17] MEDS: HEPARIN SODIUM,PORCINE 5,000 UNITS/ML VIAL SQ SCH ×2 (08:00→16:00)
[2023-03-17] MEDS: CARVEDILOL 12.5 MG TABLET PO SCH ×2 (09:00→22:15)
[2023-03-17] MEDS ORDERED: EPOETIN ALFA 10,000 UNITS/ML VIAL SQ SCH (09:00)
[2023-03-17] MEDS ORDERED: HYDROmorphone HCL 2 MG TABLET PO PRN (10:30)
[2023-03-17] MEDS: ONDANSETRON HCL 4 MG/2 ML VIAL IVP PRN (10:57)
[2023-03-17] MEDS: HYDROmorphone HCL 2 MG/ML SYRINGE IVP PRN (18:21)
[2023-03-17] MEDS ORDERED: SODIUM CHLORIDE 0.9% 0 ML ONE (18:22)
[2023-03-17] MEDS ORDERED: SODIUM CHLORIDE 0.9% 2,000 ML ONE (18:23)
[2023-03-17] MEDS: ZOLPIDEM TARTRATE 5 MG TABLET PO PRN (22:34)
[2023-03-18] MEDS: HYDROmorphone HCL 2 MG/ML SYRINGE IVP PRN ×2 (02:11→09:46)
[2023-03-18 04:00] VITALS: BP 115/60; PULSE 76; RESP 20; TEMP 97.8
[2023-03-18] MEDS: ONDANSETRON HCL 4 MG/2 ML VIAL IVP PRN ×2 (05:46→11:00)
[2023-03-18] MEDS: HEPARIN SODIUM,PORCINE 5,000 UNITS/ML VIAL SQ SCH ×2 (08:00)
[2023-03-18 08:02] VITALS: BP 118/62; PULSE 78; RESP 20; TEMP 98.2; O2SAT 96
[2023-03-18] MEDS: FOLIC ACID/VIT B COMPLEX AND C TABLET PO SCH (08:15)
[2023-03-18] MEDS: FAMOTIDINE 20 MG TABLET PO SCH (08:15)
[2023-03-18] MEDS: ASPIRIN 81 MG CHEWABLE TABLET PO SCH (08:15)
[2023-03-18] MEDS: DOCUSATE SODIUM 100 MG CAPSULE PO SCH (08:15)
[2023-03-18] MEDS ORDERED: SODIUM ZIRCONIUM CYCLOSILICATE 5 GM POWDER PACKET PO SCH (11:00)
[2023-03-18] MEDS ORDERED: FOLI0.8T2 PO (11:54)
[2023-03-18] MEDS ORDERED: SODI5POW3 PO (11:54)
[2023-03-18] MEDS ORDERED: CARV12 PO (11:54)
[2023-03-18] MEDS: CARVEDILOL 12.5 MG TABLET PO SCH (12:09)
[2023-03-18 18:27] LABS: GLUCOMETER DEV NAME(LOC) 6S.1B; GLUCOSE,POINT OF CARE 71 MG/DL (70-110)
== END 2023-03-18 12:45 | disposition home or self-care (01) | DRG 640 ==
LOC: EMS 04:33 → 5S 09:20 → 6S 03-17 13:09
PROVIDERS: ADMIT Internal Medicine; ATTEND Internal Medicine
PROC: 5A1D70Z Performance of Urinary Filtration, Intermittent, Less than 6 Hours Per Day (ICD-10-PCS; principal; 2023-03-16)
PROC: 5A1D70Z Performance of Urinary Filtration, Intermittent, Less than 6 Hours Per Day (ICD-10-PCS; 2023-03-17)
DX: E87.5 Hyperkalemia (principal); J96.91 Respiratory failure, unspecified with hypoxia; N18.6 End stage renal disease; F11.20 Opioid dependence, uncomplicated; I13.2 Hypertensive heart and chronic kidney disease with heart failure and with stage 5 chronic kidney disease, or end stage renal disease; I50.9 Heart failure, unspecified; D63.1 Anemia in chronic kidney disease; E10.22 Type 1 diabetes mellitus with diabetic chronic kidney disease; E10.65 Type 1 diabetes mellitus with hyperglycemia; E10.43 Type 1 diabetes mellitus with diabetic autonomic (poly)neuropathy; K31.84 Gastroparesis; Z99.2 Dependence on renal dialysis; Z91.199 Patient's noncompliance with other medical treatment and regimen due to unspecified reason; Z79.4 Long term (current) use of insulin; Z79.82 Long term (current) use of aspirin; Z79.899 Other long term (current) drug therapy; Z87.442 Personal history of urinary calculi; Z88.5 Allergy status to narcotic agent; Z91.013 Allergy to seafood
CPT/HCPCS: 71045; 80048; 80053; 82550; 82962; 83735; 83880; 84100; 84484; 85025; 87804; 90935; 93005; 94640; 99291; G0480; J0610; J0885; J1170; J1200; J1644; J2405; J7030; J7060; Q9967; 36415-L1; 36415-TC

== ENCOUNTER 2023-04-15 03:14 | Inpatient (IN) | payer MEDICARE, OTHER ==
[~2023-04-15] VITALS: Ht 182.9 cm; Wt 80.0 kg
[~2023-04-15 03:14] MED LIST changes: +CARV12 PO; -CARV6 PO; +FOLI0.8T2 PO; +SODI5POW3 PO
[2023-04-15 04:19] LABS: BASOPHILS % (AUTO) 2.2 % (0.0-2.0); EOSINOPHILS % (AUTO) 4.9 % (1.0-6.0); HEMATOCRIT 28.2 % (41-53); HEMOGLOBIN 9.4 g/dL (13.5-17.5); LYMPHOCYTES # (AUTO) 1.1 K/uL (1.0-4.8); LYMPHOCYTES % (AUTO) 22.6 % (22.0-44.0); MEAN CORPUSCULAR HEMOGLOBIN 33.5 pg (26.0-34.0); MEAN CORPUSCULAR HGB CONC 33.5 G/dL (31.0-37.0); MEAN CORPUSCULAR VOLUME 100 fL (80-100); MONOCYTES # (AUTO) 0.4 K/uL (0.1-1.0); MONOCYTES % (AUTO) 8.3 % (2.0-9.0); PLATELET COUNT (AUTO) 275 K/uL (150-450); RED BLOOD CELL COUNT(AUTO) 2.82 MIL/uL (4.50-5.90); RED CELL DISTRIBUTION WIDTH 16.2 % (11.5-14.5); WHITE BLOOD COUNT (AUTO) 4.8 K/uL (4.5-11.0)
[2023-04-15 04:28] LABS: CALCIUM, TOTAL 9.1 mg/dL (8.8-10.5); CREATININE 6.49 mg/dL (0.60-1.30); POTASSIUM 4.3 mmol/L (3.5-5.1)
[2023-04-15 04:36] LABS: TROPONIN I-HIGH SENSITIVITY 67 ng/L (<76)
[2023-04-15 04:40] LABS: ALBUMIN 3.1 g/dL (3.4-5.0); BILIRUBIN,TOTAL 0.5 mg/dL (0.1-1.0); TOTAL PROTEIN, SERUM 7.1 g/dL (6.4-8.2)
[2023-04-15] MEDS ORDERED: ACETAMINOPHEN 325 MG TABLET PO PRN ×2 (05:00→07:45)
[2023-04-15] MEDS ORDERED: ONDANSETRON HCL 4 MG/2 ML VIAL IVP PRN (05:00)
[2023-04-15 07:16] LABS: COVID AG,FIA SOURCE NASAL SWAB
[2023-04-15] MEDS ORDERED: INSULIN LISPRO 100 UNITS/ML SQ PRN (07:45)
[2023-04-15] MEDS ORDERED: HYDROmorphone HCL 2 MG/ML SYRINGE IVP PRN (07:45)
[2023-04-15] MEDS ORDERED: DEXTROSE 50%-WATER 25 GM/50 ML SYRINGE IVP PRN (07:45)
[2023-04-15 07:52] LABS: SARS-COV2 (COVID) ANTIGEN,FIA Negative (Negative)
[2023-04-15 10:19] VITALS: BP 175/91; PULSE 88; RESP 18; TEMP 98.2
[2023-04-15] MEDS: FAMOTIDINE 20 MG TABLET PO SCH (10:40)
[2023-04-15] MEDS: DOCUSATE SODIUM 100 MG CAPSULE PO SCH ×2 (10:40→21:05)
[2023-04-15] MEDS: AmLODIPine BESYLATE 10 MG TABLET PO SCH (10:40)
[2023-04-15] MEDS: HYDROmorphone HCL 2 MG/ML SYRINGE IVP PRN ×2 (14:15→20:41)
[2023-04-15 15:32] VITALS: BP 152/90; PULSE 92; RESP 18; TEMP 98
[2023-04-15 20:00] VITALS: BP 143/96; PULSE 99; RESP 18; TEMP 98.4
[2023-04-15] MEDS: ONDANSETRON HCL 4 MG/2 ML VIAL IVP PRN (21:43)
[2023-04-15] MEDS ORDERED: SODIUM CHLORIDE 0.9% 1,000 ML ONE (22:32)
[2023-04-15 23:00] VITALS: BP 140/76; PULSE 86; RESP 16; TEMP 97.8
[2023-04-15 23:15] VITALS: BP 138/77; PULSE 88; RESP 16
[2023-04-15 23:45] VITALS: BP 144/81; PULSE 90; RESP 16
[2023-04-16] VITALS (21 sets, daily range): BP systolic 133–158; BP diastolic 69–98; PULSE 87–102; RESP 16–20; TEMP 97.6–98.7
[2023-04-16] MEDS: HYDROmorphone HCL 2 MG/ML SYRINGE IVP PRN ×3 (03:18→13:29)
[2023-04-16] MEDS: ONDANSETRON HCL 4 MG/2 ML VIAL IVP PRN ×2 (09:08→16:13)
[2023-04-16] MEDS: DOCUSATE SODIUM 100 MG CAPSULE PO SCH ×2 (09:11→21:22)
[2023-04-16] MEDS: FAMOTIDINE 20 MG TABLET PO SCH (09:11)
[2023-04-16] MEDS: AmLODIPine BESYLATE 10 MG TABLET PO SCH (09:12)
[2023-04-16] MEDS: SEVELAMER CARBONATE 800 MG TABLET PO SCH ×2 (11:47→17:51)
[2023-04-16] MEDS ORDERED: SEVELAMER CARBONATE 800 MG TABLET PO SCH (12:00)
[2023-04-16] MEDS ORDERED: SODIUM CHLORIDE 0.9% 1,000 ML ONE (16:05)
[2023-04-16] MEDS ORDERED: SODIUM CHLORIDE 0.9% 2,000 ML ONE (16:29)
[2023-04-17 00:15] VITALS: BP 142/82; PULSE 96; RESP 18; TEMP 98.9
[2023-04-17] MEDS: HYDROmorphone HCL 2 MG/ML SYRINGE IVP PRN ×4 (00:15→13:01)
[2023-04-17] MEDS: ONDANSETRON HCL 4 MG/2 ML VIAL IVP PRN ×2 (02:52→08:54)
[2023-04-17 04:17] VITALS: BP 143/84; PULSE 101; RESP 18; TEMP 99.4
[2023-04-17 08:17] VITALS: BP 148/100; PULSE 105; RESP 18; TEMP 98.7
[2023-04-17] MEDS: DOCUSATE SODIUM 100 MG CAPSULE PO SCH (08:53)
[2023-04-17] MEDS: FAMOTIDINE 20 MG TABLET PO SCH (08:53)
[2023-04-17] MEDS: AmLODIPine BESYLATE 10 MG TABLET PO SCH (08:53)
[2023-04-17] MEDS: SEVELAMER CARBONATE 800 MG TABLET PO SCH ×2 (08:53→11:49)
[2023-04-17 11:38] VITALS: BP 147/91; PULSE 106; RESP 18; TEMP 99.4
[2023-04-17] MEDS ORDERED: CARVEDILOL 12.5 MG TABLET PO SCH (11:45)
[2023-04-17] MEDS ORDERED: AMLO-258 PO (11:48)
[2023-04-18] MEDS ORDERED: EPOETIN ALFA 10,000 UNITS/ML 2 ML VIAL SQ SCH (09:00)
== END 2023-04-17 13:45 | disposition home or self-care (01) | DRG 640 ==
LOC: EMS 03:15 → AHU 04:51 → 5S 06:35
PROVIDERS: ADMIT Internal Medicine; ATTEND Internal Medicine
PROC: 5A1D70Z Performance of Urinary Filtration, Intermittent, Less than 6 Hours Per Day (ICD-10-PCS; principal; 2023-04-15)
PROC: 5A1D70Z Performance of Urinary Filtration, Intermittent, Less than 6 Hours Per Day (ICD-10-PCS; 2023-04-16)
DX: E87.70 Fluid overload, unspecified (principal); N18.6 End stage renal disease; I13.2 Hypertensive heart and chronic kidney disease with heart failure and with stage 5 chronic kidney disease, or end stage renal disease; E10.43 Type 1 diabetes mellitus with diabetic autonomic (poly)neuropathy; E10.22 Type 1 diabetes mellitus with diabetic chronic kidney disease; G89.29 Other chronic pain; I50.9 Heart failure, unspecified; Z20.822 Contact with and (suspected) exposure to COVID-19; D63.1 Anemia in chronic kidney disease; K31.84 Gastroparesis; Z91.013 Allergy to seafood; Z88.5 Allergy status to narcotic agent; Z79.4 Long term (current) use of insulin; Z79.899 Other long term (current) drug therapy; Z79.82 Long term (current) use of aspirin; Z87.891 Personal history of nicotine dependence; Z99.2 Dependence on renal dialysis; Z87.442 Personal history of urinary calculi
CPT/HCPCS: 71045; 80053; 82550; 83880; 84484; 85025; 87081; 87340; 90935; 93005; 99285; G0378; J1170; J2405; J7030; 36415-L1; 36415-TC

== ENCOUNTER 2023-06-07 20:43 | Inpatient (IN) | payer MEDICARE, OTHER ==
[~2023-06-07] VITALS: Ht 182.9 cm; Wt 84.2 kg
[~2023-06-07 20:43] MED LIST changes: +AMLO-258 PO; -SEVE800T17 PO; +SEVE800T38 PO; -SODI5POW3 PO
[2023-06-07 21:41] LABS: GLUCOMETER DEV NAME(LOC) ER.6; GLUCOSE,POINT OF CARE 160 MG/DL (70-110)
[2023-06-07 21:48] LABS: BASOPHILS % (AUTO) 1.5 % (0.0-2.0); LYMPHOCYTES # (AUTO) 1.2 K/uL (1.0-4.8); LYMPHOCYTES % (AUTO) 13.8 % (22.0-44.0); MEAN CORPUSCULAR HEMOGLOBIN 33.7 pg (26.0-34.0); MEAN CORPUSCULAR HGB CONC 34.5 G/dL (31.0-37.0); MEAN CORPUSCULAR VOLUME 98 fL (80-100); MONOCYTES # (AUTO) 0.6 K/uL (0.1-1.0); MONOCYTES % (AUTO) 7.2 % (2.0-9.0); NEUTROPHILS # (AUTO) 6.1 K/uL (1.8-7.7); NEUTROPHILS % (AUTO) 71.5 % (40.0-70.0); PLATELET COUNT (AUTO) 251 K/uL (150-450); RED BLOOD CELL COUNT(AUTO) 2.97 MIL/uL (4.50-5.90); RED CELL DISTRIBUTION WIDTH 16.8 % (11.5-14.5); WHITE BLOOD COUNT (AUTO) 8.5 K/uL (4.5-11.0)
[2023-06-07 21:52] LABS: CALCIUM, TOTAL 9.2 mg/dL (8.8-10.5); CREATININE 7.74 mg/dL (0.60-1.30); POTASSIUM 5.4 mmol/L (3.5-5.1)
[2023-06-07 21:57] LABS: PROTHROMBIN TIME 10.9 SEC (9.4-11.6)
[2023-06-07 22:03] LABS: ALBUMIN 3.4 g/dL (3.4-5.0); BILIRUBIN,TOTAL 0.5 mg/dL (0.1-1.0); TOTAL PROTEIN, SERUM 7.1 g/dL (6.4-8.2)
[2023-06-07 22:05] LABS: TROPONIN I-HIGH SENSITIVITY 82 ng/L (<76)
[2023-06-07 22:41] LABS: COVID AG,FIA SOURCE NASAL SWAB
[2023-06-07 22:45] LABS: SARS-COV2 (COVID) ANTIGEN,FIA Negative (Negative)
[2023-06-07] MEDS ORDERED: ALBUTEROL SULFATE 2.5 MG/0.5 ML NEB SOLUTION NEB PRN (23:00)
[2023-06-07] MEDS ORDERED: BISACODYL 10 MG RECTAL RECTAL SUPPOSITORY PR PRN (23:00)
[2023-06-07] MEDS ORDERED: ZOLPIDEM TARTRATE 5 MG TABLET PO PRN (23:00)
[2023-06-07] MEDS ORDERED: IPRATROPIUM BROMIDE 0.5 MG/2.5 ML NEB SOLUTION NEB PRN (23:00)
[2023-06-07] MEDS ORDERED: MAGNESIUM HYDROXIDE SUSPENSION 30 ML UDCUP PO PRN (23:00)
[2023-06-07] MEDS ORDERED: ACETAMINOPHEN 325 MG TABLET PO PRN (23:00)
[2023-06-07] MEDS: HydrALAZINE HCL 25 MG TABLET PO SCH (23:27)
[2023-06-08] VITALS (15 sets, daily range): BP systolic 111–169; BP diastolic 64–106; PULSE 76–101; RESP 17–19; TEMP 97.6–98
[2023-06-08] MEDS: HYDROmorphone HCL 2 MG/ML SYRINGE IVP PRN ×5 (00:09→21:31)
[2023-06-08] MEDS: ONDANSETRON HCL 4 MG/2 ML VIAL IVP PRN ×4 (04:08→23:49)
[2023-06-08] MEDS ORDERED: PANTOPRAZOLE SODIUM 40 MG DR TABLET PO SCH (06:30)
[2023-06-08] MEDS: HEPARIN SODIUM,PORCINE 5,000 UNITS/ML VIAL SQ SCH ×3 (08:00→16:00)
[2023-06-08] MEDS: DOCUSATE SODIUM 100 MG CAPSULE PO SCH ×2 (08:11→21:30)
[2023-06-08] MEDS: AmLODIPine BESYLATE 10 MG TABLET PO SCH (08:11)
[2023-06-08] MEDS: CINACALCET HCL 30 MG TABLET PO SCH (08:11)
[2023-06-08] MEDS: CARVEDILOL 12.5 MG TABLET PO SCH ×2 (08:13→21:30)
[2023-06-08] MEDS: HydrALAZINE HCL 25 MG TABLET PO SCH ×2 (08:13→16:00)
[2023-06-08] MEDS: SEVELAMER CARBONATE 800 MG TABLET PO SCH ×3 (08:13→18:01)
[2023-06-08] MEDS: ASPIRIN 81 MG CHEWABLE TABLET PO SCH (08:14)
[2023-06-08] MEDS: ISOSORBIDE DINITRATE 10 MG TABLET PO SCH ×3 (08:14→21:31)
[2023-06-08] MEDS: FOLIC ACID/VIT B COMPLEX AND C TABLET PO SCH (08:14)
[2023-06-08] MEDS: PANTOPRAZOLE SODIUM 40 MG/VIAL IVP SCH (08:15)
[2023-06-08] MEDS ORDERED: SODIUM CHLORIDE 0.9% 1,000 ML ONE ×2 (17:23)
[2023-06-09] VITALS (18 sets, daily range): BP systolic 121–195; BP diastolic 58–98; PULSE 75–102; RESP 17–19; TEMP 97.2–98.5
[2023-06-09] MEDS: HydrALAZINE HCL 25 MG TABLET PO SCH ×3 (00:10→15:38)
[2023-06-09] MEDS: HYDROmorphone HCL 2 MG/ML SYRINGE IVP PRN ×5 (01:32→19:37)
[2023-06-09] MEDS: HEPARIN SODIUM,PORCINE 5,000 UNITS/ML VIAL SQ SCH ×3 (08:00→15:44)
[2023-06-09] MEDS: ISOSORBIDE DINITRATE 10 MG TABLET PO SCH ×3 (09:00→21:47)
[2023-06-09] MEDS: AmLODIPine BESYLATE 10 MG TABLET PO SCH (09:00)
[2023-06-09] MEDS: CARVEDILOL 12.5 MG TABLET PO SCH ×2 (09:00→20:37)
[2023-06-09] MEDS ORDERED: EPOETIN ALFA 10,000 UNITS/ML 2 ML VIAL SQ SCH (09:00)
[2023-06-09] MEDS: DOCUSATE SODIUM 100 MG CAPSULE PO SCH ×2 (09:37→20:37)
[2023-06-09] MEDS: FOLIC ACID/VIT B COMPLEX AND C TABLET PO SCH (09:37)
[2023-06-09] MEDS: SEVELAMER CARBONATE 800 MG TABLET PO SCH ×3 (09:37→17:00)
[2023-06-09] MEDS: ASPIRIN 81 MG CHEWABLE TABLET PO SCH (09:38)
[2023-06-09] MEDS: PANTOPRAZOLE SODIUM 40 MG/VIAL IVP SCH (09:53)
[2023-06-09] MEDS: CINACALCET HCL 30 MG TABLET PO SCH (09:54)
[2023-06-09 18:31] LABS: GLUCOMETER DEV NAME(LOC) 5N.1C; GLUCOSE,POINT OF CARE 130 MG/DL (70-110)
[2023-06-10] VITALS (12 sets, daily range): BP systolic 128–158; BP diastolic 58–92; PULSE 75–85; RESP 16–20; TEMP 98–98.3
[2023-06-10] MEDS: HydrALAZINE HCL 25 MG TABLET PO SCH ×2 (00:43→08:00)
[2023-06-10] MEDS: HYDROmorphone HCL 2 MG/ML SYRINGE IVP PRN ×2 (00:44→06:55)
[2023-06-10] MEDS: HEPARIN SODIUM,PORCINE 5,000 UNITS/ML VIAL SQ SCH ×2 (08:00)
[2023-06-10] MEDS: ISOSORBIDE DINITRATE 10 MG TABLET PO SCH (08:50)
[2023-06-10] MEDS: ASPIRIN 81 MG CHEWABLE TABLET PO SCH (08:50)
[2023-06-10] MEDS: DOCUSATE SODIUM 100 MG CAPSULE PO SCH (08:50)
[2023-06-10] MEDS: CARVEDILOL 12.5 MG TABLET PO SCH (08:50)
[2023-06-10] MEDS: CINACALCET HCL 30 MG TABLET PO SCH (08:50)
[2023-06-10] MEDS: SEVELAMER CARBONATE 800 MG TABLET PO SCH ×2 (08:51→12:24)
[2023-06-10] MEDS: PANTOPRAZOLE SODIUM 40 MG/VIAL IVP SCH (08:51)
[2023-06-10] MEDS: AmLODIPine BESYLATE 10 MG TABLET PO SCH (08:52)
[2023-06-10] MEDS: FOLIC ACID/VIT B COMPLEX AND C TABLET PO SCH (09:29)
[2023-06-10 12:15] LABS: BASOPHILS % (AUTO) 2.6 % (0.0-2.0); EOSINOPHILS % (AUTO) 9.3 % (1.0-6.0); HEMOGLOBIN 10.2 g/dL (13.5-17.5); LYMPHOCYTES # (AUTO) 1.2 K/uL (1.0-4.8); LYMPHOCYTES % (AUTO) 21.8 % (22.0-44.0); MEAN CORPUSCULAR HEMOGLOBIN 33.3 pg (26.0-34.0); MEAN CORPUSCULAR HGB CONC 34.2 G/dL (31.0-37.0); MEAN CORPUSCULAR VOLUME 98 fL (80-100); MONOCYTES # (AUTO) 0.4 K/uL (0.1-1.0); MONOCYTES % (AUTO) 6.7 % (2.0-9.0); NEUTROPHILS # (AUTO) 3.2 K/uL (1.8-7.7); NEUTROPHILS % (AUTO) 59.6 % (40.0-70.0); PLATELET COUNT (AUTO) 250 K/uL (150-450); RED BLOOD CELL COUNT(AUTO) 3.07 MIL/uL (4.50-5.90); RED CELL DISTRIBUTION WIDTH 16.3 % (11.5-14.5); WHITE BLOOD COUNT (AUTO) 5.3 K/uL (4.5-11.0)
[2023-06-10 12:25] LABS: CALCIUM, TOTAL 8.6 mg/dL (8.8-10.5); CREATININE 4.85 mg/dL (0.60-1.30); POTASSIUM 4.7 mmol/L (3.5-5.1)
[2023-06-10 12:31] LABS: ALBUMIN 3.4 g/dL (3.4-5.0); BILIRUBIN,TOTAL 0.5 mg/dL (0.1-1.0); TOTAL PROTEIN, SERUM 7.4 g/dL (6.4-8.2)
[2023-06-11 06:26] LABS: GLUCOMETER DEV NAME(LOC) 5N.1C; GLUCOSE,POINT OF CARE 330 MG/DL (70-110)
[2023-06-11 06:27] LABS: GLUCOMETER DEV NAME(LOC) 5N.1C; GLUCOSE,POINT OF CARE 138 MG/DL (70-110)
== END 2023-06-10 15:20 | disposition home health service (06) | DRG 640 ==
LOC: EMS 20:44 → 5N 06-08 00:13
PROVIDERS: ADMIT Hospitalist; ATTEND Hospitalist
PROC: 5A1D70Z Performance of Urinary Filtration, Intermittent, Less than 6 Hours Per Day (ICD-10-PCS; principal; 2023-06-08)
PROC: 5A1D70Z Performance of Urinary Filtration, Intermittent, Less than 6 Hours Per Day (ICD-10-PCS; 2023-06-09)
PROC: 5A1D70Z Performance of Urinary Filtration, Intermittent, Less than 6 Hours Per Day (ICD-10-PCS; 2023-06-10)
DX: E87.70 Fluid overload, unspecified (principal); N18.6 End stage renal disease; Z99.2 Dependence on renal dialysis; D63.1 Anemia in chronic kidney disease; I11.0 Hypertensive heart disease with heart failure; E10.43 Type 1 diabetes mellitus with diabetic autonomic (poly)neuropathy; E10.22 Type 1 diabetes mellitus with diabetic chronic kidney disease; I50.9 Heart failure, unspecified; Z20.822 Contact with and (suspected) exposure to COVID-19; G89.4 Chronic pain syndrome; K31.84 Gastroparesis; Z79.899 Other long term (current) drug therapy; Z87.442 Personal history of urinary calculi; Z87.891 Personal history of nicotine dependence; Z87.01 Personal history of pneumonia (recurrent); Z88.6 Allergy status to analgesic agent; Z91.013 Allergy to seafood; Z91.018 Allergy to other foods; Z79.82 Long term (current) use of aspirin
CPT/HCPCS: 71045; 80053; 82550; 82962; 83880; 84484; 85025; 85610; 85730; 87081; 87340; 90935; 93005; 99291; C9113; J0885; J1170; J1644; J2405; J7030; 36415-L1; 36415-TC

== ENCOUNTER 2023-11-09 20:59 | Inpatient (IN) | payer MEDICARE, OTHER ==
[~2023-11-09] VITALS: Ht 182.9 cm; Wt 83.5 kg
[~2023-11-09 20:59] MED LIST changes: +ASPI-1450 PO; -ASPI81 PO; -FOLI0.8T2 PO; +FOLI0.8T54 PO; -ISOS10TA16 PO
[2023-11-09 22:19] LABS: EOSINOPHILS % (AUTO) 8.1 % (1.0-6.0); HEMATOCRIT 29.3 % (41-53); HEMOGLOBIN 9.9 g/dL (13.5-17.5); LYMPHOCYTES # (AUTO) 1.1 K/uL (1.0-4.8); LYMPHOCYTES % (AUTO) 17.5 % (22.0-44.0); MEAN CORPUSCULAR HEMOGLOBIN 33.1 pg (26.0-34.0); MEAN CORPUSCULAR HGB CONC 33.6 G/dL (31.0-37.0); MEAN CORPUSCULAR VOLUME 98 fL (80-100); MONOCYTES # (AUTO) 0.7 K/uL (0.1-1.0); MONOCYTES % (AUTO) 11.1 % (2.0-9.0); NEUTROPHILS # (AUTO) 3.9 K/uL (1.8-7.7); NEUTROPHILS % (AUTO) 62.3 % (40.0-70.0); PLATELET COUNT (AUTO) 278 K/uL (150-450); RED BLOOD CELL COUNT(AUTO) 2.98 MIL/uL (4.50-5.90); RED CELL DISTRIBUTION WIDTH 16.5 % (11.5-14.5); WHITE BLOOD COUNT (AUTO) 6.3 K/uL (4.5-11.0)
[2023-11-09 22:31] LABS: ALBUMIN 2.8 g/dL (3.4-5.0); BILIRUBIN,TOTAL 0.4 mg/dL (0.1-1.0); CALCIUM, TOTAL 8.2 mg/dL (8.8-10.5); CREATININE 8.88 mg/dL (0.60-1.30); TOTAL PROTEIN, SERUM 6.7 g/dL (6.4-8.2)
[2023-11-09 22:40] LABS: POTASSIUM 8.7 mmol/L (3.5-5.1); TROPONIN I-HIGH SENSITIVITY 102 ng/L (<76)
[2023-11-09 23:18] LABS: COVID AG,FIA SOURCE NASAL SWAB
[2023-11-09] MEDS: ONDANSETRON HCL 4 MG/2 ML VIAL IVP ONE (23:23)
[2023-11-09] MEDS: DiphenhydrAMINE HCL 50 MG/ML VIAL IVP ONE (23:23)
[2023-11-09] MEDS: MORPHINE SULFATE 2 MG/ML SYRINGE IVP ONE (23:24)
[2023-11-09] MEDS ORDERED: BISACODYL 10 MG RECTAL RECTAL SUPPOSITORY PR PRN (23:30)
[2023-11-09] MEDS ORDERED: ACETAMINOPHEN 325 MG TABLET PO PRN (23:30)
[2023-11-09] MEDS ORDERED: MAGNESIUM HYDROXIDE SUSPENSION 30 ML UDCUP PO PRN (23:30)
[2023-11-09 23:38] LABS: SARS-COV2 (COVID) ANTIGEN,FIA Negative (Negative)
[2023-11-10] VITALS (16 sets, daily range): BP systolic 128–178; BP diastolic 54–102; PULSE 75–92; RESP 17–24; TEMP 97.5–98.4; O2SAT 98
[2023-11-10] MEDS: HydrALAZINE HCL 25 MG TABLET PO SCH
[2023-11-10] MEDS: HEPARIN SODIUM,PORCINE 5,000 UNITS/ML VIAL SQ SCH
[2023-11-10] MEDS: DEXTROSE 50%-WATER 25 GM/50 ML SYRINGE IVP ONE (00:12)
[2023-11-10] MEDS: CALCIUM GLUCONATE 1,000 MG in DEXTROSE 5%-WATER 50 ML IV ONE (00:12)
[2023-11-10] MEDS: INSULIN REGULAR, HUMAN 100 UNITS/ML IVP ONE (00:16)
[2023-11-10] MEDS: SODIUM ZIRCONIUM CYCLOSILICATE 5 GM POWDER PACKET PO ONE (01:00)
[2023-11-10] MEDS: ALBUTEROL SULFATE 2.5 MG/0.5 ML 5 ML NEB SOLUTION NEB ONE (01:03)
[2023-11-10 01:36] LABS: GLUCOMETER DEV NAME(LOC) ERT.5; GLUCOSE,POINT OF CARE 286 MG/DL (70-110)
[2023-11-10 02:41] LABS: GLUCOMETER DEV NAME(LOC) ER.7; GLUCOSE,POINT OF CARE 170 MG/DL (70-110)
[2023-11-10] MEDS: MORPHINE SULFATE 2 MG/ML SYRINGE IVP ONE (03:19)
[2023-11-10 03:23] LABS: TROPONIN I-HIGH SENSITIVITY 106 ng/L (<76)
[2023-11-10 03:40] LABS: GLUCOMETER DEV NAME(LOC) ER.7; GLUCOSE,POINT OF CARE 124 MG/DL (70-110)
[2023-11-10 04:31] LABS: GLUCOMETER DEV NAME(LOC) ER.7; GLUCOSE,POINT OF CARE 96 MG/DL (70-110)
[2023-11-10 05:30] LABS: GLUCOMETER DEV NAME(LOC) ER.7; GLUCOSE,POINT OF CARE 79 MG/DL (70-110)
[2023-11-10 06:35] LABS: GLUCOMETER DEV NAME(LOC) ER.7; GLUCOSE,POINT OF CARE 134 MG/DL (70-110)
[2023-11-10 08:14] LABS: BASOPHILS % (AUTO) 2.5 % (0.0-2.0); EOSINOPHILS % (AUTO) 6.4 % (1.0-6.0); HEMATOCRIT 30.3 % (41-53); HEMOGLOBIN 10.1 g/dL (13.5-17.5); LYMPHOCYTES # (AUTO) 1.1 K/uL (1.0-4.8); LYMPHOCYTES % (AUTO) 16.2 % (22.0-44.0); MEAN CORPUSCULAR HEMOGLOBIN 33.2 pg (26.0-34.0); MEAN CORPUSCULAR HGB CONC 33.4 G/dL (31.0-37.0); MEAN CORPUSCULAR VOLUME 100 fL (80-100); MONOCYTES # (AUTO) 0.7 K/uL (0.1-1.0); MONOCYTES % (AUTO) 10.7 % (2.0-9.0); NEUTROPHILS # (AUTO) 4.3 K/uL (1.8-7.7); NEUTROPHILS % (AUTO) 64.2 % (40.0-70.0); PLATELET COUNT (AUTO) 270 K/uL (150-450); RED BLOOD CELL COUNT(AUTO) 3.04 MIL/uL (4.50-5.90); RED CELL DISTRIBUTION WIDTH 16.1 % (11.5-14.5); WHITE BLOOD COUNT (AUTO) 6.7 K/uL (4.5-11.0)
[2023-11-10 08:20] LABS: CALCIUM, TOTAL 9.1 mg/dL (8.8-10.5); CREATININE 5.34 mg/dL (0.60-1.30); POTASSIUM 4.1 mmol/L (3.5-5.1)
[2023-11-10] MEDS: DOCUSATE SODIUM 100 MG CAPSULE PO SCH (09:00)
[2023-11-10] MEDS: CINACALCET HCL 30 MG TABLET PO SCH (09:14)
[2023-11-10] MEDS: PANTOPRAZOLE SODIUM 40 MG DR TABLET PO SCH (09:14)
[2023-11-10] MEDS: AmLODIPine BESYLATE 10 MG TABLET PO SCH (09:16)
[2023-11-10] MEDS: ASPIRIN 81 MG CHEWABLE TABLET PO SCH (09:16)
[2023-11-10] MEDS: CARVEDILOL 12.5 MG TABLET PO SCH (11:52)
[2023-11-10] MEDS: SEVELAMER CARBONATE 800 MG TABLET PO SCH (11:53)
[2023-11-11] VITALS (14 sets, daily range): BP systolic 143–185; BP diastolic 73–94; PULSE 81–91; RESP 17–20; TEMP 97.2–98.4
[2023-11-11 07:02] LABS: CREATININE 7.68 mg/dL (0.60-1.30); POTASSIUM 5.9 mmol/L (3.5-5.1)
[2023-11-11 07:04] LABS: BASOPHILS % (AUTO) 1.2 % (0.0-2.0); EOSINOPHILS % (AUTO) 5.2 % (1.0-6.0); HEMATOCRIT 29.7 % (41-53); LYMPHOCYTES # (AUTO) 1.2 K/uL (1.0-4.8); LYMPHOCYTES % (AUTO) 18.8 % (22.0-44.0); MEAN CORPUSCULAR HEMOGLOBIN 33.4 pg (26.0-34.0); MEAN CORPUSCULAR HGB CONC 33.7 G/dL (31.0-37.0); MEAN CORPUSCULAR VOLUME 99 fL (80-100); MONOCYTES # (AUTO) 0.6 K/uL (0.1-1.0); MONOCYTES % (AUTO) 9.9 % (2.0-9.0); NEUTROPHILS # (AUTO) 4.1 K/uL (1.8-7.7); NEUTROPHILS % (AUTO) 64.9 % (40.0-70.0); PLATELET COUNT (AUTO) 261 K/uL (150-450); WHITE BLOOD COUNT (AUTO) 6.3 K/uL (4.5-11.0)
[2023-11-11 07:25] LABS: GLUCOMETER DEV NAME(LOC) 5S.2D; GLUCOSE,POINT OF CARE 105 MG/DL (70-110)
[2023-11-11 07:25] LABS: GLUCOMETER DEV NAME(LOC) 5S.2D; GLUCOSE,POINT OF CARE 31 MG/DL (70-110)
[2023-11-11 12:15] LABS: HEMOGLOBIN A1C 7.5 % (3.8-5.6)
[2023-11-11] MEDS: HYDROmorphone HCL 2 MG/ML SYRINGE IVP PRN (12:22)
[2023-11-11 14:16] LABS: GLUCOMETER DEV NAME(LOC) 5N.2C; GLUCOSE,POINT OF CARE 205 MG/DL (70-110)
[2023-11-11 21:06] LABS: GLUCOMETER DEV NAME(LOC) 5S.2D; GLUCOSE,POINT OF CARE 280 MG/DL (70-110)
[2023-11-11 21:06] LABS: GLUCOMETER DEV NAME(LOC) 5S.2D; GLUCOSE,POINT OF CARE 46 MG/DL (70-110)
[2023-11-11] MEDS: ATORVASTATIN CALCIUM 20 MG TABLET PO SCH (21:23)
[2023-11-11 22:15] LABS: GLUCOMETER DEV NAME(LOC) 5N.1D; GLUCOSE,POINT OF CARE 107 MG/DL (70-110)
[2023-11-12] VITALS (16 sets, daily range): BP systolic 134–182; BP diastolic 74–100; PULSE 79–100; RESP 17–19; TEMP 97.5–98.7
[2023-11-12 05:26] LABS: GLUCOMETER DEV NAME(LOC) 5S.1B; GLUCOSE,POINT OF CARE 51 MG/DL (70-110)
[2023-11-12 06:48] LABS: BASOPHILS % (AUTO) 3.5 % (0.0-2.0); EOSINOPHILS % (AUTO) 9.2 % (1.0-6.0); HEMATOCRIT 29.3 % (41-53); HEMOGLOBIN 9.9 g/dL (13.5-17.5); LYMPHOCYTES # (AUTO) 1.1 K/uL (1.0-4.8); LYMPHOCYTES % (AUTO) 20.5 % (22.0-44.0); MEAN CORPUSCULAR HGB CONC 33.8 G/dL (31.0-37.0); MEAN CORPUSCULAR VOLUME 98 fL (80-100); MONOCYTES # (AUTO) 0.4 K/uL (0.1-1.0); NEUTROPHILS # (AUTO) 3.1 K/uL (1.8-7.7); NEUTROPHILS % (AUTO) 58.8 % (40.0-70.0); PLATELET COUNT (AUTO) 269 K/uL (150-450); RED BLOOD CELL COUNT(AUTO) 2.99 MIL/uL (4.50-5.90); WHITE BLOOD COUNT (AUTO) 5.3 K/uL (4.5-11.0)
[2023-11-12 06:55] LABS: CREATININE 5.25 mg/dL (0.60-1.30); POTASSIUM 5.1 mmol/L (3.5-5.1)
[2023-11-12 06:56] LABS: GLUCOMETER DEV NAME(LOC) 5S.2D; GLUCOSE,POINT OF CARE 115 MG/DL (70-110)
[2023-11-12] MEDS ORDERED: ATOR20TA65 PO (10:06)
[2023-11-12 11:25] LABS: GLUCOMETER DEV NAME(LOC) 5S.2D; GLUCOSE,POINT OF CARE 208 MG/DL (70-110)
[2023-11-12 20:36] LABS: GLUCOMETER DEV NAME(LOC) 5N.2C; GLUCOSE,POINT OF CARE 153 MG/DL (70-110)
[2023-11-12 21:40] LABS: GLUCOMETER DEV NAME(LOC) 5S.2D; GLUCOSE,POINT OF CARE 198 MG/DL (70-110)
[2023-11-13] VITALS (19 sets, daily range): BP systolic 120–176; BP diastolic 73–108; PULSE 78–94; RESP 16–20; TEMP 93.2–98.3; O2SAT 97
[2023-11-13] MEDS: ZOLPIDEM TARTRATE 5 MG TABLET PO PRN (00:10)
[2023-11-13 07:56] LABS: GLUCOMETER DEV NAME(LOC) 5N.2C; GLUCOSE,POINT OF CARE 64 MG/DL (70-110)
[2023-11-13] MEDS: EPOETIN ALFA 10,000 UNITS/ML 2 ML VIAL SQ SCH (09:17)
[2023-11-13 12:21] LABS: GLUCOMETER DEV NAME(LOC) 5S.2D; GLUCOSE,POINT OF CARE 70 MG/DL (70-110)
[2023-11-13] MEDS ORDERED: SODIUM CHLORIDE 0.9% 2,000 ML ONE (14:38)
[2023-11-13] MEDS: ONDANSETRON HCL 4 MG/2 ML VIAL IVP PRN (15:13)
[2023-11-13 20:36] LABS: GLUCOMETER DEV NAME(LOC) 5N.2C; GLUCOSE,POINT OF CARE 166 MG/DL (70-110)
[2023-11-13 22:35] LABS: TROPONIN I-HIGH SENSITIVITY 81 ng/L (<76)
[2023-11-14] VITALS (12 sets, daily range): BP systolic 95–176; BP diastolic 58–98; PULSE 78–98; RESP 18–20; TEMP 97.6–98.2
[2023-11-14 01:10] LABS: GLUCOMETER DEV NAME(LOC) 5N.2C; GLUCOSE,POINT OF CARE 257 MG/DL (70-110)
[2023-11-14 03:11] LABS: TROPONIN I-HIGH SENSITIVITY 80 ng/L (<76)
[2023-11-14 08:20] LABS: GLUCOMETER DEV NAME(LOC) 5S.2D; GLUCOSE,POINT OF CARE 187 MG/DL (70-110)
[2023-11-14 08:20] LABS: GLUCOMETER DEV NAME(LOC) 5S.2D; GLUCOSE,POINT OF CARE 39 MG/DL (70-110)
[2023-11-14 08:20] LABS: GLUCOMETER DEV NAME(LOC) 5S.2D; GLUCOSE,POINT OF CARE 144 MG/DL (70-110)
[2023-11-14 08:35] LABS: GLUCOMETER DEV NAME(LOC) 5N.2C; GLUCOSE,POINT OF CARE 47 MG/DL (70-110)
[2023-11-14] MEDS ORDERED: SODIUM CHLORIDE 0.9% 2,000 ML ONE (09:02)
== END 2023-11-14 13:43 | disposition home or self-care (01) | DRG 640 ==
LOC: EMS 20:59 → EDH 11-10 00:15 → 5S 11-10 11:23
PROVIDERS: ADMIT Internal Medicine; ATTEND Internal Medicine
PROC: 5A1D70Z Performance of Urinary Filtration, Intermittent, Less than 6 Hours Per Day (ICD-10-PCS; principal; 2023-11-10)
PROC: 5A1D70Z Performance of Urinary Filtration, Intermittent, Less than 6 Hours Per Day (ICD-10-PCS; 2023-11-11)
PROC: 5A1D70Z Performance of Urinary Filtration, Intermittent, Less than 6 Hours Per Day (ICD-10-PCS; 2023-11-12)
PROC: 5A1D70Z Performance of Urinary Filtration, Intermittent, Less than 6 Hours Per Day (ICD-10-PCS; 2023-11-13)
PROC: 5A1D70Z Performance of Urinary Filtration, Intermittent, Less than 6 Hours Per Day (ICD-10-PCS; 2023-11-14)
DX: E87.5 Hyperkalemia (principal); I50.31 Acute diastolic (congestive) heart failure; N18.6 End stage renal disease; I13.2 Hypertensive heart and chronic kidney disease with heart failure and with stage 5 chronic kidney disease, or end stage renal disease; F11.20 Opioid dependence, uncomplicated; N25.81 Secondary hyperparathyroidism of renal origin; Z99.2 Dependence on renal dialysis; E78.5 Hyperlipidemia, unspecified; E10.22 Type 1 diabetes mellitus with diabetic chronic kidney disease; Z96.41 Presence of insulin pump (external) (internal); Z20.822 Contact with and (suspected) exposure to COVID-19; E10.649 Type 1 diabetes mellitus with hypoglycemia without coma; D63.1 Anemia in chronic kidney disease; Z91.148 Patient's other noncompliance with medication regimen for other reason; F19.10 Other psychoactive substance abuse, uncomplicated; Z79.82 Long term (current) use of aspirin; Z79.899 Other long term (current) drug therapy; Z86.16 Personal history of COVID-19; Z88.5 Allergy status to narcotic agent; Z91.013 Allergy to seafood; Z91.018 Allergy to other foods; Z87.891 Personal history of nicotine dependence; Z87.442 Personal history of urinary calculi; Z79.4 Long term (current) use of insulin; Z91.199 Patient's noncompliance with other medical treatment and regimen due to unspecified reason
CPT/HCPCS: 70450; 71045; 72125; 80048; 80053; 82948; 82962; 83036; 83880; 84484; 85025; 87340; 90935; 93005; 94640; 99285; G0378; J0610; J0885; J1170; J1200; J1644; J1815; J2270; J2405; J7030; J7060; Q9967; 36415-L1; 36415-TC

== ENCOUNTER 2024-01-29 17:10 | Inpatient (IN) | payer MEDICARE, OTHER ==
[~2024-01-29] VITALS: Ht 182.9 cm; Wt 74.7 kg
[~2024-01-29 17:10] MED LIST changes: +ASPI-1444 PO; -ASPI-1450 PO; +ATOR20TA65 PO; -CARV12 PO; +CARV25 PO; +ISOS30TA92 PO; +METO5TAB95 PO; +ONDA-245 SL; +SODI5POW3 PO
[2024-01-29 18:47] LABS: EOSINOPHILS % (AUTO) 1.1 % (1.0-6.0); HEMOGLOBIN 14.7 g/dL (13.5-17.5); LYMPHOCYTES # (AUTO) 1.1 K/uL (1.0-4.8); LYMPHOCYTES % (AUTO) 14.5 % (22.0-44.0); MEAN CORPUSCULAR HEMOGLOBIN 33.1 pg (26.0-34.0); MEAN CORPUSCULAR HGB CONC 33.3 G/dL (31.0-37.0); MEAN CORPUSCULAR VOLUME 99 fL (80-100); MONOCYTES # (AUTO) 0.9 K/uL (0.1-1.0); MONOCYTES % (AUTO) 11.7 % (2.0-9.0); NEUTROPHILS # (AUTO) 5.3 K/uL (1.8-7.7); NEUTROPHILS % (AUTO) 71.7 % (40.0-70.0); PLATELET COUNT (AUTO) 414 K/uL (150-450); RED BLOOD CELL COUNT(AUTO) 4.43 MIL/uL (4.50-5.90); RED CELL DISTRIBUTION WIDTH 15.8 % (11.5-14.5); WHITE BLOOD COUNT (AUTO) 7.4 K/uL (4.5-11.0)
[2024-01-29 18:49] LABS: CALCIUM, TOTAL 9.6 mg/dL (8.8-10.5); CREATININE 10.63 mg/dL (0.60-1.30); POTASSIUM 4.3 mmol/L (3.5-5.1)
[2024-01-29 18:54] LABS: ALBUMIN 3.9 g/dL (3.4-5.0); BILIRUBIN,TOTAL 0.6 mg/dL (0.1-1.0); TOTAL PROTEIN, SERUM 8.4 g/dL (6.4-8.2)
[2024-01-29 19:06] LABS: TROPONIN I-HIGH SENSITIVITY 88 ng/L (<76)
[2024-01-29] MEDS: METOCLOPRAMIDE HCL 5 MG/ML 2 ML VIAL IVP ONE (21:34)
[2024-01-29] MEDS: SODIUM CHLORIDE 0.9% 500 ML IV ONE (21:34)
[2024-01-29 22:29] LABS: TROPONIN I-HIGH SENSITIVITY 84 ng/L (<76)
[2024-01-30] MEDS: HYDROmorphone HCL 2 MG/ML SYRINGE IVP PRN (00:54)
[2024-01-30 03:15] VITALS: BP 126/73; PULSE 93; RESP 18; TEMP 98; O2SAT 99
[2024-01-30 08:00] VITALS: BP 116/66; PULSE 96; RESP 18; TEMP 97.7; O2SAT 99
[2024-01-30] MEDS: FOLIC ACID/VIT B COMPLEX AND C TABLET PO SCH (09:24)
[2024-01-30] MEDS: CINACALCET HCL 30 MG TABLET PO SCH (09:24)
[2024-01-30] MEDS: PANTOPRAZOLE SODIUM 40 MG DR TABLET PO SCH (09:24)
[2024-01-30] MEDS: SEVELAMER CARBONATE 800 MG TABLET PO SCH (09:24)
[2024-01-30] MEDS: ASPIRIN 81 MG DR TABLET PO SCH (09:24)
[2024-01-30] MEDS: METOCLOPRAMIDE HCL 5 MG TABLET PO SCH (09:25)
[2024-01-30] MEDS: DiphenhydrAMINE HCL 25 MG CAPSULE PO ONE (10:12)
[2024-01-30 12:00] VITALS: BP 137/84; PULSE 111; RESP 18; TEMP 97.7; O2SAT 100
[2024-01-30 12:40] LABS: GLUCOMETER DEV NAME(LOC) 5S.2D; GLUCOSE,POINT OF CARE 292 MG/DL (70-110)
[2024-01-30] MEDS ORDERED: SODIUM CHLORIDE 0.9% 500 ML IV ONE (13:57)
[2024-01-30] MEDS: SODIUM ZIRCONIUM CYCLOSILICATE 5 GM POWDER PACKET PO SCH (14:25)
[2024-01-30 16:00] VITALS: BP 128/76; PULSE 102; RESP 18; TEMP 87.2; O2SAT 99
[2024-01-30 17:24] VITALS: BP 128/78; PULSE 81; RESP 18; TEMP 98.6; O2SAT 96
[2024-01-30] MEDS: DiphenhydrAMINE HCL 25 MG CAPSULE PO PRN (18:34)
[2024-01-30 20:00] VITALS: BP 108/74; PULSE 77; RESP 18; TEMP 98.4; O2SAT 96
[2024-01-30] MEDS: ATORVASTATIN CALCIUM 20 MG TABLET PO SCH (21:29)
[2024-01-31] VITALS (16 sets, daily range): BP systolic 104–170; BP diastolic 65–109; PULSE 69–120; RESP 18–20; TEMP 97.5–98.8; O2SAT 94–100
[2024-01-31 07:00] LABS: GLUCOMETER DEV NAME(LOC) 6S.2; GLUCOSE,POINT OF CARE 362 MG/DL (70-110)
[2024-01-31 10:15] LABS: GLUCOMETER DEV NAME(LOC) 6N.2B; GLUCOSE,POINT OF CARE 221 MG/DL (70-110)
[2024-01-31 10:25] LABS: GLUCOMETER DEV NAME(LOC) 6N.2B; GLUCOSE,POINT OF CARE 223 MG/DL (70-110)
[2024-01-31] MEDS: CARVEDILOL 6.25 MG TABLET PO SCH (11:30)
[2024-02-01 04:10] VITALS: BP 149/90; PULSE 95; RESP 3; TEMP 98.3
[2024-02-01] MEDS: ONDANSETRON 4 MG TABLET PO PRN (08:14)
[2024-02-01 08:21] VITALS: BP 144/78; PULSE 87; RESP 18; TEMP 98.1; O2SAT 94
[2024-02-15] MEDS ORDERED: SEVE800T7 PO (10:03)
[2024-02-15] MEDS ORDERED: AMLO-258 PO (10:03)
[2024-02-15] MEDS ORDERED: CARV6 PO (10:03)
== END 2024-02-01 11:03 | disposition home or self-care (01) | DRG 73 ==
LOC: EMS 17:13 → EDH 22:34 → 5S 01-30 03:10 → 6S 01-30 17:14 → 4E 01-31 06:51
PROVIDERS: ADMIT Hospitalist; ATTEND Hospitalist
PROC: 5A1D70Z Performance of Urinary Filtration, Intermittent, Less than 6 Hours Per Day (ICD-10-PCS; principal; 2024-01-31)
DX: E10.43 Type 1 diabetes mellitus with diabetic autonomic (poly)neuropathy (principal); N18.6 End stage renal disease; I13.2 Hypertensive heart and chronic kidney disease with heart failure and with stage 5 chronic kidney disease, or end stage renal disease; K31.84 Gastroparesis; E86.0 Dehydration; E78.5 Hyperlipidemia, unspecified; G89.4 Chronic pain syndrome; D63.8 Anemia in other chronic diseases classified elsewhere; I50.9 Heart failure, unspecified; I95.1 Orthostatic hypotension; E10.22 Type 1 diabetes mellitus with diabetic chronic kidney disease; Z96.41 Presence of insulin pump (external) (internal); Z79.82 Long term (current) use of aspirin; Z79.4 Long term (current) use of insulin; Z99.2 Dependence on renal dialysis; Z79.899 Other long term (current) drug therapy; Z87.442 Personal history of urinary calculi; Z87.891 Personal history of nicotine dependence
CPT/HCPCS: 71045; 80053; 82962; 83880; 84484; 85025; 90935; 93005; 99285; G0378; J1170; J2765; J7040; Q0162; 36415-L1; 36415-TC

== ENCOUNTER 2024-04-05 19:40 | Emergency (ER) | payer MEDICARE, OTHER ==
[~2024-04-05] VITALS: Ht 182.9 cm; Wt 80.0 kg
[~2024-04-05 19:40] MED LIST changes: -CARV25 PO; +CARV6 PO; -METO5TAB95 PO; -SEVE800T38 PO; +SEVE800T7 PO
[2024-04-05 19:45] VITALS: TEMP 99.2
[2024-04-05 21:01] LABS: BASOPHILS % (AUTO) 0.7 % (0.0-2.0); EOSINOPHILS % (AUTO) 6.2 % (1.0-6.0); HEMATOCRIT 41.9 % (41-53); HEMOGLOBIN 14.2 g/dL (13.5-17.5); LYMPHOCYTES # (AUTO) 1.2 K/uL (1.0-4.8); LYMPHOCYTES % (AUTO) 21.1 % (22.0-44.0); MEAN CORPUSCULAR HEMOGLOBIN 33.3 pg (26.0-34.0); MEAN CORPUSCULAR HGB CONC 33.8 G/dL (31.0-37.0); MEAN CORPUSCULAR VOLUME 98 fL (80-100); MONOCYTES # (AUTO) 0.5 K/uL (0.1-1.0); NEUTROPHILS # (AUTO) 3.6 K/uL (1.8-7.7); PLATELET COUNT (AUTO) 340 K/uL (150-450); RED BLOOD CELL COUNT(AUTO) 4.26 MIL/uL (4.50-5.90); RED CELL DISTRIBUTION WIDTH 16.4 % (11.5-14.5); WHITE BLOOD COUNT (AUTO) 5.8 K/uL (4.5-11.0)
[2024-04-05 21:07] LABS: CALCIUM, TOTAL 8.9 mg/dL (8.8-10.5); CREATININE 6.29 mg/dL (0.60-1.30); POTASSIUM 4.7 mmol/L (3.5-5.1)
[2024-04-05 21:13] LABS: ALBUMIN 3.3 g/dL (3.4-5.0); BILIRUBIN,TOTAL 0.4 mg/dL (0.1-1.0); TOTAL PROTEIN, SERUM 7.4 g/dL (6.4-8.2)
[2024-04-05 21:21] LABS: TROPONIN I-HIGH SENSITIVITY 105 ng/L (<76)
[2024-04-05] MEDS: ONDANSETRON HCL 4 MG/2 ML VIAL IVP ONE (23:00)
[2024-04-05] MEDS: KETOROLAC TROMETHAMINE 30 MG/ML VIAL IVP ONE (23:53)
[2024-04-05] MEDS: MORPHINE SULFATE 4 MG/ML SYRINGE IVP ONE (23:54)
[2024-04-06 02:26] VITALS: BP 161/85; PULSE 94; RESP 17; O2SAT 95
== END 2024-04-06 03:17 | disposition home or self-care (01) ==
LOC: EMS 19:40
DX: G89.4 Chronic pain syndrome (principal); R51.9 Headache, unspecified; I13.2 Hypertensive heart and chronic kidney disease with heart failure and with stage 5 chronic kidney disease, or end stage renal disease; E11.22 Type 2 diabetes mellitus with diabetic chronic kidney disease; I50.9 Heart failure, unspecified; N18.6 End stage renal disease; F12.90 Cannabis use, unspecified, uncomplicated; Z88.5 Allergy status to narcotic agent; Z79.4 Long term (current) use of insulin; Z79.82 Long term (current) use of aspirin; Z79.899 Other long term (current) drug therapy; V43.52XA Car driver injured in collision with other type car in traffic accident, initial encounter; Y93.89 Activity, other specified; Y92.89 Other specified places as the place of occurrence of the external cause; Y99.8 Other external cause status
CPT/HCPCS: 99285; 96374; 96375; 71045; 80053; 82550; 83690; 83880; 84484; 85025; 36415; 93005; 70450; J1885; J2270; J2405

== ENCOUNTER 2024-05-01 23:05 | Inpatient (IN) | payer MEDICARE, OTHER ==
[~2024-05-01] VITALS: Ht 182.9 cm; Wt 83.0 kg
[~2024-05-01 23:05] MED LIST changes: -CARV6 PO; -CINA30TA5 PO; -FOLI0.8T54 PO; -HYDR25TA84 PO; -ISOS30TA92 PO; +METO100T14 PO; -ONDA-245 SL; -SEVE800T7 PO; -SODI5POW3 PO; +SUCR500T PO
[2024-05-02] MEDS ORDERED: BISACODYL 10 MG RECTAL RECTAL SUPPOSITORY PR PRN (01:30)
[2024-05-02] MEDS ORDERED: ALBUTEROL SULFATE 2.5 MG/0.5 ML NEB SOLUTION NEB PRN (01:30)
[2024-05-02] MEDS ORDERED: ZOLPIDEM TARTRATE 5 MG TABLET PO PRN (01:30)
[2024-05-02] MEDS ORDERED: DEXTROSE 50%-WATER 25 GM/50 ML SYRINGE IVP PRN (01:30)
[2024-05-02] MEDS ORDERED: ONDANSETRON HCL 4 MG/2 ML VIAL IVP PRN (01:30)
[2024-05-02] MEDS ORDERED: INSULIN LISPRO 100 UNITS/ML SQ PRN (01:30)
[2024-05-02 01:49] LABS: BASOPHILS % (AUTO) 0.4 % (0.0-2.0); EOSINOPHILS % (AUTO) 6.2 % (1.0-6.0); HEMOGLOBIN 14.2 g/dL (13.5-17.5); LYMPHOCYTES # (AUTO) 1.6 K/uL (1.0-4.8); LYMPHOCYTES % (AUTO) 20.4 % (22.0-44.0); MEAN CORPUSCULAR HEMOGLOBIN 32.8 pg (26.0-34.0); MEAN CORPUSCULAR HGB CONC 33.9 G/dL (31.0-37.0); MEAN CORPUSCULAR VOLUME 97 fL (80-100); MONOCYTES # (AUTO) 0.7 K/uL (0.1-1.0); MONOCYTES % (AUTO) 8.6 % (2.0-9.0); NEUTROPHILS % (AUTO) 64.4 % (40.0-70.0); PLATELET COUNT (AUTO) 382 K/uL (150-450); RED BLOOD CELL COUNT(AUTO) 4.34 MIL/uL (4.50-5.90); RED CELL DISTRIBUTION WIDTH 15.7 % (11.5-14.5); WHITE BLOOD COUNT (AUTO) 7.8 K/uL (4.5-11.0)
[2024-05-02 01:56] LABS: CALCIUM, TOTAL 9.2 mg/dL (8.8-10.5); CREATININE 5.18 mg/dL (0.60-1.30); POTASSIUM 4.6 mmol/L (3.5-5.1)
[2024-05-02 02:12] LABS: TROPONIN I-HIGH SENSITIVITY 135 ng/L (<76)
[2024-05-02] MEDS: TraMADol HCL 50 MG TABLET PO ONE (03:14)
[2024-05-02 06:31] VITALS: BP 187/88; PULSE 88; RESP 17; TEMP 98; O2SAT 93
[2024-05-02] MEDS: CloNIDine HCL 0.1 MG TABLET PO PRN (06:49)
[2024-05-02] MEDS: HYDROmorphone HCL 2 MG/ML SYRINGE IVP PRN (06:49)
[2024-05-02] MEDS: HEPARIN SODIUM,PORCINE 5,000 UNITS/ML VIAL SQ SCH (08:00)
[2024-05-02 08:38] VITALS: BP 138/68; PULSE 68; RESP 18; TEMP 98.1; O2SAT 97
[2024-05-02] MEDS: AmLODIPine BESYLATE 10 MG TABLET PO SCH (09:47)
[2024-05-02] MEDS: DOCUSATE SODIUM 100 MG CAPSULE PO SCH (09:48)
[2024-05-02] MEDS: FAMOTIDINE 20 MG TABLET PO SCH (09:49)
[2024-05-02] MEDS: ACETAMINOPHEN 325 MG TABLET PO PRN (10:12)
[2024-05-02 11:16] LABS: TROPONIN I-HIGH SENSITIVITY 181 ng/L (<76)
[2024-05-02 11:38] VITALS: BP 147/87; PULSE 89; RESP 19; TEMP 98; O2SAT 98
[2024-05-02] MEDS: ASPIRIN 81 MG CHEWABLE TABLET PO SCH (11:42)
[2024-05-02] MEDS: TOBRAMYCIN/DEXAMETHASONE 5 ML OPHTHALMIC SUSPENSION OU SCH (12:22)
[2024-05-02 15:10] VITALS: BP 146/78; PULSE 76; RESP 18; TEMP 98.2; O2SAT 97
[2024-05-02] MEDS: VERAPAMIL HCL 80 MG TABLET PO SCH (15:36)
[2024-05-02] MEDS: PredniSONE 20 MG TABLET PO SCH (15:38)
[2024-05-02 16:11] LABS: TROPONIN I-HIGH SENSITIVITY 179 ng/L (<76)
[2024-05-02 21:00] VITALS: BP 175/103; PULSE 100; RESP 18; TEMP 98; O2SAT 95
[2024-05-03] VITALS (14 sets, daily range): BP systolic 127–195; BP diastolic 76–94; PULSE 84–107; RESP 18–20; TEMP 97.2–98.6; O2SAT 93–99
[2024-05-03 06:54] LABS: BASOPHILS % (AUTO) 0.6 % (0.0-2.0); EOSINOPHILS % (AUTO) 0 % (1.0-6.0); HEMATOCRIT 41.6 % (41-53); MEAN CORPUSCULAR HEMOGLOBIN 32.8 pg (26.0-34.0); MEAN CORPUSCULAR HGB CONC 33.7 G/dL (31.0-37.0); MEAN CORPUSCULAR VOLUME 97 fL (80-100); MONOCYTES # (AUTO) 0.3 K/uL (0.1-1.0); MONOCYTES % (AUTO) 3.2 % (2.0-9.0); NEUTROPHILS # (AUTO) 7.6 K/uL (1.8-7.7); PLATELET COUNT (AUTO) 376 K/uL (150-450); RED BLOOD CELL COUNT(AUTO) 4.27 MIL/uL (4.50-5.90); RED CELL DISTRIBUTION WIDTH 15.5 % (11.5-14.5); WHITE BLOOD COUNT (AUTO) 8.9 K/uL (4.5-11.0)
[2024-05-03 07:07] LABS: ALBUMIN 3.3 g/dL (3.4-5.0); BILIRUBIN,TOTAL 0.6 mg/dL (0.1-1.0); CALCIUM, TOTAL 9.3 mg/dL (8.8-10.5); CREATININE 8.85 mg/dL (0.60-1.30)
[2024-05-03 07:14] LABS: NEUTROPHILS % (AUTO) 85.2 % (40.0-70.0)
[2024-05-03 07:17] LABS: POTASSIUM 6.2 mmol/L (3.5-5.1)
[2024-05-03 07:18] LABS: TROPONIN I-HIGH SENSITIVITY 140 ng/L (<76)
[2024-05-03] MEDS: SODIUM ZIRCONIUM CYCLOSILICATE 5 GM POWDER PACKET PO ONE (08:06)
[2024-05-03] MEDS ORDERED: SODIUM CHLORIDE 0.9% 2,000 ML ONE (09:35)
[2024-05-04] VITALS (13 sets, daily range): BP systolic 132–157; BP diastolic 72–95; PULSE 81–97; RESP 17–20; TEMP 97.8–98.8; O2SAT 93–95
[2024-05-04 05:47] LABS: GLUCOMETER DEV NAME(LOC) 5S.1D; GLUCOSE,POINT OF CARE 158 MG/DL (70-110)
[2024-05-04 06:26] LABS: BASOPHILS % (AUTO) 0.9 % (0.0-2.0); EOSINOPHILS % (AUTO) 1.5 % (1.0-6.0); HEMATOCRIT 41.8 % (41-53); HEMOGLOBIN 13.8 g/dL (13.5-17.5); LYMPHOCYTES # (AUTO) 1.6 K/uL (1.0-4.8); LYMPHOCYTES % (AUTO) 19.3 % (22.0-44.0); MEAN CORPUSCULAR HEMOGLOBIN 32.5 pg (26.0-34.0); MEAN CORPUSCULAR VOLUME 99 fL (80-100); MONOCYTES # (AUTO) 0.7 K/uL (0.1-1.0); MONOCYTES % (AUTO) 7.9 % (2.0-9.0); NEUTROPHILS # (AUTO) 5.9 K/uL (1.8-7.7); NEUTROPHILS % (AUTO) 70.4 % (40.0-70.0); PLATELET COUNT (AUTO) 353 K/uL (150-450); RED BLOOD CELL COUNT(AUTO) 4.24 MIL/uL (4.50-5.90); RED CELL DISTRIBUTION WIDTH 15.9 % (11.5-14.5); WHITE BLOOD COUNT (AUTO) 8.3 K/uL (4.5-11.0)
[2024-05-04 06:45] LABS: CREATININE 7.79 mg/dL (0.60-1.30); POTASSIUM 4.7 mmol/L (3.5-5.1)
[2024-05-04 06:46] LABS: CALCIUM, TOTAL 9.2 mg/dL (8.8-10.5)
[2024-05-04] MEDS: METOPROLOL SUCCINATE 25 MG ER TABLET PO SCH (09:02)
[2024-05-04] MEDS: ATORVASTATIN CALCIUM 20 MG TABLET PO SCH (09:03)
[2024-05-04] MEDS ORDERED: SODIUM CHLORIDE 0.9% 2,000 ML ONE (12:44)
[2024-05-05] VITALS (12 sets, daily range): BP systolic 122–181; BP diastolic 74–96; PULSE 72–92; RESP 16–18; TEMP 97.4–98.2; O2SAT 92–96
[2024-05-05 07:26] LABS: GLUCOMETER DEV NAME(LOC) 5N.2C; GLUCOSE,POINT OF CARE 70 MG/DL (70-110)
[2024-05-05 07:26] LABS: GLUCOMETER DEV NAME(LOC) 5N.2C; GLUCOSE,POINT OF CARE 109 MG/DL (70-110)
[2024-05-05 07:27] LABS: GLUCOMETER DEV NAME(LOC) 5N.2C; GLUCOSE,POINT OF CARE 229 MG/DL (70-110)
[2024-05-05] MEDS ORDERED: SODIUM CHLORIDE 0.9% 2,000 ML ONE (10:29)
[2024-05-05] MEDS ORDERED: CloNIDine HCL 0.1 MG TABLET SL ONE (16:15)
== END 2024-05-05 16:00 | disposition left against medical advice (07) | DRG 291 ==
LOC: EMS 23:05 → EDH 05-02 03:51 → 5S 05-02 06:20 → 6S 05-05 13:18
PROVIDERS: ADMIT Internal Medicine; ATTEND Internal Medicine
PROC: 5A1D70Z Performance of Urinary Filtration, Intermittent, Less than 6 Hours Per Day (ICD-10-PCS; principal; 2024-05-03)
PROC: 5A1D70Z Performance of Urinary Filtration, Intermittent, Less than 6 Hours Per Day (ICD-10-PCS; 2024-05-04)
PROC: 5A1D70Z Performance of Urinary Filtration, Intermittent, Less than 6 Hours Per Day (ICD-10-PCS; 2024-05-05)
DX: I13.2 Hypertensive heart and chronic kidney disease with heart failure and with stage 5 chronic kidney disease, or end stage renal disease (principal); I50.43 Acute on chronic combined systolic (congestive) and diastolic (congestive) heart failure; N18.6 End stage renal disease; I25.10 Atherosclerotic heart disease of native coronary artery without angina pectoris; K31.84 Gastroparesis; E10.43 Type 1 diabetes mellitus with diabetic autonomic (poly)neuropathy; E87.5 Hyperkalemia; D63.1 Anemia in chronic kidney disease; E10.22 Type 1 diabetes mellitus with diabetic chronic kidney disease; G44.009 Cluster headache syndrome, unspecified, not intractable; I42.9 Cardiomyopathy, unspecified; Z53.29 Procedure and treatment not carried out because of patient's decision for other reasons; Z87.891 Personal history of nicotine dependence; Z99.2 Dependence on renal dialysis; Z88.5 Allergy status to narcotic agent; Z87.442 Personal history of urinary calculi; Z79.899 Other long term (current) drug therapy; Z79.4 Long term (current) use of insulin
CPT/HCPCS: 71045; 80048; 80053; 82962; 83880; 84484; 85025; 87340; 90935; 93005; 93306; 99285; G0378; J1171; J1644; J7030; 36415-L1; 36415-TC

== ENCOUNTER 2024-10-05 12:52 | Inpatient (IN) | payer MEDICARE, OTHER ==
[~2024-10-05] VITALS: Ht 183.5 cm; Wt 83.3 kg
[~2024-10-05 12:52] MED LIST changes: +HYDR25TA84 PO; +SODI5POW3 PO; -SUCR500T PO
[2024-10-05 13:26] LABS: GLUCOMETER DEV NAME(LOC) AHU.; GLUCOSE,POINT OF CARE 134 MG/DL (70-110)
[2024-10-05 14:43] LABS: BASOPHILS % (AUTO) 1.2 % (0.0-2.0); EOSINOPHILS % (AUTO) 5.7 % (1.0-6.0); HEMATOCRIT 32.9 % (41-53); HEMOGLOBIN 10.8 g/dL (13.5-17.5); LYMPHOCYTES # (AUTO) 1.1 K/uL (1.0-4.8); LYMPHOCYTES % (AUTO) 17.2 % (22.0-44.0); MEAN CORPUSCULAR HEMOGLOBIN 31.6 pg (26.0-34.0); MEAN CORPUSCULAR HGB CONC 32.9 G/dL (31.0-37.0); MEAN CORPUSCULAR VOLUME 96 fL (80-100); MONOCYTES # (AUTO) 0.7 K/uL (0.1-1.0); MONOCYTES % (AUTO) 10.9 % (2.0-9.0); NEUTROPHILS # (AUTO) 4.2 K/uL (1.8-7.7); PLATELET COUNT (AUTO) 486 K/uL (150-450); RED BLOOD CELL COUNT(AUTO) 3.42 MIL/uL (4.50-5.90); RED CELL DISTRIBUTION WIDTH 17.8 % (11.5-14.5); WHITE BLOOD COUNT (AUTO) 6.5 K/uL (4.5-11.0)
[2024-10-05 15:02] LABS: CREATININE 11.91 mg/dL (0.60-1.30); POTASSIUM 5.2 mmol/L (3.5-5.1)
[2024-10-05 15:03] LABS: CALCIUM, TOTAL 8.5 mg/dL (8.8-10.5)
[2024-10-05] MEDS ORDERED: BISACODYL 10 MG RECTAL RECTAL SUPPOSITORY PR PRN (21:00)
[2024-10-05] MEDS ORDERED: IPRATROPIUM BROMIDE 0.5 MG/2.5 ML NEB SOLUTION NEB PRN (21:00)
[2024-10-05] MEDS ORDERED: ACETAMINOPHEN 325 MG TABLET PO PRN (21:00)
[2024-10-05] MEDS ORDERED: ALBUTEROL SULFATE 2.5 MG/0.5 ML NEB SOLUTION NEB PRN (21:00)
[2024-10-05] MEDS ORDERED: MAGNESIUM HYDROXIDE SUSPENSION 30 ML UDCUP PO PRN (21:00)
[2024-10-05] MEDS: ATORVASTATIN CALCIUM 20 MG TABLET PO SCH (21:24)
[2024-10-05] MEDS: SODIUM CHLORIDE 0.9% 1,000 ML IV ONE (21:24)
[2024-10-05] MEDS: HYDROmorphone HCL 2 MG/ML SYRINGE IVP PRN (21:25)
[2024-10-05 22:34] VITALS: BP 106/94; PULSE 86; RESP 18; TEMP 98.1; O2SAT 97
[2024-10-05 22:35] VITALS: BP 130/47; PULSE 90; RESP 18; TEMP 98.1; O2SAT 97
[2024-10-05] MEDS: ONDANSETRON HCL 4 MG/2 ML VIAL IVP PRN (22:49)
[2024-10-06] VITALS: BP 136/60; PULSE 88; RESP 18; TEMP 97.5; O2SAT 96
[2024-10-06] MEDS: HEPARIN SODIUM,PORCINE 5,000 UNITS/ML VIAL SQ SCH
[2024-10-06 04:00] VITALS: BP 161/62; PULSE 84; RESP 18; TEMP 97.5; O2SAT 98
[2024-10-06] MEDS: PANTOPRAZOLE SODIUM 40 MG DR TABLET PO SCH (08:04)
[2024-10-06] MEDS: ASPIRIN 81 MG DR TABLET PO SCH (08:04)
[2024-10-06] MEDS: SODIUM ZIRCONIUM CYCLOSILICATE 5 GM POWDER PACKET PO SCH (08:04)
[2024-10-06 08:16] VITALS: BP 128/53; PULSE 89; RESP 19; TEMP 97.7; O2SAT 94
[2024-10-06] MEDS ORDERED: PANTOPRAZOLE SODIUM 40 MG DR TABLET PO SCH (09:00)
[2024-10-06 11:57] VITALS: BP 163/69; PULSE 92; RESP 18; TEMP 97.9; O2SAT 96
[2024-10-06 15:31] VITALS: BP 130/55; PULSE 88; RESP 18; TEMP 98; O2SAT 95
[2024-10-06] MEDS: DiphenhydrAMINE HCL 25 MG CAPSULE PO PRN (18:52)
[2024-10-06 20:06] VITALS: BP 142/65; PULSE 89; RESP 17; TEMP 97.9; O2SAT 92
[2024-10-07] VITALS (12 sets, daily range): BP systolic 128–206; BP diastolic 37–78; PULSE 80–99; RESP 17–20; TEMP 97.2–98.6; O2SAT 92–99
[2024-10-07 04:11] LABS: GLUCOMETER DEV NAME(LOC) 5N.1D; GLUCOSE,POINT OF CARE 64 MG/DL (70-110)
[2024-10-07] MEDS ORDERED: SODIUM CHLORIDE 0.9% 2,000 ML ONE (08:22)
[2024-10-07 09:26] LABS: GLUCOMETER DEV NAME(LOC) 5N.1D; GLUCOSE,POINT OF CARE 152 MG/DL (70-110)
[2024-10-07 12:06] LABS: GLUCOMETER DEV NAME(LOC) 5S.2D; GLUCOSE,POINT OF CARE 130 MG/DL (70-110)
[2024-10-07] MEDS: SEVELAMER CARBONATE 800 MG TABLET PO SCH (13:43)
[2024-10-07 19:05] LABS: GLUCOMETER DEV NAME(LOC) 5S.2D; GLUCOSE,POINT OF CARE 166 MG/DL (70-110)
[2024-10-07] MEDS: ETHYL ALCOHOL 62% ANTISEPTIC NASAL SANITIZER 0.6 ML AMPUL NASAL SCH (20:37)
[2024-10-08 00:15] VITALS: BP 139/91; PULSE 100; RESP 20; TEMP 98.2; O2SAT 98
[2024-10-08 04:00] VITALS: BP 138/90; PULSE 98; RESP 20; TEMP 98.2; O2SAT 95
[2024-10-08 07:05] LABS: GLUCOMETER DEV NAME(LOC) 5S.2D; GLUCOSE,POINT OF CARE 80 MG/DL (70-110)
[2024-10-08 08:30] VITALS: BP 131/64; PULSE 107; RESP 18; TEMP 97.9; O2SAT 98
[2024-10-08 12:30] VITALS: BP 155/100; PULSE 102; RESP 18; TEMP 97.9; O2SAT 97
[2024-10-08 13:10] LABS: GLUCOMETER DEV NAME(LOC) 5N.2C; GLUCOSE,POINT OF CARE 78 MG/DL (70-110)
[2024-10-08] MEDS ORDERED: SODIUM CHLORIDE 0.9% 2,000 ML ONE (14:34)
[2024-10-08 16:07] VITALS: BP 141/70; PULSE 100; RESP 18; TEMP 98.4; O2SAT 98
[2024-10-08 20:16] LABS: GLUCOMETER DEV NAME(LOC) 5N.1D; GLUCOSE,POINT OF CARE 136 MG/DL (70-110)
[2024-10-08 20:30] VITALS: BP 156/81; PULSE 90; RESP 16; TEMP 98.4; O2SAT 93
[2024-10-09] VITALS (13 sets, daily range): BP systolic 126–181; BP diastolic 52–91; PULSE 85–111; RESP 16–20; TEMP 97.9–99.1; O2SAT 94–99
[2024-10-09] MEDS: ZOLPIDEM TARTRATE 5 MG TABLET PO PRN (01:55)
[2024-10-09] MEDS: SODIUM ZIRCONIUM CYCLOSILICATE 10 GM POWDER PACKET PO SCH (09:00)
[2024-10-09 12:05] LABS: GLUCOMETER DEV NAME(LOC) 5N.2C; GLUCOSE,POINT OF CARE 176 MG/DL (70-110)
[2024-10-09 18:06] LABS: GLUCOMETER DEV NAME(LOC) 5N.2C; GLUCOSE,POINT OF CARE 134 MG/DL (70-110)
[2024-10-10] VITALS: BP 130/62; PULSE 95; RESP 18; TEMP 98.4; O2SAT 92
[2024-10-10 04:00] VITALS: BP 154/68; PULSE 101; RESP 20; TEMP 98.8; O2SAT 92
[2024-10-10 05:50] LABS: GLUCOMETER DEV NAME(LOC) 5N.2C; GLUCOSE,POINT OF CARE 191 MG/DL (70-110)
[2024-10-10 06:51] LABS: GLUCOMETER DEV NAME(LOC) 5S.2D; GLUCOSE,POINT OF CARE 198 MG/DL (70-110)
[2024-10-10 07:08] LABS: BASOPHILS % (AUTO) 0.8 % (0.0-2.0); EOSINOPHILS % (AUTO) 5.5 % (1.0-6.0); HEMATOCRIT 32.3 % (41-53); HEMOGLOBIN 10.4 g/dL (13.5-17.5); LYMPHOCYTES % (AUTO) 9.4 % (22.0-44.0); MEAN CORPUSCULAR HEMOGLOBIN 30.7 pg (26.0-34.0); MEAN CORPUSCULAR HGB CONC 32.3 G/dL (31.0-37.0); MEAN CORPUSCULAR VOLUME 95 fL (80-100); MONOCYTES # (AUTO) 0.7 K/uL (0.1-1.0); MONOCYTES % (AUTO) 6.7 % (2.0-9.0); NEUTROPHILS # (AUTO) 8.2 K/uL (1.8-7.7); NEUTROPHILS % (AUTO) 77.6 % (40.0-70.0); PLATELET COUNT (AUTO) 489 K/uL (150-450); RED BLOOD CELL COUNT(AUTO) 3.39 MIL/uL (4.50-5.90); RED CELL DISTRIBUTION WIDTH 16.7 % (11.5-14.5); WHITE BLOOD COUNT (AUTO) 10.6 K/uL (4.5-11.0)
[2024-10-10 07:20] LABS: CALCIUM, TOTAL 8.1 mg/dL (8.8-10.5); CREATININE 9.49 mg/dL (0.60-1.30); POTASSIUM 4.8 mmol/L (3.5-5.1)
[2024-10-10 07:35] VITALS: BP 157/69; PULSE 101; RESP 20; TEMP 98; O2SAT 97
[2024-10-10 11:58] VITALS: BP 143/68; PULSE 92; RESP 18; TEMP 98.2; O2SAT 98
[2024-10-12] MEDS ORDERED: SODI10PO3 PO (14:35)
== END 2024-10-10 13:20 | disposition home or self-care (01) | DRG 312 ==
LOC: EMS 13:08 → EDH 20:51 → 5S 22:35
PROVIDERS: ADMIT Hospitalist; ATTEND Hospitalist
PROC: 5A1D70Z Performance of Urinary Filtration, Intermittent, Less than 6 Hours Per Day (ICD-10-PCS; principal; 2024-10-07)
PROC: 5A1D70Z Performance of Urinary Filtration, Intermittent, Less than 6 Hours Per Day (ICD-10-PCS; 2024-10-09)
DX: I95.1 Orthostatic hypotension (principal); N18.6 End stage renal disease; I12.0 Hypertensive chronic kidney disease with stage 5 chronic kidney disease or end stage renal disease; E78.5 Hyperlipidemia, unspecified; E10.22 Type 1 diabetes mellitus with diabetic chronic kidney disease; D63.1 Anemia in chronic kidney disease; E87.5 Hyperkalemia; G89.4 Chronic pain syndrome; Z79.4 Long term (current) use of insulin; Z88.5 Allergy status to narcotic agent; Z99.2 Dependence on renal dialysis
CPT/HCPCS: 71045; 80048; 82962; 84132; 85025; 87081; 87340; 90935; 93005; 97110; 97116; 97161; 99285; G0378; J1171; J1644; J2405; J7030; 36415-L1; 36415-TC

== ENCOUNTER 2024-10-26 20:00 | Inpatient (IN) | payer MEDICARE, OTHER ==
[~2024-10-26] VITALS: Ht 182.9 cm; Wt 80.7 kg
[~2024-10-26 20:00] MED LIST changes: +SODI10PO3 PO; -SODI5POW3 PO
[2024-10-26 20:28] LABS: BASOPHILS % (AUTO) 0.3 % (0.0-2.0); EOSINOPHILS % (AUTO) 4.4 % (1.0-6.0); HEMATOCRIT 30.8 % (41-53); HEMOGLOBIN 10.3 g/dL (13.5-17.5); LYMPHOCYTES # (AUTO) 1.3 K/uL (1.0-4.8); LYMPHOCYTES % (AUTO) 16.6 % (22.0-44.0); MEAN CORPUSCULAR HEMOGLOBIN 30.8 pg (26.0-34.0); MEAN CORPUSCULAR HGB CONC 33.3 G/dL (31.0-37.0); MEAN CORPUSCULAR VOLUME 93 fL (80-100); MONOCYTES # (AUTO) 0.6 K/uL (0.1-1.0); NEUTROPHILS # (AUTO) 5.7 K/uL (1.8-7.7); NEUTROPHILS % (AUTO) 71.7 % (40.0-70.0); PLATELET COUNT (AUTO) 585 K/uL (150-450); RED BLOOD CELL COUNT(AUTO) 3.33 MIL/uL (4.50-5.90)
[2024-10-26 20:46] LABS: CALCIUM, TOTAL 8.4 mg/dL (8.8-10.5); CREATININE 3.55 mg/dL (0.60-1.30); POTASSIUM 3.4 mmol/L (3.5-5.1)
[2024-10-26] MEDS: ONDANSETRON 4 MG TABLET PO ONE (22:03)
[2024-10-26 22:22] LABS: TROPONIN I-HIGH SENSITIVITY 85 ng/L (<76)
[2024-10-26] MEDS ORDERED: ACETAMINOPHEN 325 MG TABLET PO PRN (23:30)
[2024-10-26] MEDS ORDERED: ALBUTEROL SULFATE 2.5 MG/0.5 ML NEB SOLUTION NEB PRN (23:30)
[2024-10-26] MEDS ORDERED: IPRATROPIUM BROMIDE 0.5 MG/2.5 ML NEB SOLUTION NEB PRN (23:30)
[2024-10-26] MEDS ORDERED: BISACODYL 10 MG RECTAL RECTAL SUPPOSITORY PR PRN (23:30)
[2024-10-26] MEDS ORDERED: MAGNESIUM HYDROXIDE SUSPENSION 30 ML UDCUP PO PRN (23:30)
[2024-10-26] MEDS: HYDROmorphone HCL 2 MG/ML SYRINGE IVP PRN (23:59)
[2024-10-27] VITALS (9 sets, daily range): BP systolic 130–165; BP diastolic 67–89; PULSE 72–103; RESP 18–19; TEMP 97.7–98.4; O2SAT 94–99
[2024-10-27] MEDS: HEPARIN SODIUM,PORCINE 5,000 UNITS/ML VIAL SQ SCH (00:07)
[2024-10-27] MEDS: ONDANSETRON HCL 4 MG/2 ML VIAL IVP PRN (04:00)
[2024-10-27] MEDS: SODIUM ZIRCONIUM CYCLOSILICATE 10 GM POWDER PACKET PO SCH (08:07)
[2024-10-27] MEDS: ASPIRIN 81 MG DR TABLET PO SCH (08:08)
[2024-10-27] MEDS: PANTOPRAZOLE SODIUM 40 MG DR TABLET PO SCH (08:08)
[2024-10-27] MEDS: DiphenhydrAMINE HCL 50 MG/ML VIAL IVP PRN (08:58)
[2024-10-27] MEDS ORDERED: PANTOPRAZOLE SODIUM 40 MG DR TABLET PO SCH (09:00)
[2024-10-27] MEDS: ATORVASTATIN CALCIUM 20 MG TABLET PO SCH (20:36)
[2024-10-28] VITALS (16 sets, daily range): BP systolic 136–182; BP diastolic 70–104; PULSE 92–106; RESP 16–19; TEMP 97.5–98.5; O2SAT 94–99
[2024-10-28 05:40] LABS: GLUCOMETER DEV NAME(LOC) 5N.1D; GLUCOSE,POINT OF CARE 133 MG/DL (70-110)
[2024-10-28 06:27] LABS: BASOPHILS % (AUTO) 1.8 % (0.0-2.0); EOSINOPHILS % (AUTO) 8.2 % (1.0-6.0); HEMATOCRIT 28.3 % (41-53); HEMOGLOBIN 9.2 g/dL (13.5-17.5); LYMPHOCYTES # (AUTO) 1.6 K/uL (1.0-4.8); LYMPHOCYTES % (AUTO) 21.5 % (22.0-44.0); MEAN CORPUSCULAR HEMOGLOBIN 30.7 pg (26.0-34.0); MEAN CORPUSCULAR HGB CONC 32.6 G/dL (31.0-37.0); MEAN CORPUSCULAR VOLUME 94 fL (80-100); MONOCYTES # (AUTO) 0.7 K/uL (0.1-1.0); MONOCYTES % (AUTO) 9.5 % (2.0-9.0); NEUTROPHILS # (AUTO) 4.4 K/uL (1.8-7.7); PLATELET COUNT (AUTO) 511 K/uL (150-450); RED CELL DISTRIBUTION WIDTH 18.5 % (11.5-14.5); WHITE BLOOD COUNT (AUTO) 7.4 K/uL (4.5-11.0)
[2024-10-28 06:39] LABS: CALCIUM, TOTAL 7.9 mg/dL (8.8-10.5); CREATININE 7.73 mg/dL (0.60-1.30); POTASSIUM 4.5 mmol/L (3.5-5.1)
[2024-10-28 06:40] LABS: GLUCOMETER DEV NAME(LOC) 5N.2C; GLUCOSE,POINT OF CARE 72 MG/DL (70-110)
[2024-10-28] MEDS ORDERED: SODIUM CHLORIDE 0.9% 1,000 ML ONE (11:23)
[2024-10-28 15:10] LABS: GLUCOMETER DEV NAME(LOC) 5N.1D; GLUCOSE,POINT OF CARE 100 MG/DL (70-110)
[2024-10-28] MEDS ORDERED: INSULIN LISPRO 100 UNITS/ML SQ PRN (15:15)
[2024-10-28] MEDS ORDERED: DEXTROSE 50%-WATER 25 GM/50 ML SYRINGE IVP ONE (15:16)
[2024-10-28] MEDS: DEXTROSE 50%-WATER 25 GM/50 ML SYRINGE IVP PRN (15:40)
[2024-10-28 15:46] LABS: GLUCOMETER DEV NAME(LOC) 5N.2C; GLUCOSE,POINT OF CARE 177 MG/DL (70-110)
[2024-10-28 15:46] LABS: GLUCOMETER DEV NAME(LOC) 5N.2C; GLUCOSE,POINT OF CARE 40 MG/DL (70-110)
[2024-10-28 16:26] LABS: GLUCOMETER DEV NAME(LOC) 5N.1D; GLUCOSE,POINT OF CARE 181 MG/DL (70-110)
[2024-10-28 23:36] LABS: GLUCOMETER DEV NAME(LOC) 5N.1D; GLUCOSE,POINT OF CARE 220 MG/DL (70-110)
[2024-10-29] VITALS (9 sets, daily range): BP systolic 143–170; BP diastolic 66–90; PULSE 100–111; RESP 18–19; TEMP 98.1–98.6; O2SAT 94–97
[2024-10-29] MEDS ORDERED: ONDANSETRON HCL 4 MG/2 ML VIAL IVP PRN
[2024-10-29] MEDS: ONDANSETRON HCL 4 MG/2 ML VIAL IVP PRN (00:17)
[2024-10-29 00:31] LABS: GLUCOMETER DEV NAME(LOC) 5N.1D; GLUCOSE,POINT OF CARE 114 MG/DL (70-110)
[2024-10-29 07:00] LABS: BASOPHILS % (AUTO) 0.5 % (0.0-2.0); EOSINOPHILS % (AUTO) 3.8 % (1.0-6.0); HEMATOCRIT 31.8 % (41-53); HEMOGLOBIN 10.4 g/dL (13.5-17.5); LYMPHOCYTES # (AUTO) 0.7 K/uL (1.0-4.8); LYMPHOCYTES % (AUTO) 10.6 % (22.0-44.0); MEAN CORPUSCULAR HEMOGLOBIN 30.6 pg (26.0-34.0); MEAN CORPUSCULAR HGB CONC 32.7 G/dL (31.0-37.0); MEAN CORPUSCULAR VOLUME 94 fL (80-100); MONOCYTES # (AUTO) 0.5 K/uL (0.1-1.0); MONOCYTES % (AUTO) 7.4 % (2.0-9.0); NEUTROPHILS # (AUTO) 5.3 K/uL (1.8-7.7); NEUTROPHILS % (AUTO) 77.7 % (40.0-70.0); PLATELET COUNT (AUTO) 515 K/uL (150-450); RED BLOOD CELL COUNT(AUTO) 3.39 MIL/uL (4.50-5.90); RED CELL DISTRIBUTION WIDTH 18.8 % (11.5-14.5); WHITE BLOOD COUNT (AUTO) 6.8 K/uL (4.5-11.0)
[2024-10-29 07:09] LABS: CALCIUM, TOTAL 8.8 mg/dL (8.8-10.5); POTASSIUM 5.2 mmol/L (3.5-5.1)
[2024-10-29 08:11] LABS: GLUCOMETER DEV NAME(LOC) 5N.2C; GLUCOSE,POINT OF CARE 222 MG/DL (70-110)
[2024-10-29] MEDS: METOCLOPRAMIDE HCL 5 MG TABLET PO SCH (19:16)
[2024-10-29 19:56] LABS: GLUCOMETER DEV NAME(LOC) 5N.1D; GLUCOSE,POINT OF CARE 79 MG/DL (70-110)
[2024-10-29] MEDS: LABETALOL HCL 5 MG/ML 20 ML VIAL IVP ONE (22:45)
[2024-10-30] VITALS (13 sets, daily range): BP systolic 150–173; BP diastolic 79–101; PULSE 97–104; RESP 18–19; TEMP 97–98.6; O2SAT 92–96
[2024-10-30] MEDS: EPOETIN ALFA 10,000 UNITS/ML 2 ML VIAL SQ SCH (08:59)
[2024-10-30 09:36] LABS: GLUCOMETER DEV NAME(LOC) 5S.2D; GLUCOSE,POINT OF CARE 117 MG/DL (70-110)
[2024-10-30 09:36] LABS: GLUCOMETER DEV NAME(LOC) 5S.2D; GLUCOSE,POINT OF CARE 126 MG/DL (70-110)
[2024-10-30 18:36] LABS: GLUCOMETER DEV NAME(LOC) 5S.2D; GLUCOSE,POINT OF CARE 305 MG/DL (70-110)
[2024-10-30 18:36] LABS: GLUCOMETER DEV NAME(LOC) 5S.2D; GLUCOSE,POINT OF CARE 276 MG/DL (70-110)
[2024-10-31] VITALS (8 sets, daily range): BP systolic 129–167; BP diastolic 58–91; PULSE 98–106; RESP 18–20; TEMP 98.1–98.6; O2SAT 94–99
[2024-10-31] MEDS: HydrALAZINE HCL 10 MG TABLET PO ONE (01:31)
[2024-10-31 05:31] LABS: GLUCOMETER DEV NAME(LOC) 5S.2D; GLUCOSE,POINT OF CARE 346 MG/DL (70-110)
[2024-10-31 05:31] LABS: GLUCOMETER DEV NAME(LOC) 5S.2D; GLUCOSE,POINT OF CARE 435 MG/DL (70-110)
[2024-10-31 05:31] LABS: GLUCOMETER DEV NAME(LOC) 5S.2D; GLUCOSE,POINT OF CARE 457 MG/DL (70-110)
[2024-10-31 11:26] LABS: GLUCOMETER DEV NAME(LOC) 5N.2C; GLUCOSE,POINT OF CARE 202 MG/DL (70-110)
[2024-10-31 12:01] LABS: GLUCOMETER DEV NAME(LOC) 5S.2D; GLUCOSE,POINT OF CARE 267 MG/DL (70-110)
[2024-10-31] MEDS: LOPERAMIDE HCL 2 MG CAPSULE PO SCH (13:57)
[2024-10-31 22:16] LABS: GLUCOMETER DEV NAME(LOC) 5S.2D; GLUCOSE,POINT OF CARE 373 MG/DL (70-110)
[2024-10-31 22:16] LABS: GLUCOMETER DEV NAME(LOC) 5S.2D; GLUCOSE,POINT OF CARE 362 MG/DL (70-110)
[2024-11-01] VITALS (14 sets, daily range): BP systolic 110–167; BP diastolic 65–88; PULSE 99–126; RESP 18–20; TEMP 97.7–98.8; O2SAT 95–98
[2024-11-01] MEDS: HydrALAZINE HCL 10 MG TABLET PO PRN (04:51)
[2024-11-01] MEDS ORDERED: SODIUM CHLORIDE 0.9% 1,000 ML ONE (06:43)
[2024-11-01 12:06] LABS: GLUCOMETER DEV NAME(LOC) 5N.2C; GLUCOSE,POINT OF CARE 62 MG/DL (70-110)
[2024-11-01 22:21] LABS: GLUCOMETER DEV NAME(LOC) 6N.2B; GLUCOSE,POINT OF CARE 54 MG/DL (70-110)
[2024-11-01 22:21] LABS: GLUCOMETER DEV NAME(LOC) 6N.2B; GLUCOSE,POINT OF CARE 105 MG/DL (70-110)
[2024-11-02] MEDS: ZOLPIDEM TARTRATE 5 MG TABLET PO PRN (00:09)
[2024-11-02 04:00] VITALS: BP 156/81; PULSE 96; RESP 18; TEMP 98.2; O2SAT 96
[2024-11-02 09:20] VITALS: BP 125/75; PULSE 109; RESP 18; TEMP 98.2; O2SAT 95
[2024-11-02 11:21] LABS: GLUCOMETER DEV NAME(LOC) 6N.2B; GLUCOSE,POINT OF CARE 220 MG/DL (70-110)
[2024-11-03 11:46] LABS: GLUCOMETER DEV NAME(LOC) 6S.1D; GLUCOSE,POINT OF CARE 132 MG/DL (70-110)
[2024-11-03 11:46] LABS: GLUCOMETER DEV NAME(LOC) 6S.2; GLUCOSE,POINT OF CARE 30 MG/DL (70-110)
[2024-11-03 11:46] LABS: GLUCOMETER DEV NAME(LOC) 6S.1D; GLUCOSE,POINT OF CARE 64 MG/DL (70-110)
== END 2024-11-02 13:16 | disposition home or self-care (01) | DRG 73 ==
LOC: EMS 20:00 → EDH 23:22 → 5S 10-27 01:30 → 6S 11-01 16:38
PROVIDERS: ADMIT Hospitalist; ATTEND Hospitalist
PROC: 5A1D70Z Performance of Urinary Filtration, Intermittent, Less than 6 Hours Per Day (ICD-10-PCS; principal; 2024-10-28)
PROC: 5A1D70Z Performance of Urinary Filtration, Intermittent, Less than 6 Hours Per Day (ICD-10-PCS; 2024-10-30)
PROC: 5A1D70Z Performance of Urinary Filtration, Intermittent, Less than 6 Hours Per Day (ICD-10-PCS; 2024-11-01)
DX: G90.89 Other disorders of autonomic nervous system (principal); N18.6 End stage renal disease; I12.0 Hypertensive chronic kidney disease with stage 5 chronic kidney disease or end stage renal disease; E10.43 Type 1 diabetes mellitus with diabetic autonomic (poly)neuropathy; G89.29 Other chronic pain; I95.9 Hypotension, unspecified; E78.5 Hyperlipidemia, unspecified; E10.22 Type 1 diabetes mellitus with diabetic chronic kidney disease; E87.5 Hyperkalemia; M25.511 Pain in right shoulder; D63.1 Anemia in chronic kidney disease; D75.839 Thrombocytosis, unspecified; E10.65 Type 1 diabetes mellitus with hyperglycemia; E87.6 Hypokalemia; K31.84 Gastroparesis; Z79.4 Long term (current) use of insulin; Z88.5 Allergy status to narcotic agent; Z99.2 Dependence on renal dialysis
CPT/HCPCS: 80048; 82962; 83690; 83880; 84484; 85025; 87081; 87340; 90935; 93005; 99285; G0378; J0885; J1171; J1200; J1644; J2405; J3490; J7030; Q0162

== ENCOUNTER 2024-12-21 19:19 | Inpatient (IN) | payer MEDICARE, OTHER ==
[~2024-12-21] VITALS: Ht 182.9 cm; Wt 82.4 kg
[2024-12-21 20:11] LABS: PLATELET COUNT (AUTO) 372 K/uL (150-450); RED BLOOD CELL COUNT(AUTO) 4.03 MIL/uL (4.50-5.90); RED CELL DISTRIBUTION WIDTH 20.7 % (11.5-14.5); WHITE BLOOD COUNT (AUTO) 6.7 K/uL (4.5-11.0)
[2024-12-21] MEDS ORDERED: CINA60TA4 PO (20:13)
[2024-12-21] MEDS ORDERED: DORZ10DR10 OU (20:13)
[2024-12-21] MEDS ORDERED: GLUC1AUT2 SQ (20:13)
[2024-12-21] MEDS ORDERED: OXYC-618 PO (20:13)
[2024-12-21 20:18] LABS: CALCIUM, TOTAL 9.1 mg/dL (8.8-10.5); CREATININE 5.17 mg/dL (0.60-1.30); GLOMERULAR FILTR. RATE CALC 12 mL/min (>60); GLUCOSE,RANDOM 311 mg/dL (70-110); SODIUM SERUM 138 mmol/L (136-145); UREA NITROGEN, BLOOD 24 mg/dL (7-18)
[2024-12-21] MEDS: ONDANSETRON HCL 4 MG/2 ML VIAL IVP ONE (20:19)
[2024-12-21 20:28] LABS: LACTIC ACID 2.3 mmol/L (0.4-2.0); TROPONIN I-HIGH SENSITIVITY 139 ng/L (<76)
[2024-12-21] MEDS: DORZOLAMIDE/TIMOLOL 2-0.5% [22.3-6.8MG/ML] 10 ML OPHTHALMIC SOLUTION OU SCH (21:00)
[2024-12-21] MEDS ORDERED: INSULIN LISPRO 100 UNITS/ML SQ PRN (21:00)
[2024-12-21] MEDS: ATORVASTATIN CALCIUM 20 MG TABLET PO SCH (21:58)
[2024-12-22] VITALS (16 sets, daily range): BP systolic 106–166; BP diastolic 57–90; PULSE 69–101; RESP 17–19; TEMP 97.7–98.5; O2SAT 92–100
[2024-12-22] MEDS: METOPROLOL TARTRATE 50 MG TABLET PO SCH (00:03)
[2024-12-22 03:31] LABS: GLUCOMETER DEV NAME(LOC) 5S.2D; GLUCOSE,POINT OF CARE 228 MG/DL (70-110)
[2024-12-22] MEDS ORDERED: ONDANSETRON HCL 4 MG/2 ML VIAL IM PRN (06:45)
[2024-12-22 06:49] LABS: PLATELET COUNT (AUTO) 360 K/uL (150-450); RED BLOOD CELL COUNT(AUTO) 4.02 MIL/uL (4.50-5.90); RED CELL DISTRIBUTION WIDTH 20.7 % (11.5-14.5); WHITE BLOOD COUNT (AUTO) 6.1 K/uL (4.5-11.0)
[2024-12-22] MEDS: PANTOPRAZOLE SODIUM 40 MG/VIAL IVP SCH (07:06)
[2024-12-22 07:07] LABS: CALCIUM, TOTAL 8.6 mg/dL (8.8-10.5); CREATININE 6.07 mg/dL (0.60-1.30); GLOMERULAR FILTR. RATE CALC 10.0 mL/min (>60); GLUCOSE,RANDOM 56.0 mg/dL (70-110); SODIUM SERUM 140.0 mmol/L (136-145); UREA NITROGEN, BLOOD 30.0 mg/dL (7-18)
[2024-12-22] MEDS: ONDANSETRON HCL 4 MG/2 ML VIAL IVP PRN (07:15)
[2024-12-22 07:31] LABS: TROPONIN I-HIGH SENSITIVITY 149 ng/L (<76)
[2024-12-22] MEDS: CINACALCET HCL 30 MG TABLET PO SCH (08:25)
[2024-12-22] MEDS: SODIUM ZIRCONIUM CYCLOSILICATE 10 GM POWDER PACKET PO SCH (08:26)
[2024-12-22] MEDS: ASPIRIN 81 MG DR TABLET PO SCH (08:26)
[2024-12-22] MEDS ORDERED: PANTOPRAZOLE SODIUM 40 MG DR TABLET PO SCH (09:00)
[2024-12-22 10:10] LABS: % IRON SATURATION 20.6 % (30-44); IRON, SERUM 54.0 mcg/dL (50-175)
[2024-12-22 17:45] LABS: GLUCOMETER DEV NAME(LOC) 5N.2C; GLUCOSE,POINT OF CARE 72 MG/DL (70-110)
[2024-12-22 17:45] LABS: GLUCOMETER DEV NAME(LOC) 5N.2C; GLUCOSE,POINT OF CARE 124 MG/DL (70-110)
[2024-12-23] MEDS: ETHYL ALCOHOL 62% ANTISEPTIC NASAL SANITIZER 0.6 ML AMPUL NASAL SCH (01:21)
[2024-12-23 03:11] VITALS: BP 123/70; PULSE 73; RESP 18; TEMP 98.2; O2SAT 94
[2024-12-23 05:58] LABS: PLATELET COUNT (AUTO) 340 K/uL (150-450); RED BLOOD CELL COUNT(AUTO) 4.07 MIL/uL (4.50-5.90); RED CELL DISTRIBUTION WIDTH 20.6 % (11.5-14.5); WHITE BLOOD COUNT (AUTO) 6.9 K/uL (4.5-11.0)
[2024-12-23 06:07] LABS: CREATININE 5.45 mg/dL (0.60-1.30); GLUCOSE,RANDOM 94.0 mg/dL (70-110); SODIUM SERUM 138.0 mmol/L (136-145); UREA NITROGEN, BLOOD 43.0 mg/dL (7-18)
[2024-12-23 06:08] LABS: CALCIUM, TOTAL 8.7 mg/dL (8.8-10.5); GLOMERULAR FILTR. RATE CALC 11.0 mL/min (>60)
[2024-12-23 07:51] VITALS: BP 127/69; PULSE 78; RESP 19; TEMP 97.9; O2SAT 94
[2024-12-23 08:20] LABS: GLUCOMETER DEV NAME(LOC) 5N.2C; GLUCOSE,POINT OF CARE 78 MG/DL (70-110)
[2024-12-23] MEDS: SODIUM ZIRCONIUM CYCLOSILICATE 10 GM POWDER PACKET PO ONE (08:36)
[2024-12-23 13:14] VITALS: BP 108/54; PULSE 72; RESP 19; TEMP 97.7; O2SAT 95
[2024-12-23] MEDS ORDERED: INSULIN REGULAR, HUMAN 100 UNITS/ML IV ONE (13:15)
[2024-12-23] MEDS ORDERED: INSULIN REGULAR, HUMAN 100 UNITS/ML SQ ONE (13:15)
[2024-12-23] MEDS: SODIUM POLYSTYRENE SULFONATE 15 GM/60 ML SUSPENSION BOTTLE PO ONE ×2 (14:06→17:43)
[2024-12-23 16:52] VITALS: BP 125/71; PULSE 76; RESP 19; TEMP 97.8; O2SAT 94
[2024-12-23] MEDS: DEXTROSE 50%-WATER 25 GM/50 ML SYRINGE IVP ONE (17:43)
[2024-12-23] MEDS: INSULIN REGULAR, HUMAN 100 UNITS/ML IVP ONE (17:48)
[2024-12-23 19:54] VITALS: BP 127/73; PULSE 75; RESP 18; TEMP 97.9; O2SAT 95
[2024-12-24] VITALS (14 sets, daily range): BP systolic 116–164; BP diastolic 59–95; PULSE 73–87; RESP 18; TEMP 97.7–98.5; O2SAT 96–99
[2024-12-24 07:05] LABS: PLATELET COUNT (AUTO) 300 K/uL (150-450); RED BLOOD CELL COUNT(AUTO) 3.74 MIL/uL (4.50-5.90); RED CELL DISTRIBUTION WIDTH 20.6 % (11.5-14.5); WHITE BLOOD COUNT (AUTO) 7.8 K/uL (4.5-11.0)
[2024-12-24 07:21] LABS: CALCIUM, TOTAL 7.5 mg/dL (8.8-10.5); CREATININE 8.02 mg/dL (0.60-1.30); GLOMERULAR FILTR. RATE CALC 7.0 mL/min (>60); GLUCOSE,RANDOM 161.0 mg/dL (70-110); SODIUM SERUM 137.0 mmol/L (136-145); UREA NITROGEN, BLOOD 75.0 mg/dL (7-18)
[2024-12-24] MEDS: DEXTROSE 50%-WATER 25 GM/50 ML SYRINGE IVP PRN (08:12)
[2024-12-24] MEDS ORDERED: ALBUTEROL SULFATE 2.5 MG/0.5 ML NEB SOLUTION NEB ONE (08:45)
[2024-12-24 09:46] LABS: GLUCOMETER DEV NAME(LOC) 5N.2C; GLUCOSE,POINT OF CARE 35 MG/DL (70-110)
[2024-12-24 09:46] LABS: GLUCOMETER DEV NAME(LOC) 5N.2C; GLUCOSE,POINT OF CARE 123 MG/DL (70-110)
[2024-12-24] MEDS: SODIUM POLYSTYRENE SULFONATE 15 GM/60 ML SUSPENSION BOTTLE PO ONE (10:13)
[2024-12-24] MEDS ORDERED: SODIUM CHLORIDE 0.9% 2,000 ML ONE (16:54)
[2024-12-25 01:49] VITALS: BP 148/78; PULSE 78; RESP 18; TEMP 98.1; O2SAT 96
[2024-12-25 05:56] LABS: GLUCOMETER DEV NAME(LOC) 6N.2C; GLUCOSE,POINT OF CARE 97 MG/DL (70-110)
== END 2024-12-25 04:43 | disposition home or self-care (01) | DRG 280 ==
LOC: EMS 19:19 → EDH 20:50 → 5N 23:16 → 6S 12-24 14:10
PROVIDERS: ADMIT Internal Medicine; ATTEND Internal Medicine
PROC: 5A1D70Z Performance of Urinary Filtration, Intermittent, Less than 6 Hours Per Day (ICD-10-PCS; principal; 2024-12-22)
PROC: 5A1D70Z Performance of Urinary Filtration, Intermittent, Less than 6 Hours Per Day (ICD-10-PCS; 2024-12-24)
DX: I13.2 Hypertensive heart and chronic kidney disease with heart failure and with stage 5 chronic kidney disease, or end stage renal disease (principal); I50.43 Acute on chronic combined systolic (congestive) and diastolic (congestive) heart failure; I21.A1 Myocardial infarction type 2; N18.6 End stage renal disease; K92.2 Gastrointestinal hemorrhage, unspecified; F11.20 Opioid dependence, uncomplicated; E78.5 Hyperlipidemia, unspecified; E87.5 Hyperkalemia; J44.9 Chronic obstructive pulmonary disease, unspecified; G89.29 Other chronic pain; K21.9 Gastro-esophageal reflux disease without esophagitis; E11.22 Type 2 diabetes mellitus with diabetic chronic kidney disease; E11.65 Type 2 diabetes mellitus with hyperglycemia; E11.649 Type 2 diabetes mellitus with hypoglycemia without coma; Z96.41 Presence of insulin pump (external) (internal); Z91.199 Patient's noncompliance with other medical treatment and regimen due to unspecified reason; Z79.4 Long term (current) use of insulin; Z79.82 Long term (current) use of aspirin; Z79.899 Other long term (current) drug therapy; Z87.891 Personal history of nicotine dependence; Z88.5 Allergy status to narcotic agent; Z99.2 Dependence on renal dialysis; Z99.81 Dependence on supplemental oxygen; E11.43 Type 2 diabetes mellitus with diabetic autonomic (poly)neuropathy; K31.84 Gastroparesis
CPT/HCPCS: 71045; 80048; 82962; 83540; 83550; 83605; 83690; 83880; 84132; 84484; 85014; 85018; 85025; 85045; 87081; 87340; 90935; 93005; 93306; 99291; G0378; J1171; J1200; J1815; J2405; J2470; J7030; 36415-L1; 36415-TC

== ENCOUNTER 2025-02-26 19:18 | Inpatient (IN) | payer MEDICARE, OTHER ==
[~2025-02-26] VITALS: Ht 185.4 cm; Wt 77.0 kg
[~2025-02-26 19:18] MED LIST changes: +CINA60TA4 PO; +GLUC1AUT2 SQ; +OXYC-618 PO; +PROC5TAB54 PO
[2025-02-26 21:01] LABS: PLATELET COUNT (AUTO) 389 K/uL (150-450); RED BLOOD CELL COUNT(AUTO) 4.79 MIL/uL (4.50-5.90); RED CELL DISTRIBUTION WIDTH 17.9 % (11.5-14.5); WHITE BLOOD COUNT (AUTO) 8.5 K/uL (4.5-11.0)
[2025-02-26 21:10] LABS: ASPARTATE AMINOTRANSFERASE 11.0 U/L (15-37); TOTAL PROTEIN, SERUM 8.1 g/dL (6.4-8.2)
[2025-02-26] MEDS: METOCLOPRAMIDE HCL 5 MG/ML 2 ML VIAL IVP ONE (21:28)
[2025-02-26] MEDS ORDERED: GLUCAGON,HUMAN RECOMBINANT 1 MG VIAL SQ PRN (21:30)
[2025-02-26] MEDS ORDERED: BISACODYL 10 MG RECTAL RECTAL SUPPOSITORY PR PRN (21:30)
[2025-02-26] MEDS ORDERED: ACETAMINOPHEN 325 MG TABLET PO PRN (21:30)
[2025-02-26] MEDS ORDERED: OxyCODONE HCL/ACETAMINOPHEN 5-325 MG TABLET PO PRN (21:30)
[2025-02-26] MEDS ORDERED: ALBUTEROL SULFATE 2.5 MG/0.5 ML NEB SOLUTION NEB PRN (21:30)
[2025-02-26] MEDS ORDERED: IPRATROPIUM BROMIDE 0.5 MG/2.5 ML NEB SOLUTION NEB PRN (21:30)
[2025-02-26] MEDS ORDERED: ZOLPIDEM TARTRATE 5 MG TABLET PO PRN (21:30)
[2025-02-26 21:42] LABS: CALCIUM, TOTAL 9.4 mg/dL (8.8-10.5); CREATININE 5.6 mg/dL (0.60-1.30); GLOMERULAR FILTR. RATE CALC 11.0 mL/min (>60); GLUCOSE,RANDOM 123.0 mg/dL (70-110); SODIUM SERUM 138.0 mmol/L (136-145); UREA NITROGEN, BLOOD 21.0 mg/dL (7-18)
[2025-02-26] MEDS: HEPARIN SODIUM,PORCINE 5,000 UNITS/ML VIAL SQ SCH (23:06)
[2025-02-26] MEDS: ONDANSETRON HCL 4 MG/2 ML VIAL IVP PRN (23:45)
[2025-02-27] VITALS (7 sets, daily range): BP systolic 111–148; BP diastolic 50–91; PULSE 78–114; RESP 13–20; TEMP 97.3–98.6; O2SAT 94–99
[2025-02-27] MEDS: CINACALCET HCL 30 MG TABLET PO SCH (08:50)
[2025-02-27] MEDS: SODIUM ZIRCONIUM CYCLOSILICATE 10 GM POWDER PACKET PO SCH (08:50)
[2025-02-27] MEDS: ASPIRIN 81 MG DR TABLET PO SCH (08:51)
[2025-02-27] MEDS: PANTOPRAZOLE SODIUM 40 MG DR TABLET PO SCH (08:52)
[2025-02-27] MEDS: METOPROLOL TARTRATE 50 MG TABLET PO SCH (08:57)
[2025-02-27] MEDS: PROCHLORPERAZINE MALEATE 5 MG TABLET PO SCH (09:52)
[2025-02-27] MEDS: MAGNESIUM HYDROXIDE SUSPENSION 30 ML UDCUP PO PRN (09:52)
[2025-02-27] MEDS: OxyCODONE HCL/ACETAMINOPHEN 5-325 MG TABLET PO PRN (10:04)
[2025-02-27] MEDS: METOCLOPRAMIDE HCL 10 MG TABLET PO PRN (17:50)
[2025-02-27] MEDS: ATORVASTATIN CALCIUM 20 MG TABLET PO SCH (20:30)
[2025-02-28] VITALS (15 sets, daily range): BP systolic 112–179; BP diastolic 38–89; PULSE 76–107; RESP 18–19; TEMP 97.7–98.2; O2SAT 95–98
[2025-02-28] MEDS: ETHYL ALCOHOL 62% ANTISEPTIC NASAL SANITIZER 0.6 ML AMPUL NASAL SCH (20:17)
[2025-02-28] MEDS: BENZOCAINE/MENTHOL [CEPACOL] LOZENGE PO PRN (22:25)
[2025-03-01 04:11] VITALS: BP 137/72; PULSE 77; RESP 18; TEMP 98.4; O2SAT 100
[2025-03-01 08:00] VITALS: BP 165/73; PULSE 81; RESP 18; TEMP 98.4; O2SAT 99
[2025-03-01 11:12] VITALS: BP 131/73; PULSE 71; RESP 18; TEMP 98.3; O2SAT 96
== END 2025-03-01 12:25 | disposition home or self-care (01) | DRG 73 ==
LOC: EMS 19:18 → EDH 22:30 → 5S 02-27 → 4E 02-28 22:32
PROVIDERS: ADMIT Hospitalist; ATTEND Hospitalist
PROC: 5A1D70Z Performance of Urinary Filtration, Intermittent, Less than 6 Hours Per Day (ICD-10-PCS; principal; 2025-02-28)
DX: E11.43 Type 2 diabetes mellitus with diabetic autonomic (poly)neuropathy (principal); N18.6 End stage renal disease; I12.0 Hypertensive chronic kidney disease with stage 5 chronic kidney disease or end stage renal disease; K31.84 Gastroparesis; F41.9 Anxiety disorder, unspecified; E78.5 Hyperlipidemia, unspecified; Z96.41 Presence of insulin pump (external) (internal); E11.22 Type 2 diabetes mellitus with diabetic chronic kidney disease; Z79.4 Long term (current) use of insulin; Z79.899 Other long term (current) drug therapy; Z79.82 Long term (current) use of aspirin; Z99.2 Dependence on renal dialysis; Z88.5 Allergy status to narcotic agent
CPT/HCPCS: 80048; 80076; 83690; 85025; 87081; 87340; 90935; 93005; 96374; 96375; 99285; G0378; J1171; J1644; J2405; J2765

== ENCOUNTER 2025-03-20 17:06 | Inpatient (IN) | payer MEDICARE, OTHER ==
[~2025-03-20] VITALS: Ht 182.9 cm; Wt 80.3 kg
[2025-03-20 18:29] LABS: PLATELET COUNT (AUTO) 402 K/uL (150-450); RED BLOOD CELL COUNT(AUTO) 3.95 MIL/uL (4.50-5.90); RED CELL DISTRIBUTION WIDTH 17.7 % (11.5-14.5); WHITE BLOOD COUNT (AUTO) 6.0 K/uL (4.5-11.0)
[2025-03-20 18:41] LABS: CALCIUM, TOTAL 9.7 mg/dL (8.8-10.5); CREATININE 8.01 mg/dL (0.60-1.30); GLOMERULAR FILTR. RATE CALC 7.0 mL/min (>60); GLUCOSE,RANDOM 122.0 mg/dL (70-110); SODIUM SERUM 139.0 mmol/L (136-145); UREA NITROGEN, BLOOD 37.0 mg/dL (7-18)
[2025-03-20 18:45] LABS: ASPARTATE AMINOTRANSFERASE 10.0 U/L (15-37); TOTAL PROTEIN, SERUM 7.5 g/dL (6.4-8.2)
[2025-03-20] MEDS: MORPHINE SULFATE 2 MG/ML SYRINGE IVP ONE (18:45)
[2025-03-20] MEDS: METOCLOPRAMIDE HCL 5 MG/ML 2 ML VIAL IVP ONE (18:45)
[2025-03-20] MEDS: SODIUM CHLORIDE 0.9% 1,000 ML IV ONE (18:50)
[2025-03-20] MEDS ORDERED: INSULIN LISPRO 100 UNITS/ML SQ PRN (19:00)
[2025-03-20] MEDS: LABETALOL HCL 5 MG/ML 20 ML VIAL IVP ONE (19:00)
[2025-03-20] MEDS ORDERED: METOCLOPRAMIDE HCL 5 MG/ML 2 ML VIAL IVP PRN (19:00)
[2025-03-20] MEDS: SODIUM ZIRCONIUM CYCLOSILICATE 10 GM POWDER PACKET PO ONE (19:12)
[2025-03-20] MEDS ORDERED: ZOLPIDEM TARTRATE 5 MG TABLET PO PRN (19:15)
[2025-03-20] MEDS ORDERED: ACETAMINOPHEN 325 MG TABLET PO PRN (19:15)
[2025-03-20] MEDS: DOCUSATE SODIUM 100 MG CAPSULE PO SCH (20:04)
[2025-03-20 20:29] VITALS: BP 221/95; PULSE 107; RESP 18; TEMP 98.1; O2SAT 97
[2025-03-20 21:28] VITALS: BP 158/74
[2025-03-20] MEDS: ONDANSETRON HCL 4 MG/2 ML VIAL IVP PRN (23:05)
[2025-03-21] VITALS (15 sets, daily range): BP systolic 136–215; BP diastolic 62–109; PULSE 80–100; RESP 17–19; TEMP 97.7–98.6; O2SAT 94–99
[2025-03-21 06:00] LABS: GLUCOMETER DEV NAME(LOC) 5N.2C; GLUCOSE,POINT OF CARE 163 MG/DL (70-110)
[2025-03-21 06:00] LABS: GLUCOMETER DEV NAME(LOC) 5N.2C; GLUCOSE,POINT OF CARE 130 MG/DL (70-110)
[2025-03-21] MEDS: FAMOTIDINE 20 MG TABLET PO SCH (08:43)
[2025-03-21] MEDS: FOLIC ACID/VIT B COMPLEX AND C TABLET PO SCH (11:35)
[2025-03-21 13:00] LABS: CALCIUM, TOTAL 9.1 mg/dL (8.8-10.5); CREATININE 9.52 mg/dL (0.60-1.30); GLOMERULAR FILTR. RATE CALC 6.0 mL/min (>60); GLUCOSE,RANDOM 124.0 mg/dL (70-110); SODIUM SERUM 139.0 mmol/L (136-145); UREA NITROGEN, BLOOD 42.0 mg/dL (7-18)
[2025-03-22] VITALS (8 sets, daily range): BP systolic 158–177; BP diastolic 72–98; PULSE 91–104; RESP 18–19; TEMP 97.9–98.4; O2SAT 95–98
[2025-03-22 06:27] LABS: PLATELET COUNT (AUTO) 344 K/uL (150-450); RED BLOOD CELL COUNT(AUTO) 3.45 MIL/uL (4.50-5.90); RED CELL DISTRIBUTION WIDTH 18.0 % (11.5-14.5); WHITE BLOOD COUNT (AUTO) 6.2 K/uL (4.5-11.0)
[2025-03-22 07:09] LABS: CALCIUM, TOTAL 8.7 mg/dL (8.8-10.5); CREATININE 6.77 mg/dL (0.60-1.30); GLOMERULAR FILTR. RATE CALC 9.0 mL/min (>60); GLUCOSE,RANDOM 111.0 mg/dL (70-110); SODIUM SERUM 136.0 mmol/L (136-145); UREA NITROGEN, BLOOD 33.0 mg/dL (7-18)
[2025-03-22] MEDS: SODIUM ZIRCONIUM CYCLOSILICATE 10 GM POWDER PACKET PO ONE (08:50)
[2025-03-23] VITALS (15 sets, daily range): BP systolic 131–181; BP diastolic 60–111; PULSE 54–108; RESP 17–19; TEMP 97.9–98.4; O2SAT 94–100
[2025-03-23 06:25] LABS: CALCIUM, TOTAL 8.7 mg/dL (8.8-10.5); CREATININE 9.96 mg/dL (0.60-1.30); GLOMERULAR FILTR. RATE CALC 6.0 mL/min (>60); GLUCOSE,RANDOM 100.0 mg/dL (70-110); SODIUM SERUM 136.0 mmol/L (136-145); UREA NITROGEN, BLOOD 72.0 mg/dL (7-18)
[2025-03-23 07:07] LABS: PHOSPHORUS 10.1 mg/dL (2.5-4.9)
[2025-03-23] MEDS: DEXTROSE 50%-WATER 25 GM/50 ML SYRINGE IVP PRN (10:13)
[2025-03-23] MEDS: DEXTROSE 50%-WATER 25 GM/50 ML SYRINGE IVP ONE ×2 (10:13→10:23)
[2025-03-23] MEDS: CALCIUM GLUCONATE 100 MG/ML 10 ML IVP ONE (10:14)
[2025-03-23] MEDS: INSULIN REGULAR, HUMAN 100 UNITS/ML IVP ONE (10:17)
[2025-03-23] MEDS ORDERED: SODIUM CHLORIDE 0.9% 2,000 ML ONE (10:34)
[2025-03-23 12:46] LABS: GLUCOMETER DEV NAME(LOC) 5S.1E; GLUCOSE,POINT OF CARE 55 MG/DL (70-110)
[2025-03-23 13:16] LABS: GLUCOMETER DEV NAME(LOC) 5S.1E; GLUCOSE,POINT OF CARE 166 MG/DL (70-110)
[2025-03-23 17:03] LABS: PLATELET COUNT (AUTO) 299 K/uL (150-450); RED BLOOD CELL COUNT(AUTO) 3.42 MIL/uL (4.50-5.90); RED CELL DISTRIBUTION WIDTH 18.0 % (11.5-14.5); WHITE BLOOD COUNT (AUTO) 6.2 K/uL (4.5-11.0)
[2025-03-23 17:15] LABS: CALCIUM, TOTAL 8.2 mg/dL (8.8-10.5); CREATININE 5.53 mg/dL (0.60-1.30); GLOMERULAR FILTR. RATE CALC 11.0 mL/min (>60); GLUCOSE,RANDOM 95.0 mg/dL (70-110); SODIUM SERUM 141.0 mmol/L (136-145); UREA NITROGEN, BLOOD 32.0 mg/dL (7-18)
[2025-03-24] VITALS (17 sets, daily range): BP systolic 152–192; BP diastolic 57–96; PULSE 93–112; RESP 17–20; TEMP 97.3–98.4; O2SAT 95–99
[2025-03-24 06:51] LABS: GLUCOMETER DEV NAME(LOC) 5S.1E; GLUCOSE,POINT OF CARE 50 MG/DL (70-110)
[2025-03-24 06:51] LABS: GLUCOMETER DEV NAME(LOC) 5S.1E; GLUCOSE,POINT OF CARE 127 MG/DL (70-110)
[2025-03-24 06:51] LABS: GLUCOMETER DEV NAME(LOC) 5S.1E; GLUCOSE,POINT OF CARE 36 MG/DL (70-110)
[2025-03-24 06:51] LABS: GLUCOMETER DEV NAME(LOC) 5S.1E; GLUCOSE,POINT OF CARE 112 MG/DL (70-110)
[2025-03-24 06:51] LABS: GLUCOMETER DEV NAME(LOC) 5S.1E; GLUCOSE,POINT OF CARE 115 MG/DL (70-110)
[2025-03-24 06:51] LABS: GLUCOMETER DEV NAME(LOC) 5S.1E; GLUCOSE,POINT OF CARE 99 MG/DL (70-110)
[2025-03-24 07:50] LABS: GLUCOMETER DEV NAME(LOC) 5S.1E; GLUCOSE,POINT OF CARE 104 MG/DL (70-110)
[2025-03-24 09:08] LABS: PLATELET COUNT (AUTO) 302 K/uL (150-450); RED BLOOD CELL COUNT(AUTO) 3.40 MIL/uL (4.50-5.90); RED CELL DISTRIBUTION WIDTH 18.1 % (11.5-14.5); WHITE BLOOD COUNT (AUTO) 6.5 K/uL (4.5-11.0)
[2025-03-24 09:22] LABS: CALCIUM, TOTAL 8.8 mg/dL (8.8-10.5); CREATININE 7.94 mg/dL (0.60-1.30); GLOMERULAR FILTR. RATE CALC 7.0 mL/min (>60); GLUCOSE,RANDOM 220.0 mg/dL (70-110); SODIUM SERUM 134.0 mmol/L (136-145); UREA NITROGEN, BLOOD 64.0 mg/dL (7-18)
[2025-03-24] MEDS: ONDANSETRON 4 MG TABLET PO PRN (13:23)
[2025-03-24 22:21] LABS: GLUCOMETER DEV NAME(LOC) 5S.1E; GLUCOSE,POINT OF CARE 94 MG/DL (70-110)
[2025-03-25] VITALS (13 sets, daily range): BP systolic 99–161; BP diastolic 57–95; PULSE 78–111; RESP 18–19; TEMP 97.3–98.1; O2SAT 93–99
[2025-03-25] MEDS ORDERED: SODIUM CHLORIDE 0.9% 2,000 ML ONE (04:44)
[2025-03-25 05:56] LABS: GLUCOMETER DEV NAME(LOC) 5S.1E; GLUCOSE,POINT OF CARE 75 MG/DL (70-110)
[2025-03-25 06:46] LABS: PLATELET COUNT (AUTO) 270 K/uL (150-450); RED BLOOD CELL COUNT(AUTO) 3.24 MIL/uL (4.50-5.90); RED CELL DISTRIBUTION WIDTH 17.4 % (11.5-14.5); WHITE BLOOD COUNT (AUTO) 6.7 K/uL (4.5-11.0)
[2025-03-25 06:55] LABS: CALCIUM, TOTAL 8.8 mg/dL (8.8-10.5); CREATININE 6.28 mg/dL (0.60-1.30); GLOMERULAR FILTR. RATE CALC 10.0 mL/min (>60); GLUCOSE,RANDOM 71.0 mg/dL (70-110); SODIUM SERUM 140.0 mmol/L (136-145); UREA NITROGEN, BLOOD 47.0 mg/dL (7-18)
[2025-03-25 12:31] LABS: GLUCOMETER DEV NAME(LOC) 5S.1E; GLUCOSE,POINT OF CARE 132 MG/DL (70-110)
== END 2025-03-25 13:45 | disposition home or self-care (01) | DRG 640 ==
LOC: EMS 17:06 → EDH 19:01 → 5S 20:18
PROVIDERS: ADMIT Internal Medicine; ATTEND Internal Medicine
PROC: 5A1D70Z Performance of Urinary Filtration, Intermittent, Less than 6 Hours Per Day (ICD-10-PCS; principal; 2025-03-21)
PROC: 5A1D70Z Performance of Urinary Filtration, Intermittent, Less than 6 Hours Per Day (ICD-10-PCS; 2025-03-23)
PROC: 5A1D70Z Performance of Urinary Filtration, Intermittent, Less than 6 Hours Per Day (ICD-10-PCS; 2025-03-24)
PROC: 5A1D70Z Performance of Urinary Filtration, Intermittent, Less than 6 Hours Per Day (ICD-10-PCS; 2025-03-25)
DX: E87.5 Hyperkalemia (principal); N18.6 End stage renal disease; I12.0 Hypertensive chronic kidney disease with stage 5 chronic kidney disease or end stage renal disease; E87.70 Fluid overload, unspecified; E11.43 Type 2 diabetes mellitus with diabetic autonomic (poly)neuropathy; I16.0 Hypertensive urgency; G89.29 Other chronic pain; K31.84 Gastroparesis; E78.5 Hyperlipidemia, unspecified; F41.9 Anxiety disorder, unspecified; I10 Essential (primary) hypertension; D63.1 Anemia in chronic kidney disease; Z96.41 Presence of insulin pump (external) (internal); E11.22 Type 2 diabetes mellitus with diabetic chronic kidney disease; E11.649 Type 2 diabetes mellitus with hypoglycemia without coma; E11.65 Type 2 diabetes mellitus with hyperglycemia; Z79.82 Long term (current) use of aspirin; Z79.899 Other long term (current) drug therapy; Z79.4 Long term (current) use of insulin; Z88.5 Allergy status to narcotic agent; Z99.2 Dependence on renal dialysis
CPT/HCPCS: 80048; 80076; 82962; 83690; 83735; 84100; 85025; 87081; 90935; 93005; 99285; J0360; J0610; J1171; J1815; J2270; J2405; J2765; J3490; J7030

== ENCOUNTER 2025-04-08 13:10 | Emergency (ER) | payer MEDICARE, OTHER ==
[~2025-04-08] VITALS: Ht 182.9 cm; Wt 80.0 kg
[2025-04-08 13:15] VITALS: TEMP 98.2
[2025-04-08 13:41] LABS: PLATELET COUNT (AUTO) 402 K/uL (150-450); RED BLOOD CELL COUNT(AUTO) 3.84 MIL/uL (4.50-5.90); RED CELL DISTRIBUTION WIDTH 17.8 % (11.5-14.5); WHITE BLOOD COUNT (AUTO) 6.7 K/uL (4.5-11.0)
[2025-04-08 13:51] LABS: CALCIUM, TOTAL 8.9 mg/dL (8.8-10.5); CREATININE 5.95 mg/dL (0.60-1.30); GLOMERULAR FILTR. RATE CALC 10.0 mL/min (>60); GLUCOSE,RANDOM 274.0 mg/dL (70-110); SODIUM SERUM 137.0 mmol/L (136-145); UREA NITROGEN, BLOOD 15.0 mg/dL (7-18)
[2025-04-08 15:39] LABS: TROPONIN I-HIGH SENSITIVITY 103 ng/L (<76)
[2025-04-08 16:15] VITALS: BP 149/72; PULSE 92; RESP 18; O2SAT 99
[2025-04-08] MEDS: OxyCODONE HCL/ACETAMINOPHEN 5-325 MG TABLET PO ONE (16:42)
== END 2025-04-08 17:47 | disposition home or self-care (01) ==
LOC: EMS 13:13
DX: S30.0XXA Contusion of lower back and pelvis, initial encounter (principal); E11.22 Type 2 diabetes mellitus with diabetic chronic kidney disease; N18.6 End stage renal disease; R53.1 Weakness; F41.9 Anxiety disorder, unspecified; R42 Dizziness and giddiness; Z98.890 Other specified postprocedural states; Z79.4 Long term (current) use of insulin; Z88.5 Allergy status to narcotic agent; Z91.013 Allergy to seafood; Z99.2 Dependence on renal dialysis; Z79.899 Other long term (current) drug therapy; Z79.82 Long term (current) use of aspirin; W19.XXXA Unspecified fall, initial encounter; Y93.89 Activity, other specified; Y92.89 Other specified places as the place of occurrence of the external cause; Y99.8 Other external cause status
CPT/HCPCS: 71045; 72220; 80048; 84484; 85025; 93005; 99285; 36415-L1; 36415-TC

== ENCOUNTER 2025-04-17 19:21 | Inpatient (IN) | payer MEDICARE, OTHER ==
[~2025-04-17] VITALS: Ht 182.9 cm; Wt 80.0 kg
[2025-04-17 19:26] VITALS: PULSE 97; RESP 20; O2SAT 94
[2025-04-17 20:05] LABS: PLATELET COUNT (AUTO) 306 K/uL (150-450); RED BLOOD CELL COUNT(AUTO) 3.53 MIL/uL (4.50-5.90); RED CELL DISTRIBUTION WIDTH 17.9 % (11.5-14.5); WHITE BLOOD COUNT (AUTO) 7.1 K/uL (4.5-11.0)
[2025-04-17 20:19] LABS: CALCIUM, TOTAL 9.0 mg/dL (8.8-10.5); CREATININE 11.12 mg/dL (0.60-1.30); GLOMERULAR FILTR. RATE CALC 5 mL/min (>60); GLUCOSE,RANDOM 107 mg/dL (70-110); SODIUM SERUM 141 mmol/L (136-145); UREA NITROGEN, BLOOD 50 mg/dL (7-18)
[2025-04-17 20:21] LABS: TROPONIN I-HIGH SENSITIVITY 126 ng/L (<76)
[2025-04-17] MEDS ORDERED: INSULIN REGULAR, HUMAN 100 UNITS/ML IVP ONE (20:30)
[2025-04-17 20:44] LABS: ASPARTATE AMINOTRANSFERASE 13.0 U/L (15-37); TOTAL PROTEIN, SERUM 7.0 g/dL (6.4-8.2)
[2025-04-17 20:55] LABS: GLUCOMETER DEV NAME(LOC) ER.7; GLUCOSE,POINT OF CARE 56 MG/DL (70-110)
[2025-04-17] MEDS: MORPHINE SULFATE 2 MG/ML SYRINGE IVP ONE (20:55)
[2025-04-17] MEDS: CALCIUM GLUCONATE 1,000 MG in DEXTROSE 5%-WATER 50 ML IV ONE (20:55)
[2025-04-17] MEDS: DEXTROSE 50%-WATER 25 GM/50 ML SYRINGE IVP ONE (20:55)
[2025-04-17] MEDS: SODIUM ZIRCONIUM CYCLOSILICATE 10 GM POWDER PACKET PO ONE (20:55)
[2025-04-17] MEDS ORDERED: ACETAMINOPHEN 325 MG TABLET PO PRN (21:00)
[2025-04-17] MEDS ORDERED: INSULIN LISPRO 100 UNITS/ML SQ PRN (21:00)
[2025-04-17] MEDS ORDERED: ZOLPIDEM TARTRATE 5 MG TABLET PO PRN (21:00)
[2025-04-17] MEDS ORDERED: BISACODYL 10 MG RECTAL RECTAL SUPPOSITORY PR PRN (21:00)
[2025-04-17] MEDS ORDERED: ALBUTEROL SULFATE 2.5 MG/0.5 ML NEB SOLUTION NEB PRN (21:00)
[2025-04-17] MEDS ORDERED: 0.9% SODIUM CHLORIDE 15 ML NEB SOLUTION NEB ONE (21:15)
[2025-04-17] MEDS: ALBUTEROL SULFATE 2.5 MG/0.5 ML 5 ML NEB SOLUTION NEB ONE (21:25)
[2025-04-17 21:30] VITALS: PULSE 97; RESP 20; O2SAT 94
[2025-04-17] MEDS: METOPROLOL TARTRATE 50 MG TABLET PO SCH (21:57)
[2025-04-17] MEDS: DOCUSATE SODIUM 100 MG CAPSULE PO SCH (21:57)
[2025-04-17 22:06] VITALS: BP 192/105; PULSE 107; RESP 18; TEMP 98.2; O2SAT 99
[2025-04-17] MEDS: HEPARIN SODIUM,PORCINE 5,000 UNITS/ML VIAL SQ SCH (23:57)
[2025-04-17 23:58] LABS: TROPONIN I-HIGH SENSITIVITY 123 ng/L (<76)
[2025-04-17] MEDS: ONDANSETRON HCL 4 MG/2 ML VIAL IVP PRN (23:58)
[2025-04-18] VITALS (18 sets, daily range): BP systolic 143–179; BP diastolic 79–106; PULSE 80–92; RESP 16–19; TEMP 97.9–98.3; O2SAT 94–99
[2025-04-18] MEDS: FAMOTIDINE 20 MG TABLET PO SCH (08:17)
[2025-04-18] MEDS: ASPIRIN 81 MG CHEWABLE TABLET PO SCH (08:17)
[2025-04-18 11:51] LABS: GLUCOMETER DEV NAME(LOC) 5N.1D; GLUCOSE,POINT OF CARE 140 MG/DL (70-110)
[2025-04-18 12:23] LABS: CALCIUM, TOTAL 8.9 mg/dL (8.8-10.5); CREATININE 5.88 mg/dL (0.60-1.30); GLOMERULAR FILTR. RATE CALC 10.0 mL/min (>60); GLUCOSE,RANDOM 141.0 mg/dL (70-110); SODIUM SERUM 139.0 mmol/L (136-145); UREA NITROGEN, BLOOD 22.0 mg/dL (7-18)
[2025-04-18 12:26] LABS: PHOSPHORUS 6.0 mg/dL (2.5-4.9)
[2025-04-18 12:36] LABS: GLUCOMETER DEV NAME(LOC) 5S.1E; GLUCOSE,POINT OF CARE 85 MG/DL (70-110)
[2025-04-18] MEDS: DEXTROSE 50%-WATER 25 GM/50 ML SYRINGE IVP PRN (16:40)
[2025-04-18 18:16] LABS: GLUCOMETER DEV NAME(LOC) 5N.1D; GLUCOSE,POINT OF CARE 104 MG/DL (70-110)
[2025-04-18 21:46] LABS: GLUCOMETER DEV NAME(LOC) 5N.1D; GLUCOSE,POINT OF CARE 145 MG/DL (70-110)
[2025-04-19] VITALS (15 sets, daily range): BP systolic 148–173; BP diastolic 80–104; PULSE 77–98; RESP 8–19; TEMP 98–98.4; O2SAT 93–99
[2025-04-19 07:28] LABS: PLATELET COUNT (AUTO) 293 K/uL (150-450); RED BLOOD CELL COUNT(AUTO) 3.59 MIL/uL (4.50-5.90); RED CELL DISTRIBUTION WIDTH 17.9 % (11.5-14.5); WHITE BLOOD COUNT (AUTO) 9.8 K/uL (4.5-11.0)
[2025-04-19 07:39] LABS: CALCIUM, TOTAL 8.9 mg/dL (8.8-10.5); CREATININE 9.24 mg/dL (0.60-1.30); GLOMERULAR FILTR. RATE CALC 6.0 mL/min (>60); GLUCOSE,RANDOM 149.0 mg/dL (70-110); SODIUM SERUM 138.0 mmol/L (136-145); UREA NITROGEN, BLOOD 56.0 mg/dL (7-18)
[2025-04-19] MEDS: SODIUM ZIRCONIUM CYCLOSILICATE 10 GM POWDER PACKET PO ONE (08:07)
[2025-04-19] MEDS ORDERED: SODIUM CHLORIDE 0.9% 2,000 ML ONE (08:24)
[2025-04-20] VITALS (15 sets, daily range): BP systolic 141–176; BP diastolic 83–97; PULSE 73–82; RESP 17–18; TEMP 98–98.2; O2SAT 76–96
[2025-04-20 06:00] LABS: GLUCOMETER DEV NAME(LOC) 5N.1D; GLUCOSE,POINT OF CARE 110 MG/DL (70-110)
[2025-04-20 06:00] LABS: GLUCOMETER DEV NAME(LOC) 5N.1D; GLUCOSE,POINT OF CARE 92 MG/DL (70-110)
[2025-04-20 06:01] LABS: GLUCOMETER DEV NAME(LOC) 5N.1D; GLUCOSE,POINT OF CARE 101 MG/DL (70-110)
[2025-04-20 06:01] LABS: GLUCOMETER DEV NAME(LOC) 5N.1D; GLUCOSE,POINT OF CARE 117 MG/DL (70-110)
[2025-04-20 06:17] LABS: PLATELET COUNT (AUTO) 262 K/uL (150-450); RED BLOOD CELL COUNT(AUTO) 3.26 MIL/uL (4.50-5.90); RED CELL DISTRIBUTION WIDTH 18.5 % (11.5-14.5); WHITE BLOOD COUNT (AUTO) 5.7 K/uL (4.5-11.0)
[2025-04-20 07:00] LABS: CALCIUM, TOTAL 9.2 mg/dL (8.8-10.5); CREATININE 7.48 mg/dL (0.60-1.30); GLOMERULAR FILTR. RATE CALC 8.0 mL/min (>60); GLUCOSE,RANDOM 71.0 mg/dL (70-110); SODIUM SERUM 141.0 mmol/L (136-145); UREA NITROGEN, BLOOD 40.0 mg/dL (7-18)
[2025-04-20 09:26] LABS: GLUCOMETER DEV NAME(LOC) 5S.1E; GLUCOSE,POINT OF CARE 67 MG/DL (70-110)
[2025-04-20 09:26] LABS: GLUCOMETER DEV NAME(LOC) 5S.1E; GLUCOSE,POINT OF CARE 105 MG/DL (70-110)
[2025-04-20 12:40] LABS: GLUCOMETER DEV NAME(LOC) 5S.1E; GLUCOSE,POINT OF CARE 103 MG/DL (70-110)
[2025-04-20] MEDS ORDERED: SODIUM CHLORIDE 0.9% 2,000 ML ONE (12:54)
[2025-04-21 00:21] VITALS: BP 156/78; PULSE 78; RESP 18; TEMP 98.4; O2SAT 95
[2025-04-21 04:23] VITALS: BP 143/73; PULSE 70; RESP 17; TEMP 98.2; O2SAT 95
[2025-04-21 08:25] VITALS: BP 150/78; PULSE 78; RESP 18; TEMP 98; O2SAT 97
[2025-04-22 08:26] LABS: GLUCOMETER DEV NAME(LOC) 5S.1E; GLUCOSE,POINT OF CARE 181 MG/DL (70-110)
[2025-04-22 08:26] LABS: GLUCOMETER DEV NAME(LOC) 5S.1E; GLUCOSE,POINT OF CARE 119 MG/DL (70-110)
== END 2025-04-21 09:30 | disposition home or self-care (01) | DRG 640 ==
LOC: EMS 19:21 → EDH 20:42 → 5S 21:40
PROVIDERS: ADMIT Internal Medicine; ATTEND Internal Medicine
PROC: 5A1D70Z Performance of Urinary Filtration, Intermittent, Less than 6 Hours Per Day (ICD-10-PCS; principal; 2025-04-18)
PROC: 5A1D70Z Performance of Urinary Filtration, Intermittent, Less than 6 Hours Per Day (ICD-10-PCS; 2025-04-19)
PROC: 5A1D70Z Performance of Urinary Filtration, Intermittent, Less than 6 Hours Per Day (ICD-10-PCS; 2025-04-20)
DX: E87.5 Hyperkalemia (principal); N18.6 End stage renal disease; D69.6 Thrombocytopenia, unspecified; Z99.2 Dependence on renal dialysis; I16.0 Hypertensive urgency; D63.1 Anemia in chronic kidney disease; E10.65 Type 1 diabetes mellitus with hyperglycemia; R07.9 Chest pain, unspecified; I10 Essential (primary) hypertension; E87.70 Fluid overload, unspecified; E10.22 Type 1 diabetes mellitus with diabetic chronic kidney disease; G89.4 Chronic pain syndrome; E10.649 Type 1 diabetes mellitus with hypoglycemia without coma; K31.84 Gastroparesis; F41.9 Anxiety disorder, unspecified; E10.43 Type 1 diabetes mellitus with diabetic autonomic (poly)neuropathy; Z96.41 Presence of insulin pump (external) (internal); Z79.899 Other long term (current) drug therapy; Z88.5 Allergy status to narcotic agent; Z79.82 Long term (current) use of aspirin
CPT/HCPCS: 71045; 80048; 80076; 82962; 83735; 83880; 84100; 84132; 84484; 85025; 87081; 87340; 90935; 93005; 94640; 96365; 96375; 99291; G0378; J0360; J0610; J1171; J1200; J1644; J2270; J2405; J7030; J7060; 36415-L1; 36415-TC